=== PATIENT | female | born 1965 | race Caucasian/White ===

== ENCOUNTER 2022-10-03 12:37 | Outpatient (CLI) | payer BC, SELFPAY | END 2022-10-03 12:38 | disposition home or self-care (01) | LOC: NFLDREF 10-10 14:45 | PROVIDERS: PCP Family Medicine; Visit Provider Student in an Organized Health Care Education/Training Program | DX: R31.9 Hematuria, unspecified (principal); N39.0 Urinary tract infection, site not specified | CPT/HCPCS: 87086 ==

== ENCOUNTER 2025-02-26 10:07 | Outpatient (CLI) | payer OTHER, SELFPAY ==
--- NOTE | 2025-02-26 11:34 | P.ANES_ITS ---
Anesthesia Charges Start Date/Time Anesthesia Start Date: 02/26/25 Anesthesia Start Time: 11:08 Stop Date/Time Anesthesia Stop Date: 02/26/25 Anesthesia Stop Time: 11:32 Coding CPT Codes CPT Codes: ARNULFO LWAmbrose INTST NDSC NOS - 88521 ([id number]) P2 - PATIENT W/MILD SYST DISEASE, QX - PUBLISHING DIRECTOR SVC W/ MD MED DIRECTION, QK - PROCESS CONTROL TECHNICIAN 2-4 CNCRNT ANEFlower PROC
--- NOTE | 2025-02-26 11:34 | W.ANESCHARGE ---
Anesthesia Charges Start Date/Time Anesthesia Start Date: 02/26/25 Anesthesia Start Time: 11:08 Stop Date/Time Anesthesia Stop Date: 02/26/25 Anesthesia Stop Time: 11:32 Coding CPT Codes CPT Codes: ARNULFO LWAmbrose INTST NDSC NOS - 85442 ([id number]) P2 - PATIENT W/MILD SYST DISEASE, QX - TOOL SMITH SVC W/ MD MED DIRECTION, QK - MACHINE WASHER 2-4 CNCRNT ANEFlower PROC
--- NOTE | 2025-02-26 12:59 | P.ANES_ITS ---
Anesthesia Charges Start Date/Time Anesthesia Start Date: 02/26/25 Anesthesia Start Time: 11:08 Stop Date/Time Anesthesia Stop Date: 02/26/25 Anesthesia Stop Time: 11:32 Coding CPT Codes CPT Codes: ARNULFO LWR INTST NDSC NOS - 93778 ([id number]) P2 - PATIENT W/MILD SYST DISEASE, QK - DIRECTOR OF TEENAGE ACTIVITIES 2-4 CNCRNT ANES PROC, QX - FICTION AND NONFICTION WRITER PROSE SVC W/ MD MED DIRECTION
--- NOTE | 2025-02-26 12:59 | W.ANESCHARGE ---
Anesthesia Charges Start Date/Time Anesthesia Start Date: 02/26/25 Anesthesia Start Time: 11:08 Stop Date/Time Anesthesia Stop Date: 02/26/25 Anesthesia Stop Time: 11:32 Coding CPT Codes CPT Codes: ARNULFO LWR INTST NDSC NOS - 39064 ([id number]) P2 - PATIENT W/MILD SYST DISEASE, QK - CHIP TESTER 2-4 CNCRNT ANES PROC, QX - ART PROFESSOR SVC W/ MD MED DIRECTION
== END 2025-02-26 10:08 | disposition home or self-care (01) ==
PROVIDERS: PCP Family Medicine; Visit Provider Internal Medicine Gastroenterology
DX: Z12.11 Encounter for screening for malignant neoplasm of colon (principal); D12.3 Benign neoplasm of transverse colon; Z86.0101 Personal history of adenomatous and serrated colon polyps
CPT/HCPCS: 00811; 45385; 88305; J2704

== ENCOUNTER 2025-09-30 22:47 | Emergency (ER) | payer OTHER, SELFPAY ==
--- OUTSIDE RECORDS SUMMARY | 2025-09-30 22:50 | XMS_ITS | Patient Health Record ---
Author Organization [facility] Address [address] [place] [address] Care Team Providers Care Mechanical Project Engineer Name Role Phone Catalina Acosta Primary Care Provider HUBER Russell Unavailable [phone] Reason For Referral No Information Medications Medication SIG (Take, Route, Fr equency, Duration) Notes Start Date End Date Status CeleXA Active Aspirin Active metFORMIN HCl Active glipiZIDE Not-Taking Rhinocort Aqua Activ e Saline Nasal Kopperl A ctive Simvastatin Active Maxair Autohaler Act matthew Problems Problem Type SNOMED Code ICD Code Onset Dates Problem Status W/U Status Risk Notes Problem Allergic rhinitis (30905346) Allergic rhinitis (J30.9) Active confirmed Problem Tobacco abuse (0605601756) Tobacco abuse (Z72.0) Active confirmed Plan Of Treatment No Information Insurance Providers Payer Name Payer Address Payer Phone Subscriber Number Group Number Insured Name Patient Relationship to Insured Coverage Start Date Coverage End Date [facility] [address] [place], [place] [id number] Self - patient is the insured Medical (General) History Medical History History ICD Code diabetes hypercholesterolemia allergies and asthma Allergic rhinitis, cause unspecified Tobacco abuse Surgical History Surgery Date(Month/Year) tonsils and adenoids septoplasty with turbinate surgery May 2013
[2025-09-30 22:57] VITALS: BP 172/97; PULSE 105; RESP 16; TEMP 36.6; O2SAT 92; BMI 25.7
[2025-09-30 23:15] LABS: Appearance Urine Cloudy (Clear)
--- NOTE | 2025-09-30 23:21 | ED.GENADULT ---
HPI - General Adult General Time Seen by Provider: 23:21 Date Seen: 09/30/25 Chief complaint: Flank Pain Stated complaint: back, L side pain Time Seen by Provider: 09/30/25 23:20 Source: patient and family (daughter) Mode of arrival: ambulatory History of Present Illness HPI narrative: Ct is a 60 yo female who has a past medical history of diabetes, irritable bowel syndrome, who presents to the emergency department for evaluation of left flank pain. Patient complains of sudden onset of severe pain in her left flank that radiates down into her left lower abdomen/groin region. Patient reports pain worsening throughout the evening associated with multiple episodes of nausea, vomiting. Patient denies any fever, chills, chest pain, shortness of breath. Denies any dysuria. Patient reports a small amount of hematuria earlier this evening. No medications prior to arrival. Patient reports history of cholecystectomy, hysterectomy in the past. Related Data Home Medications ?Medication ?Instructions ?Recorded ?Confirmed albuterol sulfate 90 mcg/actuation g inhalation 10/03/22 10/03/22 aerosol inhaler atorvastatin 20 mg tablet 20 mg PO QDAY 10/03/22 10/03/22 citalopram 40 mg tablet 40 mg PO QDAY 10/03/22 10/03/22 fluticasone propionate 50 g intranasal 10/03/22 10/03/22 mcg/actuation nasal spray,suspension metformin 500 mg tablet 1,000 mg PO BID 10/03/22 10/03/22 Allergies Allergy/AdvReac Type Severity Reaction Status Date / Time No Known Drug Allergies Allergy Verified 09/30/25 23:00 Review of Systems Narrative: Past medical history, past surgical history, medications, allergies, family history, and social history were reviewed with the patient. No additional pertinent items. A medically appropriate review of systems was performed with pertinent positives and negatives noted in HPI, all other systems negative. [facility] Medical History Health care directive on file ?Z78.9 - Other specified health status (ICD-10) Social History Smoking Status: Never smoker Exam Narrative: Exam Narrative: General: Afebrile, in distress secondary to pain HEENT: Normocephalic, atraumatic, conjunctiva normal. MMM Neck: non-tender, supple Cardio: regular rate. regular rhythm Resp: Normal work of breathing, no respiratory distress, lungs clear bilaterally, no wheezing, rhonchi, rales Chest/Back: no visual signs of trauma, no midline tenderness, + left flank tenderness to palpation Abdomen: soft, non distension, no tenderness to palpation however patient reports tenderness in her left lower abdomen/groin area, no peritoneal signs Neuro: alert and fully oriented. CN II-XII grossly intact. Grossly normal strength and sensation in all extremities. MSK: no deformities. Normal range of motion Integumentary/Skin: no rash visualized, normal color Psych: normal affect, normal behavior Const: Vital Signs, click to edit/add: Vital Signs - 24 hr 09/30/25 22:57 Temperature 97.9 F Pulse Rate [Right Pulse Oximeter] 105 H Respiratory Rate 16 Blood Pressure [Ri ght Upper Arm] 172/97 H Pulse Oximetry 92 Oxygen Delivery Me thod Room Air Course Vital Signs Vital signs: Initial Vital Signs Temperature 97.9 F 09/30/25 22:57 Temperature Source Temporal Artery Scan 09/30/25 22:57 Pulse Rate 105 H 09/30/25 22:57 Pulse Rhythm Regular 09/30/25 22:57 Pulse Strength 3+ Normal 09/30/25 22:57 Respiratory Rate 16 09/30/25 22:57 Blood Pressure 172/97 H 09/30/25 22:57 Blood Pressure Mean 122 H 09/30/25 22:57 Blood Pressure Position Sitting 09/30/25 22:57 Pulse Oximetry 92 09/30/25 22:57 Oxygen Delivery Method Room Air 09/30/25 22:57 Vital Signs Temperature 97.9 F 09/30/25 22:57 Pulse Rate 105 H 09/30/25 22:57 Respiratory Rate 16 09/30/25 22:57 Blood Pressure 172/97 H 09/30/25 22:57 Pulse Oximetry 92 09/30/25 22:57 Oxygen Delivery Method Room Air 09/30/25 22:57 Temperature 97.9 F 09/30/25 22:57 Pulse Rate 105 H 09/30/25 22:57 Respiratory Rate 16 09/30/25 22:57 Blood Pressure 172/97 H 09/30/25 22:57 Pulse Oximetry 92 09/30/25 22:57 Oxygen Delivery Method Room Air 09/30/25 22:57 Medications Administered Medications: Generic Name Dose Route Start Last Admin Trade Name Anabella PRN Reason Stop Dose Admin Sodium Chloride 1,000 mls @ 125 mls/hr 10/01/25 01:45 10/01/25 01:52 0.9 % Sodium Chloride 1000 Ml IV 125 mls/hr .Q8H RODNEY Administration Discontinued Medications Generic Name Dose Route Start Last Admin Trade Name Anabella PRN Reason Stop Dose Admin Hydromorphone HCl 0.5 mg 10/01/25 01:27 10/01/25 01:50 Hydromorphone 0.5 Mg/0.5 Ml Inj IVP 10/01/25 01:28 0.5 mg ONCE ONE Administration Sodium Chloride 1,000 mls @ 1,000 mls/hr 09/30/25 23:45 10/01/25 01:26 0.9 % Sodium Chloride 1000 Ml IV 10/01/25 00:44 Infused .Q1H RODNEY Infusion Ceftriaxone Sodium 1 gm/ 100 mls @ 200 mls/hr 10/01/25 00:26 10/01/25 01:26 Sodium Chloride IVPB 10/01/25 00:27 Infused ONCE ONE Infusion Ketorolac Tromethamine 15 mg 09/30/25 23:34 09/30/25 23:48 Ketorolac 15 Mg/Ml Inj IVP 09/30/25 23:35 15 mg ONCE ONE Administration Ondansetron HCl 4 mg 09/30/25 23:34 09/30/25 23:48 Ondansetron 2 Mg/Ml Inj IVP 09/30/25 23:35 4 mg ONCE ONE Administration Medical Decision Making [facility] Narrative Medical decision making narrative: Ct is a 60 yo female who has a past medical history of diabetes, irritable bowel syndrome, who presents to the emergency department for evaluation of left flank pain. Upon arrival patient is ill but nontoxic appearing, afebrile, in distress secondary to pain. Patient hypertensive upon arrival with a blood pressure of 172/97, heart rate 105, respirations 16, oxygen 92% on room air. Differential diagnosis includes but is not limited to cystitis versus pyelonephritis versus nephrolithiasis versus diverticulitis versus colitis versus musculoskeletal among others. Upon arrival comprehensive labs, CT imaging, urinalysis performed. Patient was treated with IV Zofran, Toradol, and 1 L IV fluid bolus. Comprehensive labs remarkable for leukocytosis with white blood cell count of 20.8, hemoglobin 14.1, platelets 411, potassium slightly low at 3.2 which was replaced in the emergency department, no other acute metabolic electrolyte abnormality, creatinine 0.6, no transaminitis. Urinalysis with cloudy appearance, positive nitrates, trace leukocyte esterase, greater than 100 rbc's, 25-50 wbc's, moderate amount of bacteria. I personally reviewed interpreted CT scan of the abdomen pelvis which demonstrates 5 mm stone at the left utero pelvic junction causing mild left renal pelvicaliectasis and perinephric edema. I discussed results with patient and family, given urinary symptoms, leukocytosis, urinalysis, and CT findings concern for possible infected stone. Patient was treated with a dose of ceftriaxone, additional pain medication IV Dilaudid, was placed on maintenance IV fluids, and made NPO. I discussed patient management with hospitalist at [facility] regarding hospitalizations/admission for ongoing care - IV antibiotics, pain control, Urology consultation (possible stent). Patient accepted by Dr. Dunaway. Patient and family understand and agree with the plan. Medical Records Medical records reviewed: Yes I reviewed the patient's medical records Lab Data Lab results reviewed: Yes I reviewed the patient's lab results Labs: Lab Results 09/30/25 09/30/25 Range/Units 23:05 23:40 WBC 20.85 H (4.50-11.00) K/uL RBC 4.69 (4.00-5.20) m/uL Hgb 14.1 (12.0-16.0) gm/dL Hct 42.7 (33.0-51.0) % MCV 91 (80-100) fL MCH 30 (26-34) pg MCHC 33 (32-36) gm/dL RDW Coeff of [place] 12.6 (11.5-15.5) % Plt Count 411 (140-440) K/uL Neut % (Auto) 82.4 H (42.0-72.0) % Lymph % (Auto) 9.3 L (20-44) % [place] % (Auto) 6.3 (0.0-11.0) % Eos % (Auto) 0.6 (0.0-7.0) % Baso % (Auto) 0.2 (0.0-3.0) % Neut # (Auto) 17.20 H (1.7-7.0) K/uL Lymph # (Auto) 1.90 (0.90-2.90) K/uL [place] # (Auto) 1.30 H (0.00-0.90) K/UL Eos # (Auto) 0.10 (0.00-0.50) K/uL Baso # (Auto) 0.00 (0.00-0.30) K/uL Abs Immat Gran (auto) 0.30 (0.00-0.30) K/uL Imm/Tot Granulo (auto) 1.2 % Sodium 135 (135-149) mmol/L Potassium 3.2 L (3.6-5.1) mmol/L Chloride 100 (96-114) mmol/L Carbon Dioxide 27 (20-32) mmol/L Anion Gap 8 (7-15) mEq/L BUN 15 (7-30) mg/dL Creatinine 0.6 (0.5-1.5) mg/dL Estimated Creat Clear 44.58 Estimated GFR 102 ml/min Glucose 175 H (60-115) mg/dL Calcium 9.1 (8.4-10.6) mg/dL Total Bilirubin 0.4 (0.1-1.5) mg/dL AST 26 (12-35) U/L ALT 22 (4-35) U/L Alkaline Phosphatase 100 (40-150) U/L Total Protein 6.9 (6.0-8.3) g/dL Albumin 4.3 (3.3-5.0) g/dL Urine Color Yellow (Yellow) Urine Appearance Cloudy A (Clear) Urine pH 6.0 (5.0-8.5) Ur Specific [place] 1.025 (1.000-1.030) Urine Protein 2+ A (Negative) Urine Glucose (UA) Negative (Negative) Urine Ketones 1+ A (Negative) Urine Blood 3+ A (Negative) Urine Nitrite Positive A (Negative) Urine Bilirubin 1+ A (Negative) Urine Urobilinogen 1.0 (0.2-1.0) Ur Leukocyte Esterase Trace A (Negative) Urine RBC >100 A (0-2) Urine WBC 25-50 A (0-5) Ur Squamous Epith Cells Moderate A (None-Few) Amorphous Sediment Moderate A (None) Urine Bacteria Moderate A (None) Imaging Data CT scan - abdomen: Attestation: I have reviewed the pertinent imaging results. Radiologist's impression: INDICATION: Left flank pain TECHNIQUE: CT Abdomen and pelvis without i.v. contrast. Coronal and sagittal reformats were obtained. COMPARISON: None FINDINGS: Lower chest: Unremarkable. There a soft tissue nodule measuring 1.2 cm along the inferior left breast. Liver: Unremarkable. Spleen: Unremarkable. Pancreas: Unremarkable. Gallbladder: Previous cholecystectomy noted with no significant intra- or extrahepatic biliary ductal dilatation seen. Kidney: There is a 5 mm stone at the left ureteropelvic junction (UPJ) causing mild left renal pelvicaliectasis and perinephric edema. Adrenal: Unremarkable. Bowel: The stomach, small bowel, and colon are unremarkable. The appendix is normal in appearance and size. Vascular: Unremarkable. Lymph: Unremarkable. Peritoneum: Unremarkable. No pneumoperitoneum is seen. No significant ascites is noted. Pelvis: The patient is status post hysterectomy. Soft tissue: Unremarkable. Bone: Unremarkable for age. IMPRESSIONS: 1. There is a 5 mm stone at the left ureteropelvic junction (UPJ) causing mild left renal pelvicaliectasis and perinephric edema. 2. There a soft tissue nodule measuring 1.2 cm along the inferior left breast. Correlation with diagnostic mammogram or ultrasound is recommended. Dictated by Jefe Yates MD @ 10/01/2025 12:14:30 AM Please note that all CT scans at this facility use dose modulation, iterative reconstruction, and/or weight-based dosing when appropriate to reduce radiation dose to as low as reasonably achievable. Discharge Plan Discharge Clinical Impression: Ureterolithiasis, Pyelonephritis, Flank pain, left side Patient Disposition: Xfer Other Condition: Stable Prescriptions: No Action citalopram 40 mg tablet 40 mg PO QDAY Patient Comments: TAKE ONE TABLET BY MOUTH EVERY DAY atorvastatin 20 mg tablet 20 mg PO QDAY Patient Comments: TAKE ONE TABLET BY MOUTH EVERY EVENING WITH FOOD metformin 500 mg tablet 1,000 mg PO BID Patient Comments: TAKE TWO TABLETS BY MOUTH TWICE A DAY WITH MEALS fluticasone propionate 50 mcg/actuation spray,suspension intranasal Patient Comments: USE 1 SPRAY(S) IN EACH NOSTRIL ONCE DAILY albuterol sulfate 90 mcg/actuation HFA aerosol inhaler inhalation Patient Comments: INHALE 2 PUFFS BY MOUTH EVERY 4 HOURS NEEDED FOR SHORTNESS OF BREATH OR WHEEZING (1ST CHOICE) Stand Alone Forms: [facility] Info Instructions
--- NOTE | 2025-09-30 23:29 | CRLHL7_ITS ---
For Patients: As a result of the Century Cures Act, medical imaging exams and procedure reports are released immediately into your electronic medical record. You may view this report before your referring provider. If you have questions, please contact your health care provider. INDICATION: Left flank pain TECHNIQUE: CT Abdomen and pelvis without i.v. contrast. Coronal and sagittal reformats were obtained. COMPARISON: None FINDINGS: Lower chest: Unremarkable. There a soft tissue nodule measuring 1.2 cm along the inferior left breast. Liver: Unremarkable. Spleen: Unremarkable. Pancreas: Unremarkable. Gallbladder: Previous cholecystectomy noted with no significant intra- or extrahepatic biliary ductal dilatation seen. Kidney: There is a 5 mm stone at the left ureteropelvic junction (UPJ) causing mild left renal pelvicaliectasis and perinephric edema. Adrenal: Unremarkable. Bowel: The stomach, small bowel, and colon are unremarkable. The appendix is normal in appearance and size. Vascular: Unremarkable. Lymph: Unremarkable. Peritoneum: Unremarkable. No pneumoperitoneum is seen. No significant ascites is noted. Pelvis: The patient is status post hysterectomy. Soft tissue: Unremarkable. Bone: Unremarkable for age. IMPRESSIONS: 1. There is a 5 mm stone at the left ureteropelvic junction (UPJ) causing mild left renal pelvicaliectasis and perinephric edema. 2. There a soft tissue nodule measuring 1.2 cm along the inferior left breast. Correlation with diagnostic mammogram or ultrasound is recommended. Dictated by Jefe Yates MD @ 10/01/2025 12:14:30 AM Please note that all CT scans at this facility use dose modulation, iterative reconstruction, and/or weight-based dosing when appropriate to reduce radiation dose to as low as reasonably achievable. Dictated by: Jefe Yates MD @ 10/01/2025 00:18:46 (Electronically Signed)
[2025-09-30] MEDS: ONDANSETRON 2 MG/ML inj 4 MG IVP (23:48)
[2025-09-30 23:51] LABS: Hematocrit* 42.7 % (33.0-51.0); Hemoglobin* 14.1 gm/dL (12.0-16.0); Immature Granulocytes Pct Auto 1.2 %; Mean Corpuscular HGB Conc 33 gm/dL (32-36); Mean Corpuscular Hemoglobin 30 pg (26-34); Mean Corpuscular Volume 91 fL (80-100); RDW Coefficient of Variation % 12.6 % (11.5-15.5); Red Blood Count* 4.69 m/uL (4.00-5.20); White Blood Count* 20.85 K/uL (4.50-11.00)
[2025-09-30 23:54] LABS: Immature Granulocytes Abs Auto 0.30 K/uL (0.00-0.30); Lymphocytes Absolute Auto 1.90 K/uL (0.90-2.90); Slide Review Reflex No
[2025-10-01 00:01] LABS: Albumin* 4.3 g/dL (3.3-5.0); Chloride* 100 mmol/L (96-114)
[2025-10-01 00:02] LABS: Sodium* 135 mmol/L (135-149)
[2025-10-01 00:04] LABS: Blood Urea Nitrogen* 15 mg/dL (7-30); Creatinine* 0.6 mg/dL (0.5-1.5); Est. Creatinine Clearance* 44.58; Estimated Glomerular Filt Rate 102 ml/min
[2025-10-01 00:05] LABS: Alanine Aminotransferase* 22 U/L (4-35); Alkaline Phosphatase* 100 U/L (40-150); Anion Gap 8 mEq/L (7-15); Aspartate Amino Transferase* 26 U/L (12-35); Bilirubin Total* 0.4 mg/dL (0.1-1.5); Calcium* 9.1 mg/dL (8.4-10.6); Carbon Dioxide* 27 mmol/L (20-32); Glucose* 175 mg/dL (60-115); Total Protein* 6.9 g/dL (6.0-8.3)
[2025-10-01 00:06] LABS: Potassium* 3.2 mmol/L (3.6-5.1)
[2025-10-01] MEDS: cefTRIAXone 1 GM in 0.9 % SODIUM CHLORIDE Mini-bag 100 ML IVPB (01:03)
[2025-10-01 02:10] VITALS: BP 162/80; PULSE 82; RESP 16; TEMP 36.7; O2SAT 95
[2025-10-01 02:24] VITALS: BP 125/64; PULSE 112; RESP 16; O2SAT 94
--- NOTE | 2025-10-01 02:30 | ED.NURSE ---
Report given to Abbie JOHNSON at [facility], EMS is present and ready to transfer pt to [facility] at this time as well. Pt has no further questions or complaints for this nurse.
--- NOTE | 2025-10-01 02:31 | ED.NURSE ---
Pt's daughter provided with pt room number at [facility] and phone number to call. Daughter is going home and will visit mom in the morning at [facility].
== END 2025-10-01 02:34 | disposition other institution (70) ==
PROVIDERS: Emergency Provider Emergency Medicine; PCP Family Medicine
DX: N20.1 Calculus of ureter (principal); R10.A2 Flank pain, left side; E11.9 Type 2 diabetes mellitus without complications; K58.9 Irritable bowel syndrome, unspecified; Z79.84 Long term (current) use of oral hypoglycemic drugs
CPT/HCPCS: 36415; 74176; 80053; 81001; 85025; 87086; 96361; 96365; 96375; 99285; J0696; J1171; J1885; J2405; J7030

== ENCOUNTER 2025-10-01 02:27 | Outpatient (CLI) | payer OTHER, SELFPAY | END 2025-10-01 02:28 | disposition home or self-care (01) | LOC: AMB 10-06 15:20 | PROVIDERS: PCP Family Medicine; Visit Provider Emergency Medicine | DX: N20.1 Calculus of ureter (principal); N12 Tubulo-interstitial nephritis, not specified as acute or chronic | CPT/HCPCS: A0425; A0429 ==

== ENCOUNTER 2025-11-05 10:21 | Emergency (ER) | payer OTHER, SELFPAY ==
--- OUTSIDE RECORDS SUMMARY | 2025-09-30 | XMS_ITS | Encounter Summary ---
Author Organization [facility] Address [address] [place] [address]. [place] [address] Care Team Providers Care Medical Typist Name Role Phone Sydnie, Fara Julian Primary Care Provider Encounter Details DateTypeDepartmentCare Team (Latest Contact Info)Vzkfyehxdac60/18/2025ncillary Procedure [facility] External Imaging [address] [place] [phone] Non-Fv Credentialed Provider, Radiology Social History Tobacco UseTypesPacks/DayYears UsedDateSmoking Tobacco: Every DayCigarettes0.58 Smokeless Tobacco: NeverAlcohol UseStandard Drinks/WeekCommentsYes0 (1 standard drink = 0.6 oz pure alcohol)1 monthlyFood InsecurityAnswerDate RecordedWithin the past 12 months, did you worry that your food would run out before you got money to buy more?No10/01/2025Within the past 12 months, did the food you bought just not last and you didn???t have money to getmore?No10/01/2025Housing StabilityAnswerDate RecordedDo you have housing? (Housing is defined as stable permanent housing and does not include staying outside in a car, in a tent, in an abandoned building, in an overnight detention, or couch-surfing.)Yes10/01/2025 Are you worried about losing your housing?No10/01/2025Financial Resource Strain AnswerDate RecordedWithin the past 12 months, have you or your family members you live with been unable to get utilities (heat, electricity) when it was really needed?No10/01/2025Transportation NeedsAnswerDate RecordedWithin the past 12 months, has lack of transportation kept you from medical appointments, getting your medicines, non-medical meetings or appointments, work, or from getting things that you need?No10/01/2025Interpersonal SafetyAnswerDate Recorded Do you feel physically and emotionally safe where you currently live?Yes 10/01/2025Within the past 12 months, have you been hit, slapped, kicked or otherwise physically hurt by someone?No10/01/2025Within the past 12 months, have you been humiliated or emotionally abused in other ways by your partner or ex-partner?No10/01/2025CommentsNoSex and Gender InformationValueDate RecordedSex Assigned at BirthNot on fileLegal OexMrqzts53/10/2013 2:18 PM CDT Gender IdentityNot on fileSexual OrientationNot on filedocumented as of this encounter Plan of Treatment Not on file documented as of this encounter Procedures Procedure NamePriorityDate/TimeAssociated DiagnosisCommentsCT EXTERNAL IMAGING QYIWPPPKpimbrq43/18/2025 12:00 AM POTATO BUCKER documented in this encounter Results * CT External Imaging Abdomen (09/30/2025 12:00 AM POTATO BUCKER)Specimen (Source) Anatomical Location / LateralityCollection Method / VolumeCollection Time Received Time Narrative Service Account, Ob Gilda - 10/01/2025 8:51 AM POTATO BUCKER Images were obtained from an external facility. Click PACS Images hyperlink to view images. ??Textual results have been scanned into the media tab. Authorizing ProviderResult TypeResult StatusRadiology Non-Fv Credentialed ProviderIMG EXTERNAL IMAGING ORDERABLESFinal Result documented in this encounter Visit Diagnoses Not on filedocumented in this encounter Care Teams Team MemberRelationshipSpecialtyStart DateEnd [address] [address] PCP - General05/22/13documented as of this encounter
--- OUTSIDE RECORDS SUMMARY | 2025-10-01 03:12 | XMS_ITS | Encounter Summary ---
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 Name Role Phone Clinic, [facility] Primary Care Provider Reason for Visit * Auth/CertSpecialtyDiagnoses / ProceduresReferred By ContactReferred To Contact Med Surg Diagnoses Infected stone, UTI Kory Dunaway MD [address] [place] [address] Phone: tel: fax: [place] [phone] [facility] [address] [place] [address] Phone: tel: fax: Referral IDStatusReasonStart DateExpiration DateVisits RequestedVisits [id number] Encounter Details DateTypeDepartmentCare Team (Latest Contact Info)Imeudzlvrho93/19/2025 3:12 AM 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 - 10/03/2025 1:50 PM CSTHospital Encounter [place] [phone] [facility] [address] [place] [address] Kory Dunaway MD [address] [place], [place] [id number] Acute pyelonephritis (Primary Dx) Discharge Disposition: Left Against Medical Advice Social History Tobacco UseTypesPacks/DayYears UsedDateSmoking Tobacco: Every DayCigarettes0.88 Smokeless Tobacco: Never Tobacco Cessation:Ready to Q uit: Not Asked; Counseling Given: Not Answered Alcohol UseStandard Drinks/WeekCommentsYes0 (1 standard drink = 0.6 oz pure alcohol)1 monthlyFood InsecurityAnswerDate RecordedWithin the past 12 months, did you worry that your food would run out before you got money to buy more?No 10/01/2025Within the past 12 months, did the food you bought just not last and you didn???t have money to getmore?No10/01/2025Housing StabilityAnswerDate RecordedDo you have housing? (Housing is defined as stable permanent housing and does not include staying outside in a car, in a tent, in an abandoned building, in an overnight fci, or couch-surfing.)Yes10/01/2025re you worried about losing your housing?No10/01/2025Financial Resource StrainAnswerDate Recorded Within the past 12 months, have you or your family members you live with been unable to get utilities (heat, electricity) when it was really needed?No 10/01/2025Transportation NeedsAnswerDate RecordedWithin the past 12 months, has lack of transportation kept you from medical appointments, getting your medicines, non-medical meetings or appointments, work, or from getting things that you need?No10/01/2025Interpersonal SafetyAnswerDate RecordedDo you feel physically and emotionally safe where you currently live?Yes10/01/2025Within the past 12 months, have you been hit, slapped, kicked or otherwise physically hurt by someone?No10/01/2025Within the past 12 months, have you been humiliated or emotionally abused in other ways by your partner or ex-partner?No10/01/2025 CommentsNoSex and Gender InformationValueDate RecordedSex Assigned at BirthNot on fileLegal MrfNnulqv95/10/2013 2:18 PM CDTGender IdentityNot on file Sexual OrientationNot on filedocumented as of this encounter Last Filed Vital Signs Vital SignReadingTime TakenCommentsBlood Gvkbnukt903/80112/03/2024 11:30 AM 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 Ltfdy1762 11:30 AM NRQNrukbazntog59.3 ??C (99.2 ??F)10/03/2025 11:30 AM CSTRespiratory Jjge1419 11:30 AM CSTOxygen Lisrzibqyl59%10/03/2025 11:30 AM CSTInhaled Oxygen Concentration--Agsahf55.4 kg (142 lb)10/01/2025 3:53 AM 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 Smedgg050.2 cm (5' 1.5)10/01/2025 3:53 AM CSTBody Mass Index26. 3:53 AM CSTdocumented in this encounter Discharge Summaries * Mehnaz Pacheco MD - 10/03/2025 12:35 PM CST Discharge Summary Hospitalist Service [facility] Date of : 1965 Age: [age] year old Date of Admission: 10/01/2025 Date of Discharge: 10/03/2025 Admitting Physician: Kory Dunaway MD Discharge Physician: Mehnaz Pacheco MD Discharging Service: Hospitalist Service Primary Provider: Fara Otoole [place] Primary Care Physician Discharge Diagnoses/Problem Oriented Hospital Course (Providers): Discharge Diagnoses #Sepsis secondary to complicated E coli UTI, pyelonephritis secondary to L nephrolithiasis: #Hypokalemia. Hypomagnesemia #Incidental finding left breast nodule #Type II DM #JONO Hospital Course [facility] is a 60 year old female with PMH including type II DM, GERD, HLD, tobacco dependence, JONO not on CPAP, nephrolithiasis who presented to [place] emergency department for left flank pain. #Sepsis secondary to complicated E coli UTI, pyelonephritis secondary to L nephrolithiasis: She developed severe left flank pain wrapping around to the left lower quadrant and suprapubic area. She also had subjective fevers and chills. She vomited once at home. Has had some recent irritation with urination. Denies diarrhea. Presented to [place] ER. Blood pressure was elevated, tachycardic at 105, temperature 97.9 ??F. WBC 21. CT abdomen pelvis showed a 5 mm left UPJ stone with mild left renal pelvicaliectasis and perinephric edema. UA showed 25-50 WBCs, >100 RBCs, trace LE, positive nitrite. Urine culture from [place] showing kruse-sensitive E coli per ID lab at [place] on 10/02. Will discharge on oral Augmentin for 9 more days. Patient leaving AMA as she still has low grade temperatures. -She received 1 g IV ceftriaxone, 1 L NS, IV Zofran, 15 mg IV Toradol, and 0.5 mg IV Dilaudid at outside facility. Transferred here for urology consultation. -Urology consulted. Underwent cystoscopy with stent placement on 10/02. -Continue ceftriaxone therapy. - prn pain meds, antiemetics. #Hypokalemia. Hypomagnesemia: Replacement #Incidental finding left breast nodule: CT of the abdomen pelvis showed a 1.2 cm soft tissue nodulein the left inferior breast. - Was discussed with patient on 10/02. She needs to follow up with her PCP regarding this. - She did have a mammogram 4 months ago in May that showed scattered areas of fibroglandular density. Recommend she follow-up with her primary care provider for further advice. 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 Glucose 175 at outside facility. -Hold metformin -Medium dose sliding scale aspart every 4 hours while NPO #JONO: Does not use CPAP. Code Status: Full Code Important Results: Pending Results: Unresulted Labs Ordered in the Past 30 Days of this Admission No orders found from 09/01/2025 to 10/02/2025. Discharge Instructions and Follow-Up: Follow-up Appointments Hospital Follow-up with Existing Primary Care Provider (PCP) Schedule Primary Care visit within: 30 Days Discharge Disposition: Discharged to home Discharge Medications: Current Discharge Medication List START taking these medications Details amoxicillin-clavulanate (AUGMENTIN) 875-125 MG tablet Take 1 tablet by mouth 2 times daily for 9 days. Qty: 18 tablet, Refills: 0 Associated Diagnoses: Acute pyelonephritis CONTINUE these medications which have NOT CHANGED Details albuterol (PROAIR HFA/PROVENTIL HFA/VENTOLIN HFA) 108 (90 Base) MCG/ACT inhaler Inhale 2 puffs intothe lungs every 4 hours as needed for shortness of breath or wheezing. aspirin 81 MG EC tablet Take 81 mg by mouth daily. atorvastatin (LIPITOR) 20 MG tablet Take 20 mg by mouth at bedtime. escitalopram (LEXAPRO) 20 MG tablet Take 20 mg by mouth at bedtime. fluticasone (FLONASE) 50 MCG/ACT nasal spray Irmo 2 sprays into both nostrils daily as needed. metFORMIN (GLUCOPHAGE) 500 MG tablet Take 1,000 mg by mouth 2 times daily (with meals). multivitamin w/minerals (THERA-VIT-M) tablet Take 1 tablet by mouth daily. omeprazole (PRILOSEC) [address] capsule Take 40 mg by mouth daily as needed. Allergies: Allergies[1] Consultations This Hospital Stay: Consultation during this admission received from urology Condition and Physical Exam on Discharge: Discharge condition: Stable Discharge vitals: Blood pressure 131/80, pulse 86, temperature 99.2 ??F (37.3 ??C), temperature source Oral, resp. rate 16, height 1.562 m (5' 1.5), weight 64.4 kg (142 lb), SpO2 96%. General: Pt in NAD, normal appearance HEENT: OP clear MMM, no JVD Lungs: Clear to Auscultation Bilateral, normal breathing without accessory muscle usage, no wheezing, rhonchi or crackles Cardiac: +S1, S2, RRR, no MRG, no edema Abdominal: normal bowel sounds, NT/ND, no hepatosplenomegaly Skin: warm, dry, normal turgor, no rash Psyche: A& O x3, appropriate affect Discharge Orders for Skilled Facility (from Discharge Orders): After Care Instructions Activity Your activity upon discharge: activity as tolerated Diet Follow this diet upon discharge: Current Diet:Orders Placed This Encounter Regular Diet Adult Rehab orders for Skilled Facility (from Discharge Orders): Discharge Time: Greater than 30 minutes. Image Results From This Hospital Stay (For Non-[facility] Providers): Results for orders placed or performed during the hospital encounter of 10/01/25 XR Surgery SHAUNA Narrative This exam was marked as non-reportable because it will not be read by a radiologist or a [facility] non-radiologist provider. CT External Imaging Abdomen Narrative Images were obtained from an external facility. Click PACS Images hyperlink to view images. Textual results have been scanned into the media tab. Most Recent Lab Results In [facility] (For Non-[facility] Providers): Most Recent 3 CBC's: Recent Labs Lab Test 10/03/25 0622 10/02/25 0638 10/01/25 0404 WBC 12.54* 23.33* 17.09* HGB 11.0* 11.7 12.4 MCV 89.3 88.6 88.4 PLT 264 277 288 Most Recent 3 BMP's: Recent Labs Lab Test 10/03/25 0901 10/03/25 0622 10/03/25 0146 10/02/25 0730 10/02/25 0638 10/01/25 0418 10/01/25 0404 NA -- 138 -- -- 139 -- 136 POTASSIUM -- 3.6 -- -- 4.2 -- 3.7 CHLORIDE -- 106 -- -- 106 -- 101 CO2 -- 24 -- -- 25 -- 22 BUN -- 12.0 -- -- 16.8 -- 16.5 CR -- 0.59 -- -- 0.63 -- 0.78 ANIONGAP -- 8 -- -- 8 -- 13 ROGELIO -- 7.9* -- -- 8.0* -- 7.8* GLC 97 104* 111* < > 158* < > 170* < > = values in this interval not displayed. Most Recent 3 Troponin's:No lab results found. Most Recent 3 INR's:No lab results found. Most Recent 2 LFT's:No lab results found. Most Recent Cholesterol Panel:No lab results found. Most Recent 6 Bacteria Isolates From Any Culture (See EPIC Reports for Culture Details):No lab results found. 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 aspirin 81 MG EC tablet Take 81 mg by mouth daily. Will hold 7 days prior to surgery atorvastatin (LIPITOR) 20 MG tablet Take 20 mg by mouth at bedtime.10/28/2024 escitalopram (LEXAPRO) 20 MG tablet Take 20 mg by mouth at bedtime.10/28/2024 fluticasone (FLONASE) 50 MCG/ACT nasal spray Irmo 2 sprays into both nostrils daily as needed. metFORMIN (GLUCOPHAGE) 500 MG tablet Take 1,000 mg by mouth 2 times daily (with meals). Will hold DOS multivitamin w/minerals (THERA-VIT-M) tablet Take 1 tablet by mouth daily. Will hold 7 days prior to surgery omeprazole (PRILOSEC) [address] capsule Take 40 mg by mouth daily as needed.10/28/2024 amoxicillin-clavulanate (AUGMENTIN) 875-125 MG tablet Indications:Acute pyelonephritisTake 1 tablet by mouth 2 times daily for 9 days. 18 tablet documented as of this encounter Progress Notes * Mary Moss RN - 10/03/2025 1:50 PM CST Patient's After Visit Summary was reviewed with patient. Patient verbalized understanding of After Visit Summary, recommended follow up and was given an opportunity to ask questions. Discharge medications sent home with patient/family: She will be picking up her discharged medication on her way home. Discharged with daughter. 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 Left ureteral stent placement Acute pyelonephritis GERD HLD JONO Tobacco use DM 2 Plan: - Continue with indwelling ureteral stent. -Will need follow-up procedure in several weeks after treatment of infection to include cystoscopy,left ureteral stent exchange, left ureteroscopy laser lithotripsy and basketing. Orders have been placed, and our office will call to coordinate. -Possible side effects with an indwelling ureteral stent such as urgency and frequency of urination, dysuria, hematuria, symptoms of urine reflux, and some achiness in the side. Indwelling ureteral stents need to be exchanged every three months or removed by three months. -Continue with antibiotics. Patient will need 7 to 10 days of antibiotics to clear upper tract infection. Urine culture from [place] shows 70,000-80,000 CFU per mL of pansensitive E. coli. - Leukocytosis continuing to improve. Kidney function within normal limits. -Will hold off on adding on additional medication for stent discomfort, as patient is currently tolerating this well. -Additional pain and nausea management per primary service. - Okay to discharge from urology perspective. Discussed with medicine. Fever this morning of 100.4,their plan is to observe overnight. Once cleared by medicine, okay to discharge from allergy perspective. Will plan on signing off. Please contact us with any additional urological concerns. Ashtyn Easton PA-C [facility] Urology [phone] Interval History: Doing okay. Had Tmax of 100.4 this morning. Patient did not feel febrile and denies chills, nausea,or vomiting. Creatinine 0.59 eGFR greater than 90. WBC 12.54 (23.33 (17.01)). Slight dysuria with urination, but denies it being bad enough that she would want a medication for this. Urine culture from [facility] shows 70,000 80,000 CFU per mL of pansensitive E. coli. Review of Systems: The 5 point Review of Systems is negative other than noted in the HPI Medications: Current Facility-Administered Medications Ordered in Epic[1] Physical Exam: Vitals were reviewed Patient Vitals for the past 8 hrs: BP Temp Temp src Pulse Resp SpO2 10/03/25 1130 131/80 99.2 ??F (37.3 ??C) Oral 86 16 96 % 10/03/25 1007 -- 99.7 ??F (37.6 ??C) Oral -- -- -- 10/03/25 0845 -- -- -- 80 18 96 % 10/03/25 0736 (!) 158/92 100.4 ??F (38 ??C) Oral 82 18 94 % 10/03/25 0441 139/77 -- -- -- -- -- 10/03/25 0408 (!) 162/85 98.7 ??F (37.1 ??C) Oral 81 20 92 % GEN: NAD, lying in bed EYES: EOMI MOUTH: MMM NECK: Supple RESP: Unlabored breathing NEURO: AAO Data: No results found for: NTBNPI, NTBNP Lab Results Component Value Date WBC 12.54 (H) 10/03/2025 WBC 23.33 (H) 10/02/2025 WBC 17.09 (H) 10/01/2025 HGB 11.0 (L) 10/03/2025 HGB 11.7 10/02/2025 HGB 12.4 10/01/2025 HCT 32.5 (L) 10/03/2025 HCT 34.2 (L) 10/02/2025 HCT 35.7 10/01/2025 MCV 89.3 10/03/2025 MCV 88.6 10/02/2025 MCV 88.4 10/01/2025 PLT 264 10/03/2025 PLT 277 10/02/2025 PLT 288 10/01/2025 Urine culture 09/30/25: 70,000-80,000 CFU/mL of pansensitive E. coli [1] Current Facility-Administered Medications Medication Dose Route Frequency Provider Last Rate Last Admin acetaminophen (TYLENOL) tablet 650 mg 650 mg Oral Q4H PRN Kory Dunaway MD 650 mg at 10/03/25 1025 Or acetaminophen (TYLENOL) Suppository 650 mg 650 mg Rectal Q4H PRN Kory Dunaway MD calcium carbonate (TUMS) chewable tablet 1,000 mg 1,000 mg Oral 4x Daily PRN Kory Dunaway MD cefTRIAXone (ROCEPHIN) 2 g vial to attach to NS 100 ml bag for ADULTS or NS 50 ml bag for PEDS 2 g Intravenous Q24H Kory Dunaway MD 2 g at 10/02/25 203 glucose gel 15-30 g 15-30 g Oral Q15 Min PRN Kory Dunaway MD Or dextrose 50 % injection 25-50 mL 25-50 mL Intravenous Q15 Min PRN Kory Dunaway MD glucose gel 15-30 g 15-30 g Oral Q15 Min PRN Tony Vinson MD Or dextrose 50 % injection 25-50 mL 25-50 mL Intravenous Q15 Min PRN Tony Vinson MD Or glucagon injection 1 mg 1 mg Subcutaneous Q15 Min PRN Tony Vinson MD escitalopram (LEXAPRO) tablet 20 mg 20 mg Oral At Bedtime Kory Dunaway MD 20 mg at 10/02/25 2136 HYDROmorphone (PF) (DILAUDID) injection 0.3 mg 0.3 mg Intravenous Q2H PRN Kory Dunaway MD0.3 mg at 10/01/25 1047 HYDROmorphone (PF) (DILAUDID) injection 0.5 mg 0.5 mg Intravenous Q2H PRN Kory Dunaway MD insulin aspart (NovoLOG) injection (RAPID ACTING) 1-7 Units Subcutaneous TID AC Tony Vinson MD 1 Units at 10/02/25 1106 insulin aspart (NovoLOG) injection (RAPID ACTING) 1-5 Units Subcutaneous At Bedtime Tony Vinson MD iohexol (OMNIPAQUE) 300 mg/mL injection PRN Bradley Holguin MD 8.5 mL at 10/01/25 1613 lactated ringers infusion Intravenous Continuous GumeKory curtis MD 100 mL/hr at 10/03/25 0849 Rate Verify at 10/03/25 0849 lidocaine (LMX4) cream Topical Q1H PRN Kory Dunaway MD lidocaine 1 % 0.1-1 mL 0.1-1 mL Other Q1H PRN Kory Dunaway MD melatonin tablet 5 mg 5 mg Oral At Bedtime PRN Kory Dunaway MD [Held by provider] metFORMIN (GLUCOPHAGE) tablet 1,000 mg 1,000 mg Oral BID w/meals Kory Dunaway MD naloxone (NARCAN) injection 0.2 mg 0.2 mg Intravenous Q2 Min PRN Kory Dunaway MD Or naloxone (NARCAN) injection 0.4 mg 0.4 mg Intravenous Q2 Min PRN Kory Dunaway MD Or naloxone (NARCAN) injection 0.2 mg 0.2 mg Intramuscular Q2 Min PRN Kory Dunaway MD Or naloxone (NARCAN) injection 0.4 mg 0.4 mg Intramuscular Q2 Min PRN Kory Dunaway MD ondansetron (ZOFRAN ODT) ODT tab 4 mg 4 mg Oral Q6H PRN Kory Dunaway MD Or ondansetron (ZOFRAN) injection 4 mg 4 mg Intravenous Q6H PRN Kory Dunaway MD oxyCODONE (ROXICODONE) tablet 5 mg 5 mg Oral Q4H PRN Kory Dunaway MD oxyCODONE IR (ROXICODONE) tablet 10 mg 10 mg Oral Q4H PRN Kory Dunaway MD pantoprazole (PROTONIX) EC tablet 40 mg 40 mg Oral QAM AC Kory Dunaway MD 40 mg at 10/03/25 0634 polyethylene glycol (MIRALAX) Packet 17 g 17 g Oral BID PRN Kory Dunaway MD prochlorperazine (COMPAZINE) injection 10 mg 10 mg Intravenous Q6H PRN Kory Dunaway MD Or prochlorperazine (COMPAZINE) tablet 10 mg 10 mg Oral Q6H PRN Kory Dunaway MD senna-docusate (SENOKOT-S/PERICOLACE) 8.6-50 MG per tablet 1 tablet 1 tablet Oral BID PRN Kory Dunaway MD Or senna-docusate (SENOKOT-S/PERICOLACE) 8.6-50 MG per tablet 2 tablet 2 tablet Oral BID PRN Kory Dunaway MD sodium chloride (PF) 0.9% PF flush 3 mL 3 mL Intracatheter Q8H RODNEY Kory Dunaway MD 3 mL at 10/02/25 0626 sodium chloride (PF) 0.9% PF flush 3 mL 3 mL Intracatheter q1 min prn Kory Dunaway MD 3 mL at 10/02/25 203 sterile water irrigation (bag) PRN Bradley Holguin MD 30 mL at 10/01/25 1613 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 Left ureteral stent placement Acute pyelonephritis GERD HLD JONO Tobacco use DM 2 Plan: - Continue with indwelling ureteral stent. -Will need follow-up procedure in several weeks after treatment of infection to include cystoscopy,left ureteral stent exchange, left ureteroscopy laser lithotripsy and basketing. Orders have been placed, and our office will call to coordinate. -Possible side effects with an indwelling ureteral stent such as urgency and frequency of urination, dysuria, hematuria, symptoms of urine reflux, and some achiness in the side. Indwelling ureteral stents need to be exchanged every three months or removed by three months. - Okay to discontinue Junior catheter. Ensure patient can urinate after removal. -Continue with IV antibiotics. Will need to follow-up with [facility] regarding results. -Continue to monitor WBC. Suspect that this will start to improve tomorrow. Kidney function within normal limits. -Will hold off on adding on additional medication for stent discomfort, as patient is currently tolerating this well. -Additional pain and nausea management per primary service. -Will continue to follow along. Hopeful for discharge tomorrow. Ashtyn Easton PA-C [facility] Urology [phone] Interval History: Doing well. Denies fever, chills, nausea, or vomiting. No difficulties with stent at this time. Junior catheter in place draining clear peach urine. Patient continues on IV Rocephin. Urine culture is in process at outside facility. Worsening leukocytosis, WBC 23.33 (17.01). Patient is afebrile without tachycardia. Creatinine 0.63 GFR greater than 90. Review of Systems: The 5 point Review of Systems is negative other than noted in the HPI Medications: Current Facility-Administered Medications Ordered in [facility][1] Physical Exam: Vitals were reviewed Patient Vitals for the past 8 hrs: BP Temp Temp src Pulse Resp SpO2 10/02/25 1149 129/77 99.3 ??F (37.4 ??C) Oral 68 18 95 % 10/02/25 0735 126/74 98.6 ??F (37 ??C) Oral 71 18 95 % GEN: NAD, up to chair EYES: EOMI MOUTH: MMM NECK: Supple RESP: Unlabored breathing NEURO: AAO URO: Junior catheter in place draining clear peach urine. Data: No results found for: NTBNPI, NTBNP Lab Results Component Value Date WBC 23.33 (H) 10/02/2025 WBC 17.09 (H) 10/01/2025 HGB 11.7 10/02/2025 HGB 12.4 10/01/2025 HCT 34.2 (L) 10/02/2025 HCT 35.7 10/01/2025 MCV 88.6 10/02/2025 MCV 88.4 10/01/2025 PLT 277 10/02/2025 PLT 288 10/01/2025 All cultures: No results for input(s): CULTURE in the last 168 hours. [1] Current Facility-Administered Medications Medication Dose Route Frequency Provider Last Rate Last Admin acetaminophen (TYLENOL) tablet 650 mg 650 mg Oral Q4H PRN Kory Dunaway MD Or acetaminophen (TYLENOL) Suppository 650 mg 650 mg Rectal Q4H PRN Kory Dunaway MD calcium carbonate (TUMS) chewable tablet 1,000 mg 1,000 mg Oral 4x Daily PRN Kory Dunaway MD cefTRIAXone (ROCEPHIN) 2 g vial to attach to NS 100 ml bag for ADULTS or NS 50 ml bag for PEDS 2 g Intravenous Q24H Kory Dunaway MD 2 g at 10/01/252013 glucose gel 15-30 g 15-30 g Oral Q15 Min PRN Kory Dunaway MD Or dextrose 50 % injection 25-50 mL 25-50 mL Intravenous Q15 Min PRN Kory Dunaway MD glucose gel 15-30 g 15-30 g Oral Q15 Min PRN Tony Vinson MD Or dextrose 50 % injection 25-50 mL 25-50 mL Intravenous Q15 Min PRN Tony Vinson MD Or glucagon injection 1 mg 1 mg Subcutaneous Q15 Min PRN Tony Vinson MD escitalopram (LEXAPRO) tablet 20 mg 20 mg Oral At Bedtime Kory Dunaway MD 20 mg at 11/19/25 2145 HYDROmorphone (PF) (DILAUDID) injection 0.3 mg 0.3 mg Intravenous Q2H PRN Kory Dunaway MD0.3 mg at 10/01/25 1047 HYDROmorphone (PF) (DILAUDID) injection 0.5 mg 0.5 mg Intravenous Q2H PRN Kory Dunaway MD insulin aspart (NovoLOG) injection (RAPID ACTING) 1-7 Units Subcutaneous TID AC Tony Vinson MD 1 Units at 10/02/25 1106 insulin aspart (NovoLOG) injection (RAPID ACTING) 1-5 Units Subcutaneous At Bedtime Tony Vinson MD iohexol (OMNIPAQUE) 300 mg/mL injection PRN Bradley Holguin MD 8.5 mL at 10/01/25 1613 lactated ringers infusion Intravenous Continuous Kory Dunaway MD 100 mL/hr at 10/02/25 1021 New Bag at 10/02/25 1021 lidocaine (LMX4) cream Topical Q1H PRN Kory Dunaway MD lidocaine 1 % 0.1-1 mL 0.1-1 mL Other Q1H PRN Kory Dunaway MD melatonin tablet 5 mg 5 mg Oral At Bedtime PRN Kory Dunaway MD [Held by provider] metFORMIN (GLUCOPHAGE) tablet 1,000 mg 1,000 mg Oral BID w/meals Kory Dunaway MD naloxone (NARCAN) injection 0.2 mg 0.2 mg Intravenous Q2 Min PRN Kory Dunaway MD Or naloxone (NARCAN) injection 0.4 mg 0.4 mg Intravenous Q2 Min PRN Kory Dunaway MD Or naloxone (NARCAN) injection 0.2 mg 0.2 mg Intramuscular Q2 Min PRN Kory Dunaway MD Or naloxone (NARCAN) injection 0.4 mg 0.4 mg Intramuscular Q2 Min PRN Kory Dunaway MD ondansetron (ZOFRAN ODT) ODT tab 4 mg 4 mg Oral Q6H PRN Kory Dunaway MD Or ondansetron (ZOFRAN) injection 4 mg 4 mg Intravenous Q6H PRN Kory Dunaway MD oxyCODONE (ROXICODONE) tablet 5 mg 5 mg Oral Q4H PRN Kory Dunaway MD oxyCODONE IR (ROXICODONE) tablet 10 mg 10 mg Oral Q4H PRN Kory Dunaway MD pantoprazole (PROTONIX) EC tablet 40 mg 40 mg Oral QAM AC Kory Dunaway MD 40 mg at 10/02/25 0626 polyethylene glycol (MIRALAX) Packet 17 g 17 g Oral BID PRN Kory Dunaway MD prochlorperazine (COMPAZINE) injection 10 mg 10 mg Intravenous Q6H PRN Kory Dunaway MD Or prochlorperazine (COMPAZINE) tablet 10 mg 10 mg Oral Q6H PRN Kory Dunaway MD senna-docusate (SENOKOT-S/PERICOLACE) 8.6-50 MG per tablet 1 tablet 1 tablet Oral BID PRN Kory Dunaway MD Or senna-docusate (SENOKOT-S/PERICOLACE) 8.6-50 MG per tablet 2 tablet 2 tablet Oral BID PRN Kory Dunaway MD sodium chloride (PF) 0.9% PF flush 3 mL 3 mL Intracatheter Q8H RODNEY Kory Dunaway MD 3 mL at 10/02/25 0626 sodium chloride (PF) 0.9% PF flush 3 mL 3 mL Intracatheter q1 min prn Kory Dunaway MD sterile water irrigation (bag) PRN Bradley Holguin MD 30 mL at 10/01/25 1613 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 Hospitalist Progress Note Assessment & Plan Ct Zuleta is a 60 year old female with PMH including type II DM, GERD, HLD, tobacco dependence, JONO not on CPAP, nephrolithiasis who presented to [place] emergency department for left flank pain. #Sepsis secondary to complicated E coli UTI, pyelonephritis secondary to L nephrolithiasis: She developed severe left flank pain wrapping around to the left lower quadrant and suprapubic area. She also had subjective fevers and chills. She vomited once at home. Has had some recent irritation with urination. Denies diarrhea. Presented to [place] ER. Blood pressure was elevated, tachycardic at 105, temperature 97.9 ??F. WBC 21. CT abdomen pelvis showed a 5 mm left UPJ stone with mild left renal pelvicaliectasis and perinephric edema. UA showed 25-50 WBCs, >100 RBCs, trace LE, positive nitrite. Urine culture from [place] showing kruse-sensitive E coli per ID lab at [place] on 10/02. -She received 1 g IV ceftriaxone, 1 L NS, IV Zofran, 15 mg IV Toradol, and 0.5 mg IV Dilaudid at outside facility. Transferred here for urology consultation. -Urology consulted. Underwent cystoscopy with stent placement on 10/02. -Continue ceftriaxone therapy. -Continue IV abx for at least another day as WBC is still quite elevated. - prn pain meds, antiemetics. #Hypokalemia. Hypomagnesemia: Replacement #Incidental finding left breast nodule: CT of the abdomen pelvis showed a 1.2 cm soft tissue nodulein the left inferior breast. - Discussed this with patient on 10/02. She needs to follow up with her PCP regarding this. - She did have a mammogram 4 months ago in May that showed scattered areas of fibroglandular density. Recommend she follow-up with her primary care provider for further advice. 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 Glucose 175 at outside facility. -Hold metformin -Medium dose sliding scale aspart every 4 hours while NPO #JONO: Does not use CPAP. #Tobacco dependence: Smokes 15 cigarettes/day. Declined NRT. #GERD: Resume pantoprazole 40 mg daily. #Mental health: Resume escitalopram 20 mg daily #HLD: Can resume atorvastatin after discharge. #GERD: Takes omeprazole daily, use pantoprazole per formulary DVT Prophylaxis: Pneumatic Compression Devices Code Status: Full Code Medically Ready for Discharge: Anticipated Tomorrow pending WBC, urology opinion, fever curve, etc. Tony Vinson MD Interval History No events. Not febrile. Feels much better. No fever this AM. No AP, n/v. NO CP, SOB. On RA. -Data reviewed today: I reviewed all new labs and imaging results over the last 24 hours. I personally reviewed Physical Exam Temp: 98.6 ??F (37 ??C) Temp src: Oral BP: 126/74 Pulse: 71 Resp: 18 SpO2: 95 % O2 Device: None (Room air) Oxygen Delivery: 1 LPM Vitals: 10/01/25 0353 Weight: 64.4 kg (142 lb) Vital Signs with Ranges Temp: [97.3 ??F (36.3 ??C)-98.6 ??F (37 ??C)] 98.6 ??F (37 ??C) Pulse: [67-90] 71 Resp: [14-20] 18 BP: (80-126)/(52-74) 126/74 SpO2: [91 %-100 %] 95 % I/O last 3 completed shifts: In: 2285 [P.O.:530; I.V.:1755] Out: 2675 [Urine:2675] Constitutional: Nontoxic, NAD HEENT: Normocephalic. MMM, No elevation of JVD noted. Respiratory: Nl WOB, Clear bilaterally, No wheezes or crackles Cardiovascular: Regular, no murmur GI: BS+, NT, ND : Junior in place with reddish tinged urine. Skin/Integumen: WWP, no rash. No edema Neuro: CNII-XII intact. Moves all extremities. No tremor. A&Ox3. Medications Current Facility-Administered Medications[1] Current Facility-Administered Medications Medication Dose Route Frequency Provider Last Rate Last Admin cefTRIAXone (ROCEPHIN) 2 g vial to attach to NS 100 ml bag for ADULTS or NS 50 ml bag for PEDS 2 g Intravenous Q24H Kory Dunaway MD 2 g at 10/01/252013 escitalopram (LEXAPRO) tablet 20 mg 20 mg Oral At Bedtime Kory Dunaway MD 20 mg at 10/01/25 2145 insulin aspart (NovoLOG) injection (RAPID ACTING) 1-7 Units Subcutaneous TID AC Tony Vinson MD 1 Units at 10/02/25 0734 insulin aspart (NovoLOG) injection (RAPID ACTING) 1-5 Units Subcutaneous At Bedtime Tony Vinson MD [Held by provider] metFORMIN (GLUCOPHAGE) tablet 1,000 mg 1,000 mg Oral BID w/meals Kory Dunaway MD pantoprazole (PROTONIX) EC tablet 40 mg 40 mg Oral QAM AC Kory Dunaway MD 40 mg at 10/02/25 0626 sodium chloride (PF) 0.9% PF flush 3 mL 3 mL Intracatheter Q8H RODNEY Kory Dunaway MD 3 mL at 10/02/25 0626 Data Recent Labs Lab 10/02/25 0730 10/02/25 0638 10/02/25 0202 10/01/25 0418 10/01/25 0404 WBC -- 23.33* -- -- 17.09* HGB -- 11.7 -- -- 12.4 MCV -- 88.6 -- -- 88.4 PLT -- 277 -- -- 288 NA -- 139 -- -- 136 POTASSIUM -- 4.2 -- -- 3.7 CHLORIDE -- 106 -- -- 101 CO2 -- 25 -- -- 22 BUN -- 16.8 -- -- 16.5 CR -- 0.63 -- -- 0.78 ANIONGAP -- 8 -- -- 13 ROGELIO -- 8.0* -- -- 7.8* GLC 149* 158* 181* < > 170* < > = values in this interval not displayed. Recent Results (from the past 24 hours) XR Surgery SHAUNA Narrative This exam was marked as non-reportable because it will not be read by a radiologist or a [place] non-radiologist provider. 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 Dunaway. Pt seen and evaluated. Feeling better. Low grade fever 99.9 this AM. HDS. Urology planning OR this afternoon. Continue ceftriaxone. NPO. Tony Vinson MD ETIC TURF WORKER documented in this encounter H&P Notes * Kory Dunaway MD - 10/01/2025 3:39 AM CST [facility] Hospitalist Admission Note Name: Ct Zuleta Date of : 1965 Age: [age] year old Date of admission: 10/01/2025 Primary care provider: Fara Otoole [place] Chief Complaint: left flank pain, chills Assessment and Plan: Sepsis Complicated UTI, pyelonephritis secondary to L nephrolithiasis: Earlier this evening she developed severe left flank pain wrapping around to the left lower quadrant and suprapubic area. She also had subjective fevers and chills. She vomited once at home. Has had some recent irritation with urination. Denies diarrhea. Presented to [place] ER. Blood pressure was elevated, tachycardic at 105, temperature 97.9 ??F. She has a leukocytosis at 20.8. Lactic acid was not checked. Creatinine 0.6. CT abdomen pelvis showed a 5 mm left UPJ stone with mild left renal pelvicaliectasis and perinephric edema. UA showed 25-50 WBCs, >100 RBCs, trace LE, positive nitrite, and moderate squamous cells withyellow so was not a perfect sample however with a positive nitrate, chills, pyuria, leukocytosis, and tachycardia despite sleeping this is consistent with sepsis secondary to complicated UTI and pyelonephritis. She received 1 g IV ceftriaxone, 1 L NS, IV Zofran, 15 mg IV Toradol, and 0.5 mg IV Dilaudid at outside facility. Transferred here for urology consultation. - Consult urology for ureteral stent placement this morning - N.p.o. -Tachycardic while sleeping on arrival so give additional 1 L LR bolus then continue at 100 mL/h - IV ceftriaxone 2 g every evening - Urine culture was done at [place] - Check CBC, BMP, magnesium, lactic acid now - Acetaminophen for mild pain, oxycodone 5 mg for moderate and 10 mg for severe pain every 4 hours as needed, IV Dilaudid 0.3 mg for moderate and 0.5 mg for severe acute pain every 2 hours as needed - IV Zofran and IV Compazine as needed for nausea Hypokalemia: Potassium was 3.2 at outside facility. - Give 10 mEq IV K every 1 hour x 2 - Check BMP and magnesium now - Potassium and magnesium replacement protocols Incidental finding left breast nodule: CT of the abdomen pelvis showed a 1.2 cm soft tissue nodule in the left inferior breast. - Patient should be notified of this finding when she was more alert. Mammogram recommended by radiology. She did have a mammogram 4 months ago in May that showed scattered areas of fibroglandular density. Recommend she follow-up with her primary care provider for further advice. 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 Glucose 175 at outside facility. -Hold metformin -Medium dose sliding scale aspart every 4 hours while NPO JONO: Does not use CPAP. Tobacco dependence: Smokes 15 cigarettes/day. Declined NRT. GERD: Resume pantoprazole 40 mg daily. Mental health: Resume escitalopram 20 mg daily HLD: Can resume atorvastatin after discharge. GERD: Takes omeprazole daily, use pantoprazole per formulary. DVT Prophylaxis: Pneumatic Compression Devices Code Status: Full Code FEN: N.p.o., LR 100 mL/h Discharge Dispo: Home Estimated Disch Date / # of Days until Disch: Admit inpatient for complicated UTI secondary to obstructing left kidney stone. Anticipate need for ureteral stent placement and IV antibiotics. Likely 2night hospitalization. History of Present Illness: Ct Zuleta is a 60 year old female with PMH including type II DM, GERD, HLD, tobacco dependence, JONO not on CPAP, nephrolithiasis who presented to [place] emergency department for left flank pain earlier tonight. Earlier this evening she developed severe left flank pain wrapping around to the left lower quadrant and suprapubic area. She also had subjective fevers and chills. She vomited once at home. Has had some recent irritation with urination. Denies diarrhea. History obtained from patient, medical record, and from Dr. Crowley in the emergency department [facility]. Initial vital signs there were blood pressure 172/97, heart rate 105, temperature 97.9 ??F, oxygen 92% on room air. Initial labs showed leukocytosis of 20.8, hemoglobin 14.1, platelet count 411. Sodium was 135, potassium 3.2, chloride 100, bicarb 27, BUN 15, creatinine 0.6, glucose 175. Alk phos 100, AST 26, ALT 22, bilirubin 0.4. UA showed cloudy urine, positive nitrite, trace LE, >100 RBCs, 25-50 WBCs, moderate bacteria, moderate squamous epithelial cells. CT abdomen pelvis showed a 5 mm left UPJ stone mild left renal pelviectasis and perinephric treatment and incidental finding of 1.2 cm soft tissue nodule in the left inferior breast. She received 1 g IV ceftriaxone, 1 L NS bolus, IV Zofran, 0.5 mg IV Dilaudid, and 15 mg IV Toradol. [facility]. Clinically Significant Risk Factors Present on Admission # Overweight: Estimated body mass index is 26.4 kg/m?? as calculated from the following: Height as of this encounter: 1.562 m (5' 1.5). Weight as of this encounter: 64.4 kg (142 lb). Past Medical History reviewed: Past Medical History: Diagnosis Date Diabetes mellitus (H) Diabetes mellitus, type 2 (H) GERD (gastroesophageal reflux disease) HLD (hyperlipidemia) Nephrolithiasis PONV (postoperative nausea and vomiting) Sleep apnea Pt does not use CPAP has lost weight. Past Surgical History reviewed: Past Surgical History: Procedure Laterality Date CHOLECYSTECTOMY laparosocpy[ Removal of right ovary and tube. SEPTOPLASTY, TURBINOPLASTY, COMBINED 05/31/2013 Procedure: COMBINED SEPTOPLASTY, TURBINOPLASTY; SEPTOPLASTY, TURBINOPLASTY; Surgeon: Martin Paige MD; Location: [facility] OR TONSILLECTOMY Social History reviewed: Social History Tobacco Use Smoking status: Every Day Current packs/day: 0.75 Average packs/day: 0.8 packs/day for 8.0 years (6.0 ttl pk-yrs) Types: Cigarettes Smokeless tobacco: Never Substance Use Topics Alcohol use: Yes Comment: 1 monthly Social History Social History Narrative Not on file Family History reviewed: Reviewed and noncontributory to this admission Allergies: Allergies[1] Medications: Atorvastatin 20 mg at bedtime Escitalopram 20 mg daily Omeprazole 40 mg daily Metformin 1000 mg twice daily Flonase Albuterol as needed Review of Systems: A Comprehensive greater than 10 system review of systems was carried out. Pertinent positives and negatives are noted above. Otherwise negative. Physical Exam: Blood pressure 131/85, pulse 104, resp. rate 18, height 1.562 m (5' 1.5), weight 64.4 kg (142 lb),SpO2 92%. Wt Readings from Last 1 Encounters: 10/01/25 64.4 kg (142 lb) Exam: Constitutional: Asleep initially, NAD Eyes: sclera white, PERRL HEENT: atraumatic, MMM Respiratory: Anterior lungs clear without focal crackles or wheeze. Cardiovascular: Mild regular tachycardia without murmur GI: Mild diffuse tenderness to palpation without guarding, bowel sounds present, not distended Skin: no rash Musculoskeletal/extremities: No significant lower extremity edema Neurologic: Somnolent, easily falling asleep while I am talking to her. When awake and off she doesanswer questions appropriately. Psychiatric: calm Labs from outside facility personally reviewed: Labs: WBC 20.8, hemoglobin 14.1, platelet count 411 Sodium was 135, potassium 3.2, chloride 100, bicarb 27, BUN 15, creatinine 0.6, glucose 175 Alk phos 100, AST 26, ALT 22, bilirubin 0.4 UA: cloudy urine, positive nitrite, trace LE, >100 RBCs, 25-50 WBCs, moderate bacteria, moderatesquamous epithelial cells. Imaging report reviewed: CT abdomen pelvis: 5 mm left UPJ stone mild left renal pelviectasis and perinephric treatment and incidental finding of 1.2 cm soft tissue nodule in the left inferior breast. 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 tachycardic, but otherwise not septic Requesting PA/MD: Dr. Dunaway Level of consult: Consult, follow and place orders Impression and Plan: Impression/Assessment: Ct Zuleta is a 60 year old female with 5 mm left UPJ ureteral stone Concern for UTI-UA nitrate positive, tachycardia GERD HLD JONO Tobacco use DM 2 Plan: -NPO. -plan to OR today for cystoscopy and left ureteral stent placement with Dr. Holguin. This is currently scheduled for this afternoon. Discussed with nursing, that if patient has signs of clinical decline such as worsening vitals or increasing lethargy, please contact us and we will move up her procedure. -Possible side effects with an indwelling ureteral stent such as urgency and frequency of urination, dysuria, hematuria, symptoms of urine reflux, and some achiness in the side. Indwelling ureteral stents need to be exchanged every three months or removed by three months. -Will need to return to the OR in several weeks for definitive stone management to include likely cystoscopy, left-sided ureteroscopy laser lithotripsy basketing, and left ureter stent exchange. -IVF fluids -Continue IV antibiotics. Follow cultures. They are at the outside facility in [place], so will need to have these obtained for final recommendations. -Will hold off on Flomax for right now due to concern about causing hypotension. Can always add on tomorrow if having stent discomfort. -Strain urine. -Pain and nausea medication per primary service. -Continue to monitor leukocytosis. -Thank you for involving us in the care of this patient. We will continue to follow along. Ashtyn Easton PA-C [facility] Urology [phone] Chief Complaint: Left flank pain, chills, direct admit from [place] History is obtained from the patient and EMR. History of Present Illness: This patient is a 60 year old female with history of DM2, JONO, HLD, and GERD, who presented to the ER in [place] due to subjective fevers and chills as well as nausea and vomiting with hematuria and some irritation with urination. She was found to be tachycardic at that time. She underwent CT imaging which showed a 5 mm left UPJ stone with left mild renal pelvicaliectasis and perinephric stranding. Urinalysis was nitrate positive, had more reds than whites, and moderate squamous epithelial cells. Evidence of leukocytosis at 20.8. She was started on IV Rocephin and was transferred here. WBC17.09. Creatinine 0.78 eGFR 86. Tmax 99.9. Mild tachycardia was noted earlier. Patient endorses nausea and vomiting yesterday. She did have fevers and chills, but notes that she has not had these since she has been here. Denies anydysuria, but endorses hematuria. She denies any personal or family history of nephrolithiasis. Urine culture is in process at outside hospital. Continues on IV Rocephin. On aspirin 81 mg. Past Medical History: Past Medical History: Diagnosis Date Diabetes mellitus (H) Diabetes mellitus, type 2 (H) GERD (gastroesophageal reflux disease) HLD (hyperlipidemia) Nephrolithiasis PONV (postoperative nausea and vomiting) Sleep apnea Pt does not use CPAP has lost weight. Past Surgical History: Past Surgical History: Procedure Laterality Date CHOLECYSTECTOMY laparosocpy[ Removal of right ovary and tube. SEPTOPLASTY, TURBINOPLASTY, COMBINED 05/31/2013 Procedure: COMBINED SEPTOPLASTY, TURBINOPLASTY; SEPTOPLASTY, TURBINOPLASTY; Surgeon: Martin Paige MD; Location: [facility] OR TONSILLECTOMY Social History: Social History Tobacco Use Smoking status: Every Day Current packs/day: 0.75 Average packs/day: 0.8 packs/day for 8.0 years (6.0 ttl pk-yrs) Types: Cigarettes Smokeless tobacco: Never Substance Use Topics Alcohol use: Yes Comment: 1 monthly Family History: No known family history of nephrolithiasis Allergies: Allergies[1] Medications: Current Facility-Administered Medications[2] Review of Systems: A comprehensive 10-point review of systems was performed and found to be negative except as described in the HPI. BP 110/59 (BP Location: Left arm) Pulse 108 Temp 99.9 ??F (37.7 ??C) (Oral) Resp 18 Ht 1.562 m (5' 1.5) Wt 64.4 kg (142 lb) SpO2 92% BMI 26.40 kg/m?? PSYCH: NAD, tired EYES: EOMI MOUTH: MMM NECK: Supple, no notable adenopathy RESP: Unlabored breathing CARDIAC: Regular radial pulse no CVA tenderness bilaterally, mild SKIN: Warm, no rashes ABD: soft, no CVA tenderness bilaterally, mildsuprapubic discomfort NEURO: AAO x3 URO: Urinating on her own with hematuria Data: Lab Results Component Value Date WBC 17.09 (H) 10/01/2025 HGB 12.4 10/01/2025 HCT 35.7 10/01/2025 MCV 88.4 10/01/2025 PLT 288 10/01/2025 Lab Results Component Value Date CR 0.78 10/01/2025 Urine culture: in process at outside facility. IMAGING CT External Imaging Abdomen Images in PACS Result Date: 10/01/2025 5 mm stone at the left UPJ with evidence of hydronephrosis and perinephric stranding. No other stones were noted. Discussed with Dr. Holguin and RN Ashtyn Easton PA-C [facility] Urology [phone] [1] Allergies Allergen Reactions Perfume Other (See Comments) Wheezing [2] Current Facility-Administered Medications Medication Dose Route Frequency Provider Last Rate Last Admin acetaminophen (TYLENOL) tablet 650 mg 650 mg Oral Q4H PRN Kory Dunaway MD Or acetaminophen (TYLENOL) Suppository 650 mg 650 mg Rectal Q4H PRN Kory Dunaway MD calcium carbonate (TUMS) chewable tablet 1,000 mg 1,000 mg Oral 4x Daily PRN Kory Dunaway MD cefTRIAXone (ROCEPHIN) 2 g vial to attach to NS 100 ml bag for ADULTS or NS 50 ml bag for PEDS 2 g Intravenous Q24H Kory Dunaway MD glucose gel 15-30 g 15-30 g Oral Q15 Min PRN Kory Dunaway MD Or dextrose 50 % injection 25-50 mL 25-50 mL Intravenous Q15 Min PRN Kory Dunaway MD Or glucagon injection 1 mg 1 mg Subcutaneous Q15 Min PRN Kory Dunaway MD escitalopram (LEXAPRO) tablet 20 mg 20 mg Oral Daily Kory Dunaway MD HYDROmorphone (PF) (DILAUDID) injection 0.3 mg 0.3 mg Intravenous Q2H PRN Kory Dunaway MD HYDROmorphone (PF) (DILAUDID) injection 0.5 mg 0.5 mg Intravenous Q2H PRN Kory Dunaway MD insulin aspart (NovoLOG) injection (RAPID ACTING) 1-7 Units Subcutaneous Q4H Kory Dunaway MD 1 Units at 10/01/25 0424 lactated ringers infusion Intravenous Continuous Kory Dunaway MD 100 mL/hr at 10/01/25 0831 Rate Verify at 10/01/25 0831 lidocaine (LMX4) cream Topical Q1H PRN Kory Dunaway MD lidocaine 1 % 0.1-1 mL 0.1-1 mL Other Q1H PRN Kory Dunaway MD melatonin tablet 5 mg 5 mg Oral At Bedtime PRN Kory Dunaway MD [Held by provider] metFORMIN (GLUCOPHAGE) tablet 1,000 mg 1,000 mg Oral BID w/meals Kory Dunaway MD naloxone (NARCAN) injection 0.2 mg 0.2 mg Intravenous Q2 Min PRN Kory Dunaway MD Or naloxone (NARCAN) injection 0.4 mg 0.4 mg Intravenous Q2 Min PRN Kory Dunaway MD Or naloxone (NARCAN) injection 0.2 mg 0.2 mg Intramuscular Q2 Min PRN Kory Dunaway MD Or naloxone (NARCAN) injection 0.4 mg 0.4 mg Intramuscular Q2 Min PRN Kory Dunaway MD ondansetron (ZOFRAN ODT) ODT tab 4 mg 4 mg Oral Q6H PRN Kory Dunaway MD Or ondansetron (ZOFRAN) injection 4 mg 4 mg Intravenous Q6H PRN Kory Dunaway MD oxyCODONE (ROXICODONE) tablet 5 mg 5 mg Oral Q4H PRN Kory Dunaway MD oxyCODONE IR (ROXICODONE) tablet 10 mg 10 mg Oral Q4H PRN Kory Dunaway MD pantoprazole (PROTONIX) EC tablet 40 mg 40 mg Oral QAM AC Kory Dunaway MD 40 mg at 10/01/25 0645 polyethylene glycol (MIRALAX) Packet 17 g 17 g Oral BID PRN Kory Dunaway MD prochlorperazine (COMPAZINE) injection 10 mg 10 mg Intravenous Q6H PRN Kory Dunaway MD Or prochlorperazine (COMPAZINE) tablet 10 mg 10 mg Oral Q6H PRN Kory Dunaway MD senna-docusate (SENOKOT-S/PERICOLACE) 8.6-50 MG per tablet 1 tablet 1 tablet Oral BID PRN Kory Dunaway MD Or senna-docusate (SENOKOT-S/PERICOLACE) 8.6-50 MG per tablet 2 tablet 2 tablet Oral BID PRN Kory Dunaway MD sodium chloride (PF) 0.9% PF flush 3 mL 3 mL Intracatheter Q8H RODNEY Kory Dunaway MD sodium chloride (PF) 0.9% PF flush 3 mL 3 mL Intracatheter q1 min prn Kory Dunaway MD Cosigned by Bradley Holguin MD at 10/01/2025 2:56 PM 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 ETIC TURF WORKER ETIC TURF WORKER Associated attestation - Bradley Holguin MD - 10/01/2025 2:56 PM 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 Physician Attestation I saw and evaluated Ct Zuleta as part of a shared WIND TURBINE MACHINIST/PA visit. I personally reviewed the vital signs, medications, labs, and imaging. I personally provided a substantive portion of care for this patient and I approve the care plan aswritten by the BONNIE. I was involved with Medical Decision Making including: Please see A&P for additional details of medical decision making. This is a 60-year-old woman with no prior stone history who was transferred overnight from [facility] for an infected obstructing left ureteral stone. She presented to the hospital in [place] with 1 day of left flank pain. She was found to be tachycardic with pyuria and a leukocytosis. She was found to have a 5 mm proximal left ureteral stone. She was transferred to [facility] for definitive urologic care. The patient's condition has stabilized since coming to our hospital. On exam she is currently alert and oriented in no acute distress. She is afebrile. I personally reviewed her CT scan images from [place]. She has a 5 mm proximal left ureteral stone with no other stones identified. Hydronephrosis on the left. Labs from [place] are not available. Reportedly she had pyuria on urinalysis from [place]. Upon arrival here, serum WBC was 17.09. Lactic acid was normal. Creatinine 0.78. A/P: Due to the presence of an obstructing left ureteral stone and potential urinary tract infection I recommended that we proceed to the operating today for cystoscopy with left ureteral stent placement. We discussed the surgery in detail along with its risks. She wishes to proceed. She will need to be readmitted to the hospital postoperatively. We discussed the need in the future for ureteroscopy to remove her stone and stent in the future as well. Bradley Holguin MD Date of Service (when I saw the patient): 10/01/2025 documented in this encounter Miscellaneous Notes * Plan of Care - Mary Moss RN - 10/03/2025 1:48 PM CST Goal Outcome Evaluation: Plan of Care Reviewed With: patient Progress: improvingProgress: improving Outcome Evaluation: A&Ox4. VSS. BP and Temp slightly elevated. On room air. LS clear. BS+. Denies pain, nausea or SOB. PIV infusing LR @ 100 mL/h. Abx Rocephin Q24hr. BG 97 Problem: Adult Inpatient Plan of Care Goal: Plan of Care Review Description: The Plan of Care Review/Shift note should be completed every shift. The Outcome Evaluation is a brief statement about your assessment that the patient is improving, declining, or no change. This information will be displayed automatically on your shift note. Outcome: Adequate for Care Transition Flowsheets Taken 10/03/2025 1348 Outcome Evaluation: A&Ox4. VSS. BP and Temp slightly elevated. On room air. LS clear. BS+. Denies pain, nausea or SOB. PIV infusing LR @ 100 mL/h. Abx Rocephin Q24hr. BG 97 Plan of Care Reviewed With: patient Progress: improving Taken 10/03/2025 0845 Plan of Care Reviewed With: patient Goal: Patient-Specific Goal (Individualized) Description: You can add care plan individualizations to a care plan. Examples of Individualizationmight be: Parent requests to be called daily at 9am for status, I have a hard time hearing out of my right ear, or Do not touch me to wake me up as it startles me. Outcome: Adequate for Care Transition Goal: Absence of Hospital-Acquired Illness or Injury Outcome: Adequate for Care Transition Intervention: Identify and Manage Fall Risk Recent Flowsheet Documentation Taken 10/03/2025844 by Mary Moss RN Safety Promotion/Fall Prevention: activity supervised clutter-free environment maintained fall prevention program maintained safety round/check completed nonskid shoes/slippers when out of bed Intervention: Prevent Skin Injury Recent Flowsheet Documentation Taken 10/03/2025844 by Mary Moss RN Body Position: position changed independently Intervention: Prevent and Manage VTE (Venous Thromboembolism) Risk Recent Flowsheet Documentation Taken 10/03/2025 08 by Mary Moss RN VTE Prevention/Management: SCDs off (sequential compression devices) Intervention: Prevent Infection Recent Flowsheet Documentation Taken 10/03/2025 0845 by Mary Moss RN Infection Prevention: hand hygiene promoted single patient room provided Goal: Optimal Comfort and Wellbeing Outcome: Adequate for Care Transition Goal: Readiness for Transition of Care Outcome: Adequate for Care Transition 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 Independent. On K and Mg protocols, Am rechecks. B, 111. L. PIV infusing w/ LR at100 mL/hr. On IV rocephin q24 hrs. Denies pain, chest pain, SOB, or nausea. Plan to potentially discharge home today pending WBC this morning. Goal Outcome Evaluation: Plan of Care Reviewed With: patient Progress: improvingProgress: improving Outcome Evaluation: On IV rocephin q24 hrs. L. PIV infusing w/ LR at 100 mL/hr. Denies pain or nausea. Voiding well. Afebrile. Problem: Adult Inpatient Plan of Care Goal: Plan of Care Review Description: The Plan of Care Review/Shift note should be completed every shift. The Outcome Evaluation is a brief statement about your assessment that the patient is improving, declining, or no change. This information will be displayed automatically on your shift note. Outcome: Progressing Flowsheets (Taken 10/03/2025347) Outcome Evaluation: On IV rocephin q24 hrs. L. PIV infusing w/ LR at 100 mL/hr. Denies pain or nausea. Voiding well. Afebrile. Plan of Care Reviewed With: patient Progress: improving Goal: Patient-Specific Goal (Individualized) Description: You can add care plan individualizations to a care plan. Examples of Individualizationmight be: Parent requests to be called daily at 9am for status, I have a hard time hearing out of my right ear, or Do not touch me to wake me up as it startles me. Outcome: Progressing Goal: Absence of Hospital-Acquired Illness or Injury Outcome: Progressing Intervention: Identify and Manage Fall Risk Recent Flowsheet Documentation Taken 10/03/2025 012 by Maisha Terrazas RN Safety Promotion/Fall Prevention: safety round/check completed Taken 10/02/20252037 by Maisha Terrazas RN Safety Promotion/Fall Prevention: safety round/check completed activity supervised Intervention: Prevent Skin Injury Recent Flowsheet Documentation Taken 10/03/2025 012 by Maisha Terrazas RN Body Position: position changed independently Taken 10/02/20252037 by Maisha Terrazas RN Body Position: position changed independently Intervention: Prevent and Manage VTE (Venous Thromboembolism) Risk Recent Flowsheet Documentation Taken 10/03/2025 012 by Maisha Terrazas RN VTE Prevention/Management: patient refused intervention SCDs off (sequential compression devices) Taken 10/02/20252037 by Maisha Terrazas RN VTE Prevention/Management: patient refused intervention SCDs off (sequential compression devices) Goal: Optimal Comfort and Wellbeing Outcome: Progressing Goal: Readiness for Transition of Care Outcome: Progressing Problem: UTI (Urinary Tract Infection) Goal: Improved Infection Symptoms Outcome: Progressing 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 Up SBA with IV pole. POD 1 -cysto and stent placement. Denies pain/n/v. On rocephin. ACHS. Possible discharge tomorrow Goal Outcome Evaluation: Plan of Care Reviewed With: patient Progress: improvingProgress: improving Outcome Evaluation: Voiding well, rocephin, IVF Problem: Adult Inpatient Plan of Care Goal: Plan of Care Review Description: The Plan of Care Review/Shift note should be completed every shift. The Outcome Evaluation is a brief statement about your assessment that the patient is improving, declining, or no change. This information will be displayed automatically on your shift note. Outcome: Progressing Flowsheets (Taken 10/02/2025 1853) Outcome Evaluation: Voiding well, rocephin, IVF Plan of Care Reviewed With: patient Progress: improving Goal: Patient-Specific Goal (Individualized) Description: You can add care plan individualizations to a care plan. Examples of Individualizationmight be: Parent requests to be called daily at 9am for status, I have a hard time hearing out of my right ear, or Do not touch me to wake me up as it startles me. Outcome: Progressing Goal: Absence of Hospital-Acquired Illness or Injury Outcome: Progressing Intervention: Identify and Manage Fall Risk Recent Flowsheet Documentation Taken 10/02/2025 1637 by Akosua Gibson RN Safety Promotion/Fall Prevention: safety round/check completed activity supervised Intervention: Prevent Skin Injury Recent Flowsheet Documentation Taken 10/02/2025 1637 by Akosua Gibson RN Body Position: position changed independently Intervention: Prevent and Manage VTE (Venous Thromboembolism) Risk Recent Flowsheet Documentation Taken 10/02/2025 1637 by Akosua Gibson RN VTE Prevention/Management: SCDs on (sequential compression devices) Goal: Optimal Comfort and Wellbeing Outcome: Progressing Goal: Readiness for Transition of Care Outcome: Progressing Problem: UTI (Urinary Tract Infection) Goal: Improved Infection Symptoms Outcome: Progressing 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 A&Ox4. RA. Reg diet. SB. Bg ac/hs. Continent of urine. Incontinent of stool. Junior removed. Urology following. Plan to discharge when medically ready. Goal Outcome Evaluation: Plan of Care Reviewed With: patient Progress: improvingProgress: improving Outcome Evaluation: Removed junior. Problem: Adult Inpatient Plan of Care Goal: Plan of Care Review Description: The Plan of Care Review/Shift note should be completed every shift. The Outcome Evaluation is a brief statement about your assessment that the patient is improving, declining, or no change. This information will be displayed automatically on your shift note. Outcome: Progressing Flowsheets (Taken 10/02/2025 1315) Outcome Evaluation: Removed junior. Plan of Care Reviewed With: patient Progress: improving Goal: Patient-Specific Goal (Individualized) Description: You can add care plan individualizations to a care plan. Examples of Individualizationmight be: Parent requests to be called daily at 9am for status, I have a hard time hearing out of my right ear, or Do not touch me to wake me up as it startles me. Outcome: Progressing Goal: Absence of Hospital-Acquired Illness or Injury Outcome: Progressing Intervention: Prevent Skin Injury Recent Flowsheet Documentation Taken 10/02/2025 0735 by Alfredo Bautista RN Body Position: position changed independently Intervention: Prevent and Manage VTE (Venous Thromboembolism) Risk Recent Flowsheet Documentation Taken 10/02/2025 1104 by Alfredo Bautista RN VTE Prevention/Management: SCDs on (sequential compression devices) Taken 10/02/2025 0735 by Alfredo Bautista RN VTE Prevention/Management: (up in chair) patient refused intervention other (see comments) Intervention: Prevent Infection Recent Flowsheet Documentation Taken 10/02/2025 0735 by Alfredo Bautista RN Infection Prevention: hand hygiene promoted rest/sleep promoted single patient room provided Goal: Optimal Comfort and Wellbeing Outcome: Progressing Goal: Readiness for Transition of Care Outcome: Progressing Problem: UTI (Urinary Tract Infection) Goal: Improved Infection Symptoms Outcome: Progressing 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 Lethargic in between cares. Pain: Denies flank or generalized pain. VS: Stable with soft Bps. Activity: Up w SBA in the room. Diet: Regular diet. How to take meds: Swallows pills whole w fluids. GI/: Continent of bowel. Has a junior in place, urine - yellow w sediments. Strained urine - no stone overnight. Lines: X2 PIV, R PIV SL. L PIV infusing LR at 100mls/hr. Protocols: K and Mg. AM rechecks. Blood Glucose: AC HS checks. 191/181. Plan of Care: Urology following. IV Rocephin. Discharge Plan: Pending medical status. Goal Outcome Evaluation: Plan of Care Reviewed With: patient Progress: improvingProgress: improving Outcome Evaluation: Junior catheter in place, cares done. Draining good urine output - urIne strained - no stone overnight. Denies pain. VSS. Problem: Adult Inpatient Plan of Care Goal: Plan of Care Review Description: The Plan of Care Review/Shift note should be completed every shift. The Outcome Evaluation is a brief statement about your assessment that the patient is improving, declining, or no change. This information will be displayed automatically on your shift note. Outcome: Progressing Flowsheets Taken 10/02/2025 0228 Outcome Evaluation: Junior catheter in place, cares done. Draining good urine output - urIne strained - no stone overnight. Denies pain. VSS. Plan of Care Reviewed With: patient Progress: improving Taken 10/01/2025 2019 Plan of Care Reviewed With: patient Goal: Patient-Specific Goal (Individualized) Description: You can add care plan individualizations to a care plan. Examples of Individualizationmight be: Parent requests to be called daily at 9am for status, I have a hard time hearing out of my right ear, or Do not touch me to wake me up as it startles me. Outcome: Progressing Goal: Absence of Hospital-Acquired Illness or Injury Outcome: Progressing Intervention: Identify and Manage Fall Risk Recent Flowsheet Documentation Taken 10/01/20252018 by Sharon Diaz RN Safety Promotion/Fall Prevention: safety round/check completed lighting adjusted clutter-free environment maintained assistive device/personal items within reach activity supervised Intervention: Prevent Skin Injury Recent Flowsheet Documentation Taken 10/01/20252018 by Sharon Diaz RN Body Position: position changed independently Skin Protection: adhesive use limited Intervention: Prevent and Manage VTE (Venous Thromboembolism) Risk Recent Flowsheet Documentation Taken 10/01/20252018 by Sharon Diaz RN VTE Prevention/Management: SCDs on (sequential compression devices) Intervention: Prevent Infection Recent Flowsheet Documentation Taken 10/01/20252018 by Sharon Diaz RN Infection Prevention: hand hygiene promoted rest/sleep promoted single patient room provided Goal: Optimal Comfort and Wellbeing Outcome: Progressing Goal: Readiness for Transition of Care Outcome: Progressing Problem: UTI (Urinary Tract Infection) Goal: Improved Infection Symptoms Outcome: Progressing 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 RA. Reg diet. SB. Bg ac/hs. Incontinent. Junior in place. Urine pink tinged. Cystoscopy done, L stent placed. Junior cares done. Urology following. Plan to discharge when medically ready. Goal Outcome Evaluation: Plan of Care Reviewed With: patient Progress: improvingProgress: improving Outcome Evaluation: Cystoscopy done. Placed L stent. Junior catheter. Problem: Adult Inpatient Plan of Care Goal: Plan of Care Review Description: The Plan of Care Review/Shift note should be completed every shift. The Outcome Evaluation is a brief statement about your assessment that the patient is improving, declining, or no change. This information will be displayed automatically on your shift note. Outcome: Progressing Flowsheets (Taken 10/01/20251832) Outcome Evaluation: Cystoscopy done. Placed L stent. Junior catheter. Plan of Care Reviewed With: patient Progress: improving Problem: Adult Inpatient Plan of Care Goal: Plan of Care Review Description: The Plan of Care Review/Shift note should be completed every shift. The Outcome Evaluation is a brief statement about your assessment that the patient is improving, declining, or no change. This information will be displayed automatically on your shift note. Outcome: Progressing Flowsheets (Taken 10/01/20251832) Outcome Evaluation: Cystoscopy done. Placed L stent. Junior catheter. Plan of Care Reviewed With: patient Progress: improving Goal: Patient-Specific Goal (Individualized) Description: You can add care plan individualizations to a care plan. Examples of Individualizationmight be: Parent requests to be called daily at 9am for status, I have a hard time hearing out of my right ear, or Do not touch me to wake me up as it startles me. Outcome: Progressing Goal: Absence of Hospital-Acquired Illness or Injury Outcome: Progressing Intervention: Identify and Manage Fall Risk Recent Flowsheet Documentation Taken 10/01/20251754 by Alfredo Bautista RN Safety Promotion/Fall Prevention: clutter-free environment maintained safety round/check completed Intervention: Prevent Skin Injury Recent Flowsheet Documentation Taken 10/01/20251742 by Alfredo Bautista RN Body Position: position changed independently Intervention: Prevent and Manage VTE (Venous Thromboembolism) Risk Recent Flowsheet Documentation Taken 10/01/20251754 by Alfredo Bautista RN VTE Prevention/Management: SCDs on (sequential compression devices) Intervention: Prevent Infection Recent Flowsheet Documentation Taken 10/01/20251754 by Alfredo Bautista RN Infection Prevention: hand hygiene promoted rest/sleep promoted single patient room provided Goal: Optimal Comfort and Wellbeing Outcome: Progressing Goal: Readiness for Transition of Care Outcome: Progressing Problem: UTI (Urinary Tract Infection) Goal: Improved Infection Symptoms Outcome: Progressing 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 Left ureteral stent placement ANESTHESIA: General. COMPLICATIONS: None. INDICATIONS FOR PROCEDURE: This is a 60-year-old woman who presents with a urinary tract infection and a left UPJ stone. She is now here for stent placement. DESCRIPTION OF PROCEDURE: The risks and benefits of the procedure were explained in detail to the patient and informed consent was obtained. The patient was brought to the operating room and placed supine on the operating room table and underwent general endotracheal anesthetic. The patient was moved down to the dorsal lithotomy position and was prepped and draped in the standard sterile fashion.I inserted the 22 [place] rigid cystoscope through the urethra into the bladder and I performed cystoscopy. There were no urothelial abnormalities identified. I identified the left ureteral orifice and cannulated the orifice with a ureteral catheter. I performed a retrograde pyelogram. The stone was radiopaque. There was hydronephrosis above the level of the stone I passed a Glidewire into the left kidney under fluoroscopic guidance and then I backloaded off theureteral catheter. I then placed a 6 x 24 double-J ureteral stent over the Glidewire. I pulled backthe wire and a good curl was seen in the renal pelvis under fluoroscopy. A good curl was seen in the bladder under direct visualization. I drained the bladder with a Junior catheter. The patient tolerated the procedure well without complication. The patient went to the postanesthetic care unit in good condition. 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 VSS except on 1L O2. IV dilaudid given for flank pain. Voiding without pain, straining urine. NPO. Up standby/1 assist. Surgery scheduled for today. Rocephin. Problem: Adult Inpatient Plan of Care Goal: Plan of Care Review Description: The Plan of Care Review/Shift note should be completed every shift. The Outcome Evaluation is a brief statement about your assessment that the patient is improving, declining, or no change. This information will be displayed automatically on your shift note. Outcome: Progressing Flowsheets (Taken 10/01/2025 1312) Plan of Care Reviewed With: patient Progress: no change Goal: Patient-Specific Goal (Individualized) Description: You can add care plan individualizations to a care plan. Examples of Individualizationmight be: Parent requests to be called daily at 9am for status, I have a hard time hearing out of my right ear, or Do not touch me to wake me up as it startles me. Outcome: Progressing Goal: Absence of Hospital-Acquired Illness or Injury Outcome: Progressing Intervention: Identify and Manage Fall Risk Recent Flowsheet Documentation Taken 10/01/2025 0817 by Carrol Payton RN Safety Promotion/Fall Prevention: room organization consistent safety round/check completed nonskid shoes/slippers when out of bed Intervention: Prevent and Manage VTE (Venous Thromboembolism) Risk Recent Flowsheet Documentation Taken 10/01/2025 0817 by Carrol Payton RN VTE Prevention/Management: SCDs off (sequential compression devices) patient refused intervention Goal: Optimal Comfort and Wellbeing Outcome: Progressing Goal: Readiness for Transition of Care Outcome: Progressing Intervention: Mutually Develop Transition Plan Recent Flowsheet Documentation Taken 10/01/2025 0844 by Carrol Payton RN Equipment Currently Used at Home: none Goal Outcome Evaluation: Plan of Care Reviewed With: patient Progress: no changeProgress: no change 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 The information provided in this note is only as accurateas the sources available at the time of the update. Information Source(s): Patient via in-person Changes made to RESERVATIONS CLERK medication list: Added: albuterol, asa, mv Deleted: citalopram, glipizide, norco, simvastatin Changed: flonase, prilosec Allergies reviewed with patient and updates made in EHR: yes Medication History Completed By: Galo Ortiz RPH 10/01/2025 10:35 AM RESERVATIONS CLERK Med List Medication Sig Last Dose/Taking albuterol (PROAIR HFA/PROVENTIL HFA/VENTOLIN HFA) 108 (90 Base) MCG/ACT inhaler Inhale 2 puffs intothe lungs every 4 hours as needed for shortness of breath or wheezing. Taking As Needed aspirin 81 MG EC tablet Take 81 mg by mouth daily. 09/30/2025 Morning atorvastatin (LIPITOR) 20 MG tablet Take 20 mg by mouth at bedtime. 09/30/2025 Bedtime escitalopram (LEXAPRO) 20 MG tablet Take 20 mg by mouth at bedtime. 09/30/2025 Bedtime fluticasone (FLONASE) 50 MCG/ACT nasal spray [place] 2 sprays into both nostrils daily as needed. Taking As Needed metFORMIN (GLUCOPHAGE) 500 MG tablet Take 1,000 mg by mouth 2 times daily (with meals). 09/30/2025 Evening multivitamin w/minerals (THERA-VIT-M) tablet Take 1 tablet by mouth daily. 09/30/2025 Morning omeprazole (PRILOSEC) [address] capsule Take 40 mg by mouth daily as needed. 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 Pt alert & oriented x 4, very lethargic in between cares. K/Mg protocols, AM recheck. Replace K & Mg IV per protocols. Gave LR 1000 mL bolus, will be running LR @ 100 mL/hr. Pt denies SOB, N/V, chest pain, pain. Plan for surgical consult today to determine next steps. Pt NPO during shift. Problem: Adult Inpatient Plan of Care Goal: Plan of Care Review Description: The Plan of Care Review/Shift note should be completed every shift. The Outcome Evaluation is a brief statement about your assessment that the patient is improving, declining, or no change. This information will be displayed automatically on your shift note. 10/01/2025520 by Abbie Lemon RN Outcome: Progressing Flowsheets (Taken 10/01/2025520) Plan of Care Reviewed With: patient Progress: no change 10/01/2025520 by Abbie Lemon RN Outcome: Progressing Flowsheets (Taken 10/01/2025520) Plan of Care Reviewed With: patient Progress: no change Goal: Patient-Specific Goal (Individualized) Description: You can add care plan individualizations to a care plan. Examples of Individualizationmight be: Parent requests to be called daily at 9am for status, I have a hard time hearing out of my right ear, or Do not touch me to wake me up as it startles me. 10/01/2025520 by Abbie Lemon RN Outcome: Progressing 10/01/2025520 by Abbie Lemon RN Outcome: Progressing Goal: Absence of Hospital-Acquired Illness or Injury 10/01/2025520 by Abbie Lemon RN Outcome: Progressing 10/01/2025520 by Abbie Lemon RN Outcome: Progressing Intervention: Identify and Manage Fall Risk Recent Flowsheet Documentation Taken 10/01/2025352 by Abbie Lemon RN Safety Promotion/Fall Prevention: safety round/check completed Intervention: Prevent Infection Recent Flowsheet Documentation Taken 10/01/2025352 by Abbie Lemon RN Infection Prevention: rest/sleep promoted single patient room provided hand hygiene promoted Goal: Optimal Comfort and Wellbeing 10/01/2025520 by Abbie Lemon RN Outcome: Progressing 10/01/2025520 by Abbie Lemon RN Outcome: Progressing Goal: Readiness for Transition of Care 10/01/2025520 by Abbie Lemon RN Outcome: Progressing 10/01/2025520 by Abbie Lemon RN Outcome: Progressing Problem: UTI (Urinary Tract Infection) Goal: Improved Infection Symptoms Outcome: Progressing Goal Outcome Evaluation: Plan of Care Reviewed With: patient Progress: no changeProgress: no change 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 Provider clarified no tele orders at this time. ETIC TURF WORKER documented in this encounter Plan of Treatment Not on file documented as of this encounter Procedures Procedure NamePriorityDate/TimeAssociated DiagnosisCommentsGLUCOSE BY METER Epsnjlp4510/03/2025 9:01 AM 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 CBC WITH PLATELETS AND JOPLNQYEHBHVOaehmfi61/21/2025 6:22 AM 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 CBC WITH PLATELETS AND DIFFERENTIAL (LIMITED OCCURRENCES)Gawsnvp1010/03/2025 6:22 AM 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 BASIC METABOLIC PANEL (LIMITED OCCURRENCES)Anhezcy9610/03/2025 6:22 AM 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 MAGNESIUM (LIMITED OCCURRENCES)Jhfxmwr2610/03/2025 6:22 AM 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 GLUCOSE BY QTCCPGyrvyda19/21/2025 1:46 AM 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 GLUCOSE BY GYUVCOopeike78/20/2025 9:34 PM 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 GLUCOSE BY ZYUHFHidllsu46/20/2025 5:07 PM 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 GLUCOSE BY VFYKDTrlbwli51/20/2025 11:03 AM 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 GLUCOSE BY RBWWJWacotja70/20/2025 7:30 AM 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 CBC WITH PLATELETS AND WUAOFSBVGHENJdnsuri61/20/2025 6:38 AM 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 CBC WITH PLATELETS AND DIFFERENTIAL (LIMITED OCCURRENCES)Fedqzkk1410/02/2025 6:38 AM 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 BASIC METABOLIC PANEL (LIMITED OCCURRENCES)Oxkslsl9310/02/2025 6:38 AM 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 MAGNESIUM (LIMITED OCCURRENCES)Mtoancs9710/02/2025 6:38 AM 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 HEMOGLOBIN R4SRyk-Rl78/20/2025 6:38 AM 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 GLUCOSE BY LSSBTHgqkncq86/20/2025 2:02 AM 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 GLUCOSE BY EJXPRHmrceti45/19/2025 9:32 PM 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 GLUCOSE BY HBFXVEsbklxe86/19/2025 5:36 PM 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 GLUCOSE BY LDOATPvdyins48/19/2025 4:41 PM 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 XR SURGERY MHGEOstagor97/19/2025 4:24 PM 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 CYSTOSCOPY,INSERT URETERAL STENT10/01/2025 3:59 PM 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 Acute pyelonephritis GLUCOSE BY BDEMVRcnghqc01/19/2025 3:26 PM 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 MAGNESIUM (LIMITED OCCURRENCES)Timed10/01/2025 1:31 PM 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 GLUCOSE BY BTOLQXcmmnor09/19/2025 12:09 PM 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 MAGNESIUM (LIMITED OCCURRENCES)Votejlk4510/01/2025 10:49 AM 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 GLUCOSE BY FEFVSJbpuuag40/19/2025 8:05 AM 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 GLUCOSE BY VIANNEbhuswv58/19/2025 4:18 AM 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 BASIC METABOLIC PANEL (LIMITED OCCURRENCES)Yxmcssp3310/01/2025 4:04 AM 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 MAGNESIUM (LIMITED OCCURRENCES)Hfnjnlx9210/01/2025 4:04 AM 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 LACTIC ACID WHOLE FWDRASjqnsez20/19/2025 4:04 AM 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 CBC WITH LIEWFHFOTMmafsrw63/19/2025 4:04 AM 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 CT EXTERNAL IMAGING OJOROLZViafsqg07/18/2025 12:00 AM 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 documented in this encounter Results * Glucose by meter (10/03/2025 9:01 AM 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)ComponentValueRef RangeTest Method Analysis TimePerformed AtPathologist SignatureGLUCOSE BY METER UILR5575 - 99 mg/dL10/03/2025 9:17 AM [facility] LABORATORY POCSpecimen (Source)Anatomical Location / LateralityCollection Method / VolumeCollection TimeReceived Time Blood, CapillaryBLOOD SPECIMEN / Omhxast0910/03/2025 9:01 AM CST10/03/2025 9:17 AM 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 Narrative Authorizing ProviderResult TypeResult StatusDerek Elton ALMEIDA POCTFinal ResultPerforming OrganizationAddressCity/State/ZIP CodePhone Number LABORATORY [facility] Acute Care Lab [address] Lab (1st floor, no room number) [place] [address] * (ABNORMAL) CBC with platelets and differential (10/03/2025 6:22 AM 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) ComponentValueRef RangeTest MethodAnalysis TimePerformed AtPathologist SignatureWBC Count12.54(H)4.00 - 11.00 10e3/uL10/03/2025 6:35 AM [facility] LABORATORYRBC Count3.64(L)3.80 - 5.20 10e6/uL10/03/2025 6:35 AM [facility] NDUPHPAMWBIjbxlwohfl70.0(L)11.7 - 15.7 g/dL10/03/2025 6:35 AM [facility] Nshuwiiamu39.5(L)35.0 - 47.0 %10/03/2025 6:35 AM [facility] MVQXRGDSUESWA13.378.0 - 100.0 fL10/03/2025 6:35 AM [facility] SHMNHXAIRYTHW36.226.5 - 33.0 pg10/03/2025 6:35 AM [facility] WCSECRZSOGQPHU59.831.5 - 36.5 g/dL10/03/2025 6:35 AM [facility] VYIVDOHJCCJWV29.310.0 - 15.0 %10/03/2025 6:35 AM [facility] LABORATORYPlatelet Xwrrk889339 - 450 10e3/10/03/2025 6:35 AM [facility]% Yxbotfevrbb04.1% 10/03/2025 6:35 AM [facility]% Ghfhxjlwkfk29.7%10/03/2025 6:35 AM [facility]% Monocytes8.5%10/03/2025 6:35 AM [facility]% Eosinophils1.0% 10/03/2025 6:35 AM [facility]% Basophils0.2%10/03/2025 6:35 AM [facility]% Immature Granulocytes0.5%10/03/2025 6:35 AM [facility] LABORATORYNRBCs per 100 WBC0.0<1.0 /4681110/03/2025 6:35 AM [facility] LABORATORYAbsolute Neutrophils 9.67(H)1.60 - 8.30 e3/10/03/2025 6:35 AM [facility] LABORATORYAbsolute Lymphocytes1.590.80 - 5.30 e3/10/03/2025 6:35 AM [facility] LABORATORYAbsolute Monocytes1.070.00 - 1.30 [facility]/10/03/2025 6:35 AM [facility] LABORATORYAbsolute Eosinophils0.120.00 - 0.70 e3/[facility] 6:35 AM [facility] LABORATORYAbsolute Basophils0.030.00 - 0.20 e3/10/03/2025 6:35 AM [facility] LABORATORYAbsolute Immature Granulocytes0.06<=0.40 e3/10/03/2025 6:35 AM [facility] Absolute NRBCs<0.0310e3/10/03/2025 6:35 AM [facility] LABORATORYSpecimen (Source) Anatomical Location / LateralityCollection Method / VolumeCollection Time Received TimeBloodSTRUCTURE OF RIGHT HAND / UnknownVenipuncture / Unknown 10/03/2025 6:22 AM RUST10/03/2025 6:32 AM [facility] Authorizing ProviderResult TypeResult StatusScjose miguel GOEL - BLOOD ORDERABLES Final ResultPerforming OrganizationAddressCity/State/ZIP CodePhone Number LABORATORY [facility] [address] [facility], no room number) [place] [address], [facility] * (ABNORMAL) Basic Metabolic Panel (Limited Occurrences) (10/03/2025 6:22 AM 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)ComponentValueRef RangeTest MethodAnalysis TimePerformed AtPathologist CntbmccjrNkloom485208 - 145 mmol/L112/03/2024 6:58 AM [facility] LABORATORYPotassium 3.63.4 - 5.3 mmol/L112/03/2024 6:58 AM [facility] GVMVICCWWUGihqlcfv84399 - 107 mmol/L112/03/2024 6:58 AM [facility] LABORATORYCarbon Dioxide (CO2)2422 - 29 mmol/L 10/03/2025 6:58 AM [facility] LABORATORYAnion Gap87 - 15 mmol/L112/03/2024 6:58 AM [facility] LABORATORYUrea Bioliolw42.08.0 - 23.0 mg/dL10/03/2025 6:58 AM [facility] LABORATORYCreatinine0.590.51 - 0.95 mg/dL10/03/2025 6:58 AM [facility] LABORATORY GFR Estimate>90>60 mL/min/1.03k07010/03/2025 6:58 AM [facility] LABORATORYComment: eGFR calculated using 2020 CKD-EPI equation.Calcium7.9(L)8.8 - 10.4 mg/dL 10/03/2025 6:58 AM [facility] ZWJUWEERQQUyfqkzx877(H)70 - 99 mg/dL10/03/2025 6:58 AM [facility] LABORATORYSpecimen (Source)Anatomical Location / LateralityCollection Method / VolumeCollection TimeReceived TimeBloodSTRUCTURE OF RIGHT HAND / UnknownVenipuncture / Ebkqjrv3610/03/2025 6:22 AM CST10/03/2025 6:32 AM [facility]UST Narrative Authorizing ProviderResult TypeResult StatusScjose miguel Vinson MDLAB - BLOOD ORDERABLES Final ResultPerforming OrganizationAddressCity/State/ZIP CodePhone Number [facility] Acute Care Lab [address] Lab (1st floor, no room number) [place] [address], [facility] * (ABNORMAL) Magnesium (Limited Occurrences) (10/03/2025 6:22 AM 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)Component ValueRef RangeTest MethodAnalysis TimePerformed AtPathologist Signature Magnesium1.6(L)1.7 - 2.3 mg/dL10/03/2025 6:58 AM [facility] LABORATORYSpecimen (Source)Anatomical Location / LateralityCollection Method / VolumeCollection TimeReceived TimeBloodSTRUCTURE OF RIGHT HAND / UnknownVenipuncture / Unknown 10/03/2025 6:22 AM CST10/03/2025 6:32 AM 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 Narrative Authorizing ProviderResult TypeResult StatusTony Vinson MDLAB - BLOOD ORDERABLES Final ResultPerforming OrganizationAddressCity/State/ZIP CodePhone Number [facility] Lab [address] Lab (1st floor, no room number) [place] [address], [facility] * (ABNORMAL) Glucose by meter (10/03/2025 1:46 AM 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)ComponentValueRef Range Test MethodAnalysis TimePerformed AtPathologist SignatureGLUCOSE BY METER POCT 111(H)70 - 99 mg/dL10/03/2025 1:53 AM [facility] LABORATORY POCSpecimen (Source) Anatomical Location / LateralityCollection Method / VolumeCollection Time Received TimeBlood, CapillaryBLOOD SPECIMEN / Mozlutt9410/03/2025 1:46 AM 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 10/03/2025 1:53 AM 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 Narrative Authorizing ProviderResult TypeResult StatusKory ALMEIDA POCTFinal ResultPerforming OrganizationAddressCity/State/ZIP CodePhone Number [facility] Lab [address] Lab (1st floor, no room number) [place] [address], [facility] * (ABNORMAL) Glucose by meter (10/02/2025 9:34 PM 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)ComponentValueRef Range Test MethodAnalysis TimePerformed AtPathologist SignatureGLUCOSE BY METER POCT 161(H)70 - 99 mg/dL10/02/2025 9:42 PM [facility] LABORATORY POCSpecimen (Source) Anatomical Location / LateralityCollection Method / VolumeCollection Time Received TimeBlood, CapillaryBLOOD SPECIMEN / Kbvpfbz1610/02/2025 9:34 PM 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 10/02/2025 9:42 PM 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 Narrative Authorizing ProviderResult TypeResult StatusKory ALMEIDA POCTFinal ResultPerforming OrganizationAddressCity/State/ZIP CodePhone Number LABORATORY [facility] Acute Care Lab [address] Lab (1st floor, no room number) [place] [address] * (ABNORMAL) Glucose by meter (10/02/2025 5:07 PM 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)ComponentValueRef Range Test MethodAnalysis TimePerformed AtPathologist SignatureGLUCOSE BY METER POCT 133(H)70 - 99 mg/dL10/02/2025 5:14 PM [facility] LABORATORY POCSpecimen (Source) Anatomical Location / LateralityCollection Method / VolumeCollection Time Received TimeBlood, CapillaryBLOOD SPECIMEN / Ckgaqbx3910/02/2025 5:07 PM 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 10/02/2025 5:14 PM 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 Narrative Authorizing ProviderResult TypeResult StatusDermelody GOEL Attender POCTFinal ResultPerforming OrganizationAddressCity/State/ZIP CodePhone Number LABORATORY [facility] Lab [address] Lab (1st floor, no room number) [place] [address] * (ABNORMAL) Glucose by meter (10/02/2025 11:03 AM 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)ComponentValueRef Range Test MethodAnalysis TimePerformed AtPathologist SignatureGLUCOSE BY METER POCT 165(H)70 - 99 mg/dL10/02/2025 11:10 AM CST LABORATORY POCSpecimen (Source) Anatomical Location / LateralityCollection Method / VolumeCollection Time Received TimeBlood, CapillaryBLOOD SPECIMEN / Eosnkuz2110/02/2025 11:03 AM 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 10/02/2025 11:10 AM 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 Narrative Authorizing ProviderResult TypeResult StatusDermelody Dunaway MDChogger POCTFinal ResultPerforming OrganizationAddressCity/State/ZIP CodePhone Number LABORATORY [facility] Lab [address] Lab (1st floor, no room number) [place] [address] * (ABNORMAL) Glucose by meter (10/02/2025 7:30 AM 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)ComponentValueRef Range Test MethodAnalysis TimePerformed AtPathologist SignatureGLUCOSE BY METER POCT 149(H)70 - 99 mg/dL10/02/2025 7:37 AM [facility] LABORATORY POCSpecimen (Source) Anatomical Location / LateralityCollection Method / VolumeCollection Time Received TimeBlood, CapillaryBLOOD SPECIMEN / Rkemyrk3610/02/2025 7:30 AM 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 10/02/2025 7:37 AM 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 Narrative Authorizing ProviderResult TypeResult StatusKory GOEL - BEAKER POCTFinal ResultPerforming OrganizationAddressCity/State/ZIP CodePhone Number [facility] Lab [address] Lab (1st floor, no room number) [place] [phone] [place] [address] * (ABNORMAL) Hemoglobin A1c (10/02/2025 6:38 AM 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)ComponentValueRef RangeTest MethodAnalysis TimePerformed AtPathologist SignatureEstimated Average Glucose 157(H)<117 mg/dL10/02/2025 8:54 AM [facility] LABORATORYHemoglobin A1C7.1(H)<5.7 % 10/02/2025 8:54 AM [facility] LABORATORYComment: Normal <5.7% Prediabetes 5.7-6.4% ?? Diabetes 6.5% or higher Note: Adopted from ADA consensus guidelines. Specimen (Source)Anatomical Location / LateralityCollection Method / Volume Collection TimeReceived TimeBloodSTRUCTURE OF RIGHT UPPER LIMB / Unknown Venipuncture / Fzjquqs8810/02/2025 6:38 AM CST10/02/2025 6:59 AM 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 Narrative Authorizing ProviderResult TypeResult StatusKory GOEL - BLOOD ORDERABLESFinal ResultPerforming OrganizationAddressCity/State/ZIP CodePhone Number [facility] Lab [address] Lab (1st floor, no room number) [place] [phone] * (ABNORMAL) CBC with platelets and differential (10/02/2025 6:38 AM 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) ComponentValueRef RangeTest MethodAnalysis TimePerformed AtPathologist SignatureWBC Count23.33(H)4.00 - 11.00 10e3/uL10/02/2025 7:05 AM [facility] LABORATORYRBC Count3.863.80 - 5.20 10e6/uL10/02/2025 7:05 AM [facility] LABOR[facility]ORY Geuwcimvwf90.711.7 - 15.7 g/dL10/02/2025 7:05 AM [facility] LABORATORYHematocrit 34.2(L)35.0 - 47.0 %10/02/2025 7:05 AM [facility] QTDNVNNHNTWKO58.678.0 - 100.0 fL 10/02/2025 7:05 AM [facility] JMJMUSBRSZXDS94.326.5 - 33.0 pg10/02/2025 7:05 AM [facility] NVZKMYJRDIVATY67.231.5 - 36.5 g/dL10/02/2025 7:05 AM [facility] LABORATORYRDW 13.310.0 - 15.0 %10/02/2025 7:05 AM [facility] LABORATORYPlatelet Jymin491895 - 450 10e3/uL10/02/2025 7:05 AM [facility] LABORATORY% Hubzirnwnxt43.1%10/02/2025 7:05 AM [facility] LABORATORY% Lymphocytes5.0%10/02/2025 7:05 AM [facility] LAB[facility]% Monocytes4.2%10/02/2025 7:05 AM [facility] LAB[facility]% Eosinophils0.0%10/02/2025 7:05 AM [facility] LABORATORY% Basophils0.1%10/02/2025 7:05 AM [facility] LAB[facility]% Immature Granulocytes0.6%10/02/2025 7:05 AM [facility] LABORATORYNRBCs per 100 WBC 0.0<1.0 /3493810/02/2025 7:05 AM [facility] LABORATORYAbsolute Zvtupeajcab05.02(H) 1.60 - 8.30 10e3/uL10/02/2025 7:05 AM [facility] LABORATORYAbsolute Lymphocytes1.16 0.80 - 5.30 10e3/uL10/02/2025 7:05 AM [facility] LABORATORYAbsolute Monocytes0.97 0.00 - 1.30 10e3/uL10/02/2025 7:05 AM [facility] LABORATORYAbsolute Eosinophils <0.030.00 - 0.70 10e3/uL10/02/2025 7:05 AM [facility] LABORATORYAbsolute Basophils 0.030.00 - 0.20 10e3/uL10/02/2025 7:05 AM [facility] LABORATORYAbsolute Immature Granulocytes0.15<=0.40 10e3/uL10/02/2025 7:05 AM [facility] LABORATORYAbsolute NRBCs<0.0310e3/uL10/02/2025 7:05 AM [facility] LABORATORYSpecimen (Source) Anatomical Location / LateralityCollection Method / VolumeCollection Time Received TimeBloodSTRUCTURE OF RIGHT UPPER LIMB / UnknownVenipuncture / Oayadka4910/02/2025 6:38 AM CST10/02/2025 6:59 AM 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 Narrative Authorizing ProviderResult TypeResult StatusTony Vinson MDLAB - BLOOD ORDERABLES Final ResultPerforming OrganizationAddressCity/State/ZIP CodePhone Number [facility] Acute Care Lab [address] Lab (1st floor, no room number) [place] [phone] * (ABNORMAL) Magnesium (Limited Occurrences) (10/02/2025 6:38 AM 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)Component ValueRef RangeTest MethodAnalysis TimePerformed AtPathologist Signature Magnesium2.7(H)1.7 - 2.3 mg/dL10/02/2025 7:38 AM [facility] LABORATORYSpecimen (Source)Anatomical Location / LateralityCollection Method / VolumeCollection TimeReceived TimeBloodSTRUCTURE OF RIGHT UPPER LIMB / UnknownVenipuncture / Jnqsqra3710/02/2025 6:38 AM CST10/02/2025 7:00 AM 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 Narrative Authorizing ProviderResult TypeResult StatusErwinjose miguel Vinson PALAB - BLOOD ORDERABLES Final ResultPerforming OrganizationAddressty/State/ZIP CodePhone Number [facility] Care Lab [address] Lab (1st floor, no room number) [place] [address] * (ABNORMAL) Basic Metabolic Panel (Limited Occurrences) (10/02/2025 6:38 AM 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)ComponentValueRef RangeTest MethodAnalysis TimePerformed AtPathologist MpqwnrdeeCknejl587894 - 145 mmol/L112/02/2024 7:38 AM [facility] LABORATORYPotassium 4.23.4 - 5.3 mmol/L112/02/2024 7:38 AM [facility] FSGNTUWWSILgxqwfby12950 - 107 mmol/L112/02/2024 7:38 AM [facility] LABORATORYCarbon Dioxide (CO2)2522 - 29 mmol/L 10/02/2025 7:38 AM [facility] LABORATORYAnion Gap87 - 15 mmol/L112/02/2024 7:38 AM [facility] LABORATORYUrea Azpsarar85.88.0 - 23.0 mg/dL10/02/2025 7:38 AM [facility] LABORATORYCreatinine0.630.51 - 0.95 mg/dL10/02/2025 7:38 AM [facility] LABORATORY GFR Estimate>90>60 mL/min/1.75d92810/02/2025 7:38 AM [facility] LABORATORYComment: eGFR calculated using 2020 CKD-EPI equation.Calcium8.0(L)8.8 - 10.4 mg/dL 10/02/2025 7:38 AM [facility] ELQTNQYHMOYxqbhuq696(H)70 - 99 mg/dL10/02/2025 7:38 AM [facility] LABORATORYSpecimen (Source)Anatomical Location / LateralityCollection Method / VolumeCollection TimeReceived TimeBloodSTRUCTURE OF RIGHT UPPER LIMB / UnknownVenipuncture / Ndiqbvj4510/02/2025 6:38 AM CST10/02/2025 7:00 AM 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 Narrative Authorizing ProviderResult TypeResult StatusTony Vinson MDLAB - BLOOD ORDERABLES Final ResultPerforming OrganizationAddressCity/State/ZIP CodePhone Number [facility] Lab [address] [employer] Lab (1st floor, no room number) [place] [phone] * (ABNORMAL) Glucose by meter (10/02/2025 2:02 AM 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)ComponentValueRef Range Test MethodAnalysis TimePerformed AtPathologist SignatureGLUCOSE BY METER POCT 181(H)70 - 99 mg/dL10/02/2025 2:09 AM [facility] LABORATORY POCSpecimen (Source) Anatomical Location / LateralityCollection Method / VolumeCollection Time Received TimeBlood, CapillaryBLOOD SPECIMEN / Dglxlry6310/02/2025 2:02 AM 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 10/02/2025 2:09 AM 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 Narrative Authorizing ProviderResult TypeResult StatusKory GOEL - BEAKER POCTFinal ResultPerforming OrganizationAddressCity/State/ZIP CodePhone Number [facility] Lab [address] Lab (1st floor, no room number) [place] [address], [facility] * (ABNORMAL) Glucose by meter (10/01/2025 9:32 PM 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)ComponentValueRef Range Test MethodAnalysis TimePerformed AtPathologist SignatureGLUCOSE BY METER POCT 191(H)70 - 99 mg/dL10/01/2025 9:39 PM CST LABORATORY POCSpecimen (Source) Anatomical Location / LateralityCollection Method / VolumeCollection Time Received TimeBlood, arterialBLOOD SPECIMEN / Dnxxpzl9110/01/2025 9:32 PM 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 10/01/2025 9:39 PM 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 Narrative Authorizing ProviderResult TypeResult StatusDerek Elton Dunaway MDBeisenHEBER POCTFinal ResultPerforming OrganizationAddressCity/State/ZIP CodePhone Number LABORATORY [facility] Lab [address] Lab (1st floor, no room number) [place] [phone] * (ABNORMAL) Glucose by meter (10/01/2025 5:36 PM 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)ComponentValueRef Range Test MethodAnalysis TimePerformed AtPathologist SignatureGLUCOSE BY METER POCT 145(H)70 - 99 mg/dL10/01/2025 5:46 PM CST LABORATORY POCSpecimen (Source) Anatomical Location / LateralityCollection Method / VolumeCollection Time Received TimeBlood, CapillaryBLOOD SPECIMEN / Tnbbfcr7110/01/2025 5:36 PM 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 10/01/2025 5:46 PM 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 Narrative Authorizing ProviderResult TypeResult StatusBanner Ironwood Medical Centermelody Dunaway MDBeisenHEBER POCinal ResultPerforming OrganizationAddressCity/State/ZIP CodePhone Number LABORATORY [facility] Lab [address] Lab (1st floor, no room number) [place] [phone] * (ABNORMAL) Glucose by meter (10/01/2025 4:41 PM 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)ComponentValueRef Range Test MethodAnalysis TimePerformed AtPathologist SignatureGLUCOSE BY METER POCT 116(H)70 - 99 mg/dL10/01/2025 4:47 PM [facility] LABORATORY POCSpecimen (Source) Anatomical Location / LateralityCollection Method / VolumeCollection Time Received TimeBlood, CapillaryBLOOD SPECIMEN / Busztur8510/01/2025 4:41 PM 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 10/01/2025 4:47 PM 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 Narrative Authorizing ProviderResult TypeResult StatusKory ALMEIDA POCTFinal ResultPerforming OrganizationAdd[facility]/State/ZIP CodePhone Number LABORATORY [facility] [address] [facility] ([facility] floor, no room number) [place] [address] * XR Surgery SHAUNA (10/01/2025 4:24 PM 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)Specimen (Source)Anatomical Location / LateralityCollection Method / VolumeCollection TimeReceived Time Narrative [facility] - 10/01/2025 4:24 PM 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 This exam was marked as non-reportable because it will not be read by a radiologist or a [place] non-radiologist provider. Authorizing ProviderResult TypeResult StatusStalexandre Holguin MDIMDrea DIAGNOSTIC IMAGING ORDERABLESFinal ResultPerforming OrganizationAddress City/State/ZIP CodePhone Number [facility] * (ABNORMAL) Glucose by meter (10/01/2025 3:26 PM 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)ComponentValueRef Range Test MethodAnalysis TimePerformed AtPathologist SignatureGLUCOSE BY METER POCT 120(H)70 - 99 mg/dL10/01/2025 3:54 PM [facility] LABORATORY POCSpecimen (Source) Anatomical Location / LateralityCollection Method / VolumeCollection Time Received TimeBlood, CapillaryBLOOD SPECIMEN / Thmrbsc2010/01/2025 3:26 PM 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 10/01/2025 3:54 PM 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 Narrative Authorizing ProviderResult TypeResult StatusKory ALMEIDA POCTFinal ResultPerforming OrganizationAddressCity/State/ZIP CodePhone Number LABORATORY [facility] [address] Lab (1st floor, no room number) [place] [address], [facility] * (ABNORMAL) Magnesium (Limited Occurrences) (10/01/2025 1:31 PM 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)Component ValueRef RangeTest MethodAnalysis TimePerformed AtPathologist Signature Magnesium3.9(H)1.7 - 2.3 mg/dL10/01/2025 2:36 PM [facility] LABORATORYSpecimen (Source)Anatomical Location / LateralityCollection Method / VolumeCollection TimeReceived TimeBloodSTRUCTURE OF RIGHT UPPER LIMB / UnknownVenipuncture / Habrjrz2710/01/2025 1:31 PM CST10/01/2025 1:54 PM 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 Narrative Authorizing ProviderResult TypeResult StatusTony Vinson MDLAB - BLOOD ORDERABLES Final ResultPerforming OrganizationAddressCity/State/ZIP CodePhone Number [facility] [address] Lab ([address]st floor, no room number) [place] [phone] [place] [address] * (ABNORMAL) Glucose by meter (10/01/2025 12:09 PM 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)ComponentValueRef Range Test MethodAnalysis TimePerformed AtPathologist SignatureGLUCOSE BY METER POCT 135(H)70 - 99 mg/dL10/01/2025 12:17 PM CST LABORATORY POCSpecimen (Source) Anatomical Location / LateralityCollection Method / VolumeCollection Time Received TimeBlood, CapillaryBLOOD SPECIMEN / Ewtjyaa1210/01/2025 12:09 PM 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 10/01/2025 12:17 PM 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 Narrative Authorizing ProviderResult TypeResult StatusKory GOEL - BEAKER POCTFinal ResultPerforming OrganizationAddressCity/State/ZIP CodePhone Number [facility] [address] Lab (1st floor, no room number) [place] [phone] * (ABNORMAL) Magnesium (Limited Occurrences) (10/01/2025 10:49 AM 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)Component ValueRef RangeTest MethodAnalysis TimePerformed AtPathologist Signature Magnesium4.7(H)1.7 - 2.3 mg/dL10/01/2025 11:20 AM [facility] LABORATORYSpecimen (Source)Anatomical Location / LateralityCollection Method / VolumeCollection TimeReceived TimeBloodSTRUCTURE OF RIGHT UPPER LIMB / UnknownVenipuncture / Jkwnxwi1110/01/2025 10:49 AM CST10/01/2025 10:53 AM 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 Narrative Authorizing ProviderResult TypeResult Mary Vinson MDLAB - BLOOD ORDERABLES Final ResultPerforming OrganizationAddressCity/State/ZIP CodePhone Number [facility] [address] Lab (1st floor, no room number) [place] [address] * (ABNORMAL) Glucose by meter (10/01/2025 8:05 AM 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)ComponentValueRef Range Test MethodAnalysis TimePerformed AtPathologist SignatureGLUCOSE BY METER POCT 128(H)70 - 99 mg/dL10/01/2025 8:25 AM CST LABORATORY POCSpecimen (Source) Anatomical Location / LateralityCollection Method / VolumeCollection Time Received TimeBlood, CapillaryBLOOD SPECIMEN / Tlkdyyp7910/01/2025 8:05 AM 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 10/01/2025 8:25 AM 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 Narrative Authorizing ProviderResult TypeResult StatusFormerly [facility] Elton Dunaway MDChogger POCTFinal ResultPerforming OrganizationAddressCity/State/ZIP CodePhone Number LABORATORY [facility] Lab [address] Lab (1st floor, no room number) [place] [address] * (ABNORMAL) Glucose by meter (10/01/2025 4:18 AM 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)ComponentValueRef Range Test MethodAnalysis TimePerformed AtPathologist SignatureGLUCOSE BY METER POCT 165(H)70 - 99 mg/dL10/01/2025 4:30 AM CST LABORATORY POCSpecimen (Source) Anatomical Location / LateralityCollection Method / VolumeCollection Time Received TimeBlood, CapillaryBLOOD SPECIMEN / Aboqhwx8110/01/2025 4:18 AM 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 10/01/2025 4:30 AM 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 Narrative Authorizing ProviderResult TypeResult StatusFormerly [facility] Elton Dunaway MDChogger POCTFinal ResultPerforming OrganizationAddressCity/State/ZIP CodePhone Number LABORATORY [facility] Lab [address] Lab (1st floor, no room number) [place] [phone], [facility] * (ABNORMAL) Magnesium (Limited Occurrences) (10/01/2025 4:04 AM 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)Component ValueRef RangeTest MethodAnalysis TimePerformed AtPathologist Signature Magnesium1.0(L)1.7 - 2.3 mg/dL10/01/2025 4:38 AM CST LABORATORYSpecimen (Source)Anatomical Location / LateralityCollection Method / VolumeCollection TimeReceived TimeBloodBLOOD SPECIMEN / UnknownVenipuncture / Pehxkfi2010/01/2025 4:04 AM CST10/01/2025 4:13 AM 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 Narrative Authorizing ProviderResult TypeResult StatusKory Dunaway MDLAB - BLOOD ORDERABLESFinal ResultPerforming OrganizationAddressCity/State/ZIP CodePhone Number [facility] [address] Lab (1st floor, no room number) [place] [phone] * Lactic acid whole blood (10/01/2025 4:04 AM 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)ComponentValueRef RangeTest MethodAnalysis TimePerformed AtPathologist SignatureLactic Acid1.50.7 - 2.0 mmol/L112/01/2024 4:16 AM [facility] LABORATORYSpecimen (Source)Anatomical Location / LateralityCollection Method / VolumeCollection TimeReceived TimeBloodBLOOD SPECIMEN / UnknownVenipuncture / Rbcfrac2110/01/2025 4:04 AM CST10/01/2025 4:13 AM 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 Narrative Authorizing ProviderResult TypeResult StatusKory GOEL - BLOOD ORDERABLESFinal ResultPerforming OrganizationAddressCity/State/ZIP CodePhone Number [facility] [address] Lab (1st floor, no room number) [place] [phone] * (ABNORMAL) CBC with platelets (10/01/2025 4:04 AM 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)ComponentValueRef Range Test MethodAnalysis TimePerformed AtPathologist SignatureWBC Count17.09(H)4.00 - 11.00 10e3/uL10/01/2025 4:16 AM [facility] LABORATORYRBC Count4.043.80 - 5.20 10e6/uL10/01/2025 4:16 AM [facility] EBPTKGYAGZQgrensxydd96.411.7 - 15.7 g/dL 10/01/2025 4:16 AM [facility] NISMPAWSKNDmpeihvsmg86.735.0 - 47.0 %10/01/2025 4:16 AM [facility] LEDOEKSJYXUZF63.478.0 - 100.0 fL10/01/2025 4:16 AM [facility] LABORATORY MCH30.726.5 - 33.0 pg10/01/2025 4:16 AM [facility] NFRMCBHJPLATKU70.731.5 - 36.5 g/dL10/01/2025 4:16 AM [facility] GPDUMPKSOBMOV28.810.0 - 15.0 %10/01/2025 4:16 AM [facility] LABORATORYPlatelet Uwgzl786598 - 450 10e3/uL10/01/2025 4:16 AM [facility] LABORATORYSpecimen (Source)Anatomical Location / LateralityCollection Method / VolumeCollection TimeReceived TimeBloodBLOOD SPECIMEN / UnknownVenipuncture / Rwmgreg8310/01/2025 4:04 AM CST10/01/2025 4:13 AM [facility] Narrative Authorizing ProviderResult TypeResult StatusDerek Elton Dunaway MDLAB - BLOOD ORDERABLESFinal ResultPerforming OrganizationAddressCity/State/ZIP CodePhone Number [facility] Lab [address] [facility] Lab (1st floor, no room number) [place] [address], [facility] * (ABNORMAL) Basic Metabolic Panel (Limited Occurrences) (10/01/2025 4:04 AM RUST)ComponentValueRef RangeTest MethodAnalysis TimePerformed AtPathologist YswaxxfukAujyvu034821 - 145 mmol/L112/01/2024 4:38 AM [facility] LABORATORYPotassium 3.73.4 - 5.3 mmol/L112/01/2024 4:38 AM [facility] ASVXZWHSNKNcusgdlt54808 - 107 mmol/L112/01/2024 4:38 AM [facility] LABORATORYCarbon Dioxide (CO2)2222 - 29 mmol/L 10/01/2025 4:38 AM [facility] LABORATORYAnion Bct863 - 15 mmol/L112/01/2024 4:38 AM [facility] LABORATORYUrea Rsysoare38.58.0 - 23.0 mg/dL10/01/2025 4:38 AM [facility] LABORATORYCreatinine0.780.51 - 0.95 mg/dL10/01/2025 4:38 AM [facility] LABORATORY GFR Odzhvkls28>60 mL/min/1.97l58410/01/2025 4:38 AM [facility] LABORATORYComment:eGFR calculated using 2020 CKD-EPI equation.Calcium7.8(L)8.8 - 10.4 mg/dL10/01/2025 4:38 AM [facility] NJFGLMKXMWJuhgsxb608(H)70 - 99 mg/dL10/01/2025 4:38 AM [facility] LABORATORYSpecimen (Source)Anatomical Location / LateralityCollection Method / VolumeCollection TimeReceived TimeBloodBLOOD SPECIMEN / UnknownVenipuncture / Nankmea6610/01/2025 4:04 AM CST10/01/2025 4:13 AM 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 Narrative Authorizing ProviderResult TypeResult StatusDerek Elton Dunaway MDLAB - BLOOD ORDERABLESFinal ResultPerforming OrganizationAddressCity/State/ZIP CodePhone Number [facility] [address] [facility] (1st floor, no room number) [place] [address], [facility] * CT External Imaging Abdomen (09/30/2025 12:00 AM 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)Specimen (Source) Anatomical Location / LateralityCollection Method / VolumeCollection Time Received Time Narrative Service Account, Niraj Vo - 10/01/2025 8:51 AM 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 Images were obtained from an external facility. Click PACS Images hyperlink to view images. ??Textual results have been scanned into the media tab. Authorizing ProviderResult TypeResult StatusRadiology Non-Fv Credentialed ProviderIMG EXTERNAL IMAGING ORDERABLESFinal Result documented in this encounter Visit Diagnoses Diagnosis Acute pyelonephritis- Primary Acute pyelonephritis without lesion of renal medullary necrosis Acute pyelonephritis Acute pyelonephritis without lesion of renal medullary necrosis documented in this encounter Admitting Diagnoses Diagnosis Acute pyelonephritis Acute pyelonephritis without lesion of renal medullary necrosis documented in this encounter Administered Medications Medication OrderMAR ActionAction DateDoseRateSite acetaminophen (TYLENOL) Suppository 650 mg 650 mg, Rectal, EVERY 4 HOURS PRN, mild pain, other, and adjunct with moderate or severe pain or per patient request, Starting on Mon10/01/25 at 0334, Alternate with ibuprofen if ordered. Maximum acetaminophen dose from all sources = 75 mg/kg/day not to exceed 4 grams/day. acetaminophen (TYLENOL) tablet 650 mg 650 mg, Oral, EVERY 4 HOURS PRN, mild pain, other, and adjunct with moderate or severe pain or per patient request, Starting on Mon10/01/25 at 0334, Alternate with ibuprofen if ordered. Maximum acetaminophen dose from all sources = 75 mg/kg/day not to exceed 4 grams/day. $Given10/03/2025 10:25 AM GAH447 mg acetaminophen (TYLENOL) tablet 975 mg 975 mg, Oral, ONCE, On Mon10/01/25 at 1430, For 1 dose, Maximum acetaminophen dose from all sources = 75 mg/kg/day not to exceed 4 grams/day., Pre-procedure $Given10/01/2025 2:41 PM XAL914 mg cefTRIAXone (ROCEPHIN) 2 g vial to attach to NS 100 ml bag for ADULTS or NS 50 ml bag for PEDS Routine, 2 g, Intravenous, EVERY 24 HOURS, First dose on Mon10/01/25 at 2000, Lactated Ringer's solution is not compatible with ceftriaxone for injection, Indications: Pyelonephritis Indications:Pyelonephritis$New Bag10/02/2025 8:31 PM CST2 g$New Bag10/01/2025 8:14 PM CST2 g dextrose 50 % injection 25-50 mL 25-50 mL, Intravenous, EVERY 15 MIN PRN, low blood sugar, Administer over 1-5 Minutes, Starting on Mon10/01/25 at 0332, Use if have IV access, BG less than 70 mg/dL and meet dose criteria below: Dose if conscious and alert (or disorientated) and NPO = 25 mL Dose if unconscious / not alert = 50 mL Give first dose for initial blood glucose less than 70 mg/dL. If blood glucose at 15 minute recheck is less than or equal to 80 mg/dL continue to administer carbohydrate treatment every 15 minutes, asneeded, based on blood glucose and assessment parameters until blood glucose level is above 80 mg/dL x 2 consecutive 15 minute checks. dextrose 50 % injection 25-50 mL 25-50 mL, Intravenous, EVERY 15 MIN PRN, low blood sugar, Administer over 1-5 Minutes, Starting on Mon10/01/25 at 1741, Use if have IV access, BG less than 70 mg/dL and meet dose criteria below: Dose if conscious and alert (or disorientated) and NPO = 25 mL Dose if unconscious / not alert = 50 mL Give first dose for initial blood glucose less than 70 mg/dL. If blood glucose at 15 minute recheck is less than or equal to 80 mg/dL continue to administer carbohydrate treatment every 15 minutes, asneeded, based on blood glucose and assessment parameters until blood glucose level is above 80 mg/dL x 2 consecutive 15 minute checks. escitalopram (LEXAPRO) tablet 20 mg 20 mg, Oral, AT BEDTIME, First dose on Mon10/01/25 at 2200 $Given10/02/2025 9:36 PM CST20 mg$Given10/01/2025 9:45 PM CST20 mg glucagon injection 1 mg 1 mg, Subcutaneous, EVERY 15 MIN PRN, low blood sugar, May repeat x 1 only, Starting on Mon10/01/25 at 1741, May give SQ or IM. ONLY use glucagon IF patient has NO IV access AND is UNABLE to swallowAND blood glucose is LESS than or EQUAL to 50 mg/dL. glucose gel 15-30 g 15-30 g, Oral, EVERY 15 MIN PRN, low blood sugar, Starting on Mon10/01/25 at 0332, Give first dosefor initial blood glucose less than 70 mg/dL per the dosing instructions below. If blood glucose at15 minute rechecks is still less than or equal to 80 mg/dL, continue to administer doses per blood glucose parameters every 15 minutes, as needed, until blood glucose level is at or above 80 mg/dL x 2 consecutive 15 minute checks. Dosing Instructions: ~If patient is conscious and able to swallow and NO enteral tube For initial BG 51-69mg/dL OR 15 minute recheck BG 51- 80 mg/dL - give 15 g For BG less than or equal to 50 mg/dL - give 30 g ~ If Enteral tube For initial BG 51-69mg/dL OR 15 minute recheck BG 51- 80 mg/dL - give apple juice 120 mL (4 oz or 15 g of CHO) via enteral tube For BG lessthan or equal to 50 mg/dL - Give apple juice 240 mL (8 oz or 30 g of CHO) via enteral tube ~Oral gel is preferable for conscious and able to swallow patient. ~IF gel unavailable or patient refuses may provide apple juice per Enteral tube dosing instructions. Document juice on I and O flowsheet. glucose gel 15-30 g 15-30 g, Oral, EVERY 15 MIN PRN, low blood sugar, Starting on Mon10/01/25 at 1741, Give first dosefor initial blood glucose less than 70 mg/dL per the dosing instructions below. If blood glucose at15 minute rechecks is still less than or equal to 80 mg/dL, continue to administer doses per blood glucose parameters every 15 minutes, as needed, until blood glucose level is at or above 80 mg/dL x 2 consecutive 15 minute checks. Dosing Instructions: ~If patient is conscious and able to swallow and NO enteral tube For initial BG 51-69mg/dL OR 15 minute recheck BG 51- 80 mg/dL - give 15 g For BG less than or equal to 50 mg/dL - give 30 g ~ If Enteral tube For initial BG 51-69mg/dL OR 15 minute recheck BG 51- 80 mg/dL - give apple juice 120 mL (4 oz or 15 g of CHO) via enteral tube For BG lessthan or equal to 50 mg/dL - Give apple juice 240 mL (8 oz or 30 g of CHO) via enteral tube ~Oral gel is preferable for conscious and able to swallow patient. ~IF gel unavailable or patient refuses may provide apple juice per Enteral tube dosing instructions. Document juice on I and O flowsheet. HYDROmorphone (PF) (DILAUDID) injection 0.3 mg 0.3 mg, Intravenous, EVERY 2 HOURS PRN, moderate pain, IF patient cannot take oral opioid OR IF pain not managed with non-pharmacological, non-opioid, or oral opioid interventions if ordered, Starting on Mon10/01/25 at 0334, May use concomitant with non-opioid analgesics. $Given10/01/2025 10:47 AM CST0.3 mg insulin aspart (NovoLOG) injection (RAPID ACTING) 1-7 Units, Subcutaneous, EVERY 4 HOURS, First dose on Mon10/01/25 at 0400, Correction Scale - MEDIUM INSULIN RESISTANCE DOSING? Do Not give Correction Insulin if BG less than 140. For BG 140 - 189 give 1 unit. For BG 190 - 239 give 2 units. For BG 240 - 289 give 3 units. For BG 290 - 339 give 4units. For BG 340 - 389 give 5 units. For BG 390 - 439 give 6 units. For BG greater than or equal to 440 give 7 units. Check blood glucose Q4H and administer based on blood glucose. Notify provider if glucose greater than or equal to 350 mg/dL after administration of correction dose. $Given10/01/2025 4:24 AM CST1 UnitsRight Lower Abdomen insulin aspart (NovoLOG) injection (RAPID ACTING) 1-7 Units, Subcutaneous, 3 TIMES DAILY BEFORE MEALS, First dose on Mon10/01/25 at 1800, CorrectionScale - MEDIUM INSULIN RESISTANCE DOSING Do Not give Correction Insulin if Pre-Meal BG less than 140. For Pre-Meal BG 140 - 189 give 1 unit. For Pre-Meal BG 190 - 239 give 2 units. For Pre-Meal BG 240 - 289 give 3 units. For Pre-Meal BG 290 - 339 give 4 units. For Pre-Meal BG 340- 389 give 5 units.For Pre-Meal BG 390-439 give 6 units For Pre-Meal BG greater than or equal to 440 give 7 units. If patient is NOT eating a meal: Blood glucose should still be checked and correction (sliding scale) insulin to be administered within 30 minutes if order parameters are met. If patient is eating a meal: To be given with prandial insulin if ordered, and based on pre-meal blood glucose. Administering insulin within 5 minutes of the start of the meal is ideal. Administer insulin no more than 30 minutes after the start of the meal, unless directed otherwise by provider. Notify provider if glucose greater than or equal to 350 mg/dL after administration of correction dose. $Given10/02/2025 11:06 AM CST1 UnitsLeft Arm$Given10/02/2025 7:34 AM CST1 Units $Given10/01/2025 6:00 PM CST1 Units insulin aspart (NovoLOG) injection (RAPID ACTING) 1-5 Units, Subcutaneous, AT BEDTIME, First dose on Mon10/01/25 at 2200, MEDIUM INSULIN RESISTANCE DOSING Do Not give Bedtime Correction Insulin if BG less than 200. For BG 200 - 249 give 1 units. For BG 250 - 299 give 2 units. For BG 300 - 349 give 3 units. For BG 350 -399 give 4 units. For BG greater than or equal to 400 give 5 units. Notify provider if glucose greater than or equal to 350 mg/dL after administration of correction dose. iohexol (OMNIPAQUE) 300 mg/mL injection PRN, Starting on Mon10/01/25 at 1613, Intra-procedure $Given10/01/2025 4:13 PM CST8.5 mLsOperative Site/Surgical Site lactated ringers BOLUS 1,000 mL Intravenous, 1,000 mL, ONCE, at 1,000 mL/hr, Administer over 1 Hours, On Mon10/01/25 at 0430, For 1 dose $10/01/2025 4:22 AM CST1,000 [id number] mL/hr lactated ringers infusion at 100 mL/hr, Intravenous, CONTINUOUS, Starting on Mon10/01/25 at 0430, Until Mon10/03/25 at 1558 Rate/Dose Yoxlax0710/03/2025 8:49 AM ZXZ247 mL/hrRate/Dose Cjbegt0710/03/2025 6:38 AM JOW013 mL/hr$10/03/2025 6:34 AM PGT794 mL/hr lactated ringers infusion at 10 mL/hr, Intravenous, CONTINUOUS, IF patient NOT on dialysis., Pre- procedure, Starting on Mon10/01/25 at 1430, Until Mon10/01/25 at 1624 $10/01/2025 3:11 PM CST10 mL/hr magnesium sulfate 4 g in 100 mL sterile water intermittent infusion 4 g, Intravenous, Administer over 120 Minutes, at 50 mL/hr, EVERY 2 HOURS SCHEDULED, First dose on Mon10/01/25 at 0600, For 2 doses, Magnesium level LESS than 1.1 mg/dL. Administer 4 gm magnesium IVx 2 doses and recheck magnesium level 2-4 hours AFTER the last dose is infused. Ordered from the Magnesium replacement order set. 10/01/2025 8:32 AM CST4 g50 mL/hr10/01/2025 6:46 AM CST4 g50 mL/hr naloxone (NARCAN) injection 0.2 mg 0.2 mg, Intravenous, EVERY 2 MIN PRN, opioid reversal, Starting on Mon10/01/25 at 0345, Administerintravenous route when available and notify provider when administered. For unintended sedation or respiratory depression if all of the below criteria are met: ~ respiratory rate LESS than or EQUAL to 8. ~SaO2 less than 92% and or/end-tidal CO2 is greater than 50. ~ the patient is receiving an opioid, has unintended sedations assessed as RASS (-3), and is currently not on mechanical ventilation. RASS scale moderate (-3) is movement or eye opening to voice but no eye contact. Patient Monitoring Once the patient has demonstrated a response to the naloxone, continue to monitor respiratory rate, depth, oxygen saturation and end-tidal CO2 (if available) every 15 minutes x 2, then every 30 minutes x 2, then every 1 hour x 1 after each naloxone dose. Consider transfer to ICU if patient respiratory parameters have not improved after 4 naloxone doses. naloxone (NARCAN) injection 0.2 mg 0.2 mg, Intramuscular, EVERY 2 MIN PRN, opioid reversal, Starting on Mon10/01/25 at 0345, Administer intramuscular if an intravenous route is not available and notify provider when administered. Forunintended sedation or respiratory depression if all of the below criteria are met: ~ respiratory rate LESS than or EQUAL to 8. ~SaO2 less than 92% and or/end-tidal CO2 is greater than 50. ~ the patient is receiving an opioid, has unintended sedations assessed as RASS (-3), and is currently not on mechanical ventilation. RASS scale moderate (-3) is movement or eye opening to voice but no eye contact. Patient Monitoring Once the patient has demonstrated a response to the naloxone, continue to monitor respiratory rate, depth, oxygen saturation and end-tidal CO2 (if available) every 15 minutes x2, then every 30 minutes x 2, then every 1 hour x 1 after each naloxone dose. Consider transfer to ICU if patient respiratory parameters have not improved after 4 naloxone doses. naloxone (NARCAN) injection 0.4 mg 0.4 mg, Intravenous, EVERY 2 MIN PRN, opioid reversal, Starting on Mon10/01/25 at 0345, Administerintravenous route when available and notify provider when administered. For unintended sedation or respiratory depression if all of the below criteria are met: ~ respiratory rate LESS than or EQUAL to 8. ~ SaO2 less than 92% and or/end-tidal CO2 is greater than 50. ~ the patient is receiving an opioid, has unintended sedation assessed as RASS (-4) or (-5) and patient is currently not on mechanical ventilation. RASS scale (-4) is deep sedation with no response to voice but movement or eye opening to physical stimulation. RASS scale (-5) is unarousable. Patient Monitoring Once the patient has demonstrated a response to the naloxone, continue to monitor respiratory rate, depth, oxygen saturation and end-tidal CO2 (if available) every 15 minutes x 2, then every 30 minutes x 2, then every 1 hour x 1 after each naloxone dose. Consider transfer to ICU if patient respiratory parameters have notimproved after 4 naloxone doses. naloxone (NARCAN) injection 0.4 mg 0.4 mg, Intramuscular, EVERY 2 MIN PRN, opioid reversal, Starting on Mon10/01/25 at 0345, Administer intramuscular if an intravenous route is not available and notify provider when administered. Forunintended sedation or respiratory depression if all of the below criteria are met: ~ respiratory rate LESS than or EQUAL to 8. ~ SaO2 less than 92% and or/end-tidal CO2 is greater than 50. ~ the patient is receiving an opioid, has unintended sedation assessed as RASS (-4) or (-5) and patient is currently not on mechanical ventilation. RASS scale (-4) is deep sedation with no response to voice but movement or eye opening to physical stimulation. RASS scale (-5) is unarousable. Patient Monitoring Once the patient has demonstrated a response to the naloxone, continue to monitor respiratory rate, depth, oxygen saturation and end-tidal CO2 (if available) every 15 minutes x 2, then every 30 minutes x 2, then every 1 hour x 1 after each naloxone dose. Consider transfer to ICU if patient respirat ory parameters have not improved after 4 naloxone doses. ondansetron (ZOFRAN ODT) ODT tab 4 mg 4 mg, Oral, EVERY 6 HOURS PRN, nausea/vomiting - 1st line, Starting on Mon10/01/25 at 0334, This is Step 1 of nausea and vomiting management. If nausea not resolved in 15 minutes, go to Step 2 prochlorperazine (COMPAZINE). With dry hands, peel back foil backing and gently remove tablet. Do not push oral disintegrating tablet through foil backing. Administer immediately on tongue and oral disintegrating tablet dissolves in seconds, then swallow with saliva. Liquid not required. ondansetron (ZOFRAN) injection 4 mg 4 mg, Intravenous, EVERY 6 HOURS PRN, nausea/vomiting - 1st line, Administer over 2-5 Minutes, Starting on Mon10/01/25 at 0334, Give IF patient unable to tolerate oral medication. This is Step 1 of nausea and vomiting management. If nausea not resolved in 15 minutes, go to Step 2 prochlorperazine (COMPAZINE). pantoprazole (PROTONIX) EC tablet 40 mg 40 mg, Oral, EVERY MORNING BEFORE BREAKFAST, First dose on Mon10/01/25 at 0700, DO NOT CRUSH. $Given10/03/2025 6:34 AM CST40 mg$Given10/02/2025 6:26 AM CST40 mg$Given 10/01/2025 6:45 AM CST40 mg potassium chloride 10 mEq in 100 mL sterile water infusion 10 mEq, Intravenous, EVERY HOUR, First dose on Mon10/01/25 at 0500, For 2 doses $New Bag10/01/2025 5:58 AM CST10 mEq$New Bag10/01/2025 4:39 AM CST10 mEq85 mL/hr prochlorperazine (COMPAZINE) injection 10 mg 10 mg, Intravenous, EVERY 6 HOURS PRN, nausea/vomiting - 2nd line, Administer over 1-2 Minutes, Starting on Mon10/01/25 at 0334, IF patient unable to tolerate oral medication. This is Step 2 of nausea and vomiting management. Give if nausea not resolved 15 minutes after giving ondansetron (ZOFRAN). prochlorperazine (COMPAZINE) tablet 10 mg 10 mg, Oral, EVERY 6 HOURS PRN, nausea/vomiting - 2nd line, Starting on Mon10/01/25 at 0334, This is Step 2 of nausea and vomiting management. Give if nausea not resolved 15 minutes after giving ondansetron (ZOFRAN). senna-docusate (SENOKOT-S/PERICOLACE) 8.6-50 MG per tablet 1 tablet 1 tablet, Oral, 2 TIMES DAILY PRN, constipation, Starting on Mon10/01/25 at 0332, If no bowel movement in 24 hours, increase to 2 tablets by mouth. IF more than 1 constipation PRN medication is ordered, administer step-rainey as indicated, moving to the next step ONLY if prior step ineffective. Step1: senna- docusate (SENOKOT-S; PERICOLACE) OR bisacodyl (DULCOLAX) EC tablet Step 2: polyethylene glycol (MIRALAX/GLYCOLAX) Step 3: bisacodyl (DULCOLAX) suppository Step 4: enema Hold for loose stools. senna-docusate (SENOKOT-S/PERICOLACE) 8.6-50 MG per tablet 2 tablet 2 tablet, Oral, 2 TIMES DAILY PRN, constipation, Starting on Mon10/01/25 at 0332, IF more than 1 constipation PRN medication is ordered, administer step- rainey as indicated, moving to the next step ONLY if prior step ineffective. Step 1: senna-docusate (SENOKOT-S; PERICOLACE) OR bisacodyl (DULCOLAX)EC tablet Step 2: polyethylene glycol (MIRALAX/GLYCOLAX) Step 3: bisacodyl (DULCOLAX) suppository Step 4: enema Hold for loose stools. sodium chloride (PF) 0.9% PF flush 3 mL 3 mL, Intracatheter, EVERY 8 HOURS SCHEDULED, First dose on Mon10/01/25 at 0600, to lock peripheral IV dormant line $Given10/02/2025 6:26 AM CST3 mLs$Given10/01/2025 8:30 PM CST3 mLs$Given 10/01/2025 8:13 PM CST3 mLs sodium chloride (PF) 0.9% PF flush 3 mL 3 mL, Intracatheter, EVERY 1 MIN PRN, line flush, other, to ensure patency or to lock dormant line,Starting on Mon10/01/25 at 0332 $Given10/02/2025 8:33 PM CST3 mLs sterile water irrigation (bag) PRN, Intra-procedure, Starting on Mon10/01/25 at 1613, Until Mon10/03/25 at 1558 $Given10/01/2025 4:13 PM CST30 mLsOperative Site/Surgical Sitedocumented in this encounter Active and Recently Administered Medications Times are shown in 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.Medication Order// acetaminophen (TYLENOL) tablet 975 mg (COMPLETED)(Linked Group 1) 975 mg, Oral, ONCE, On Mon10/01/25 at 1430, For 1 dose, Maximum acetaminophen dose from all sources = 75 mg/kg/day not to exceed 4 grams/day., Pre-procedure * 1441 ($Given - Provider: Mandy Whitlock RN) ceFAZolin Sodium (ANCEF) injection 2 g (COMPLETED) Routine, 2 g, Intravenous, PRE-OP/PRE-PROCEDURE, Starting on Mon10/01/25 at 1425, For 1 dose, Givefirst dose within 1 hour PRIOR to incision. If patient weight is greater than or equal to 120 kg increase dose to 3 g., Indications: Perioperative Pharmacoprophylaxis, Pre-procedure * 1550 ($Given - Provider: Luis Alberto Ahmadi APRN DENTAL SURGERY DOCTOR) cefTRIAXone (ROCEPHIN) 2 g vial to attach to NS 100 ml bag for ADULTS or NS 50 ml bag for PEDS Routine, 2 g, Intravenous, EVERY 24 HOURS, First dose on Mon10/01/25 at 2000, Lactated Ringer's solution is not compatible with ceftriaxone for injection, Indications: Pyelonephritis * 2013 ($New Bag - Provider: Sharon Diaz, RN) * 2030 ($New Bag - Provider: Maisha Terrazas, RN) escitalopram (LEXAPRO) tablet 20 mg 20 mg, Oral, AT BEDTIME, First dose on Mon10/01/25 at 2200 * 155 (Auto Hold - Provider: Orders Generic Provider - Reason: Transfer to a procedural area) * 172 (Unhold - Provider: Orders Generic Provider) * 2144 ($Given - Provider: Sharon Diaz, RN) * 2135 ($Given - Provider: Maisha Terrazas, RN) insulin aspart (NovoLOG) injection (RAPID ACTING) (CANCELED) 1-7 Units, Subcutaneous, EVERY 4 HOURS, First dose on Mon10/01/25 at 0400, Correction Scale - MEDIUM INSULIN RESISTANCE DOSING? Do Not give Correction Insulin if BG less than 140. For BG 140 - 189 give 1 unit. For BG 190 - 239 give 2 units. For BG 240 - 289 give 3 units. For BG 290 - 339 give 4units. For BG 340 - 389 give 5 units. For BG 390 - 439 give 6 units. For BG greater than or equal to 440 give 7 units. Check blood glucose Q4H and administer based on blood glucose. Notify provider if glucose greater than or equal to 350 mg/dL after administration of correction dose. * 0424 ($Given - Provider: Abbie Lemon RN - Comment: BG= 165= 1 unit per sliding scale) * 0837 (Not Given - Provider: Carrol Payton RN - Reason: Order parameters not met - Comment: BG 128) * 1212 (Not Given - Provider: Carrol Payton RN - Reason: Order parameters not met - Comment: BG 135) * 1559 (Auto Hold - Provider: Orders Generic Provider - Reason: Transfer to a procedural area) * 1600 (Automatically Held - Provider: Orders Generic Provider) * 1720 (Unhold - Provider: Orders Generic Provider) insulin aspart (NovoLOG) injection (RAPID ACTING) 1-7 Units, Subcutaneous, 3 TIMES DAILY BEFORE MEALS, First dose on Mon10/01/25 at 1800, CorrectionScale - MEDIUM INSULIN RESISTANCE DOSING Do Not give Correction Insulin if Pre-Meal BG less than 140. For Pre-Meal BG 140 - 189 give 1 unit. For Pre-Meal BG 190 - 239 give 2 units. For Pre-Meal BG 240 - 289 give 3 units. For Pre-Meal BG 290 - 339 give 4 units. For Pre-Meal BG 340- 389 give 5 units.For Pre-Meal BG 390-439 give 6 units For Pre-Meal BG greater than or equal to 440 give 7 units. If patient is NOT eating a meal: Blood glucose should still be checked and correction (sliding scale) insulin to be administered within 30 minutes if order parameters are met. If patient is eating a meal: To be given with prandial insulin if ordered, and based on pre-meal blood glucose. Administering insulin within 5 minutes of the start of the meal is ideal. Administer insulin no more than 30 minutes after the start of the meal, unless directed otherwise by provider. Notify provider if glucose greater than or equal to 350 mg/dL after administration of correction dose. * 1800 ($Given - Provider: Alfredo Bautista RN - Comment: bg-[id number]) * 0734 ($Given - Provider: Alfredo Bautista RN - Comment: BG- 149) * 1106 ($Given - Provider: Alfredo Bautista RN - Comment: bg- 165) * 1709 (Not Given - Provider: Akosua Gibson RN - Reason: Order parameters not met - Comment: BG 133) * 0916 (Not Given - Provider: Mary Moss RN - Reason: Order parameters not met) * 1200 (Canceled Entry - Provider: Orders Generic Provider - Comment: Automatically canceled at discontinue of medication order) insulin aspart (NovoLOG) injection (RAPID ACTING) 1-5 Units, Subcutaneous, AT BEDTIME, First dose on Mon10/01/25 at 2200, MEDIUM INSULIN RESISTANCE DOSING Do Not give Bedtime Correction Insulin if BG less than 200. For BG 200 - 249 give 1 units. For BG 250 - 299 give 2 units. For BG 300 - 349 give 3 units. For BG 350 -399 give 4 units. For BG greater than or equal to 400 give 5 units. Notify provider if glucose greater than or equal to 350 mg/dL after administration of correction dose. * 2131 (Not Given - Provider: Sharon Diaz RN - Reason: Order parameters not met - Comment: cbg 191) * 2134 (Not Given - Provider: Maisha Terrazas RN - Reason: Order parameters not met - Comment: B) lactated ringers BOLUS 1,000 mL (COMPLETED) Intravenous, 1,000 mL, ONCE, at 1,000 mL/hr, Administer over 1 Hours, On Mon10/01/25 at 0430, For 1 dose * 0422 ($New Bag - Provider: Abbie Lemon RN) magnesium sulfate 4 g in 100 mL sterile water intermittent infusion (COMPLETED) 4 g, Intravenous, Administer over 120 Minutes, at 50 mL/hr, EVERY 2 HOURS SCHEDULED, First dose on Mon10/01/25 at 0600, For 2 doses, Magnesium level LESS than 1.1 mg/dL. Administer 4 gm magnesium IVx 2 doses and recheck magnesium level 2-4 hours AFTER the last dose is infused. Ordered from the Magnesium replacement order set. * 0646 ($New Bag - Provider: Abbie Lemon RN) * 0832 ($New Bag - Provider: Carrol Payton RN) metFORMIN (GLUCOPHAGE) tablet 1,000 mg 1,000 mg, Oral, 2 TIMES DAILY WITH MEALS, First dose on Mon10/01/25 at 0900, On hold since Mon10/01/2025 at 0411 until manually unheld * 0411 (Held by provider - Provider: Kory Dunaway MD - Reason: NPO) * 0900 (Automatically Held) * 1800 (Automatically Held) * 0900 (Automatically Held) * 1800 (Automatically Held) * 0900 (Automatically Held) * 1558 (Unheld by provider - Provider: Orders Generic Provider) pantoprazole (PROTONIX) EC tablet 40 mg 40 mg, Oral, EVERY MORNING BEFORE BREAKFAST, First dose on Mon10/01/25 at 0700, DO NOT CRUSH. * 0645 ($Given - Provider: Abbie Lemon RN) * 1559 (Auto Hold - Provider: Orders Generic Provider - Reason: Transfer to a procedural area) * 1720 (Unhold - Provider: Orders Generic Provider) * 0626 ($Given - Provider: Sharon Diaz RN) * 0634 ($Given - Provider: Maisha Terrazas RN) potassium chloride 10 mEq in 100 mL sterile water infusion (COMPLETED) 10 mEq, Intravenous, EVERY HOUR, First dose on Mon10/01/25 at 0500, For 2 doses * 0439 ($New Bag - Provider: Abbie Lemon RN) * 0558 ($New Bag - Provider: Abbie Lemon, RN) sodium chloride (PF) 0.9% PF flush 3 mL 3 mL, Intracatheter, EVERY 8 HOURS SCHEDULED, First dose on Mon10/01/25 at 0600, to lock peripheral IV dormant line * 0605 (Not Given - Provider: Abbie Lemon RN - Reason: IV Infusing) * 1308 (Not Given - Provider: Carrol Payton RN - Reason: IV Infusing) * 1559 (Auto Hold - Provider: Orders Generic Provider - Reason: Transfer to a procedural area) * 1720 (Unhold - Provider: Orders Generic Provider) * 2012 ($Given - Provider: Sharon Diaz RN - Comment: iv assessment) * 2030 ($Given - Provider: Sharon Diaz RN) * 0626 ($Given - Provider: Sharon Diaz RN) * 1426 (Canceled Entry - Provider: Yamini Soto RN) * 2135 (Not Given - Provider: Maisha Terrazas RN - Reason: IV Infusing) * 0600 (Not Given - Provider: Maisha Terrazas RN - Reason: IV Infusing) * 1400 (Canceled Entry - Provider: Orders Generic Provider - Comment: Automatically canceled at discontinue of medication order) Medication Order/5112/03/2024 lactated ringers infusion at 100 mL/hr, Intravenous, CONTINUOUS, Starting on Mon10/01/25 at 0430, Until Mon10/03/25 at 1558 * 0550 ($New Bag - Provider: Abbie Lemon RN) * 0831 (Rate/Dose Verify - Provider: Carrol Payton RN) * 1600 (Rate/Dose Change - Provider: Luis Alberto Ahmadi APRN CRNA) * 1626 (Paused - Provider: Luis Alberto Ahmadi APRN CRNA - Comment: Switch to gravity) * 162 (Restarted - Provider: Luis Alberto Ahmadi APRN CRNA) * 2028 (Rate/Dose Verify - Provider: Sharon Diaz, RN) * 0200 ($New Bag - Provider: Sharon Diaz RN) * 0632 (Rate/Dose Verify - Provider: Sharon Diaz RN) * 0732 (Rate/Dose Verify - Provider: Alfredo Bautista, ELIZABETH) * 1021 ($New Bag - Provider: Whitney Hawley RN) * 1343 (Rate/Dose Verify - Provider: Yamini Soto, ELIZABETH) * 195 (Rate/Dose Verify - Provider: Maisha Terrazas, RN) * 2023 ($New Bag - Provider: Maisha Terrazas, RN) * 0634 ($New Bag - Provider: Maisha Terrazas RN) * 0638 (Rate/Dose Verify - Provider: Maisha Terrazas, ELIZABETH) * 0849 (Rate/Dose Verify - Provider: Mary Moss, RN) * 1301 (Stopped - Provider: Mary Moss, ELIZABETH) lactated ringers infusion (CANCELED) at 10 mL/hr, Intravenous, CONTINUOUS, IF patient NOT on dialysis., Pre- procedure, Starting on Mon10/01/25 at 1430, Until Mon10/01/25 at 1624 * 1511 ($New Bag - Provider: Mandy Whitlock, ELIZABETH) Medication Order511//[id number]/ acetaminophen (TYLENOL) Suppository 650 mg(Linked Group 2) 650 mg, Rectal, EVERY 4 HOURS PRN, mild pain, other, and adjunct with moderate or severe pain or per patient request, Starting on Mon10/01/25 at 0334, Alternate with ibuprofen if ordered. Maximum acetaminophen dose from all sources = 75 mg/kg/day not to exceed 4 grams/day. * 1559 (Auto Hold - Provider: Orders Generic Provider - Reason: Transfer to a procedural area) * 1720 (Unhold - Provider: Orders Generic Provider) * 1025 (See Alternative - Provider: Mary Moss RN) acetaminophen (TYLENOL) tablet 650 mg(Linked Group 2) 650 mg, Oral, EVERY 4 HOURS PRN, mild pain, other, and adjunct with moderate or severe pain or per patient request, Starting on Mon10/01/25 at 0334, Alternate with ibuprofen if ordered. Maximum acetaminophen dose from all sources = 75 mg/kg/day not to exceed 4 grams/day. * 1559 (Auto Hold - Provider: Orders Generic Provider - Reason: Transfer to a procedural area) * 1720 (Unhold - Provider: Orders Generic Provider) * 1025 ($Given - Provider: Mary Moss RN) calcium carbonate (TUMS) chewable tablet 1,000 mg 1,000 mg, Oral, 4 TIMES DAILY PRN, heartburn, Starting on Mon10/01/25 at 0332 * 1559 (Auto Hold - Provider: Orders Generic Provider - Reason: Transfer to a procedural area) * 1720 (Unhold - Provider: Orders Generic Provider) dextrose 50 % injection 25-50 mL(Linked Group 3) 25-50 mL, Intravenous, EVERY 15 MIN PRN, low blood sugar, Administer over 1-5 Minutes, Starting on Mon10/01/25 at 0332, Use if have IV access, BG less than 70 mg/dL and meet dose criteria below: Dose if conscious and alert (or disorientated) and NPO = 25 mL Dose if unconscious / not alert = 50 mL Give first dose for initial blood glucose less than 70 mg/dL. If blood glucose at 15 minute recheck is less than or equal to 80 mg/dL continue to administer carbohydrate treatment every 15 minutes, asneeded, based on blood glucose and assessment parameters until blood glucose level is above 80 mg/dL x 2 consecutive 15 minute checks. * 1559 (Auto Hold - Provider: Orders Generic Provider - Reason: Transfer to a procedural area) * 1720 (Unhold - Provider: Orders Generic Provider) dextrose 50 % injection 25-50 mL(Linked Group 4) 25-50 mL, Intravenous, EVERY 15 MIN PRN, low blood sugar, Administer over 1-5 Minutes, Starting on Mon10/01/25 at 1741, Use if have IV access, BG less than 70 mg/dL and meet dose criteria below: Dose if conscious and alert (or disorientated) and NPO = 25 mL Dose if unconscious / not alert = 50 mL Give first dose for initial blood glucose less than 70 mg/dL. If blood glucose at 15 minute recheck is less than or equal to 80 mg/dL continue to administer carbohydrate treatment every 15 minutes, asneeded, based on blood glucose and assessment parameters until blood glucose level is above 80 mg/dL x 2 consecutive 15 minute checks. glucagon injection 1 mg(Linked Group 4) 1 mg, Subcutaneous, EVERY 15 MIN PRN, low blood sugar, May repeat x 1 only, Starting on Mon10/01/25 at 1741, May give SQ or IM. ONLY use glucagon IF patient has NO IV access AND is UNABLE to swallowAND blood glucose is LESS than or EQUAL to 50 mg/dL. glucose gel 15-30 g(Linked Group 3) 15-30 g, Oral, EVERY 15 MIN PRN, low blood sugar, Starting on Mon10/01/25 at 0332, Give first dosefor initial blood glucose less than 70 mg/dL per the dosing instructions below. If blood glucose at15 minute rechecks is still less than or equal to 80 mg/dL, continue to administer doses per blood glucose parameters every 15 minutes, as needed, until blood glucose level is at or above 80 mg/dL x 2 consecutive 15 minute checks. Dosing Instructions: ~If patient is conscious and able to swallow and NO enteral tube For initial BG 51-69mg/dL OR 15 minute recheck BG 51- 80 mg/dL - give 15 g For BG less than or equal to 50 mg/dL - give 30 g ~ If Enteral tube For initial BG 51-69mg/dL OR 15 minute recheck BG 51- 80 mg/dL - give apple juice 120 mL (4 oz or 15 g of CHO) via enteral tube For BG lessthan or equal to 50 mg/dL - Give apple juice 240 mL (8 oz or 30 g of CHO) via enteral tube ~Oral gel is preferable for conscious and able to swallow patient. ~IF gel unavailable or patient refuses may provide apple juice per Enteral tube dosing instructions. Document juice on I and O flowsheet. * 1559 (Auto Hold - Provider: Orders Generic Provider - Reason: Transfer to a procedural area) * 1720 (Unhold - Provider: Orders Generic Provider) glucose gel 15-30 g(Linked Group 4) 15-30 g, Oral, EVERY 15 MIN PRN, low blood sugar, Starting on Mon10/01/25 at 1741, Give first dosefor initial blood glucose less than 70 mg/dL per the dosing instructions below. If blood glucose at15 minute rechecks is still less than or equal to 80 mg/dL, continue to administer doses per blood glucose parameters every 15 minutes, as needed, until blood glucose level is at or above 80 mg/dL x 2 consecutive 15 minute checks. Dosing Instructions: ~If patient is conscious and able to swallow and NO enteral tube For initial BG 51-69mg/dL OR 15 minute recheck BG 51- 80 mg/dL - give 15 g For BG less than or equal to 50 mg/dL - give 30 g ~ If Enteral tube For initial BG 51-69mg/dL OR 15 minute recheck BG 51- 80 mg/dL - give apple juice 120 mL (4 oz or 15 g of CHO) via enteral tube For BG lessthan or equal to 50 mg/dL - Give apple juice 240 mL (8 oz or 30 g of CHO) via enteral tube ~Oral gel is preferable for conscious and able to swallow patient. ~IF gel unavailable or patient refuses may provide apple juice per Enteral tube dosing instructions. Document juice on I and O flowsheet. HYDROmorphone (PF) (DILAUDID) injection 0.3 mg 0.3 mg, Intravenous, EVERY 2 HOURS PRN, moderate pain, IF patient cannot take oral opioid OR IF pain not managed with non-pharmacological, non-opioid, or oral opioid interventions if ordered, Starting on Mon10/01/25 at 0334, May use concomitant with non-opioid analgesics. * 1047 ($Given - Provider: Carrol Payton RN) * 1559 (Auto Hold - Provider: Orders Generic Provider - Reason: Transfer to a procedural area) * 1720 (Unhold - Provider: Orders Generic Provider) HYDROmorphone (PF) (DILAUDID) injection 0.5 mg 0.5 mg, Intravenous, EVERY 2 HOURS PRN, severe pain, IF patient cannot take oral opioid OR IF pain not managed with non-pharmacological, non-opioid, or oral opioid interventions if ordered, Starting on Mon10/01/25 at 0334, May use concomitant with non-opioid analgesics. * 1559 (Auto Hold - Provider: Orders Generic Provider - Reason: Transfer to a procedural area) * 1720 (Unhold - Provider: Orders Generic Provider) iohexol (OMNIPAQUE) 300 mg/mL injection PRN, Starting on Mon10/01/25 at 1613, Intra-procedure * 1613 ($Given - Provider: Bradely Holguin MD - Comment: Mixed with saline 8.5mlGiven in left ureter via urethra) lidocaine (LMX4) cream Topical, EVERY 1 HOUR PRN, pain, with VAD insertion, Starting on Mon10/01/25 at 0332, Apply at least 30 minutes prior to VAD insertion in divided doses as needed for size of site for insertion. MAX Dose: 2.5 g (?? of 5 g tube) Do NOT give if patient has a history of allergy to any local anestheticor any cherie product. Do NOT use both lidocaine intradermal/subcutaneous injection and the lidocaine cream on the same site. * 1559 (Auto Hold - Provider: Orders Generic Provider - Reason: Transfer to a procedural area) * 1720 (Unhold - Provider: Orders Generic Provider) lidocaine 1 % 0.1-1 mL 0.1-1 mL, Other, EVERY 1 HOUR PRN, mild pain with VAD insertion, Starting on Mon10/01/25 at 0332, MAX dose 1 mL subcutaneous OR intradermal along the side of the vein in divided doses as needed for VAD insertion. Do NOT give if patient has a history of allergy to any local anesthetic or any cherie product. Do NOT use both lidocaine intradermal/subcutaneous injection and the lidocaine cream on the same site. * 1559 (Auto Hold - Provider: Orders Generic Provider - Reason: Transfer to a procedural area) * 1720 (Unhold - Provider: Orders Generic Provider) melatonin tablet 5 mg 5 mg, Oral, AT BEDTIME PRN, sleep, Starting on Mon10/01/25 at 0334, Do not give unless at least 6 hours of uninterrupted sleep is expected. If patient has multiple medications ordered PRN sleep/insomnia, offer melatonin first. * 1559 (Auto Hold - Provider: Orders Generic Provider - Reason: Transfer to a procedural area) * 1720 (Unhold - Provider: Orders Generic Provider) naloxone (NARCAN) injection 0.2 mg(Linked Group 5) 0.2 mg, Intravenous, EVERY 2 MIN PRN, opioid reversal, Starting on Mon10/01/25 at 0345, Administerintravenous route when available and notify provider when administered. For unintended sedation or respiratory depression if all of the below criteria are met: ~ respiratory rate LESS than or EQUAL to 8. ~SaO2 less than 92% and or/end-tidal CO2 is greater than 50. ~ the patient is receiving an opioid, has unintended sedations assessed as RASS (-3), and is currently not on mechanical ventilation. RASS scale moderate (-3) is movement or eye opening to voice but no eye contact. Patient Monitoring Once the patient has demonstrated a response to the naloxone, continue to monitor respiratory rate, depth, oxygen saturation and end-tidal CO2 (if available) every 15 minutes x 2, then every 30 minutes x 2, then every 1 hour x 1 after each naloxone dose. Consider transfer to ICU if patient respiratory parameters have not improved after 4 naloxone doses. * 1559 (Auto Hold - Provider: Orders Generic Provider - Reason: Transfer to a procedural area) * 1720 (Unhold - Provider: Orders Generic Provider) naloxone (NARCAN) injection 0.2 mg(Linked Group 5) 0.2 mg, Intramuscular, EVERY 2 MIN PRN, opioid reversal, Starting on Mon10/01/25 at 0345, Administer intramuscular if an intravenous route is not available and notify provider when administered. Forunintended sedation or respiratory depression if all of the below criteria are met: ~ respiratory rate LESS than or EQUAL to 8. ~SaO2 less than 92% and or/end-tidal CO2 is greater than 50. ~ the patient is receiving an opioid, has unintended sedations assessed as RASS (-3), and is currently not on mechanical ventilation. RASS scale moderate (-3) is movement or eye opening to voice but no eye contact. Patient Monitoring Once the patient has demonstrated a response to the naloxone, continue to monitor respiratory rate, depth, oxygen saturation and end-tidal CO2 (if available) every 15 minutes x2, then every 30 minutes x 2, then every 1 hour x 1 after each naloxone dose. Consider transfer to ICU if patient respiratory parameters have not improved after 4 naloxone doses. * 1559 (Auto Hold - Provider: Orders Generic Provider - Reason: Transfer to a procedural area) * 1720 (Unhold - Provider: Orders Generic Provider) naloxone (NARCAN) injection 0.4 mg(Linked Group 5) 0.4 mg, Intravenous, EVERY 2 MIN PRN, opioid reversal, Starting on Mon10/01/25 at 0345, Administerintravenous route when available and notify provider when administered. For unintended sedation or respiratory depression if all of the below criteria are met: ~ respiratory rate LESS than or EQUAL to 8. ~ SaO2 less than 92% and or/end-tidal CO2 is greater than 50. ~ the patient is receiving an opioid, has unintended sedation assessed as RASS (-4) or (-5) and patient is currently not on mechanical ventilation. RASS scale (-4) is deep sedation with no response to voice but movement or eye opening to physical stimulation. RASS scale (-5) is unarousable. Patient Monitoring Once the patient has demonstrated a response to the naloxone, continue to monitor respiratory rate, depth, oxygen saturation and end-tidal CO2 (if available) every 15 minutes x 2, then every 30 minutes x 2, then every 1 hour x 1 after each naloxone dose. Consider transfer to ICU if patient respiratory parameters have notimproved after 4 naloxone doses. * 1559 (Auto Hold - Provider: Orders Generic Provider - Reason: Transfer to a procedural area) * 1720 (Unhold - Provider: Orders Generic Provider) naloxone (NARCAN) injection 0.4 mg(Linked Group 5) 0.4 mg, Intramuscular, EVERY 2 MIN PRN, opioid reversal, Starting on Mon10/01/25 at 0345, Administer intramuscular if an intravenous route is not available and notify provider when administered. Forunintended sedation or respiratory depression if all of the below criteria are met: ~ respiratory rate LESS than or EQUAL to 8. ~ SaO2 less than 92% and or/end-tidal CO2 is greater than 50. ~ the patient is receiving an opioid, has unintended sedation assessed as RASS (-4) or (-5) and patient is currently not on mechanical ventilation. RASS scale (-4) is deep sedation with no response to voice but movement or eye opening to physical stimulation. RASS scale (-5) is unarousable. Patient Monitoring Once the patient has demonstrated a response to the naloxone, continue to monitor respiratory rate, depth, oxygen saturation and end-tidal CO2 (if available) every 15 minutes x 2, then every 30 minutes x 2, then every 1 hour x 1 after each naloxone dose. Consider transfer to ICU if patient respirat ory parameters have not improved after 4 naloxone doses. * 1559 (Auto Hold - Provider: Orders Generic Provider - Reason: Transfer to a procedural area) * 1720 (Unhold - Provider: Orders Generic Provider) ondansetron (ZOFRAN ODT) ODT tab 4 mg(Linked Group 6) 4 mg, Oral, EVERY 6 HOURS PRN, nausea/vomiting - 1st line, Starting on Mon10/01/25 at 0334, This is Step 1 of nausea and vomiting management. If nausea not resolved in 15 minutes, go to Step 2 prochlorperazine (COMPAZINE). With dry hands, peel back foil backing and gently remove tablet. Do not push oral disintegrating tablet through foil backing. Administer immediately on tongue and oral disintegrating tablet dissolves in seconds, then swallow with saliva. Liquid not required. * 1559 (Auto Hold - Provider: Orders Generic Provider - Reason: Transfer to a procedural area) * 1720 (Unhold - Provider: Orders Generic Provider) ondansetron (ZOFRAN) injection 4 mg(Linked Group 6) 4 mg, Intravenous, EVERY 6 HOURS PRN, nausea/vomiting - 1st line, Administer over 2-5 Minutes, Starting on Mon10/01/25 at 0334, Give IF patient unable to tolerate oral medication. This is Step 1 of nausea and vomiting management. If nausea not resolved in 15 minutes, go to Step 2 prochlorperazine (COMPAZINE). * 1559 (Auto Hold - Provider: Orders Generic Provider - Reason: Transfer to a procedural area) * 1720 (Unhold - Provider: Orders Generic Provider) oxyCODONE (ROXICODONE) tablet 5 mg 5 mg, Oral, EVERY 4 HOURS PRN, moderate pain, IF pain not managed with non- pharmacological and non-opioid interventions, Starting on Mon10/01/25 at 0334, May use concomitant with non-opioid analgesics. * 1559 (Auto Hold - Provider: Orders Generic Provider - Reason: Transfer to a procedural area) * 1720 (Unhold - Provider: Orders Generic Provider) oxyCODONE IR (ROXICODONE) tablet 10 mg 10 mg, Oral, EVERY 4 HOURS PRN, severe pain, IF pain not managed with non- pharmacological and non-opioid interventions, Starting on Mon10/01/25 at 0334, May use concomitant with non-opioid analgesics. * 1559 (Auto Hold - Provider: Orders Generic Provider - Reason: Transfer to a procedural area) * 1720 (Unhold - Provider: Orders Generic Provider) polyethylene glycol (MIRALAX) Packet 17 g 17 g, Oral, 2 TIMES DAILY PRN, constipation, Starting on Mon10/01/25 at 0334, IF more than 1 constipation PRN medication is ordered, administer step-rainey as indicated, moving to the next step ONLY if prior step ineffective. Step 1: senna-docusate (SENOKOT-S; PERICOLACE) OR bisacodyl (DULCOLAX) EC tablet Step 2: polyethylene glycol (MIRALAX/GLYCOLAX) Step 3: bisacodyl (DULCOLAX) suppository Step 4: enema 1 Packet = 17 grams. Mix each gram with at least 1/2 ounce (15 mL) of water - 8 ounces for 17 g dose, 4 ounces for 8.5 g dose, 2 ounces for 4 g dose. Follow with the same volume of water. Hold for loose stools unless being administered as part of a bowel prep regimen or bowel clean out. * 1559 (Auto Hold - Provider: Orders Generic Provider - Reason: Transfer to a procedural area) * 1720 (Unhold - Provider: Orders Generic Provider) prochlorperazine (COMPAZINE) injection 10 mg(Linked Group 7) 10 mg, Intravenous, EVERY 6 HOURS PRN, nausea/vomiting - 2nd line, Administer over 1-2 Minutes, Starting on Mon10/01/25 at 0334, IF patient unable to tolerate oral medication. This is Step 2 of nausea and vomiting management. Give if nausea not resolved 15 minutes after giving ondansetron (ZOFRAN). * 1559 (Auto Hold - Provider: Orders Generic Provider - Reason: Transfer to a procedural area) * 1720 (Unhold - Provider: Orders Generic Provider) prochlorperazine (COMPAZINE) tablet 10 mg(Linked Group 7) 10 mg, Oral, EVERY 6 HOURS PRN, nausea/vomiting - 2nd line, Starting on Mon10/01/25 at 0334, This is Step 2 of nausea and vomiting management. Give if nausea not resolved 15 minutes after giving ondansetron (ZOFRAN). * 1559 (Auto Hold - Provider: Orders Generic Provider - Reason: Transfer to a procedural area) * 1720 (Unhold - Provider: Orders Generic Provider) senna-docusate (SENOKOT-S/PERICOLACE) 8.6-50 MG per tablet 1 tablet(Linked Group 8) 1 tablet, Oral, 2 TIMES DAILY PRN, constipation, Starting on Mon10/01/25 at 0332, If no bowel movement in 24 hours, increase to 2 tablets by mouth. IF more than 1 constipation PRN medication is ordered, administer step-rainey as indicated, moving to the next step ONLY if prior step ineffective. Step1: senna- docusate (SENOKOT-S; PERICOLACE) OR bisacodyl (DULCOLAX) EC tablet Step 2: polyethylene glycol (MIRALAX/GLYCOLAX) Step 3: bisacodyl (DULCOLAX) suppository Step 4: enema Hold for loose stools. * 1559 (Auto Hold - Provider: Orders Generic Provider - Reason: Transfer to a procedural area) * 1720 (Unhold - Provider: Orders Generic Provider) senna-docusate (SENOKOT-S/PERICOLACE) 8.6-50 MG per tablet 2 tablet(Linked Group 8) 2 tablet, Oral, 2 TIMES DAILY PRN, constipation, Starting on Mon10/01/25 at 0332, IF more than 1 constipation PRN medication is ordered, administer step- rainey as indicated, moving to the next step ONLY if prior step ineffective. Step 1: senna-docusate (SENOKOT-S; PERICOLACE) OR bisacodyl (DULCOLAX)EC tablet Step 2: polyethylene glycol (MIRALAX/GLYCOLAX) Step 3: bisacodyl (DULCOLAX) suppository Step 4: enema Hold for loose stools. * 1559 (Auto Hold - Provider: Orders Generic Provider - Reason: Transfer to a procedural area) * 1720 (Unhold - Provider: Orders Generic Provider) sodium chloride (PF) 0.9% PF flush 3 mL 3 mL, Intracatheter, EVERY 1 MIN PRN, line flush, other, to ensure patency or to lock dormant line,Starting on Mon10/01/25 at 0332 * 1559 (Auto Hold - Provider: Orders Generic Provider - Reason: Transfer to a procedural area) * 1720 (Unhold - Provider: Orders Generic Provider) * 2032 ($Given - Provider: Maisha Terrazas RN) sterile water irrigation (bag) PRN, Intra-procedure, Starting on Mon10/01/25 at 1613, Until Mon10/03/25 at 1558 * 1613 ($Given - Provider: Bradley Holguin MD) Order Group 1: acetaminophen (TYLENOL) tablet 975 mg (COMPLETED)Jump to med 975 mg, Oral, ONCE, On Mon10/01/25 at 1430, For 1 dose, Maximum acetaminophen dose from all sources = 75 mg/kg/day not to exceed 4 grams/day., Pre-procedure Or acetaminophen (TYLENOL) Suppository 650 mg (COMPLETED) 650 mg, Rectal, ONCE, On Mon10/01/25 at 1430, For 1 dose, Maximum acetaminophen dose from all sources = 75 mg/kg/day not to exceed 4 grams/day., Pre-procedure Group 2: acetaminophen (TYLENOL) tablet 650 mgJump to med 650 mg, Oral, EVERY 4 HOURS PRN, mild pain, other, and adjunct with moderate or severe pain or per patient request, Starting on Mon10/01/25 at 0334, Alternate with ibuprofen if ordered. Maximum acetaminophen dose from all sources = 75 mg/kg/day not to exceed 4 grams/day. Or acetaminophen (TYLENOL) Suppository 650 mgJump to med 650 mg, Rectal, EVERY 4 HOURS PRN, mild pain, other, and adjunct with moderate or severe pain or per patient request, Starting on Mon10/01/25 at 0334, Alternate with ibuprofen if ordered. Maximum acetaminophen dose from all sources = 75 mg/kg/day not to exceed 4 grams/day. Group 3: glucose gel 15-30 gJump to med 15-30 g, Oral, EVERY 15 MIN PRN, low blood sugar, Starting on Mon10/01/25 at 0332, Give first dosefor initial blood glucose less than 70 mg/dL per the dosing instructions below. If blood glucose at15 minute rechecks is still less than or equal to 80 mg/dL, continue to administer doses per blood glucose parameters every 15 minutes, as needed, until blood glucose level is at or above 80 mg/dL x 2 consecutive 15 minute checks. Dosing Instructions: ~If patient is conscious and able to swallow and NO enteral tube For initial BG 51-69mg/dL OR 15 minute recheck BG 51- 80 mg/dL - give 15 g For BG less than or equal to 50 mg/dL - give 30 g ~ If Enteral tube For initial BG 51-69mg/dL OR 15 minute recheck BG 51- 80 mg/dL - give apple juice 120 mL (4 oz or 15 g of CHO) via enteral tube For BG lessthan or equal to 50 mg/dL - Give apple juice 240 mL (8 oz or 30 g of CHO) via enteral tube ~Oral gel is preferable for conscious and able to swallow patient. ~IF gel unavailable or patient refuses may provide apple juice per Enteral tube dosing instructions. Document juice on I and O flowsheet. Or dextrose 50 % injection 25-50 mLJump to med 25-50 mL, Intravenous, EVERY 15 MIN PRN, low blood sugar, Administer over 1-5 Minutes, Starting on Mon10/01/25 at 0332, Use if have IV access, BG less than 70 mg/dL and meet dose criteria below: Dose if conscious and alert (or disorientated) and NPO = 25 mL Dose if unconscious / not alert = 50 mL Give first dose for initial blood glucose less than 70 mg/dL. If blood glucose at 15 minute recheck is less than or equal to 80 mg/dL continue to administer carbohydrate treatment every 15 minutes, asneeded, based on blood glucose and assessment parameters until blood glucose level is above 80 mg/dL x 2 consecutive 15 minute checks. Or glucagon injection 1 mg (CANCELED) 1 mg, Subcutaneous, EVERY 15 MIN PRN, low blood sugar, May repeat x 1 only, Starting on Mon10/01/25 at 0332, May give SQ or IM. ONLY use glucagon IF patient has NO IV access AND is UNABLE to swallowAND blood glucose is LESS than or EQUAL to 50 mg/dL. Group 4: glucose gel 15-30 gJump to med 15-30 g, Oral, EVERY 15 MIN PRN, low blood sugar, Starting on Mon10/01/25 at 1741, Give first dosefor initial blood glucose less than 70 mg/dL per the dosing instructions below. If blood glucose at15 minute rechecks is still less than or equal to 80 mg/dL, continue to administer doses per blood glucose parameters every 15 minutes, as needed, until blood glucose level is at or above 80 mg/dL x 2 consecutive 15 minute checks. Dosing Instructions: ~If patient is conscious and able to swallow and NO enteral tube For initial BG 51-69mg/dL OR 15 minute recheck BG 51- 80 mg/dL - give 15 g For BG less than or equal to 50 mg/dL - give 30 g ~ If Enteral tube For initial BG 51-69mg/dL OR 15 minute recheck BG 51- 80 mg/dL - give apple juice 120 mL (4 oz or 15 g of CHO) via enteral tube For BG lessthan or equal to 50 mg/dL - Give apple juice 240 mL (8 oz or 30 g of CHO) via enteral tube ~Oral gel is preferable for conscious and able to swallow patient. ~IF gel unavailable or patient refuses may provide apple juice per Enteral tube dosing instructions. Document juice on I and O flowsheet. Or dextrose 50 % injection 25-50 mLJump to med 25-50 mL, Intravenous, EVERY 15 MIN PRN, low blood sugar, Administer over 1-5 Minutes, Starting on Mon10/01/25 at 1741, Use if have IV access, BG less than 70 mg/dL and meet dose criteria below: Dose if conscious and alert (or disorientated) and NPO = 25 mL Dose if unconscious / not alert = 50 mL Give first dose for initial blood glucose less than 70 mg/dL. If blood glucose at 15 minute recheck is less than or equal to 80 mg/dL continue to administer carbohydrate treatment every 15 minutes, asneeded, based on blood glucose and assessment parameters until blood glucose level is above 80 mg/dL x 2 consecutive 15 minute checks. Or glucagon injection 1 mgJump to med 1 mg, Subcutaneous, EVERY 15 MIN PRN, low blood sugar, May repeat x 1 only, Starting on Mon10/01/25 at 1741, May give SQ or IM. ONLY use glucagon IF patient has NO IV access AND is UNABLE to swallowAND blood glucose is LESS than or EQUAL to 50 mg/dL. Group 5: naloxone (NARCAN) injection 0.2 mgJump to med 0.2 mg, Intravenous, EVERY 2 MIN PRN, opioid reversal, Starting on Mon10/01/25 at 0345, Administerintravenous route when available and notify provider when administered. For unintended sedation or respiratory depression if all of the below criteria are met: ~ respiratory rate LESS than or EQUAL to 8. ~SaO2 less than 92% and or/end-tidal CO2 is greater than 50. ~ the patient is receiving an opioid, has unintended sedations assessed as RASS (-3), and is currently not on mechanical ventilation. RASS scale moderate (-3) is movement or eye opening to voice but no eye contact. Patient Monitoring Once the patient has demonstrated a response to the naloxone, continue to monitor respiratory rate, depth, oxygen saturation and end-tidal CO2 (if available) every 15 minutes x 2, then every 30 minutes x 2, then every 1 hour x 1 after each naloxone dose. Consider transfer to ICU if patient respiratory parameters have not improved after 4 naloxone doses. Or naloxone (NARCAN) injection 0.4 mgJump to med 0.4 mg, Intravenous, EVERY 2 MIN PRN, opioid reversal, Starting on Mon10/01/25 at 0345, Administerintravenous route when available and notify provider when administered. For unintended sedation or respiratory depression if all of the below criteria are met: ~ respiratory rate LESS than or EQUAL to 8. ~ SaO2 less than 92% and or/end-tidal CO2 is greater than 50. ~ the patient is receiving an opioid, has unintended sedation assessed as RASS (-4) or (-5) and patient is currently not on mechanical ventilation. RASS scale (-4) is deep sedation with no response to voice but movement or eye opening to physical stimulation. RASS scale (-5) is unarousable. Patient Monitoring Once the patient has demonstrated a response to the naloxone, continue to monitor respiratory rate, depth, oxygen saturation and end-tidal CO2 (if available) every 15 minutes x 2, then every 30 minutes x 2, then every 1 hour x 1 after each naloxone dose. Consider transfer to ICU if patient respiratory parameters have notimproved after 4 naloxone doses. Or naloxone (NARCAN) injection 0.2 mgJump to med 0.2 mg, Intramuscular, EVERY 2 MIN PRN, opioid reversal, Starting on Mon10/01/25 at 0345, Administer intramuscular if an intravenous route is not available and notify provider when administered. Forunintended sedation or respiratory depression if all of the below criteria are met: ~ respiratory rate LESS than or EQUAL to 8. ~SaO2 less than 92% and or/end-tidal CO2 is greater than 50. ~ the patient is receiving an opioid, has unintended sedations assessed as RASS (-3), and is currently not on mechanical ventilation. RASS scale moderate (-3) is movement or eye opening to voice but no eye contact. Patient Monitoring Once the patient has demonstrated a response to the naloxone, continue to monitor respiratory rate, depth, oxygen saturation and end-tidal CO2 (if available) every 15 minutes x2, then every 30 minutes x 2, then every 1 hour x 1 after each naloxone dose. Consider transfer to ICU if patient respiratory parameters have not improved after 4 naloxone doses. Or naloxone (NARCAN) injection 0.4 mgJump to med 0.4 mg, Intramuscular, EVERY 2 MIN PRN, opioid reversal, Starting on Mon10/01/25 at 0345, Administer intramuscular if an intravenous route is not available and notify provider when administered. Forunintended sedation or respiratory depression if all of the below criteria are met: ~ respiratory rate LESS than or EQUAL to 8. ~ SaO2 less than 92% and or/end-tidal CO2 is greater than 50. ~ the patient is receiving an opioid, has unintended sedation assessed as RASS (-4) or (-5) and patient is currently not on mechanical ventilation. RASS scale (-4) is deep sedation with no response to voice but movement or eye opening to physical stimulation. RASS scale (-5) is unarousable. Patient Monitoring Once the patient has demonstrated a response to the naloxone, continue to monitor respiratory rate, depth, oxygen saturation and end-tidal CO2 (if available) every 15 minutes x 2, then every 30 minutes x 2, then every 1 hour x 1 after each naloxone dose. Consider transfer to ICU if patient respirat ory parameters have not improved after 4 naloxone doses. Group 6: ondansetron (ZOFRAN ODT) ODT tab 4 mgJump to med 4 mg, Oral, EVERY 6 HOURS PRN, nausea/vomiting - 1st line, Starting on Mon10/01/25 at 0334, This is Step 1 of nausea and vomiting management. If nausea not resolved in 15 minutes, go to Step 2 prochlorperazine (COMPAZINE). With dry hands, peel back foil backing and gently remove tablet. Do not push oral disintegrating tablet through foil backing. Administer immediately on tongue and oral disintegrating tablet dissolves in seconds, then swallow with saliva. Liquid not required. Or ondansetron (ZOFRAN) injection 4 mgJump to med 4 mg, Intravenous, EVERY 6 HOURS PRN, nausea/vomiting - 1st line, Administer over 2-5 Minutes, Starting on Mon10/01/25 at 0334, Give IF patient unable to tolerate oral medication. This is Step 1 of nausea and vomiting management. If nausea not resolved in 15 minutes, go to Step 2 prochlorperazine (COMPAZINE). Group 7: prochlorperazine (COMPAZINE) injection 10 mgJump to med 10 mg, Intravenous, EVERY 6 HOURS PRN, nausea/vomiting - 2nd line, Administer over 1-2 Minutes, Starting on Mon10/01/25 at 0334, IF patient unable to tolerate oral medication. This is Step 2 of nausea and vomiting management. Give if nausea not resolved 15 minutes after giving ondansetron (ZOFRAN). Or prochlorperazine (COMPAZINE) tablet 10 mgJump to med 10 mg, Oral, EVERY 6 HOURS PRN, nausea/vomiting - 2nd line, Starting on Mon10/01/25 at 0334, This is Step 2 of nausea and vomiting management. Give if nausea not resolved 15 minutes after giving ondansetron (ZOFRAN). Group 8: senna-docusate (SENOKOT-S/PERICOLACE) 8.6-50 MG per tablet 1 tabletJump to med 1 tablet, Oral, 2 TIMES DAILY PRN, constipation, Starting on Mon10/01/25 at 0332, If no bowel movement in 24 hours, increase to 2 tablets by mouth. IF more than 1 constipation PRN medication is ordered, administer step-rainey as indicated, moving to the next step ONLY if prior step ineffective. Step1: senna- docusate (SENOKOT-S; PERICOLACE) OR bisacodyl (DULCOLAX) EC tablet Step 2: polyethylene glycol (MIRALAX/GLYCOLAX) Step 3: bisacodyl (DULCOLAX) suppository Step 4: enema Hold for loose stools. Or senna-docusate (SENOKOT-S/PERICOLACE) 8.6-50 MG per tablet 2 tabletJump to med 2 tablet, Oral, 2 TIMES DAILY PRN, constipation, Starting on Mon10/01/25 at 0332, IF more than 1 constipation PRN medication is ordered, administer step- rainey as indicated, moving to the next step ONLY if prior step ineffective. Step 1: senna-docusate (SENOKOT-S; PERICOLACE) OR bisacodyl (DULCOLAX)EC tablet Step 2: polyethylene glycol (MIRALAX/GLYCOLAX) Step 3: bisacodyl (DULCOLAX) suppository Step 4: enema Hold for loose stools. documented in this encounter Care Teams Team MemberRelationshipSpecial[place] [address] PCP - General05/22/13documented as of this encounter
--- OUTSIDE RECORDS SUMMARY | 2025-10-01 15:15 | XMS_ITS | Encounter Summary ---
Author Organization [facility] Address [address] [place] [address]. [place] [address] Care Team Providers Care Can Maker Name Role Phone Clinic, [facility] Primary Care Provider Reason for Visit * Auth/CertSpecialtyDiagnoses / ProceduresReferred By ContactReferred To Contact Med Surg Diagnoses Infected stone, UTI GumeKory MD [address] [place] [address] Phone: tel: fax: [facility] Medical Surgical [address] [place] [address] Phone: tel: fax: Referral IDStatusReasonStart DateExpiration DateVisits RequestedVisits [id number] Encounter Details DateTypeDepartmentCare Team (Latest Contact Info)Smsixjkwqry48/19/2025 3:15 PM DATA MANAGER - 10/01/2025 4:00 PM CSTSurgery [facility] [address] [place] [address] Bradley Holguin MD [address] [address] Cystoscopy, left retrograde pyelogram, left ureteral stent placement, interpretation of fluoroscopic images Surgery Details Date/TimeStatusLocationORServicePatient ClassCase ClassCase TypeTrauma Case? 10/01/2025 3:15 PMPostedRH OROR 14UrologyInpatientElectivePanel 1 ProcedureLRB AnesOp RegionWound ClassCommentsCystoscopy, left retrograde pyelogram, left ureteral stent placement, interpretation of fluoroscopic imagesLeftGeneral UrethraII-Clean Contaminated SurgeonSurgeon RoleServicePanelEzio, Bradley Lenz, MDPrimaryUrology1 documented in this encounter Social History Tobacco UseTypesPacks/DayYears UsedDateSmoking Tobacco: Every [...] in an abandoned building, in an overnight longterm, or couch-surfing.)Yes10/01/2025re you worried about losing your [...] InformationValueDate RecordedSex Assigned at BirthNot on fileLegal PryRzzmre69/10/2013 2:18 PM CDTGender IdentityNot on file Sexual OrientationNot on filedocumented as of this encounter Last Filed Vital Signs Vital SignReadingTime TakenCommentsBlood Cbaqoehp176/6011 2:36 PM DATA MANAGER Wubwu846810/01/2025 2:36 PM FVWShaafpasnfo48.3 ??C (97.3 ??F)10/01/2025 2:36 PM CSTRespiratory Rdfs028012/01/2024 2:36 PM CSTOxygen Asaggyyxmx60%10/01/2025 2:36 PM CSTInhaled Oxygen Concentration--Kycbhk92.4 kg (142 lb)10/01/2025 3:53 AM DATA MANAGER Izzphe681.2 cm (5' 1.5)10/01/2025 3:53 AM CSTBody Mass Index26.411 3:53 AM CSTdocumented in this encounter Discharge Summaries * Mehnaz Pacheco MD - 10/03/2025 12:35 PM CST Discharge Summary Hospitalist Service Ct Zuleta Date of : 1965 Age: [age] year old Date of Admission: 10/01/2025 Date of Discharge: 10/03/2025 Admitting Physician: Kory Dunaway MD Discharge Physician: Mehnaz Pacheco MD Discharging Service: Hospitalist Service Primary Provider: Fara Otoole [facility] Primary [facility] Physician Discharge Diagnoses/Problem Oriented Hospital Course (Providers): Discharge Diagnoses #Sepsis secondary to complicated E coli UTI, pyelonephritis secondary to L nephrolithiasis: #Hypokalemia. Hypomagnesemia #Incidental finding left breast nodule #Type II DM #JONO Hospital Course Ct Zuleta is a 60 year old female with PMH including type II DM, GERD, HLD, tobacco dependence, JONO not on CPAP, nephrolithiasis who presented to [place] emergency department for left flank pain. #Sepsis secondary to complicated E coli UTI, pyelonephritis secondary to L nephrolithiasis: She developed severe left flank pain wrapping around to the left lower quadrant and suprapubic area. She also had subjective fevers and chills. She vomited once at home. Has had some recent irritation with urination. Denies diarrhea. Presented to [place] ER. Blood pressure was elevated, tachycardic at 105, temperature 97.9 ??F. WBC 21. CT abdomen pelvis showed a 5 mm left UPJ stone with mild left renal pelvicaliectasis and perinephric edema. UA showed 25-50 WBCs, >100 RBCs, trace LE, positive nitrite. Urine culture from [place] showing kruse-sensitive E coli per ID lab at [place] on 10/02. Will discharge on oral Augmentin [...] provider for further advice. 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 Glucose [...] bedtime. fluticasone (FLONASE) 50 MCG/ACT nasal spray Leckrone 2 sprays into both nostrils daily as [...] Image Results From This Hospital Stay (For Non-[facility] Providers): Results for orders placed or performed during the hospital encounter of 10/01/25 XR Surgery SHAUNA Narrative This exam was marked as non-reportable because it will not be read by a radiologist or a [facility] non-radiologist provider. CT External Imaging Abdomen Narrative Images were obtained from an external facility. Click PACS Images hyperlink to view images. Textual results have been scanned into the media tab. Most Recent Lab Results In [facility] (For Non-[facility] Providers): Most Recent 3 CBC's: Recent Labs [...] T4 and HgbA1c: Recent Labs Lab Test 10/02/25 0638 A1C 7.1* [1] Allergies Allergen Reactions Perfume Other (See Comments) Wheezing MANAGER documented in this encounter Medications at Time [...] bedtime.10/28/2024 fluticasone (FLONASE) 50 MCG/ACT nasal spray Leckrone 2 sprays into both nostrils daily as [...] times daily for 9 days. 18 tablet 5112/12/2024documented as of this encounter Progress Notes * [...] with all of her belongings, and AVS MANAGER * Ashtyn Easton PA-C - 10/03/2025 9:30 AM CST [facility] Progress Note Assessment and Plan: Assessment: [...] clear upper tract infection. Urine culture from [place] shows 70,000-80,000 CFU per mL of pansensitive [...] any additional urological concerns. Ashtyn Easton PA-C [facility] [phone] Interval History: Doing okay. Had Tmax of 100.4 this morning. Patient did not feel febrile and denies chills, nausea,or vomiting. Creatinine 0.59 eGFR greater than 90. WBC 12.54 (23.33 (17.01)). Slight dysuria with urination, but denies it being bad enough that she would want a medication for this. Urine culture from [facility] shows 70,000 80,000 CFU per mL of [...] Kory Dunaway MD 2 g at 10/02/25 2031 glucose gel 15-30 g 15-30 g Oral [...] Continuous Kory Dunaway MD 100 mL/hr at 10/03/25 0849 Rate [...] RODNEY Kory Dunaway MD 3 mL at 11/20/25 0626 sodium chloride (PF) 0.9% PF flush 3 mL 3 mL Intracatheter q1 min prn Kory Dunaway MD 3 mL at 10/02/252032 sterile water irrigation (bag) PRN Bradley Holguin MD 30 mL at 10/01/25 1613 MANAGER * Ashtyn Easton PA-C - 10/02/2025 9:00 AM CST [facility] Progress Note Assessment and Plan: Assessment: [...] IV antibiotics. Will need to follow-up with [facility] regarding results. -Continue to monitor WBC. Suspect that this will start to improve tomorrow. Kidney function within normal limits. -Will hold off on adding on additional medication for stent discomfort, as patient is currently tolerating this well. -Additional pain and nausea management per primary service. -Will continue to follow along. Hopeful for discharge tomorrow. Ashtyn Easton PA-C [facility] [phone] Interval History: Doing well. Denies fever, chills, [...] Dunaway MD 20 mg at 10/01/25 2145 HYDROmorphone (PF) (DILAUDID) injection 0.3 mg 0.3 mg Intravenous Q2H PRN Kroy Dunaway MD0.3 mg at 10/01/25 1047 HYDROmorphone [...] mg 0.2 mg Intravenous Q2 Min PRN oKry Dunaway MD Or naloxone (NARCAN) injection 0.4 [...] flush 3 mL 3 mL Intracatheter Q8H [facility] Kory Dunaway MD 3 mL at 10/02/25 0626 sodium chloride (PF) 0.9% PF flush 3 mL 3 mL Intracatheter q1 min prn Kory Dunaway MD sterile water irrigation (bag) PRN Bradley Holguin MD 30 mL at 10/01/25 1613 MANAGER * Tony Vinson MD - 10/02/2025 8:[address] [facility] Hospitalist Progress Note Assessment & Plan Ct Zuleta is a 60 year old female with PMH including type II DM, GERD, HLD, tobacco dependence, JONO not on CPAP, nephrolithiasis who presented to [place] emergency department for left flank pain. #Sepsis secondary to complicated E coli UTI, pyelonephritis secondary to L nephrolithiasis: She developed severe left flank pain wrapping around to the left lower quadrant and suprapubic area. She also had subjective fevers and chills. She vomited once at home. Has had some recent irritation with urination. Denies diarrhea. Presented to [place] ER. Blood pressure was elevated, tachycardic at 105, temperature 97.9 ??F. WBC 21. CT abdomen pelvis showed a 5 mm left UPJ stone with mild left renal pelvicaliectasis and perinephric edema. UA showed 25-50 WBCs, >100 RBCs, trace LE, positive nitrite. Urine culture from [place] showing kruse-sensitive E coli per ID lab at [place] on 10/02. -She received 1 g IV [...] provider for further advice. 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 Glucose [...] Bedtime Kory Dunaway MD 20 mg at 10/01/252144 insulin aspart (NovoLOG) injection (RAPID ACTING) 1-7 [...] flush 3 mL 3 mL Intracatheter Q8H [facility] Kory Dunaway MD 3 mL at 10/02/25 [...] be read by a radiologist or a [facility] non-radiologist provider. [1] Current Facility-Administered Medications Medication Dose Route Frequency Provider Last Rate Last Admin lactated ringers infusion Intravenous Continuous Kory Dunaway MD 100 mL/hr at 10/02/25 0732 Rate Verify at 10/02/25 0732 MANAGER * Laura Miller RN - 10/01/2025 5:19 PM CST Patient wedding band returned to patient prior to going back up to room MANAGER * Tony Vinson MD - 10/01/2025 9:49 AM CST See H&P from Dr. Dunaway. Pt seen and evaluated. Feeling better. Low grade fever 99.9 this AM. HDS. Urology planning OR this afternoon. Continue ceftriaxone. NPO. Tony Vinson MD MANAGER documented in this encounter H&P Notes * Kory Dunaway MD - 10/01/2025 3:39 AM CST [facility] Hospitalist Admission Note Name: Ct Zuleta Date of : 1965 Age: [age] year old Date of admission: 10/01/2025 Primary care provider: Fara Otoole Chief Complaint: left flank pain, chills Assessment and Plan: Sepsis Complicated UTI, pyelonephritis secondary to L nephrolithiasis: Earlier this evening she developed severe left flank pain wrapping around to the left lower quadrant and suprapubic area. She also had subjective fevers and chills. She vomited once at home. Has had some recent irritation with urination. Denies diarrhea. Presented to [place] ER. Blood pressure was elevated, tachycardic at [...] evening - Urine culture was done at [place] - Check CBC, BMP, magnesium, lactic acid [...] provider for further advice. 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 Glucose [...] not on CPAP, nephrolithiasis who presented to [place] emergency department for left flank pain earlier tonight. Earlier this evening she developed severe left flank pain wrapping around to the left lower quadrant and suprapubic area. She also had subjective fevers and chills. She vomited once at home. Has had some recent irritation with urination. Denies diarrhea. History obtained from patient, medical record, and from Dr. Crowley in the emergency department [facility]. Initial vital signs there were blood pressure [...] mg IV Toradol. [facility]. Clinically Significant Risk Factors [...] left inferior breast. Kory Dunaway MD Hospitalist [facility] [1] Allergies Allergen Reactions Perfume Other (See Comments) Wheezing MANAGER documented in this encounter Consult Notes * Ashtyn Easton PA-C - 10/01/2025 9:15 AM CSTAssociated Order(s): UROLOGY IP CONSULT [facility] Consultation by [facility] Z[facility]ta Age: [age] year old Date of : 1965 Date of Admission: 10/01/2025 Reason for consult: Suspected infected left UPJ 5 mm stone, from [place] ER, said they were sending images. tachycardic, but otherwise not septic Requesting RENE/: Dr. Dunaway Level of consult: Consult, follow [...] They are at the outside facility in [place], so will need to have these obtained [...] continue to follow along. Ashtyn Easton PA-C [facility] [phone] Chief Complaint: Left flank pain, chills, direct admit from [place] History is obtained from the patient and EMR. History of Present Illness: This patient is a 60 year old female with history of DM2, JONO, HLD, and GERD, who presented to the ER in [place] due to subjective fevers and chills as [...] Dr. Holguin and RN Ashtyn Easton PA-C [facility] [phone] [1] Allergies Allergen Reactions Perfume Other (See [...] 4 mg 4 mg Intravenous Q6H PRN Kroy Dunaway MD oxyCODONE (ROXICODONE) tablet 5 mg [...] Bradley Holguin MD at 10/01/2025 2:56 PM DATA MANAGER MANAGER MANAGER Associated attestation - Bradley Holguin MD - 10/01/2025 2:56 PM DATA MANAGER Physician Attestation I saw and evaluated Ct Zuleta as part of a shared MEDICAL RECORD ASSISTANT/PA visit. I personally reviewed the vital signs, [...] stone history who was transferred overnight from [facility] for an infected obstructing left ureteral stone. She presented to the hospital in [place] with 1 day of left flank pain. She was found to be tachycardic with pyuria and a leukocytosis. She was found to have a 5 mm proximal left ureteral stone. She was transferred to [facility] for definitive urologic care. The patient's condition has stabilized since coming to our hospital. On exam she is currently alert and oriented in no acute distress. She is afebrile. I personally reviewed her CT scan images from [place]. She has a 5 mm proximal left ureteral stone with no other stones identified. Hydronephrosis on the left. Labs from [place] are not available. Reportedly she had pyuria on urinalysis from [place]. Upon arrival here, serum WBC was 17.09. [...] Manage Fall Risk Recent Flowsheet Documentation Taken 10/03/202545 by Mary Moss RN Safety Promotion/Fall Prevention: activity supervised clutter-free environment maintained fall prevention program maintained safety round/check completed nonskid shoes/slippers when out of bed Intervention: Prevent Skin Injury Recent Flowsheet Documentation Taken 10/03/2025844 by Mary Moss RN Body Position: position changed independently Intervention: Prevent and Manage VTE (Venous Thromboembolism) Risk Recent Flowsheet Documentation Taken 10/03/2025844 by Mary Moss RN VTE Prevention/Management: SCDs off (sequential compression devices) Intervention: Prevent Infection Recent Flowsheet Documentation Taken 10/03/2025 0845 by Mary Moss RN Infection Prevention: hand hygiene promoted single patient room provided Goal: Optimal Comfort and Wellbeing Outcome: Adequate for Care Transition Goal: Readiness for Transition of Care Outcome: Adequate for Care Transition MANAGER * Plan of Care - Maisha Terrazas [...] Fall Risk Recent Flowsheet Documentation Taken 10/03/2025 0124 by Maisha Terrazas, RN Safety Promotion/Fall Prevention: safety round/check completed Taken 10/02/20252037 by Maisha Terrazas, RN Safety Promotion/Fall Prevention: safety round/check completed activity supervised Intervention: Prevent Skin Injury Recent Flowsheet Documentation Taken 10/03/2025 0124 by Maisha Terrazas RN Body Position: position changed independently Taken 10/02/20252037 by Maisha Terrazas RN Body Position: position changed independently Intervention: Prevent and Manage VTE (Venous Thromboembolism) Risk Recent Flowsheet Documentation Taken 10/03/2025 0124 by Maisha Terrazas RN VTE Prevention/Management: patient refused intervention SCDs off (sequential compression devices) Taken 10/02/20252037 by Maisha Terrazas RN VTE Prevention/Management: patient refused intervention SCDs off (sequential compression devices) Goal: Optimal Comfort and Wellbeing Outcome: Progressing Goal: Readiness for Transition of Care Outcome: Progressing Problem: UTI (Urinary Tract Infection) Goal: Improved Infection Symptoms Outcome: Progressing MANAGER * Plan of Care - Akosua Gibson RN - 10/02/2025 6:56 PM CST [id number] Patient A&Ox4 VSS on RA, PIV infusing [...] Infection) Goal: Improved Infection Symptoms Outcome: Progressing MANAGER * Plan of Care - Alfredo Bautista [...] Infection) Goal: Improved Infection Symptoms Outcome: Progressing MANAGER * Plan of Care - Sharon Diaz [...] Care Reviewed With: patient Progress: improving Taken 10/01/20252018 Plan of Care Reviewed With: patient Goal: [...] Infection) Goal: Improved Infection Symptoms Outcome: Progressing MANAGER * Plan of Care - Alfredo Bautista [...] Infection) Goal: Improved Infection Symptoms Outcome: Progressing MANAGER * Op Note - Bradley Holguin MD [...] the standard sterile fashion.I inserted the 22 Slovenian rigid cystoscope through the urethra into the [...] the postanesthetic care unit in good condition. MANAGER * Plan of Care - Carrol Payton [...] With: patient Progress: no changeProgress: no change MANAGER * Pharmacy-Admission Medication History - Galo Ortiz, [facility] - 10/01/2025 10:35 AM CST Pharmacist Admission Medication History Admission medication history is complete. The information provided in this note is only as accurateas the sources available at the time of the update. Information Source(s): Patient via in-person Changes made to INSTRUMENT SPECIALIST medication list: Added: albuterol, asa, mv Deleted: citalopram, glipizide, norco, simvastatin Changed: flonase, prilosec Allergies reviewed with patient and updates made in EHR: yes Medication History Completed By: Galo Ortiz RPH 10/01/2025 10:35 AM INSTRUMENT SPECIALIST Med List Medication Sig Last Dose/Taking albuterol [...] Bedtime fluticasone (FLONASE) 50 MCG/ACT nasal spray Leckrone 2 sprays into both nostrils daily as needed. Taking As Needed metFORMIN (GLUCOPHAGE) 500 MG tablet Take 1,000 mg by mouth 2 times daily (with meals). 09/30/2025 Evening multivitamin w/minerals (THERA-VIT-M) tablet Take 1 tablet by mouth daily. 09/30/2025 Morning omeprazole (PRILOSEC) [address] capsule Take 40 mg by mouth daily as needed. Taking As Needed MANAGER * Plan of Care - Abbie Lemon RN - 10/01/2025 5:21 AM CST Received pt at 0300 as a direct admit from [place]. Pt alert & oriented x 4, very [...] Progressing Goal: Readiness for Transition of Care 10/01/2025 0521 by Abbie Lemon RN Outcome: Progressing 10/01/2025 05 by Abbie Lemon RN Outcome: Progressing Problem: UTI (Urinary Tract Infection) Goal: Improved Infection Symptoms Outcome: Progressing Goal Outcome Evaluation: Plan of Care Reviewed With: patient Progress: no changeProgress: no change MANAGER * Provider Notification - Abbie Lemon RN - 10/01/2025 4:09 AM DATA MANAGER Paged provider to clarify if tele is needed due to pt previously low potassium that we currently are replacing. Provider clarified no tele orders at this time. MANAGER documented in this encounter Plan of Treatment Not on file documented as of this encounter Procedures Procedure NamePriorityDate/TimeAssociated DiagnosisCommentsGLUCOSE BY METER Ixxljve7710/03/2025 9:01 AM DATA MANAGER CBC WITH PLATELETS AND XLGAXGTCZSYNSbjlmxw01/21/2025 6:22 AM DATA MANAGER CBC WITH PLATELETS AND DIFFERENTIAL (LIMITED OCCURRENCES)Fyjyzma6210/03/2025 6:22 AM DATA MANAGER BASIC METABOLIC PANEL (LIMITED OCCURRENCES)Onkoixf1110/03/2025 6:22 AM DATA MANAGER MAGNESIUM (LIMITED OCCURRENCES)Pbvdbta4110/03/2025 6:22 AM DATA MANAGER GLUCOSE BY TSYYPSqmrife33/21/2025 1:46 AM DATA MANAGER GLUCOSE BY QBNXXPaouzmd85/20/2025 9:34 PM DATA MANAGER GLUCOSE BY ILOBKCxsjhvg99/20/2025 5:07 PM DATA MANAGER GLUCOSE BY EUVXAYtyjwvw15/20/2025 11:03 AM DATA MANAGER GLUCOSE BY HSXFKCqueegg97/20/2025 7:30 AM DATA MANAGER CBC WITH PLATELETS AND CUBSYKWQXQFKOqeulcq95/20/2025 6:38 AM DATA MANAGER CBC WITH PLATELETS AND DIFFERENTIAL (LIMITED OCCURRENCES)Qlzfddg8410/02/2025 6:38 AM DATA MANAGER BASIC METABOLIC PANEL (LIMITED OCCURRENCES)Sjfpebh4410/02/2025 6:38 AM DATA MANAGER MAGNESIUM (LIMITED OCCURRENCES)Khjampr6710/02/2025 6:38 AM DATA MANAGER HEMOGLOBIN J0PGql-Lr01/20/2025 6:38 AM DATA MANAGER GLUCOSE BY DPIMLQpokvic62/20/2025 2:02 AM DATA MANAGER GLUCOSE BY IWOKVEokymcb04/19/2025 9:32 PM DATA MANAGER GLUCOSE BY LHHNVYauzlss36/19/2025 5:36 PM DATA MANAGER GLUCOSE BY NCFNSRzqgwoe86/19/2025 4:41 PM DATA MANAGER XR SURGERY SVXSUefjzvy18/19/2025 4:24 PM DATA MANAGER CYSTOSCOPY,INSERT URETERAL STENT10/01/2025 3:59 PM DATA MANAGER Acute pyelonephritis GLUCOSE BY VBGOTTxpyqvw79/19/2025 3:26 PM DATA MANAGER MAGNESIUM (LIMITED OCCURRENCES)Timed10/01/2025 1:31 PM DATA MANAGER GLUCOSE BY PDBCYDlslbwq58/19/2025 12:09 PM DATA MANAGER MAGNESIUM (LIMITED OCCURRENCES)Zfjpnoc4510/01/2025 10:49 AM DATA MANAGER GLUCOSE BY BGGMKEfnamrf96/19/2025 8:05 AM DATA MANAGER GLUCOSE BY DRHMJWejplod74/19/2025 4:18 AM DATA MANAGER BASIC METABOLIC PANEL (LIMITED OCCURRENCES)Eylbjaz3910/01/2025 4:04 AM DATA MANAGER MAGNESIUM (LIMITED OCCURRENCES)Mncupvp0610/01/2025 4:04 AM DATA MANAGER LACTIC ACID WHOLE GSXCXEkymwxj23/19/2025 4:04 AM DATA MANAGER CBC WITH YQSUXPLOPKcbjnjx53/19/2025 4:[address] EXTERNAL IMAGING XIGRJTKPbyrjsu77/18/2025 12:00 AM DATA MANAGER documented in this encounter Results * Glucose by meter (10/03/2025 9:01 AM DATA MANAGER)ComponentValueRef RangeTest Method Analysis TimePerformed AtPathologist SignatureGLUCOSE BY METER KACY0741 - 99 mg/dL10/03/2025 9:17 AM [facility] POCSpecimen (Source)Anatomical Location / LateralityCollection Method / VolumeCollection TimeReceived Time Blood, CapillaryBLOOD SPECIMEN / Glpvdmh2610/03/2025 9:01 AM CST10/03/2025 9:17 AM DATA MANAGER Narrative Authorizing ProviderResult TypeResult StatusDerek Elton ALMEIDA POCTFinal ResultPerforming OrganizationAddressCity/State/ZIP CodePhone Number LABORATORY [facility] [address] [facility] (1st floor, no room number) [place] [address], [facility] * (ABNORMAL) CBC with platelets and differential (10/03/2025 6:22 AM DATA MANAGER) ComponentValueRef RangeTest MethodAnalysis TimePerformed AtPathologist SignatureWBC Count12.54(H)4.00 - 11.00 10e3/uL10/03/2025 6:35 AM CST LABORATORYRBC Count3.64(L)3.80 - 5.20 10e6/uL10/03/2025 6:35 AM CST RTVCRFCDLBHxwvhitjbr57.0(L)11.7 - 15.7 g/dL10/03/2025 6:35 AM CST LABORATORY Xejausnpov16.5(L)35.0 - 47.0 %10/03/2025 6:35 AM [facility] MZGTGUGUXHTYO33.378.0 - 100.0 fL10/03/2025 6:35 AM [facility] QQIPWTBQUGXGK83.226.5 - 33.0 pg10/03/2025 6:35 AM [facility] FEQXSBNFCXIJLU19.831.5 - 36.5 g/dL10/03/2025 6:35 AM [facility] INPGLEEEXKIAV89.310.0 - 15.0 %10/03/2025 6:35 AM [facility] LABORATORYPlatelet Qicwd559068 - 450 10e3/uL10/03/2025 6:35 AM [facility]% Gseeczgqvxq29.1% 10/03/2025 6:35 AM [facility]% Kmmmxvxibxp72.7%10/03/2025 6:35 AM [facility]% Monocytes8.5%10/03/2025 6:35 AM [facility]% Eosinophils1.0% 10/03/2025 6:35 AM [facility]% Basophils0.2%10/03/2025 6:35 AM [facility]% Immature Granulocytes0.5%10/03/2025 6:35 AM [facility] LABORATORYNRBCs per 100 WBC0.0<1.0 /1972110/03/2025 6:35 AM [facility] LABORATORYAbsolute Neutrophils 9.67(H)1.60 - 8.30 10e3/uL10/03/2025 6:35 AM [facility] LABORATORYAbsolute Lymphocytes1.590.80 - 5.30 10e3/uL10/03/2025 6:35 AM [facility] LABORATORYAbsolute Monocytes1.070.00 - 1.30 10e3/10/03/2025 6:35 AM [facility] LABORATORYAbsolute Eosinophils0.120.00 - 0.70 10e3/uL/ 6:35 AM [facility] LABORATORYAbsolute Basophils0.030.00 - 0.20 10e3/10/03/2025 6:35 AM [facility] LABORATORYAbsolute Immature Granulocytes0.06<=0.40 10e3/uL/ 6:35 AM [facility] Absolute NRBCs<0.0310e3/uL10/03/2025 6:35 AM [facility] LABORATORYSpecimen (Source) Anatomical Location / LateralityCollection Method / VolumeCollection Time Received TimeBloodSTRUCTURE OF RIGHT HAND / UnknownVenipuncture / Unknown 10/03/2025 6:22 AM CST10/03/2025 6:32 AM [facility] Narrative Authorizing ProviderResult TypeResult StatusTony Vinson MDLAB - BLOOD ORDERABLES Final ResultPerforming OrganizationAddressCity/State/ZIP CodePhone Number [facility] [address] Lab (1st floor, no room number) [place] [address], [facility] * (ABNORMAL) Basic Metabolic Panel (Limited Occurrences) (10/03/2025 6:22 AM DATA MANAGER)ComponentValueRef RangeTest MethodAnalysis TimePerformed AtPathologist ScrvdaywtUfzxgx074370 - 145 mmol/L112/03/2024 6:58 AM [facility] LABORATORYPotassium 3.63.4 - 5.3 mmol/L112/03/2024 6:58 AM [facility] ARDMHJBNFMHuunmrbm90269 - 107 mmol/L112/03/2024 6:58 AM [facility] LABORATORYCarbon Dioxide (CO2)2422 - 29 mmol/L 10/03/2025 6:58 AM [facility] LABORATORYAnion Gap87 - 15 mmol/L112/03/2024 6:58 AM [facility] LABORATORYUrea Zfipubgv77.08.0 - 23.0 mg/dL10/03/2025 6:58 AM [facility] LABORATORYCreatinine0.590.51 - 0.95 mg/dL10/03/2025 6:58 AM [facility] LABORATORY GFR Estimate>90>60 mL/min/1.26c66010/03/2025 6:58 AM [facility] LABORATORYComment: eGFR calculated using 2020 CKD-EPI equation.Calcium7.9(L)8.8 - 10.4 mg/dL 10/03/2025 6:58 AM [facility] ZZMXYUIDWPTjcxvub635(H)70 - 99 mg/dL10/03/2025 6:58 AM [facility] LABORATORYSpecimen (Source)Anatomical Location / LateralityCollection Method / VolumeCollection TimeReceived TimeBloodSTRUCTURE OF RIGHT HAND / UnknownVenipuncture / Rccitjx1410/03/2025 6:22 AM [facility]10/03/2025 6:32 AM DATA MANAGER Narrative Authorizing ProviderResult TypeResult StatusTony Vinson MDLAB - BLOOD ORDERABLES Final ResultPerforming OrganizationAddressCity/State/ZIP CodePhone Number [facility] [address] Lab (1st floor, no room number) [place] [address] * (ABNORMAL) Magnesium (Limited Occurrences) (10/03/2025 6:22 AM DATA MANAGER)Component ValueRef RangeTest MethodAnalysis TimePerformed AtPathologist Signature Magnesium1.6(L)1.7 - 2.3 mg/dL10/03/2025 6:58 AM [facility] LABORATORYSpecimen (Source)Anatomical Location / LateralityCollection Method / VolumeCollection TimeReceived TimeBloodSTRUCTURE OF RIGHT HAND / UnknownVenipuncture / Unknown 10/03/2025 6:22 AM CST10/03/2025 6:32 AM DATA MANAGER Narrative Authorizing ProviderResult TypeResult StatusTony Vinson MDLAB - BLOOD ORDERABLES Final ResultPerforming OrganizationAddressCity/State/ZIP CodePhone Number [facility] [address] Lab (1st floor, no room number) [place] [address], [facility] * (ABNORMAL) Glucose by meter (10/03/2025 1:46 AM DATA MANAGER)ComponentValueRef Range Test MethodAnalysis TimePerformed AtPathologist SignatureGLUCOSE BY METER POCT 111(H)70 - 99 mg/dL10/03/2025 1:53 AM [facility] LABORATORY POCSpecimen (Source) Anatomical Location / LateralityCollection Method / VolumeCollection Time Received TimeBlood, CapillaryBLOOD SPECIMEN / Ayzrgwv1510/03/2025 1:46 AM DATA MANAGER 10/03/2025 1:53 AM DATA MANAGER Narrative Authorizing ProviderResult TypeResult StatusKory ALMEIDA POCTFinal ResultPerforming OrganizationAddressCity/State/ZIP CodePhone Number [facility] Lab [address] Lab (1st floor, no room number) [place] [address], [facility] * (ABNORMAL) Glucose by meter (10/02/2025 9:34 PM DATA MANAGER)ComponentValueRef Range Test MethodAnalysis TimePerformed AtPathologist SignatureGLUCOSE BY METER POCT 161(H)70 - 99 mg/dL10/02/2025 9:42 PM CST LABORATORY POCSpecimen (Source) Anatomical Location / LateralityCollection Method / VolumeCollection Time Received TimeBlood, CapillaryBLOOD SPECIMEN / Uysdhvh8910/02/2025 9:34 PM DATA MANAGER 10/02/2025 9:42 PM DATA MANAGER Narrative Authorizing ProviderResult TypeResult StatusKory GOEL Celltick TechnologiesHEBER POCTFinal ResultPerforming OrganizationAddressCity/State/ZIP CodePhone Number LABORATORY [facility] [address] Lab (1st floor, no room number) [address] [place] [address] * (ABNORMAL) Glucose by meter (10/02/2025 5:07 PM DATA MANAGER)ComponentValueRef Range Test MethodAnalysis TimePerformed AtPathologist SignatureGLUCOSE BY METER POCT 133(H)70 - 99 mg/dL10/02/2025 5:14 PM [facility] LABORATORY POCSpecimen (Source) Anatomical Location / LateralityCollection Method / VolumeCollection Time Received TimeBlood, CapillaryBLOOD SPECIMEN / Nwryzmh4810/02/2025 5:07 PM DATA MANAGER 10/02/2025 5:14 PM DATA MANAGER Narrative Authorizing ProviderResult TypeResult StatusKory GOEL Celltick TechnologiesHEBER POCTFinal ResultPerforming OrganizationAddressCity/State/ZIP CodePhone Number LABORATORY [facility] Lab [address] Lab (1st floor, no room number) [place] [phone] [place] [address] * (ABNORMAL) Glucose by meter (10/02/2025 11:03 AM DATA MANAGER)ComponentValueRef Range Test MethodAnalysis TimePerformed AtPathologist SignatureGLUCOSE BY METER POCT 165(H)70 - 99 mg/dL10/02/2025 11:10 AM CST LABORATORY POCSpecimen (Source) Anatomical Location / LateralityCollection Method / VolumeCollection Time Received TimeBlood, CapillaryBLOOD SPECIMEN / Qltrcrb8610/02/2025 11:03 AM DATA MANAGER 10/02/2025 11:10 AM DATA MANAGER Narrative Authorizing ProviderResult TypeResult StatusKory GOEL Celltick TechnologiesHEBER POCTFinal ResultPerforming OrganizationAddressCity/State/ZIP CodePhone Number LABORATORY [facility] Lab [address] Lab (1st floor, no room number) [place] [phone] * (ABNORMAL) Glucose by meter (10/02/2025 7:30 AM DATA MANAGER)ComponentValueRef Range Test MethodAnalysis TimePerformed AtPathologist SignatureGLUCOSE BY METER POCT 149(H)70 - 99 mg/dL10/02/2025 7:37 AM [facility] LABORATORY POCSpecimen (Source) Anatomical Location / LateralityCollection Method / VolumeCollection Time Received TimeBlood, CapillaryBLOOD SPECIMEN / Vytcoai7910/02/2025 7:30 AM DATA MANAGER 10/02/2025 7:37 AM DATA MANAGER Narrative Authorizing ProviderResult TypeResult StatusDerek Elton ALMEIDA POCTFinal ResultPerforming OrganizationAddressCity/State/ZIP CodePhone Number LABORATORY [facility] [address] [facility] [facility] (1st floor, no room number) [place] [phone] * (ABNORMAL) Hemoglobin A1c (10/02/2025 6:38 AM DATA MANAGER)ComponentValueRef RangeTest MethodAnalysis TimePerformed AtPathologist SignatureEstimated Average Glucose 157(H)<117 mg/dL10/02/2025 8:54 AM [facility] LABORATORYHemoglobin A1C7.1(H)<5.7 % 10/02/2025 8:54 AM [facility] LABORATORYComment: Normal <5.7% Prediabetes 5.7-6.4% ?? Diabetes 6.5% or higher Note: Adopted from ADA consensus guidelines. Specimen (Source)Anatomical Location / LateralityCollection Method / Volume Collection TimeReceived TimeBloodSTRUCTURE OF RIGHT UPPER LIMB / Unknown Venipuncture / Kjpgtln5510/02/2025 6:38 AM CST10/02/2025 6:59 AM DATA MANAGER Narrative Authorizing ProviderResult TypeResult StatusKory GOEL - BLOOD ORDERABLESFinal ResultPerforming OrganizationAddressCity/State/ZIP CodePhone Number [facility] [address] Lab (1st floor, no room number) [place] [address] * (ABNORMAL) CBC with platelets and differential (10/02/2025 6:38 AM [facility]) ComponentValueRef RangeTest MethodAnalysis TimePerformed AtPathologist SignatureWBC Count23.33(H)4.00 - 11.00 10e3/uL10/02/2025 7:05 AM [facility] LABORATORYRBC Count3.863.80 - 5.20 10e6/uL10/02/2025 7:05 AM [facility] LABORATORY Vtqoaufwfo61.711.7 - 15.7 g/dL10/02/2025 7:05 AM [facility] LABORATORYHematocrit 34.2(L)35.0 - 47.0 %10/02/2025 7:05 AM [facility] LHKWHBZBRHNFQ76.678.0 - 100.0 fL 10/02/2025 7:05 AM [facility] KNNVEZRVYBGXP25.326.5 - 33.0 pg10/02/2025 7:05 AM [facility] XGOERAPETFRJMQ59.231.5 - 36.5 g/dL10/02/2025 7:05 AM [facility] LABORATORYRDW 13.310.0 - 15.0 %10/02/2025 7:05 AM [facility] LABORATORYPlatelet Sajic098044 - 450 10e3/uL10/02/2025 7:05 AM [facility] LABORATORY% Emzlzpijsrc57.1%10/02/2025 7:05 AM [facility]% Lymphocytes5.0%10/02/2025 7:05 AM [facility]% Monocytes4.2%10/02/2025 7:05 AM [facility]% Eosinophils0.0%10/02/2025 7:05 AM [facility]% Basophils0.1%10/02/2025 7:05 AM [facility]% Immature Granulocytes0.6%10/02/2025 7:05 AM [facility] LABORATORYNRBCs per 100 WBC 0.0<1.0 /4397510/02/2025 7:05 AM [facility] LABORATORYAbsolute Lmdfrpfdlar02.02(H) 1.60 - 8.30 10e3/uL10/02/2025 7:05 AM [facility] LABORATORYAbsolute Lymphocytes1.16 0.80 - 5.30 10e3/uL10/02/2025 7:05 AM [facility] LABORATORYAbsolute Monocytes0.97 0.00 - 1.30 e3/10/02/2025 7:05 AM [facility] LABORATORYAbsolute Eosinophils <0.030.00 - 0.70 e3/10/02/2025 7:05 AM [facility] LABORATORYAbsolute Basophils 0.030.00 - 0.20 e3/10/02/2025 7:05 AM [facility] LABORATORYAbsolute Immature Granulocytes0.15<=0.40 e3/10/02/2025 7:05 AM [facility] LABORATORYAbsolute NRBCs<0.0310e3/10/02/2025 7:05 AM [facility] LABORATORYSpecimen (Source) Anatomical Location / LateralityCollection Method / VolumeCollection Time Received TimeBloodSTRUCTURE OF RIGHT UPPER LIMB / UnknownVenipuncture / Qydtmez5110/02/2025 6:38 AM CST10/02/2025 6:59 AM DATA MANAGER Narrative Authorizing ProviderResult TypeResult StatusTony Vinson MDLAB - BLOOD ORDERABLES Final ResultPerforming OrganizationAddressCity/State/ZIP CodePhone Number [facility] [address] Lab (1st floor, no room number) [place] [address] * (ABNORMAL) Magnesium (Limited Occurrences) (10/02/2025 6:38 AM DATA MANAGER)Component ValueRef RangeTest MethodAnalysis TimePerformed AtPathologist Signature Magnesium2.7(H)1.7 - 2.3 mg/dL10/02/2025 7:38 AM [facility] LABORATORYSpecimen (Source)Anatomical Location / LateralityCollection Method / VolumeCollection TimeReceived TimeBloodSTRUCTURE OF RIGHT UPPER LIMB / UnknownVenipuncture / Vsosuky4510/02/2025 6:38 AM [facility]10/02/2025 7:00 AM DATA MANAGER Narrative Authorizing ProviderResult TypeResult StatusTony Vinson MDLAB - BLOOD ORDERABLES Final ResultPerforming OrganizationAddressCity/State/ZIP CodePhone Number [facility] [address] Lab (1st floor, no room number) [place] [address] * (ABNORMAL) Basic Metabolic Panel (Limited Occurrences) (10/02/2025 6:38 AM DATA MANAGER)ComponentValueRef RangeTest MethodAnalysis TimePerformed AtPathologist UgkvgykajLswjuh541031 - 145 mmol/L112/02/2024 7:38 AM [facility] LABORATORYPotassium 4.23.4 - 5.3 mmol/L112/02/2024 7:38 AM [facility] SZOMNZRRAEEtticgvs42933 - 107 mmol/L112/02/2024 7:38 AM [facility] LABORATORYCarbon Dioxide (CO2)2522 - 29 mmol/L 10/02/2025 7:38 AM [facility] LABORATORYAnion Gap87 - 15 mmol/L112/02/2024 7:38 AM [facility] LABORATORYUrea Zbzqjzgf66.88.0 - 23.0 mg/dL10/02/2025 7:38 AM [facility] LABORATORYCreatinine0.630.51 - 0.95 mg/dL10/02/2025 7:38 AM [facility] LABORATORY GFR Estimate>90>60 mL/min/1.73r65510/02/2025 7:38 AM [facility] LABORATORYComment: eGFR calculated using 2020 CKD-EPI equation.Calcium8.0(L)8.8 - 10.4 mg/dL 10/02/2025 7:38 AM [facility] SCQVCDYPCKZuserzy669(H)70 - 99 mg/dL10/02/2025 7:38 AM [facility] LABORATORYSpecimen (Source)Anatomical Location / LateralityCollection Method / VolumeCollection TimeReceived TimeBloodSTRUCTURE OF RIGHT UPPER LIMB / UnknownVenipuncture / Zppquwc9510/02/2025 6:38 AM CST10/02/2025 7:00 AM [facility] Narrative Authorizing ProviderResult TypeResult StatusTony Vinson MDLAB - BLOOD ORDERABLES Final ResultPerforming OrganizationAddressCity/State/ZIP CodePhone Number [facility] [address] Lab (1st floor, no room number) [place] [address], [facility] * (ABNORMAL) Glucose by meter (10/02/2025 2:02 AM DATA MANAGER)ComponentValueRef Range Test MethodAnalysis TimePerformed AtPathologist SignatureGLUCOSE BY METER POCT 181(H)70 - 99 mg/dL10/02/2025 2:09 AM [facility] LABORATORY POCSpecimen (Source) Anatomical Location / LateralityCollection Method / VolumeCollection Time Received TimeBlood, CapillaryBLOOD SPECIMEN / Ukptykn6310/02/2025 2:02 AM DATA MANAGER 10/02/2025 2:09 AM DATA MANAGER Narrative Authorizing ProviderResult TypeResult StatusKory Alfredo OkanjoHEBER POCTFinal ResultPerforming OrganizationAddressCity/State/ZIP CodePhone Number LABORATORY [facility] Lab [address] Lab (1st floor, no room number) [address] * (ABNORMAL) Glucose by meter (10/01/2025 9:32 PM DATA MANAGER)ComponentValueRef Range Test MethodAnalysis TimePerformed AtPathologist SignatureGLUCOSE BY METER POCT 191(H)70 - 99 mg/dL10/01/2025 9:39 PM [facility] LABORATORY POCSpecimen (Source) Anatomical Location / LateralityCollection Method / VolumeCollection Time Received TimeBlood, arterialBLOOD SPECIMEN / Cixwoqu9810/01/2025 9:32 PM DATA MANAGER 10/01/2025 9:39 PM DATA MANAGER Narrative Authorizing ProviderResult TypeResult StatusKory GOEL Celltick TechnologiesHEBER POCTFinal ResultPerforming OrganizationAddressCity/State/ZIP CodePhone Number [facility] Lab [address] Lab (1st floor, no room number) [address] * (ABNORMAL) Glucose by meter (10/01/2025 5:36 PM DATA MANAGER)ComponentValueRef Range Test MethodAnalysis TimePerformed AtPathologist SignatureGLUCOSE BY METER POCT 145(H)70 - 99 mg/dL10/01/2025 5:46 PM [facility] LABORATORY POCSpecimen (Source) Anatomical Location / LateralityCollection Method / VolumeCollection Time Received TimeBlood, CapillaryBLOOD SPECIMEN / Kqffocc6310/01/2025 5:36 PM DATA MANAGER 10/01/2025 5:46 PM DATA MANAGER Narrative Authorizing ProviderResult TypeResult StatusKory GOEL Celltick TechnologiesHEBER POCTFinal ResultPerforming OrganizationAddressCity/State/ZIP CodePhone Number LABORATORY [facility] Lab [address] Lab (1st floor, no room number) [place] [address] * (ABNORMAL) Glucose by meter (10/01/2025 4:41 PM DATA MANAGER)ComponentValueRef Range Test MethodAnalysis TimePerformed AtPathologist SignatureGLUCOSE BY METER POCT 116(H)70 - 99 mg/dL10/01/2025 4:47 PM CSTRH LABORATORY POCSpecimen (Source) Anatomical Location / LateralityCollection Method / VolumeCollection Time Received TimeBlood, CapillaryBLOOD SPECIMEN / Xsytqsz0510/01/2025 4:41 PM DATA MANAGER 10/01/2025 4:47 PM DATA MANAGER Narrative Authorizing ProviderResult TypeResult StatusKory ALMEIDA POCTFinal ResultPerforming OrganizationAddressCity/State/ZIP CodePhone Number LABORATORY [facility] Lab [address] Lab (1st floor, no room number) [place] [address] * XR Surgery SHAUNA (10/01/2025 4:24 PM DATA MANAGER)Specimen (Source)Anatomical Location / LateralityCollection Method / VolumeCollection TimeReceived Time Narrative [facility] - 10/01/2025 4:24 PM DATA MANAGER This exam was marked as non-reportable because it will not be read by a radiologist or a Latty non-radiologist provider. Authorizing ProviderResult TypeResult StatusBradley Holguin MDIMDrea DIAGNOSTIC IMAGING ORDERABLESFinal ResultPerforming OrganizationAddress City/State/ZIP CodePhone Number [facility] * (ABNORMAL) Glucose by meter (10/01/2025 3:26 PM DATA MANAGER)ComponentValueRef Range Test MethodAnalysis TimePerformed AtPathologist SignatureGLUCOSE BY METER POCT 120(H)70 - 99 mg/dL10/01/2025 3:54 PM [facility] LABORATORY POCSpecimen (Source) Anatomical Location / LateralityCollection Method / VolumeCollection Time Received TimeBlood, CapillaryBLOOD SPECIMEN / Vntzrdy1310/01/2025 3:26 PM DATA MANAGER 10/01/2025 3:54 PM DATA MANAGER Narrative Authorizing ProviderResult TypeResult StatusKory ALMEIDA POCTFinal ResultPerforming OrganizationAddressCity/State/ZIP CodePhone Number LABORATORY [facility] Lab [address] Lab (1st floor, no room number) [place] [address] * (ABNORMAL) Magnesium (Limited Occurrences) (10/01/2025 1:31 PM DATA MANAGER)Component ValueRef RangeTest MethodAnalysis TimePerformed AtPathologist Signature Magnesium3.9(H)1.7 - 2.3 mg/dL10/01/2025 2:36 PM CST LABORATORYSpecimen (Source)Anatomical Location / LateralityCollection Method / VolumeCollection TimeReceived TimeBloodSTRUCTURE OF RIGHT UPPER LIMB / UnknownVenipuncture / Yqfipdg0310/01/2025 1:31 PM CST10/01/2025 1:54 PM DATA MANAGER Narrative Authorizing ProviderResult TypeResult StatusTony GOEL - BLOOD ORDERABLES Final ResultPerforming OrganizationAddressCity/State/ZIP CodePhone Number [facility] [address] Lab (1st floor, no room number) [place] [address] * (ABNORMAL) Glucose by meter (10/01/2025 12:09 PM DATA MANAGER)ComponentValueRef Range Test MethodAnalysis TimePerformed AtPathologist SignatureGLUCOSE BY METER POCT 135(H)70 - 99 mg/dL10/01/2025 12:17 PM [facility] LABORATORY POCSpecimen (Source) Anatomical Location / LateralityCollection Method / VolumeCollection Time Received TimeBlood, CapillaryBLOOD SPECIMEN / Gcrkttf6110/01/2025 12:09 PM DATA MANAGER 10/01/2025 12:17 PM DATA MANAGER Narrative Authorizing ProviderResult TypeResult StatusKory GOEL - ELLE POCTFinal ResultPerforming OrganizationAddressCity/State/ZIP CodePhone Number LABORATORY [facility] Lab [address] Lab (1st floor, no room number) [place] [address] * (ABNORMAL) Magnesium (Limited Occurrences) (10/01/2025 10:49 AM DATA MANAGER)Component ValueRef RangeTest MethodAnalysis TimePerformed AtPathologist Signature Magnesium4.7(H)1.7 - 2.3 mg/dL10/01/2025 11:20 AM CST LABORATORYSpecimen (Source)Anatomical Location / LateralityCollection Method / VolumeCollection TimeReceived TimeBloodSTRUCTURE OF RIGHT UPPER LIMB / UnknownVenipuncture / Rpeaien7310/01/2025 10:49 AM CST10/01/2025 10:53 AM DATA MANAGER Narrative Authorizing ProviderResult TypeResult Mary Vinson MDLAB - BLOOD ORDERABLES Final ResultPerforming OrganizationAddressCity/State/ZIP CodePhone Number [facility] Lab [address] Lab (1st floor, no room number) [place] [phone], [facility] * (ABNORMAL) Glucose by meter (10/01/2025 8:05 AM DATA MANAGER)ComponentValueRef Range Test MethodAnalysis TimePerformed AtPathologist SignatureGLUCOSE BY METER POCT 128(H)70 - 99 mg/dL10/01/2025 8:25 AM [facility] LABORATORY POCSpecimen (Source) Anatomical Location / LateralityCollection Method / VolumeCollection Time Received TimeBlood, CapillaryBLOOD SPECIMEN / Chetgpa1210/01/2025 8:05 AM DATA MANAGER 10/01/2025 8:25 AM DATA MANAGER Narrative Authorizing ProviderResult TypeResult StatusKory ALMEIDA POCTFinal ResultPerforming OrganizationAddressCity/State/ZIP CodePhone Number [facility] Lab [address] Lab (1st floor, no room number) [place] [phone], [facility] * (ABNORMAL) Glucose by meter (10/01/2025 4:18 AM DATA MANAGER)ComponentValueRef Range Test MethodAnalysis TimePerformed AtPathologist SignatureGLUCOSE BY METER POCT 165(H)70 - 99 mg/dL10/01/2025 4:30 AM [facility] LABORATORY POCSpecimen (Source) Anatomical Location / LateralityCollection Method / VolumeCollection Time Received TimeBlood, CapillaryBLOOD SPECIMEN / Ydxaivq2010/01/2025 4:18 AM DATA MANAGER 10/01/2025 4:30 AM DATA MANAGER Narrative Authorizing ProviderResult TypeResult StatusKory ALMEIDA POCTFinal ResultPerforming OrganizationAddressCity/State/ZIP CodePhone Number [facility] Lab [address] Lab (1st floor, no room number) [place] [phone] [place] [address] * (ABNORMAL) Magnesium (Limited Occurrences) (10/01/2025 4:04 AM DATA MANAGER)Component ValueRef RangeTest MethodAnalysis TimePerformed AtPathologist Signature Magnesium1.0(L)1.7 - 2.3 mg/dL10/01/2025 4:38 AM [facility] LABORATORYSpecimen (Source)Anatomical Location / LateralityCollection Method / VolumeCollection TimeReceived TimeBloodBLOOD SPECIMEN / UnknownVenipuncture / Henolvb3910/01/2025 4:04 AM CST10/01/2025 4:13 AM DATA MANAGER Narrative Authorizing ProviderResult TypeResult StatusDermelody Dunaway MDLAB - BLOOD ORDERABLESFinal ResultPerforming OrganizationAddressCity/State/ZIP CodePhone Number [facility] Lab [address] Lab (1st floor, no room number) [place] [phone] * Lactic acid whole blood (10/01/2025 4:04 AM DATA MANAGER)ComponentValueRef RangeTest MethodAnalysis TimePerformed AtPathologist SignatureLactic Acid1.50.7 - 2.0 mmol/L112/01/2024 4:16 AM [facility] LABORATORYSpecimen (Source)Anatomical Location / LateralityCollection Method / VolumeCollection TimeReceived TimeBloodBLOOD SPECIMEN / UnknownVenipuncture / Jgyjmio2010/01/2025 4:04 AM CST10/01/2025 4:13 AM DATA MANAGER Narrative Authorizing ProviderResult TypeResult StatusDermelody Dunaway MDLAB - BLOOD ORDERABLESFinal ResultPerforming OrganizationAddressCity/State/ZIP CodePhone Number [facility] Lab [address] Lab (1st floor, no room number) [address] * (ABNORMAL) CBC with platelets (10/01/2025 4:04 AM DATA MANAGER)ComponentValueRef Range Test MethodAnalysis TimePerformed AtPathologist SignatureWBC Count17.09(H)4.00 - 11.00 10e3/uL10/01/2025 4:16 AM [facility] LABORATORYRBC Count4.043.80 - 5.20 10e6/uL10/01/2025 4:16 AM [facility] QDXLVUZILYGmiqgawgao46.411.7 - 15.7 g/dL 10/01/2025 4:16 AM [facility] CTRBNVAVIYTcwzmopkgo93.735.0 - 47.0 %10/01/2025 4:16 AM [facility] RJOHLAVOXZXFC63.478.0 - 100.0 fL10/01/2025 4:16 AM [facility] LABORATORY MCH30.726.5 - 33.0 pg10/01/2025 4:16 AM [facility] FEYMTGUNBFFVAG03.731.5 - 36.5 g/dL10/01/2025 4:16 AM [facility] QMCPHYILXGMRT35.810.0 - 15.0 %10/01/2025 4:16 AM [facility] LABORATORYPlatelet Yumea489430 - 450 10e3/uL10/01/2025 4:16 AM [facility] LABORATORYSpecimen (Source)Anatomical Location / LateralityCollection Method / VolumeCollection TimeReceived TimeBloodBLOOD SPECIMEN / UnknownVenipuncture / Dpuvvsm8010/01/2025 4:04 AM CST10/01/2025 4:13 AM [facility] Narrative Authorizing ProviderResult TypeResult StatusDerek Elton Dunaway MDLAB - BLOOD ORDERABLESFinal ResultPerforming OrganizationAddressCity/State/ZIP CodePhone Number [facility] Lab [address] [facility] [address] Lab (1st floor, no room number) [place] [address], [facility] * (ABNORMAL) Basic Metabolic Panel (Limited Occurrences) (10/01/2025 4:04 AM [facility])ComponentValueRef RangeTest MethodAnalysis TimePerformed AtPathologist PvkfqsvbgMadspq901589 - 145 mmol/L112/01/2024 4:38 AM [facility] LABORATORYPotassium 3.73.4 - 5.3 mmol/L112/01/2024 4:38 AM [facility] LNTOEOWJGVKppweoxe24227 - 107 mmol/L112/01/2024 4:38 AM [facility] LABORATORYCarbon Dioxide (CO2)2222 - 29 mmol/L 10/01/2025 4:38 AM [facility] LABORATORYAnion Zkq820 - 15 mmol/L112/01/2024 4:38 AM [facility] LABORATORYUrea Gdyezhal48.58.0 - 23.0 mg/dL10/01/2025 4:38 AM [facility] LABORATORYCreatinine0.780.51 - 0.95 mg/dL10/01/2025 4:38 AM [facility] GFR Zmxfmutj22>60 mL/min/1.40z36910/01/2025 4:38 AM [facility] LABORATORYComment:eGFR calculated using 2020 CKD-EPI equation.Calcium7.8(L)8.8 - 10.4 mg/dL10/01/2025 4:38 AM [facility] WYIGYBQZAKHiklhdu663(H)70 - 99 mg/dL10/01/2025 4:38 AM [facility] LABORATORYSpecimen (Source)Anatomical Location / LateralityCollection Method / VolumeCollection TimeReceived TimeBloodBLOOD SPECIMEN / UnknownVenipuncture / Kedcaia7910/01/2025 4:04 AM CST10/01/2025 4:13 AM DATA MANAGER Narrative Authorizing ProviderResult TypeResult StatusDerek Elton Dunaway MDLAB - BLOOD ORDERABLESFinal ResultPerforming OrganizationAddressCity/State/ZIP CodePhone Number [facility] [address] [facility] (1st floor, no room number) [place] [address], [facility] * CT External Imaging Abdomen (09/30/2025 12:00 AM DATA MANAGER)Specimen (Source) Anatomical Location / LateralityCollection Method / VolumeCollection Time Received Time Narrative Service Account, Ob Gilda - 10/01/2025 8:51 AM DATA MANAGER Images were obtained from an external facility. Click PACS Images hyperlink to view images. ??Textual results have been scanned into the media tab. Authorizing ProviderResult TypeResult StatusRadiology Non- Credentialed ProviderIMG EXTERNAL IMAGING ORDERABLESFinal Result documented [...] to exceed 4 grams/day. $Given10/03/2025 10:25 AM PCU329 mg cefTRIAXone (ROCEPHIN) 2 g vial to [...] PM CST8.5 mLsOperative Site/Surgical Site lactated ringers infusion at 100 mL/hr, Intravenous, CONTINUOUS, Starting on Mon10/01/25 at 0430, Until Mon10/03/25 at 1558 Rate/Dose Hesvxs0910/03/2025 8:49 AM GVE448 mL/hrRate/Dose Ayzzmq9710/03/2025 6:38 AM CZX369 mL/hr$New Bag10/03/2025 6:34 AM XSW978 mL/hr naloxone (NARCAN) injection 0.2 mg 0.2 [...] CST40 mg$Given 10/01/2025 6:45 AM CST40 mg prochlorperazine (COMPAZINE) injection 10 mg 10 mg, [...] Recently Administered Medications Times are shown in DATA MANAGER.Medication Order// acetaminophen (TYLENOL) tablet 975 mg (COMPLETED)(Linked [...] ($Given - Provider: Luis Alberto Ahmadi APRN PRESS TENDER SMOKE SIGNAL) cefTRIAXone (ROCEPHIN) 2 g vial to attach to NS 100 ml bag for ADULTS or NS 50 ml bag for PEDS Routine, 2 g, Intravenous, EVERY 24 HOURS, First dose on Mon10/01/25 at 2000, Lactated Ringer's solution is not compatible with ceftriaxone for injection, Indications: Pyelonephritis * 2013 ($New Bag - Provider: Sharon Diaz, ELIZABETH) * 2030 ($New Bag - Provider: Maisha Terrazas, RN) escitalopram (LEXAPRO) tablet 20 mg 20 mg, Oral, AT BEDTIME, First dose on Mon10/01/25 at 2200 * 1559 (Auto Hold - Provider: Orders Generic Provider - Reason: Transfer to a procedural area) * 1720 (Unhold - Provider: Orders Generic Provider) * 214 ($Given - Provider: Sharon Diaz, ELIZABETH) * 213 ($Given - Provider: Maisha Terrazas, ELIZABETH) insulin aspart (NovoLOG) injection (RAPID ACTING) (CANCELED) [...] mg/dL after administration of correction dose. * 213 (Not Given - Provider: Sharon Diaz RN [...] * 0558 ($New Bag - Provider: Abbie Lemon RN) sodium chloride (PF) 0.9% PF flush [...] RN) * 0626 ($Given - Provider: Sharon Diaz, ELIZABETH) * 1426 (Canceled Entry - Provider: Yamini Soto RN) * 2135 (Not Given - Provider: Maisha Terrazas RN - Reason: IV Infusing) * 0600 (Not Given - Provider: Maisha Terrazas RN - Reason: IV Infusing) * 1400 (Canceled Entry - Provider: Orders Generic Provider - Comment: Automatically canceled at discontinue of medication order) Medication Order// lactated ringers infusion at 100 mL/hr, Intravenous, CONTINUOUS, Starting on Mon10/01/25 at 0430, Until Mon10/03/25 at 1558 * 0550 ($New Bag - Provider: Abbie Lemon, ELIZABETH) * 0831 (Rate/Dose Verify - Provider: Carrol Payton, ELIZABETH) * 1600 (Rate/Dose Change - Provider: Luis Alberto Ahmadi APRN CRNA) * 1626 (Paused - Provider: Luis Alberto Ahmadi APRN CRNA - Comment: Switch to gravity) * 162 (Restarted - Provider: Luis Alberto Ahmadi APRN CRNA) * 2028 (Rate/Dose Verify - Provider: Sharon Diaz, ELIZABETH) * 0200 ($New Bag - Provider: Sharon Diaz RN) * 0632 (Rate/Dose Verify - Provider: Sharon Diaz RN) * 0732 (Rate/Dose Verify - Provider: Alfredo Bautista, ELIZABETH) * 1021 ($New Bag - Provider: Whitney Hawley RN) * 1343 (Rate/Dose Verify - Provider: Yamini Soto, ELIZABETH) * 1957 (Rate/Dose Verify - Provider: Maisha Terrazas, ELIZABETH) * 2024 ($New Bag - Provider: Maisha Terrazas, RN) * 0634 ($New Bag - Provider: Maisha Terrazas, ELIZABETH) * 0638 (Rate/Dose Verify - Provider: Maisha Terrazas RN) * 0849 (Rate/Dose Verify - Provider: Mary Moss, RN) * 1301 (Stopped - Provider: Mary Moss, RN) lactated ringers infusion (CANCELED) at 10 mL/hr, Intravenous, CONTINUOUS, IF patient NOT on dialysis., Pre- procedure, Starting on Mon10/01/25 at 1430, Until Mon10/01/25 at 1624 * 1511 ($New Bag - Provider: Mandy Whitlock, ELIZABETH) Medication Order51/ acetaminophen (TYLENOL) Suppository 650 mg(Linked Group 2) [...] 1613, Intra-procedure * 1613 ($Given - Provider: Bradley Holguin MD - Comment: Mixed with saline [...] in this encounter Care Teams Team MemberRelationshipSpecialtyStart [facility] HospitalEnd [address] [address] PCP - General05/22/13documented as of this encounter
--- OUTSIDE RECORDS SUMMARY | 2025-10-01 16:00 | XMS_ITS | Encounter Summary ---
Author Organization [facility] Address [address] [place] [address]. [place] [address] Care Team Providers Care Science Faculty Member Name Role Phone Clinic, [facility] Primary Care Provider Reason for Visit * Auth/CertSpecialtyDiagnoses / ProceduresReferred By ContactReferred To Contact Med Surg Diagnoses Infected stone, UTI Gume, Kory Conde MD [address] [place] [address] Phone: tel: fax: [facility] Medical Surgical [address] [place] [address] Phone: tel: fax: Referral IDStatusReasonStart DateExpiration DateVisits RequestedVisits [id number] Encounter Details DateTypeDepartmentCare Team (Latest Contact Info)Qxpbtmvnkqp85/19/2025 4:00 PM CSTAnesthesia Event M [facility] [address] [place] [address] Joanna Ulrich MD [facility] [address] [place], [place] [address] Ty Kim MD [facility] [address] [place], [place] [id number] Anesthesia Record Procedure NameResponsible AnesthesiologistAnesthesia Start TimeAnesthesia Stop TimeCystoscopy, left retrograde pyelogram, left ureteral stent placement, interpretation of fluoroscopic images (Left: Urethra)Joanna Ulrich MD10/01/25 7051MzujUcneJgemxYzusuis54/19/[id number] Ready for Procedure 1600An StartAnesthesia Start is defined as when the anesthesia provider assumed care, began anesthesia prep, remained continuously present with the patient, and excludes all time for performing the pre-anesthesia evaluation. The Pre- Anesthesia Evaluation was completed before Anesthesia Start.1600An Start Data 1601MD Engtspp5580UJ REASSESSI attest that I have identified and re-evaluated the patient immediately before the induction of anesthesia and I am satisfied that the anesthetic plan is suitable for the patient's condition and procedure. The first vital signs recorded are pre-induction. Luis Alberto Ahmadi APRN [id number] An Ifduxqasi0535Vd THX9611Mfjgqcouqq Ready for Yldqrkmzv1648XA Gpaunxi4361QRE Izqjgcx6677yc stop lqfe2940Rq StopElectronically signed by Luis Alberto Ahmadi APRN PATTERN MARKER on October 01, 2025 4:27 PM* NameTotalmidazolam 1 mg/mL2 mgfentaNYL 50 mcg/mL100 mcgpropofol 10 mg/mL150 mgphenylephrine (ERIK-SYNEPHRINE) injection 600 mcgdexamethasone (DECADRON) 4 mg/mL8 mgondansetron 2 mg/mL4 mgceFAZolin Sodium (ANCEF) injection 2 g2 glactated ringers mL * Agents Name O2 N2O Air Exp Sevoflurane Exp Isoflurane Exp Desflurane Ins Sevoflurane Ins Isoflurane Ins Desflurane * Blood No blood administrations on file. TypeDetailsPlacementRemovalIncision/Surgical Site05/31/13; 1323; Nose05/31/13 1323 by Lydia Yo RNIncision/Surgical SiteNo Incision; 10/01/25; 1616; Urethral dymmpp41/19/25 1616 by Jose Miguel Tai RNPacking05/31/13; 1323; Nose; (schroeder nasal airway splints are in nares); 10/03/25; [id number]/ 1323 by Lydia Yo RN10/03/25 1503 by [facility] IV 10/01/25; 22 G; Anterior, Left; Lower forearm; Chlorhexidine; Tolerated well 10/01/25 0000 by Archana Fuentes RN10/03/25 1314 by Mary Moss RN Peripheral IV10/01/25; 0400 (unsure on the time, PIV in place on arrival to unit); 20 G; Right, Posterior; Hand10/01/25 0400 by Abbie Lemon RN 10/02/25 1816 by Irma Carrollteral Drain/Stent10/01/25; 1614; Left ureter (Strings off); 6 fr (24cm); Standard; Yes10/01/25 1614 by Jose Miguel Tai RN10/17/25 1500 by Felecia Kamara RNUrinary Drain10/01/25; 1617; Urethral Catheter; No; Surgical procedure; 16 fr10/01/25 1617 by Jose Miguel Tai RN10/02/25 1104 by Alfredo Bautista RNdocumented in this encounter Social History Tobacco UseTypesPacks/DayYears UsedDateSmoking Tobacco: Every DayCigarettes0.88 Smokeless Tobacco: NeverAlcohol UseStandard Drinks/WeekCommentsYes0 (1 standard [...] in an abandoned building, in an overnight snf, or couch-surfing.)Yes10/01/2025 Are you worried about losing your housing?No5Financial Resource Strain AnswerDate RecordedWithin the past 12 [...] InformationValueDate RecordedSex Assigned at BirthNot on fileLegal HjqWhngfo40/10/2013 2:18 PM CDT Gender IdentityNot on fileSexual OrientationNot on filedocumented as of this encounter OR Notes * Anesthesia Postprocedure Evaluation - Joanna Ulrich MD - 10/01/2025 4:33 PM CST Patient: Ct Z[facility] Procedure: Procedure(s): CYSTOSCOPY,RETROGRADE PYELOGRAM, URETERAL STENT INSERTION Anesthesia Type: General Note: Disposition: Inpatient Postop Pain Control: Uneventful Sign Out: Well controlled pain PONV: No Neuro/Psych: Uneventful Sign Out: Acceptable/Baseline neuro status Airway/Respiratory: Uneventful Sign Out: Acceptable/Baseline resp. status CV/Hemodynamics: Uneventful Sign Out: Acceptable CV status; No obvious hypovolemia; No obvious fluid overload Other NRE: DID A NON-ROUTINE EVENT OCCUR? No Last vitals: Vitals Value Taken Time BP 83/52 10/01/25 16:30 Temp 98.06 ??F (36.7 ??C) 10/01/25 16:33 Pulse 71 10/01/25 16:33 Resp 14 10/01/25 16:33 SpO2 100 % 10/01/25 16:33 Vitals shown include unfiled device data. Electronically Signed By: Joanna Ulrich MD October 01, 2025 4:[address] FIRE FIGHTERS DISPATCHER * Anesthesia Preprocedure Evaluation - Ty Kim MD - 10/01/2025 2:24 PM CST Anesthesia Pre-Procedure Evaluation Patient: Ct Zuleta : 1965 Procedure : Procedure(s): CYSTOSCOPY, WITH URETERAL STENT INSERTION Past Medical History: Diagnosis Date Diabetes mellitus (H) Diabetes mellitus, type 2 (H) GERD (gastroesophageal reflux disease) HLD (hyperlipidemia) Nephrolithiasis PONV (postoperative nausea and vomiting) Sleep apnea Pt does not use CPAP has lost weight. Past Surgical History: Procedure Laterality Date CHOLECYSTECTOMY laparosocpy[ Removal of right ovary and tube. SEPTOPLASTY, TURBINOPLASTY, COMBINED 05/31/2013 Procedure: COMBINED SEPTOPLASTY, TURBINOPLASTY; SEPTOPLASTY, TURBINOPLASTY; Surgeon: Martin Paige MD; Location: [facility] OR TONSILLECTOMY Allergies[1] Social History Tobacco Use Smoking status: Every Day Current packs/day: 0.75 Average packs/day: 0.8 packs/day for 8.0 years (6.0 ttl pk-yrs) Types: Cigarettes Smokeless tobacco: Never Substance Use Topics Alcohol use: Yes Comment: 1 monthly Wt Readings from Last 1 Encounters: 10/01/25 64.4 kg (142 lb) Anesthesia Evaluation Pt has had prior anesthetic. Type: General. History of anesthetic complications - PONV. ROS/MED HX ENT/Pulmonary: (+) sleep apnea, moderate, uses CPAP, Neurologic: Cardiovascular: (+) Dyslipidemia - - - - - METS/Exercise Tolerance: Hematologic: Comments: Lab Test 10/01/25 0404 WBC 17.09* HGB 12.4 MCV 88.4 PLT 288 Lab Test 10/01/25 10/01/25 10/01/25 10/01/25 1209 0805 0418 0404 NA -- -- -- 136 POTASSIUM -- -- -- 3.7 CHLORIDE -- -- -- 101 CO2 -- -- -- 22 BUN -- -- -- 16.5 CR -- -- -- 0.78 ANIONGAP -- -- -- 13 ROGELIO -- -- -- 7.8* GLC 135* 128* 165* 170* Musculoskeletal: GI/Hepatic: (+) GERD, Asymptomatic on medication, Renal/Genitourinary: Comment: Suspected infected left UPJ 5 mm stone (+) renal disease, Endo: (+) type II DM, Psychiatric/Substance Use: Infectious Disease: Malignancy: Other: Physical Exam Airway Mallampati: II TM distance: >3 FB Neck ROM: full Mouth opening: >= 4 cm Cardiovascular - normal exam Dental (+) Minor Abnormalities - some fillings, tiny chips Pulmonary - normal exam Neurological Other Findings OUTSIDE LABS: CBC: Lab Results Component Value Date WBC 17.09 (H) 10/01/2025 HGB 12.4 10/01/2025 HCT 35.7 10/01/2025 PLT 288 10/01/2025 BMP: Lab Results Component Value Date NA 136 10/01/2025 POTASSIUM 3.7 10/01/2025 CHLORIDE 101 10/01/2025 CO2 22 10/01/2025 BUN 16.5 10/01/2025 CR 0.78 10/01/2025 GLC 135 (H) 10/01/2025 GLC 128 (H) 10/01/2025 COAGS: No results found for: PTT, INR, FIBR POC: Lab Results Component Value Date BGM 150 (H) 05/31/2013 HEPATIC: No results found for: ALBUMIN, PROTTOTAL, ALT, AST, GGT, ALKPHOS, BILITOTAL,BILIDIRECT, VAL OTHER: Lab Results Component Value Date LACT 1.5 10/01/2025 ROGELIO 7.8 (L) 10/01/2025 MAG 4.7 (H) 10/01/2025 Anesthesia Plan ASA Status: 3 NPO Status: NPO Appropriate Anesthesia Type: General. Airway: supraglottic airway. Induction: intravenous. Maintenance: Balanced. Techniques and Equipment: - Airway: Planned airway equipment includes supraglottic airway. - Monitoring Plan: standard ASA monitoring Consents Anesthesia Plan(s) and associated risks, benefits, and realistic alternatives discussed. Questions answered and patient/accounts receivable representative(s) expressed understanding. - Discussed: anesthesiologist - Discussed with: Patient - Pt is DNR/DNI Status: no DNR Blood Consent: - Discussed with: patient. Postoperative Care Pain management: plan for postoperative opioid use. Comments: Ty Kim MD Clinically Significant Risk Factors Present on Admission # Hypomagnesemia: Lowest Mg = 1 mg/dL in last 2 days, will replace as needed # Drug Induced Platelet Defect: home medication list includes an antiplatelet medication # Overweight: Estimated body mass index is 26.4 kg/m?? as calculated from the following: Height as of this encounter: 1.562 m (5' 1.5). Weight as of this encounter: 64.4 kg (142 lb). 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 Anesthesia Type: General Note: Oropharynx: oral airway in place and spontaneously breathing Level of Consciousness: drowsy Oxygen Supplementation: face mask Level of Supplemental Oxygen (L/min / FiO2): 10 Independent Airway: airway patency satisfactory and stable Dentition: dentition unchanged Vital Signs Stable: post-procedure vital signs reviewed and stable Report to RN Given: handoff report given Patient transferred to: PACU Handoff Report: Identifed the Patient, Identified the Reponsible Provider, Reviewed the pertinent medical history, Discussed the surgical course, Reviewed Intra-OP anesthesia mangement and issues during anesthesia, Set expectations for post-procedure period and Allowed opportunity for questions andacknowledgement of understanding Vitals: Vitals Value Taken Time BP Temp 98.06 ??F (36.7 ??C) 10/01/25 16:26 Pulse 68 10/01/25 16:26 Resp 14 10/01/25 16:26 SpO2 100 % 10/01/25 16:26 Vitals shown include unfiled device data. Electronically Signed By: Luis Alberto Ahmadi APRN CRNA October 01, 2025 4:[address] FIRE FIGHTERS DISPATCHER documented in this encounter Plan of Treatment Not on file documented as of this encounter Visit Diagnoses Not on filedocumented in this encounter Administered Medications Medication OrderMAR ActionAction DateDoseRateSite ceFAZolin Sodium (ANCEF) injection 2 g Routine, 2 g, Intravenous, PRE-OP/PRE-PROCEDURE, Starting on Mon10/01/25 at 1425, For 1 dose, Givefirst dose within 1 hour PRIOR to incision. If patient weight is greater than or equal to 120 kg increase dose to 3 g., Indications: Perioperative Pharmacoprophylaxis, Pre-procedure Indications:Perioperative Pharmacoprophylaxis$Given10/01/2025 3:50 PM CST2 g dexAMETHasone (DECADRON) injection Intravenous, PRN, Administer over 1 Minutes, Starting on Mon10/01/25 at 1601, Anesthesia Intra-op $Given10/01/2025 4:01 PM CST8 mg fentaNYL (PF) (SUBLIMAZE) injection Intravenous, PRN, Administer over 3-5 Minutes, Starting on Mon10/01/25 at 1601, Anesthesia Intra-op $Given10/01/2025 4:01 PM VYT966 mcg lactated ringers infusion at 100 mL/hr, Intravenous, CONTINUOUS, Starting on Mon10/01/25 at 0430, Until Mon10/03/25 at 1558 Rate/Dose Wvtjec9510/03/2025 8:49 AM AWG308 mL/hrRate/Dose Ohbwuu9410/03/2025 6:38 AM JUH061 mL/hr$New Bag10/03/2025 6:34 AM OWI100 mL/hr midazolam (VERSED) injection Intravenous, Administer over 2 Minutes, PRN, Starting on Mon10/01/25 at 1600, Anesthesia Intra-op $Given10/01/2025 4:00 PM CST2 mg ondansetron (ZOFRAN) injection Intravenous, PRN, Administer over 2-5 Minutes, Starting on Mon10/01/25 at 1614, Anesthesia Intra-op $Given10/01/2025 4:14 PM CST4 mg phenylephrine (ERIK-SYNEPHRINE) injection Intravenous, CONTINUOUS PRN, Starting on Mon10/01/25 at 1606, Anesthesia Intra-op $Bolus10/01/2025 4:14 PM MFD628 mcg$Bolus10/01/2025 4:09 PM DSB806 mcg$New Bag 10/01/2025 4:06 PM NFB898 mcg propofol (DIPRIVAN) injection 10 mg/mL vial Intravenous, PRN, Starting on Mon10/01/25 at 1601, Anesthesia Intra-op $Given10/01/2025 4:01 PM PRB197 mgdocumented in this encounter Care Teams Team MemberRelationshipSpecialtyStart DateEnd [place] [id number] PCP - General05/22/13documented as of this encounter
--- OUTSIDE RECORDS SUMMARY | 2025-10-17 12:04 | XMS_ITS | Encounter Summary ---
Author Organization [facility] Address [address] [place] [address]. [place] [address] Care Team Providers Care Music Worker Name Role Phone [facility], [facility] Primary Care Provider Reason for Visit * Auth/CertSpecialtyDiagnoses / ProceduresReferred By ContactReferred To Contact Surgery Diagnoses Kidney stone Kidney stone [N20.0] Procedures NJ CYSTO/URETERO W/LITHOTRIPSY &INDWELL STENT INSRT Cystoscopy, left ureteral stent exchange, left ureteroscopy with laser lithotripsy and stone basketing. Bradley Holguin MD [email or web address] [place] [address] Phone: tel: fax: [facility] [address] [place] [address] Phone: tel: fax: Referral IDStatusReasonStart DateExpiration DateVisits RequestedVisits [id number] Encounter Details DateTypeDepartmentCare Team (Latest Contact Info)Jpwkvugxwjz07/05/2025 12:04 PM CASH APPLICATIONS MANAGER - 10/17/2025 4:28 PM CSTHospital Encounter [facility]Post[facility] [address] [place] [phone] Bradley Holguin MD [address] [place], [place] [address] Discharge Disposition: Home or Self Care Social History Tobacco UseTypesPacks/DayYears UsedDateSmoking Tobacco: Every DayCigarettes0.88 Smokeless Tobacco: NeverAlcohol UseStandard Drinks/WeekCommentsNot Currently0 (1 standard drink = 0.6 oz pure alcohol)Food InsecurityAnswerDate RecordedWithin the past 12 months, did [...] in an abandoned building, in an overnight residential, or couch-surfing.)Yes10/01/2025 Are you worried about losing [...] and emotionally safe where you currently live?Yes 10/17/2025Within the past 12 months, have you been hit, slapped, kicked or otherwise physically hurt by someone?No10/17/2025Within the past 12 months, have you been humiliated or emotionally abused in other ways by your partner or ex-partner?No10/17/2025CommentsNoSex and Gender InformationValueDate RecordedSex Assigned at BirthNot on fileLegal KqsJerlkn56/10/2013 2:18 PM CDT Gender IdentityNot on fileSexual OrientationNot on filedocumented as of this encounter Last Filed Vital Signs Vital SignReadingTime TakenCommentsBlood Mxtapuqm853/7868110/17/2025 4:00 PM CASH APPLICATIONS MANAGER Epigi419510/17/2025 4:00 PM VALSvzaukqybif31.1 ??C (97 ??F)10/17/2025 4:00 PM CASH APPLICATIONS MANAGER Respiratory Razb115612/18/2024 4:00 PM CSTOxygen Bwdicthhoq94%10/17/2025 4:00 PM CSTInhaled Oxygen Concentration--Kswwvu01.4 kg (133 lb 1.6 oz)10/17/2025 12:21 PM ALWGzyjfp690.2 cm (5' 1.5)10/17/2025 12:21 PM CSTBody Mass Index24.74 10/17/2025 12:21 PM CSTdocumented in this encounter Discharge Instructions * Discharge Instructions* Felecia Kamara, RN - 10/17/2025 3:47 PM CASH APPLICATIONS MANAGER Maximum acetaminophen (Tylenol) dose from all sources should not exceed 4 grams (4000 mg) per day. You were given tylenol at 12:50 PM you can take your next dose of tylenol at 6:50PM. You received Toradol, an IV form of Ibuprofen (Motrin) at 2:30PM. Do not take any Ibuprofen products until 8:30PM. DR. BRADLEY HOLGUIN [facility] PHONE NUMBER: [phone] [facility] UROLOGY CYSTOSCOPY DISCHARGE INSTRUCTIONS [facility] UROLOGY DARIEN CASILLAS, & [place] [phone] YOU MAY GO BACK TO YOUR NORMAL DIET AND ACTIVITY, UNLESS YOUR DOCTOR TELLS YOU NOT TO. FOR THE NEXT TWO DAYS, YOU MAY NOTICE: SOME BLOOD IN YOUR URINE. SOME BURNING WHEN YOU URINATE. AN URGE TO URINATE MORE OFTEN. BLADDER SPASMS. THESE ARE NORMAL AFTER THE PROCEDURE. THEY SHOULD GO AWAY AFTER A DAY OR TWO. TO RELIEVE THESE PROBLEMS: DRINK 6 TO 8 LARGE GLASSES OF WATER EACH DAY (INCLUDES DRINKS AT MEALS). THIS WILL HELP CLEAR THE URINE. TAKE WARM BATHS TO RELIEVE PAIN AND BLADDER SPASMS. DO NOT ADD ANYTHING TO THE BATH WATER. YOUR DOCTOR MAY PRESCRIBE PAIN MEDICINE. YOU MAY ALSO TAKE TYLENOL (ACETAMINOPHEN) FOR PAIN. CALL YOUR SURGEON IF YOU HAVE: A FEVER OVER 101 DEGREES. CHECK YOUR TEMPERATURE UNDER YOUR TONGUE. CHILLS. FAILURE TO URINATE (NO URINE COMES OUT WHEN YOU TRY TO USE THE TOILET). TRY SOAKING IN A BATHTUB FULL OF WARM WATER. IF STILL NO URINE, CALL YOUR DOCTOR. A LOT OF BLOOD IN THE URINE, OR BLOOD CLOTS LARGER THAN A NICKEL. PAIN IN THE BACK OR BELLY AREA (ABDOMEN). PAIN OR SPASMS THAT ARE NOT RELIEVED BY WARM TUB BATHS AND PAIN MEDICINE. SEVERE PAIN, BURNING OR OTHER PROBLEMS WHILE PASSING URINE. PAIN THAT GETS WORSE AFTER TWO DAYS. APPLICATIONS MANAGER APPLICATIONS MANAGER * Attachments The following attachments cannot be sent through Care Everywhere. * (s) After Anesthesia (Sleep Medicine) (Turkmen) documented in this encounter Medications at Time [...] bedtime.10/28/2024 fluticasone (FLONASE) 50 MCG/ACT nasal spray [place] 2 sprays into both nostrils daily as needed. metFORMIN (GLUCOPHAGE) 500 MG tablet Take 1,000 mg by mouth 2 times daily (with meals). Will hold DOS multivitamin w/minerals (THERA-VIT-M) tablet Take 1 tablet by mouth daily. Will hold 7 days prior to surgery omeprazole (PRILOSEC) [address] capsule Take 40 mg by mouth daily as needed.4documented as of this encounter Miscellaneous Notes * Op Note - Bradley Holguin MD - 10/17/2025 2:41 PM CST OPERATIVE REPORT PREOPERATIVE DIAGNOSIS: Left ureteral stone POSTOPERATIVE DIAGNOSIS: Same PROCEDURES PERFORMED: Cystoscopy, left ureteral stent removal, left retrograde pyelogram, interpretation of fluoroscopic images, left ureteroscopy with stone basketing. SURGEON: Bradley Holguin M.D. ANESTHESIA: General COMPLICATIONS: None. SIGNIFICANT FINDINGS: BRIEF OPERATIVE INDICATIONS: Ct Zuleta is a(n) 60 year old female who presented with a proximal right ureteral stone and urinary tract infection who previously had a stent placed. She now presents for stone extraction. After a discussion of all risks, benefits, and alternatives, the patient elected to proceed with definitive stone management. The patient understands the potential need for more than one procedure to eliminate all stone burden. DESCRIPTION OF PROCEDURE: After informed consent was obtained, the patient was transported to the operating room & placed supine on the table. After adequate anesthesia was induced, the patient was placed in lithotomy and prepped and draped in the usual sterile fashion. A timeout was taken to confirm correct patient, procedure and laterality. Pre-operative IV antibiotics were administered. I introduced the 22 Maori rigid cystoscope through the urethra into the bladder and performed cystoscopy. The bladder was normal throughout. I grasped the left-sided stent and pulled it to the levelof the urethral meatus. I cannulated the stent with a Glidewire under fluoroscopic guidance and removed the stent. Alongside the guidewire passed the rigid uteroscope through the urethra and inspiredup the left ureter. There was a single stone seen in the mid left ureter, somewhat smaller than expected size. I was able to basket out the stone intact. I could then perform ureteroscopy of the leftkidney and no stones remained in the ureter. I passed a second Glidewire into the left kidney and ba ckloaded off the scope. Over this second working Glidewire passed the Olympus flexible ureteroscopeinto the left kidney. I performed a retrograde pyelogram. There were no filling defects or dilatations present. I performed a complete and careful renoscopy and I did not see any stones present throughout the entire left kidney. I performed careful pullback ureteroscopy and no stones remained. I removed the Glidewire and did not replace the stent. I drained the bladder and collected the stone andthe procedure was concluded. The patient tolerated the procedure well without complications. She went to the postanesthetic careand ambulation. She will go home from there. APPLICATIONS MANAGER documented in this encounter Plan of Treatment Not on file documented as of this encounter Procedures Procedure NamePriorityDate/TimeAssociated DiagnosisCommentsGLUCOSE BY METER Nobiwib5910/17/2025 3:19 PM CASH APPLICATIONS MANAGER XR SURGERY KZJOXcdswbl47/05/2025 3:02 PM CASH APPLICATIONS MANAGER STONE JUPZQFFHCttspgr06/05/2025 2:57 PM CASH APPLICATIONS MANAGER CYSTOSCOPY, WITH URETERAL STENT YKOQIRU5910/17/2025 2:23 PM CASH APPLICATIONS MANAGER Kidney stone Special Needs 65 minutes CYSTOSCOPY, WITH RETROGRADE PYELOGRAM AND CALCULUS KDEEUMB0310/17/2025 2:23 PM CASH APPLICATIONS MANAGER Kidney stone Special Needs 65 minutes GLUCOSE BY UAICBCxhwxyt80/05/2025 12:17 PM CASH APPLICATIONS MANAGER documented in this encounter Results * Glucose by meter (10/17/2025 3:19 PM CASH APPLICATIONS MANAGER)ComponentValueRef RangeTest Method Analysis TimePerformed AtPathologist SignatureGLUCOSE BY METER DRWA9209 - 99 mg/dL10/17/2025 3:26 PM CSTRH LABORATORY POCSpecimen (Source)Anatomical Location / LateralityCollection Method / VolumeCollection TimeReceived Time Blood, CapillaryBLOOD SPECIMEN / Tjewxsp9410/17/2025 3:19 PM CST10/17/2025 3:26 PM CASH APPLICATIONS MANAGER Narrative Authorizing ProviderResult TypeResult StatusStepcharlotte Holguin MDHCA [facility]ST[facility] POCTFinal ResultPerforming OrganizationAddressCity/State/ZIP CodePhone Number LABORATORY [facility] [address] Lab (1st floor, no room number) [place] [address], [facility] * XR Surgery SHAUNA (10/17/2025 3:02 PM CASH APPLICATIONS MANAGER)Specimen (Source)Anatomical Location / LateralityCollection Method / VolumeCollection TimeReceived Time Narrative RADIANT - 10/17/2025 3:06 PM CASH APPLICATIONS MANAGER This exam was marked as non-reportable because it will not be read by a radiologist or a [facility] non-radiologist provider. Authorizing ProviderResult TypeResult StatusStalexandre Holguin MDIMG DIAGNOSTIC IMAGING ORDERABLESFinal ResultPerforming OrganizationAddress City/State/ZIP CodePhone Number [facility] * Stone analysis (10/17/2025 2:57 PM CASH APPLICATIONS MANAGER)ComponentValueRef RangeTest Method Analysis TimePerformed AtPathologist SignatureStone Yctx8fy3110/22/2025 4:59 AM CSTARUP LABSCalculi DescriptionSee Note10/22/2025 4:59 AM CSTARUP LABSComment: Specimen consists of one brown and gamble calculus. The total weight is 5 mg. Stone CompositionSee Note10/22/2025 4:59 AM CSTARUP LABSComment: Calculi composed primarily of calcium oxalate monohydrate. INTERPRETIVE INFORMATION: Calculi (Stone) analysis Calculi are the products of physiological processes that yield crystalline compounds in a matrix of biological compounds and blood. ??Matrix components are not reported. ?? The clinically significant crystalline components identified in calculi specimens are reported. ??Gross description may not be consistent with composition determined by FTIR analysis. This test was developed and its performance characteristics determined by [facility]. It has not been cleared or approved by the U.S. Food and Drug Administration. This test was performed in a CLIA-certified laboratory and is intended for clinical purposes. Performed By: [facility] [address] [place] [id number] Glove Machine Operator: Herb Toro MD, PhD CLIA Number: [id number] Specimen (Source)Anatomical Location / LateralityCollection Method / Volume Collection TimeReceived TimeCalculus/StoneSTRUCTURE OF LEFT URETER / UnknownNon- blood Collection / Lmmlfli0310/17/2025 2:57 PM CST10/17/2025 3:04 PM CASH APPLICATIONS MANAGER Narrative Authorizing ProviderResult TypeResult StatusStalexandre Holguin MDLAB - BODY FLUIDS ORDERABLESFinal ResultPerforming OrganizationAddressCity/State/ZIP Code Phone Number [facility] [address] [place] [phone], [facility] [phone] * (ABNORMAL) Glucose by meter (10/17/2025 12:17 PM CASH APPLICATIONS MANAGER)ComponentValueRef Range Test MethodAnalysis TimePerformed AtPathologist SignatureGLUCOSE BY METER POCT 147(H)70 - 99 mg/dL10/17/2025 12:25 PM CST LABORATORY POCSpecimen (Source) Anatomical Location / LateralityCollection Method / VolumeCollection Time Received TimeBlood, CapillaryBLOOD SPECIMEN / Tamsbns0810/17/2025 12:17 PM CASH APPLICATIONS MANAGER 10/17/2025 12:25 PM CASH APPLICATIONS MANAGER Narrative Authorizing ProviderResult TypeResult StatusStepcharlotte ALMEIDA POCTFinal ResultPerforming OrganizationAddressCity/State/ZIP CodePhone Number LABORATORY [facility] [address] [facility] Lab (1st floor, no room number) [place] [address], [facility] documented in this encounter Visit Diagnoses Not on filedocumented in this encounter Administered Medications Medication OrderMAR ActionAction DateDoseRateSite acetaminophen (TYLENOL) tablet 975 mg 975 mg, Oral, ONCE, On Mon10/17/25 at 1230, For 1 dose, Maximum acetaminophen dose from all sources= 75 mg/kg/day not to exceed 4 grams/day., Pre-procedure $Given10/17/2025 12:50 PM ZKR649 mg lactated ringers infusion at 10 mL/hr, Intravenous, CONTINUOUS, IF patient NOT on dialysis., Pre- procedure, Starting on Mon10/17/25 at 1230, Until Mon10/17/25 at 1504 $New Bag10/17/2025 3:02 PM YVAGrceubgxp20/05/2025 2:10 PM CASH APPLICATIONS MANAGER$New Bag10/17/2025 1:10 PM CST10 mL/hrdocumented in this encounter Active and Recently Administered Medications Times are shown in CASH APPLICATIONS MANAGER.Medication Order/ acetaminophen (TYLENOL) tablet 975 mg (COMPLETED)(Linked Group 1) 975 mg, Oral, ONCE, On Mon10/17/25 at 1230, For 1 dose, Maximum acetaminophen dose from all sources= 75 mg/kg/day not to exceed 4 grams/day., Pre-procedure * 1250 ($Given - Provider: Mojgan Jaimes RN) ceFAZolin Sodium (ANCEF) injection 2 g (COMPLETED) Routine, 2 g, Intravenous, PRE-OP/PRE-PROCEDURE, Starting on Mon10/17/25 at 1224, For 1 dose, Give first dose within 1 hour PRIOR to incision. If patient weight is greater than or equal to 120 kg increase dose to 3 g., Indications: Perioperative Pharmacoprophylaxis, Pre-procedure * 1421 ($Given - Provider: Delfin Nelson APRN CRNA) Medication Order/ lactated ringers infusion (CANCELED) at 10 mL/hr, Intravenous, CONTINUOUS, IF patient NOT on dialysis., Pre- procedure, Starting on Mon10/17/25 at 1230, Until Mon10/17/25 at 1504 * 1310 ($New Bag - Provider: Mojgan Jaimes RN) * 1409 (Paused - Provider: Delfin Nelson APRN CRNA - Comment: Switch to gravity) * 1410 (Restarted - Provider: Deflin Nelson APRN CRNA) * 1502 ($New Bag - Provider: Delfin Nelson APRN CRNA) Medication Order iohexol (OMNIPAQUE) 300 mg/mL injection (CANCELED) PRN, Starting on Mon10/17/25 at 1450, Intra-procedure * 1450 ($Given - Provider: Bradley Holguin MD) sodium chloride 0.9% irrigation (bag) (CANCELED) PRN, Starting on Mon10/17/25 at 1450, Intra-procedure * 1450 ($Given - Provider: Bradely Holguin MD) Order Group 1: acetaminophen (TYLENOL) tablet 975 mg (COMPLETED)Jump to med 975 mg, Oral, ONCE, On Mon10/17/25 at 1230, For 1 dose, Maximum acetaminophen dose from all sources= 75 mg/kg/day not to exceed 4 grams/day., Pre-procedure Or acetaminophen (TYLENOL) Suppository 650 mg (COMPLETED) 650 mg, Rectal, ONCE, On Mon10/17/25 at 1230, For 1 dose, Maximum acetaminophen dose from all sources = 75 mg/kg/day not to exceed 4 grams/day., Pre-procedure documented in this encounter Care Teams Team MemberEssentia Healthty[address] [address] [phone] [facility]05/22/13documented as of this encounter
--- OUTSIDE RECORDS SUMMARY | 2025-10-17 14:10 | XMS_ITS | Encounter Summary ---
Author Organization [place] Address [address] [place] [address]. [place] [address] Care Team Providers Care Java Developer Consultant Name Role Phone [facility], [facility] Primary Care Provider Reason for Visit * Auth/CertSpecialtyDiagnoses / ProceduresReferred By ContactReferred To Contact Surgery Diagnoses Kidney stone Kidney stone [N20.0] Procedures HI CYSTO/URETERO W/LITHOTRIPSY &INDWELL STENT INSRT Cystoscopy, left ureteral stent exchange, left ureteroscopy with laser lithotripsy and stone basketing. Bradley Holguin MD [address] [place] [address] Phone: tel: fax: [facility] [address] [place] [address] Phone: tel: fax: Referral IDStatusReasonStart DateExpiration DateVisits RequestedVisits [id number] Encounter Details DateTypeDepartmentCare Team (Latest Contact Info)Snkagkqmchh58/05/2025 2:10 PM MACHINE CANDLE MOLDER - 10/17/2025 3:15 PM CSTSurgery [facility] [address] [place] [id number] Bradley Holguin MD [address] [place], [place] [id number] Cystoscopy, left retrograde pyelogram, interpretation of fluoroscopic images, left ureteroscopy with stone basketing, laser on stand-by Surgery Details Date/TimeStatusLocationORServicePatient ClassCase ClassCase TypeTrauma Case? 10/17/2025 2:10 PMPostedRH OROR 14UrologySame Day SurgeryElectivePanel 1 ProcedureLRBAnesOp RegionWound ClassCommentsCystoscopy, left retrograde pyelogram, interpretation of fluoroscopic images, left ureteroscopy with stone basketing, laser on ugfvm-pnGbudTdeaplbHyxxajCK-Gqcoh Contaminated Cystoscopy, left ureteral stent removalLeftGeneralUreterII-Clean Contaminated SurgeonSurgeon RoleServiceBradley Aguirre, [facility]gomeryyUrology1 Special Needs 65 minutes documented in this encounter Social History Tobacco [...] in an abandoned building, in an overnight intermediate, or couch-surfing.)Yes10/01/2025 Are you worried about losing [...] InformationValueDate RecordedSex Assigned at BirthNot on fileLegal YjaFphkmo56/10/2013 2:18 PM CDT Gender IdentityNot on fileSexual OrientationNot on filedocumented as of this encounter Last Filed Vital Signs Vital SignReadingTime TakenCommentsBlood Gpdfixqo97/7310/17/2025 3:15 PM MACHINE CANDLE MOLDER Nwxlg469410/17/2025 3:15 PM DJYXkwgyuuvipf65.1 ??C (97 ??F)10/17/2025 3:15 PM MACHINE CANDLE MOLDER Respiratory Jbgo870012/18/2024 3:15 PM CSTOxygen Otwetvzbcc583%10/17/2025 3:10 PM CSTInhaled Oxygen Concentration--Muvzeh85.4 kg (133 lb 1.6 oz)10/17/2025 12:21 PM WJYFhuwcn301.2 cm (5' 1.5)10/17/2025 12:21 PM CSTBody Mass Index24.74 10/17/2025 12:21 PM CSTdocumented in this encounter Discharge Instructions * Discharge Instructions* Felecia Kamara RN - 10/17/2025 3:47 PM MACHINE CANDLE MOLDER Maximum acetaminophen (Tylenol) dose from all sources should not exceed 4 grams (4000 mg) per day. You were given tylenol at 12:50 PM you can take your next dose of tylenol at 6:50PM. You received Toradol, an IV form of Ibuprofen (Motrin) at 2:30PM. Do not take any Ibuprofen products until 8:30PM. DR. BRADLEY HOLGUIN [facility] PHONE NUMBER: [phone] [facility] CYSTOSCOPY DISCHARGE INSTRUCTIONS [facility] DARIEN CASILLAS, & [place] [phone] YOU MAY GO BACK TO YOUR NORMAL [...] PAIN THAT GETS WORSE AFTER TWO DAYS. INE CANDLE MOLDER INE CANDLE MOLDER * Attachments The following attachments cannot be sent through Care Everywhere. * (s) After Anesthesia (Sleep Medicine) (Tunisian) documented in this encounter Medications at Time [...] bedtime.10/28/2024 fluticasone (FLONASE) 50 MCG/ACT nasal spray [place] 2 sprays into both nostrils daily as needed. metFORMIN (GLUCOPHAGE) 500 MG tablet Take 1,000 mg by mouth 2 times daily (with meals). Will hold DOS multivitamin w/minerals (THERA-VIT-M) tablet Take 1 tablet by mouth daily. Will hold 7 days prior to surgery omeprazole (PRILOSEC) [address] capsule Take 40 mg by mouth daily as needed.10/28/2024ocumented as of this encounter Miscellaneous Notes * Op Note - Ezio, Bradley Lenz MD - 10/17/2025 2:41 PM CST OPERATIVE [...] antibiotics were administered. I introduced the 22 [place] rigid cystoscope through the urethra into the [...] ambulation. She will go home from there. INE CANDLE MOLDER documented in this encounter Plan of Treatment Not on file documented as of this encounter Procedures Procedure NamePriorityDate/TimeAssociated DiagnosisCommentsGLUCOSE BY METER Tygxvce1010/17/2025 3:19 PM MACHINE CANDLE MOLDER XR SURGERY CGBDSvfzzaz39/05/2025 3:02 PM MACHINE CANDLE MOLDER STONE WWQJQOVGWddqzyc70/05/2025 2:57 PM MACHINE CANDLE MOLDER CYSTOSCOPY, WITH URETERAL STENT VGJZMXR9610/17/2025 2:23 PM MACHINE CANDLE MOLDER Kidney stone Special Needs 65 minutes CYSTOSCOPY, WITH RETROGRADE PYELOGRAM AND CALCULUS UYCCFUM0310/17/2025 2:23 PM MACHINE CANDLE MOLDER Kidney stone Special Needs 65 minutes GLUCOSE BY LMAMRJtceqjs37/05/2025 12:17 PM MACHINE CANDLE MOLDER documented in this encounter Results * Glucose by meter (10/17/2025 3:19 PM MACHINE CANDLE MOLDER)ComponentValueRef RangeTest Method Analysis TimePerformed AtPathologist SignatureGLUCOSE BY METER CZOR9768 - 99 mg/dL10/17/2025 3:26 PM CSTRH LABORATORY POCSpecimen (Source)Anatomical Location / LateralityCollection Method / VolumeCollection TimeReceived Time Blood, CapillaryBLOOD SPECIMEN / Cbngqar6210/17/2025 3:19 PM CST12/03/2025 3:26 PM MACHINE CANDLE MOLDER Narrative Authorizing ProviderResult TypeResult StatusStalexandre GOEL - BEAKER POCTFinal ResultPerforming OrganizationAddressCity/State/ZIP CodePhone Number LABORATORY [facility] [address] [facility] (1st floor, no room number) [place] [address], [facility] * XR Surgery SHAUNA (10/17/2025 3:02 PM MACHINE CANDLE MOLDER)Specimen (Source)Anatomical Location / LateralityCollection Method / VolumeCollection TimeReceived Time Narrative [facility] - 10/17/2025 3:06 PM MACHINE CANDLE MOLDER This exam was marked as non-reportable because it will not be read by a radiologist or a [place] non-radiologist provider. Authorizing ProviderResult TypeResult StatusBradley Holguin MDIMG DIAGNOSTIC IMAGING ORDERABLESFinal ResultPerforming OrganizationAddress City/State/ZIP CodePhone Number [facility] * Stone analysis (10/17/2025 2:57 PM MACHINE CANDLE MOLDER)ComponentValueRef RangeTest Method Analysis TimePerformed AtPathologist SignatureStone Bsrd6gs8210/22/2025 4:59 AM CSTARUP LABSCalculi DescriptionSee Note10/22/2025 4:59 [...] developed and its performance characteristics determined by [facility]. It has not been cleared or approved by the U.S. Food and Drug Administration. This test was performed in a CLIA-certified laboratory and is intended for clinical purposes. Performed By: Andre Phillipe [address] [place] [id number] Radar Repairer: Herb Toro MD, PhD CLIA Number: [id number] Specimen (Source)Anatomical Location / LateralityCollection Method / Volume Collection TimeReceived TimeCalculus/StoneSTRUCTURE OF LEFT URETER / UnknownNon- blood Collection / Yisvsoa0010/17/2025 2:57 PM CST10/17/2025 3:04 PM MACHINE CANDLE MOLDER Narrative Authorizing ProviderResult TypeResult StatusStalexandre GOEL - BODY FLUIDS ORDERABLESFinal ResultPerforming OrganizationAddressCity/State/ZIP Code Phone Number [facility] [address] [place] [address], [facility] [phone] * (ABNORMAL) Glucose by meter (10/17/2025 12:17 PM MACHINE CANDLE MOLDER)ComponentValueRef Range Test MethodAnalysis TimePerformed AtPathologist SignatureGLUCOSE BY METER POCT 147(H)70 - 99 mg/dL10/17/2025 12:25 PM CST LABORATORY POCSpecimen (Source) Anatomical Location / LateralityCollection Method / VolumeCollection Time Received TimeBlood, CapillaryBLOOD SPECIMEN / Pkqahum7910/17/2025 12:17 PM MACHINE CANDLE MOLDER 10/17/2025 12:25 PM MACHINE CANDLE MOLDER Narrative Authorizing ProviderResult TypeResult StatusStalexandre GOEL - BEAKER POCTFinal ResultPerforming OrganizationAddressCity/State/ZIP CodePhone Number LABORATORY [facility] [address] [facility] (1st floor, no room number) [place] [address]RUST documented in this encounter Visit Diagnoses Diagnosis Kidney stone Calculus of kidney documented in this encounter Administered Medications Medication OrderMAR ActionAction DateDoseRateSite acetaminophen (TYLENOL) tablet 975 mg 975 mg, Oral, ONCE, On Mon10/17/25 at 1230, For 1 dose, Maximum acetaminophen dose from all sources= 75 mg/kg/day not to exceed 4 grams/day., Pre-procedure $Given10/17/2025 12:50 PM VQK592 mg iohexol (OMNIPAQUE) 300 mg/mL injection PRN, Starting on Mon10/17/25 at 1450, Intra-procedure $Given10/17/2025 2:50 PM CST15 mLsOperative Site/Surgical Site lactated ringers infusion at 10 mL/hr, Intravenous, CONTINUOUS, IF patient NOT on dialysis., Pre- procedure, Starting on Mon10/17/25 at 1230, Until Mon10/17/25 at 1504 $New Bag10/17/2025 3:02 PM FNDJddvvghtx67/05/2025 2:10 PM MACHINE CANDLE MOLDER$New Bag10/17/2025 1:10 PM CST10 mL/hr sodium chloride 0.9% irrigation (bag) PRN, Starting on Mon10/17/25 at 1450, Intra-procedure $Given10/17/2025 2:50 PM CST1,500 mLsdocumented in this encounter Active and Recently Administered Medications Times are shown in MACHINE CANDLE MOLDER.Medication Order/ acetaminophen (TYLENOL) tablet 975 mg (COMPLETED)(Linked [...] to gravity) * 1410 (Restarted - Provider: Delfin Nelson APRN CRNA) * 1502 ($New Bag - Provider: Delfin Nelson APRN CRNA) Medication Order iohexol (OMNIPAQUE) 300 mg/mL injection (CANCELED) PRN, Starting on Mon10/17/25 at 1450, Intra-procedure * 1450 ($Given - Provider: Bradley Holguin MD) sodium chloride 0.9% irrigation (bag) (CANCELED) PRN, Starting on Mon10/17/25 at 1450, Intra-procedure * 1450 ($Given - Provider: Bradley Holguin MD) Order [...] in this encounter Care Teams Team [place] [address] PCP - General05/22/13documented as of this encounter
--- OUTSIDE RECORDS SUMMARY | 2025-10-17 14:21 | XMS_ITS | Encounter Summary ---
Author Organization [facility] Address [address] [place] [address]. [place] [address] Care Team Providers Care Sql Server Consultant Name Role Phone [facility], [facility] Primary Care Provider Reason for Visit * Auth/CertSpecialtyDiagnoses / ProceduresReferred By ContactReferred To Contact Surgery Diagnoses Kidney stone Kidney stone [N20.0] Procedures [place] CYSTO/URETERO W/LITHOTRIPSY &INDWELL STENT INSRT Cystoscopy, left ureteral stent exchange, left ureteroscopy with laser lithotripsy and stone basketing. Bradley Holguin MD [address] [facility] [address] [place] [address] Phone: tel: fax: [facility] [address] [place] [address] Phone: tel: fax: Referral IDStatusReasonStart DateExpiration DateVisits RequestedVisits [id number] Encounter Details DateTypeDepartmentCare Team (Latest Contact Info)Dxbmoflkcoo67/05/2025 2:21 PM CSTAnesthesia Event [facility] [address] [place] [address] Luis Alberto Cunningham MD [facility] ANESTHESIA [address] [facility] [address] [place], [place] [address] (work) Delfin Nelson APRN CRNA [place] [address] [place] [address] Anesthesia Record Procedure NameResponsible AnesthesiologistAnesthesia Start TimeAnesthesia Stop TimeCystoscopy, left retrograde pyelogram, interpretation of fluoroscopic images, left ureteroscopy with stone basketing, laser on stand-by (Left: Ureter) Luis Alberto Cunningham MD10/17/25 [id number]/05/2025 [id number] StartAnesthesia Start is defined as when the anesthesia provider assumed care, began anesthesia prep, remained continuously present with the patient, and excludes all time for performing the pre-anesthesia evaluation. The Pre-Anesthesia Evaluation was completed before Anesthesia Start.1423An Start [id number] REASSESSI attest that I have identified and re-evaluated the patient immediately before the induction of anesthesia and I am satisfied that the anesthetic plan is suitable for the patient's condition and procedure. The first vital signs recorded are pre-induction. Delfin Nelson APRN [id number] [id number] [id number] Ready for [id number] INCISION 1501LMA [id number] stop [id number] StopElectronically signed by Delfin Nelson APRN CRNA on October 17, 2025 3:06 PM* NameTotalmidazolam 1 mg/mL2 mg fentaNYL 50 mcg/mL100 mcglidocaine 2%40 mgpropofol 10 mg/mL150 mgpropofol drip mcg/kg/znm310.6 mgdexamethasone (DECADRON) 4 mg/mL4 mgondansetron 2 mg/mL4 mg ceFAZolin Sodium (ANCEF) injection 2 g2 glactated ringers infusion1,000 mL * Agents Name O2 N2O Air Exp Sevoflurane Exp Isoflurane Exp Desflurane Ins Sevoflurane Ins Isoflurane Ins Desflurane * Blood No blood administrations on file. TypeDetailsPlacementRemovalIncision/Surgical Site05/31/13; 1323; Nose05/31/13 1323 by Lydia Yo RNIncision/Surgical SiteNo Incision; 10/01/25; 1616; Urethral /19/25 1616 by Jose Miguel Tai RNIncision/Surgical SiteNo Incision; 10/17/25; 1446; Urethral tqemln70/05/25 1446 by Lyly Iverson RNUreteral Drain/Stent10/01/25; 1614; Left ureter (Strings off); 6 fr (24cm); Standard; Yes10/01/25 1614 by Jose Miguel Tai RN10/17/25 1500 by Felecia Kamara, RNPeripheral IV10/17/25; 1310; 20 G; Left, Dorsal; Hand; Chlorhexidine; Tolerated well10/17/25 1310 by Mojgan Jaimes RN 10/17/25 1629 by Felecia Kamara RNSupraglottic AirwayPlacement Date: 10/17/25; Placement Time: 1446 (created via procedure documentation); Mask Ventilation: 1; LMA Size: 4; Airway Brand: I-Gel; Attempts: 1447 by Delfin Nelson APRN CRNA10/17/25 1501 by Delfin Nelson APRN CRNAdocumented in this encounter Social History Tobacco UseTypesPacks/DayYears [...] InformationValueDate RecordedSex Assigned at BirthNot on fileLegal SblDqrihs18/10/2013 2:18 PM CDT Gender IdentityNot on fileSexual OrientationNot on filedocumented as of this encounter OR Notes * Anesthesia Postprocedure Evaluation - Luis Alberto Cunningham MD - 10/17/2025 3:40 PM CST Patient: Ct Zuleta Procedure: Procedure(s): Cystoscopy, STENT REMOVAL, left ureteroscopy, and stone basketing Anesthesia Type: General Note: Disposition: Outpatient Postop Pain Control: Uneventful Sign Out: Well controlled pain PONV: No Neuro/Psych: Uneventful Sign Out: Acceptable/Baseline neuro status Airway/Respiratory: Uneventful Sign Out: Acceptable/Baseline resp. status CV/Hemodynamics: Uneventful Sign Out: Acceptable CV status; No obvious hypovolemia; No obvious fluid overload Other NRE: NONE DID A NON-ROUTINE EVENT OCCUR? No Last vitals: Vitals Value Taken Time BP 109/72 10/17/25 15:30 Temp 96.62 ??F (35.9 ??C) 10/17/25 15:34 Pulse 86 10/17/25 15:34 Resp 15 10/17/25 15:34 SpO2 96 % 10/17/25 15:34 Vitals shown include unfiled device data. Electronically Signed By: Luis Alberto Cunningham MD October 17, 2025 3:40 PM NO CONTROLLER * Anesthesia Procedure Notes - Delfin Nelson APRN CHIEF RADIOLOGIC TECHNOLOGIST - 10/17/2025 2:42 PM CSTAssociated Order(s): Airway Airway Patient location during procedure: OR Procedure Start/Stop Times: 10/17/2025 2:47 PM Staff - Anesthesiologist: Luis Alberto Cunningham MD CHIEF RADIOLOGIC TECHNOLOGIST: Delfin Nelson APRN CHIEF RADIOLOGIC TECHNOLOGIST Performed By: CHIEF RADIOLOGIC TECHNOLOGIST Consent for Airway Urgency: elective Indications and Patient Condition Indications for airway management: kayden-procedural Induction type:intravenous Mask difficulty assessment: 1 - vent by mask Final Airway Details Final airway type: supraglottic airway Supraglottic Airway Details Type: LMA Brand: I-Gel LMA size: 4 Post intubation assessment Placement verified by: capnometry, equal breath sounds and chest rise Number of attempts at approach: 1 Number of other approaches attempted: 0 Secured with: commercial tube castillo Ease of procedure: easy Dentition: Intact and Unchanged Medication(s) Administered Medication Administration Time: 10/17/2025 2:47 PM NO CONTROLLER * Anesthesia Preprocedure Evaluation - Luis Alberto Cunningham MD - 10/17/2025 1:03 PM CST Anesthesia Pre-Procedure Evaluation Patient: Ct Zuleta : 1965 Procedure : Procedure(s): Cystoscopy, left ureteral stent exchange, left ureteroscopy with laser lithotripsy and stone basketing Past Medical History: Diagnosis Date Diabetes mellitus (H) Diabetes mellitus, type 2 (H) GERD (gastroesophageal reflux disease) HLD (hyperlipidemia) Nephrolithiasis PONV (postoperative nausea and vomiting) Sleep apnea Pt does not use CPAP has lost weight. Past Surgical History: Procedure Laterality Date CHOLECYSTECTOMY COMBINED CYSTOSCOPY, INSERT STENT URETER(S) Left 10/01/2025 Procedure: Cystoscopy, left retrograde pyelogram, left ureteral stent placement, interpretation of fluoroscopic images; Surgeon: Bradley Holguin MD; Location: [facility] OR laparosocpy[ Removal of right ovary and tube. SEPTOPLASTY, TURBINOPLASTY, COMBINED 05/31/2013 Procedure: COMBINED SEPTOPLASTY, TURBINOPLASTY; SEPTOPLASTY, TURBINOPLASTY; Surgeon: Martin Paige MD; Location: [facility] OR TONSILLECTOMY Allergies[1] Social History Tobacco Use Smoking status: Every Day Current packs/day: 0.75 Average packs/day: 0.8 packs/day for 8.0 years (6.0 ttl pk-yrs) Types: Cigarettes Smokeless tobacco: Never Substance Use Topics Alcohol use: Not Currently Wt Readings from Last 1 Encounters: 10/17/25 60.4 kg (133 lb 1.6 oz) Anesthesia Evaluation ROS/MED HX ENT/Pulmonary: (+) sleep apnea, mild, Neurologic: - neg neurologic ROS Cardiovascular: - neg cardiovascular ROS METS/Exercise Tolerance: Hematologic: - neg hematologic ROS Musculoskeletal: - neg musculoskeletal ROS GI/Hepatic: (+) GERD, Renal/Genitourinary: (+) renal disease, Nephrolithiasis , Endo: (+) type I DM, Psychiatric/Substance Use: - neg psychiatric ROS Infectious Disease: - neg infectious disease ROS Malignancy: Other: Physical Exam Airway Mallampati: II TM distance: >3 FB Neck ROM: full Cardiovascular - normal exam Dental (+) Modest Abnormalities - crowns, retainers, 1 or 2 missing teeth Pulmonary - normal exam Neurological Other Findings OUTSIDE LABS: CBC: Lab Results Component Value Date WBC 12.54 (H) 10/03/2025 WBC 23.33 (H) 10/02/2025 HGB 11.0 (L) 10/03/2025 HGB 11.7 10/02/2025 HCT 32.5 (L) 10/03/2025 HCT 34.2 (L) 10/02/2025 PLT 264 10/03/2025 PLT 277 10/02/2025 BMP: Lab Results Component Value Date NA 138 10/03/2025 NA 139 10/02/2025 POTASSIUM 3.6 10/03/2025 POTASSIUM 4.2 10/02/2025 CHLORIDE 106 10/03/2025 CHLORIDE 106 10/02/2025 CO2 24 10/03/2025 CO2 25 10/02/2025 BUN 12.0 10/03/2025 BUN 16.8 10/02/2025 CR 0.59 10/03/2025 CR 0.63 10/02/2025 GLC 147 (H) 10/17/2025 GLC 97 10/03/2025 COAGS: No results found for: PTT, INR, FIBR POC: Lab Results Component Value Date BGM 150 (H) 05/31/2013 HEPATIC: No results found for: ALBUMIN, PROTTOTAL, ALT, AST, GGT, ALKPHOS, BILITOTAL,BILIDIRECT, VAL OTHER: Lab Results Component Value Date LACT 1.5 10/01/2025 A1C 7.1 (H) 10/02/2025 ROGELIO 7.9 (L) 10/03/2025 MAG 1.6 (L) 10/03/2025 Anesthesia Plan ASA Status: 3 Anesthesia Type: General. Airway: oral. Induction: intravenous. Techniques and Equipment: - Monitoring Plan: standard ASA monitoring Consents Anesthesia Plan(s) and associated risks, benefits, and realistic alternatives discussed. Questions answered and patient/technical account representative(s) expressed understanding. - Discussed: - Discussed with: Patient Postoperative Care Pain management: multimodal analgesia. Comments: Luis Alberto Cunningham MD Clinically Significant Risk Factors Present on Admission # Drug Induced Platelet Defect: home medication list includes an antiplatelet medication # DMII: A1C = 7.1 % (Ref range: <5.7 %) within past 6 months [1] Allergies Allergen Reactions Perfume Other (See Comments) Wheezing NO CONTROLLER documented in this encounter Miscellaneous Notes * Anesthesia Care Transfer Note - Delfin Nelson APRN CRNA - 10/17/2025 3:06 PM CST Patient: Ct Zuleta Procedure: Procedure(s): Cystoscopy, STENT REMOVAL, left ureteroscopy, and stone basketing Diagnosis: Kidney stone [N20.0] Diagnosis Additional Information: No value filed. Anesthesia Type: General Note: Oropharynx: oropharynx clear of all foreign objects and spontaneously breathing Level of Consciousness: awake Oxygen Supplementation: face mask Level of Supplemental Oxygen (L/min / FiO2): 8l Independent Airway: airway patency satisfactory and stable Dentition: dentition unchanged Vital Signs Stable: post-procedure vital signs reviewed and stable Report to RN Given: handoff report given Patient transferred to: PACU Comments: Pt to PACU, VSS, rpeort to RN Handoff Report: Identifed the Patient, Identified the Reponsible Provider, Reviewed the pertinent medical history, Discussed the surgical course, Reviewed Intra-OP anesthesia mangement and issues during anesthesia, Set expectations for post-procedure period and Allowed opportunity for questions andacknowledgement of understanding Vitals: Vitals Value Taken Time BP Temp Pulse Resp SpO2 100 % 10/17/25 15:05 Vitals shown include unfiled device data. Electronically Signed By: Delfin Nelson APRN CRNA October 17, 2025 3:06 PM NO CONTROLLER documented in this encounter Plan of Treatment Not on file documented as of this encounter Procedures Procedure NamePriorityDate/TimeAssociated DiagnosisCommentsANE AIRWAY SUPRAGLOTTIC XAJCBYVYNRKXekybng17/05/2025 2:47 PM CASINO CONTROLLER documented in this encounter Results * ANE AIRWAY SUPRAGLOTTIC PERFORMABLE (10/17/2025 2:47 PM CASINO CONTROLLER) Narrative Delfin Nelson APRN CRNA - 10/17/2025 2:47 PM CASINO CONTROLLER Delfin Nelson APRN CRNA 10/17/2025 2:43 PM Airway ? Patient location during procedure: OR ? Procedure Start/Stop Times: 10/17/2025 2:47 PM Staff - ? Anesthesiologist: ??Luis Alberto Cunningham MD ? CHIEF RADIOLOGIC TECHNOLOGIST: Delfin Nelson APRN CRNA ? Performed By: CHIEF RADIOLOGIC TECHNOLOGIST Consent for Airway ? Urgency: elective Indications and Patient Condition ? Indications for airway management: kayden-procedural ? Induction type:intravenous ? Mask difficulty assessment: 1 - vent by mask Final Airway Details ? Final airway type: supraglottic airway Supraglottic Airway Details ? Type: LMA ? Brand: I-Gel ? LMA size: 4 Post intubation assessment ? Placement verified by: capnometry, equal breath sounds and chest rise ? Number of attempts at approach: 1 ? Number of other approaches attempted: 0 ? Secured with: commercial tube castillo ? Ease of procedure: easy ? Dentition: Intact and Unchanged Medication(s) Administered Medication Administration Time: 10/17/2025 2:47 PM Authorizing ProviderResult TypeResult StatusMattlionelw Maikel Cunningham MDPR ANESTHESIA Final Result documented in this encounter Visit Diagnoses [...] 3 g., Indications: Perioperative Pharmacoprophylaxis, Pre-procedure Indications:Perioperative Pharmacoprophylaxis$Given10/17/2025 2:21 PM CST2 g dexAMETHasone (DECADRON) injection Intravenous, PRN, Administer over 1 Minutes, Starting on Mon10/17/25 at 1426, Anesthesia Intra-op $Given10/17/2025 2:26 PM CST4 mg fentaNYL (PF) (SUBLIMAZE) injection Intravenous, PRN, Administer over 3-5 Minutes, Starting on Mon10/17/25 at 1426, Anesthesia Intra-op $Given10/17/2025 2:36 PM CST50 mcg$Given10/17/2025 2:26 PM CST50 mcg lactated ringers infusion at 10 mL/hr, Intravenous, CONTINUOUS, IF patient NOT on dialysis., Pre- procedure, Starting on Mon10/17/25 at 1230, Until Mon10/17/25 at 1504 $New Bag10/17/2025 3:02 PM CAETowielpkp16/05/2025 2:10 PM CASINO CONTROLLER$New Bag10/17/2025 1:10 PM CST10 mL/hr lidocaine 2% injection (MDV) Intravenous, PRN, Starting on Mon10/17/25 at 1426, Anesthesia Intra-op $Given10/17/2025 2:26 PM CST40 mg midazolam (VERSED) injection Intravenous, Administer over 2 Minutes, PRN, Starting on Mon10/17/25 at 1419, Anesthesia Intra-op $Given10/17/2025 2:26 PM CST1 mg$Given10/17/2025 2:19 PM CST1 mg ondansetron (ZOFRAN) injection Intravenous, PRN, Administer over 2-5 Minutes, Starting on Mon10/17/25 at 1426, Anesthesia Intra-op $Given10/17/2025 2:26 PM CST4 mg propofol (DIPRIVAN) infusion Intravenous, CONTINUOUS PRN, Starting on Mon10/17/25 at 1426, Anesthesia Intra-op $New Bag10/17/2025 2:26 PM OUS271 mcg/kg/min57.984 mL/hr propofol (DIPRIVAN) injection 10 mg/mL vial Intravenous, PRN, Starting on Mon10/17/25 at 1426, Anesthesia Intra-op $Given10/17/2025 2:26 PM NPQ803 mgdocumented in this encounter Care Teams Team MemberRelationsGarden Grove Hospital and Medical CenterpecialtyStart [address] [address] [facility]05/22/13documented as of this encounter
[2025-11-05] VITALS (67 sets, daily range): BP systolic 72–186; BP diastolic 31–113; PULSE 71–110; RESP 18; TEMP 36.9–39.1; O2SAT 86–99
--- OUTSIDE RECORDS SUMMARY | 2025-11-05 10:24 | XMS_ITS | Encounter Summary ---
Author Organization [facility] Address [address] [place] [address]. [place] [address] Care Team Providers Care Science Analyst Name Role Phone Fara Otoole [place] Primary Care Provider Encounter Details DateTypeDepartmentCare Team (Latest Contact Info)Wfljdmsrgjj08/20/2025[facility] [address] [place] [address] Bradley Holguin MD [address] [facility] [address] [place], [place] [address] Kidney stone (Primary Dx) Social History Tobacco UseTypesPacks/DayYears UsedDateSmoking Tobacco: Every [...] abandoned building, in an overnight residential, or couch-surfing.)Yes11/ Are you worried about losing your housing?No10/01/2025Financial [...] InformationValueDate RecordedSex Assigned at BirthNot on fileLegal YkuUwhmtn63/10/2013 2:18 PM CDT Gender IdentityNot on fileSexual OrientationNot on filedocumented as of this encounter Plan of Treatment Not on file documented as of this encounter Visit Diagnoses Diagnosis Kidney stone- Primary Calculus of kidney documented in this encounter Care Teams Team MemberRelationshipSpecialtyStart DateEnd [address] [address] PCP - General05/22/13documented as of this encounter
--- OUTSIDE RECORDS SUMMARY | 2025-11-05 10:24 | XMS_ITS | Clinical Summary ---
Author Organization [employer] [facility] Address [address] [place] [address] Care Team Providers Care Improvement Nurse Name Role Phone Josseline Rios MD Primary Care Provider Allergies No known active allergies Medications MedicationSigDispense QuantityRefillsLast FilledStart DateEnd DateStatus ASPIRIN 81 MG CAP, DELAYED RELEASE Indications:Type II or unspecified type diabetes mellitus without mention of complication, not stated as uncontrolled (HC)take 1 capsule (81 mg) by oral route once olvel279ctive multivitamin-folic acid 0.4 mg (MULTIPLE VITAMIN) tablet Take 1 tablet by mouth once daily.ctive blood-glucose meter Indications:Diabetes mellitus without complication (HC)Dispense meter, test strips, lancets covered by pt ins. E11.9 NIDDM type II - Test 1 time/day 1 Device 11/20/2020ctive blood sugar diagnostic (Blood Glucose Test) strip Indications:Controlled type 2 diabetes mellitus without complication, without long-term current use of insulin (HC)Test 1 times per day. 100 Each ctive albuterol HFA (Ventolin HFA) 90 mcg/actuation inhaler Indications:Mild persistent asthma, uncomplicated (HC)Inhale 2 Puffs by mouth every 4 hours if needed for Shortness of Breath 1st choice or Wheezing 1st c hoice. 18 g ctive atorvastatin (LIPITOR) 20 mg tablet Indications:Hyperlipidemia, unspecified hyperlipidemia typeTake 1 Tablet (20 mg) by mouth once daily with evening meal. Patient will call when needed 90 Tablet ctive fluticasone (50 mcg per actuation) nasal solution (FLONASE) Indications:Mild persistent asthma, uncomplicated (HC)Inhale 1 [place] in both nostrils once daily. 16 g 11112/29/2023ctive oxyCODONE 5 mg immediate release tablet Indications:Hammertoe of right footTake 1-2 Tablets (5-10 mg) by mouth every 4 hours if needed for Pain. 20 Tablet 03/25/2025 8:13 AM CDT5Active Additional Information Patient not taking.Reported on 08/26/2025 omeprazole (PRILOSEC) 40 mg Delayed-Release capsule Indications:Esophagitis,Esophageal dysphagia,Gastroesophageal reflux disease with esophagitis without hemorrhageTAKE ONE CAPSULE BY MOUTH EVERY DAY 30-60 MINUTES BEFORE A MEAL OR FOOD 90 Capsule 10/20/2025tive metFORMIN (GLUCOPHAGE) 500 mg tablet Indications:Controlled type 2 diabetes mellitus without complication, without long-term current use of insulin (HC)TAKE TWO TABLETS BY MOUTH TWICE A DAY WITH MEALS 360 Tablet 10/20/2025tive escitalopram oxalate (LEXAPRO) 20 mg tablet Indications:Adjustment disorder with mixed anxiety and depressed moodTAKE ONE TABLET BY MOUTH EVERY MORNING 90 Tablet 10/20/2025tive metFORMIN (GLUCOPHAGE) 500 mg tablet Indications:Controlled type 2 diabetes mellitus without complication, without long-term current use of insulin (HC)Take 2 Tablets (1,000 mg) by mouth two times daily with meals. 360 Tablet Discontinued omeprazole (PRILOSEC) 40 mg Delayed-Release capsule Indications:Esophagitis,Esophageal dysphagia,Gastroesophageal reflux disease with esophagitis without hemorrhageTake 1 Capsule (40 mg) by mouth once daily. Take 30-60 minutes before a meal/food once a day. 90 Capsule Discontinued escitalopram oxalate (LEXAPRO) 20 mg tablet Indications:Adjustment disorder with mixed anxiety and depressed moodTake 1 Tablet (20 mg) by mouth once daily in the morning. 90 Tablet Discontinued Active Problems ProblemNoted DateDiagnosed DateDiabetic neuropathy associated with type 2 diabetes /03/2015Chronic djfnqqeqo58/06/2013Neck pain radiating to right shoulder and eacbgpa2901/21/2013Right Carpal tunnel uvcwcxti18/11/2013 Chronic qomddmgc09/11/2012bdominal pain, unspecified site07/24/2012 Cholecystitis krtvazn4404/12/2012Mild persistent ihvwxf5909/23/2011GERD (gastroesophageal reflux disease)07/13/2011 Overview (07/13/2011): EGD 06/2011 reflux Colon polyp06/28/2011 Overview (02/28/2025): Colonoscopy 06/2011 polyps repeat in 3 years Colonoscopy 07/2012 normal repeat in 5 years Colonoscopy 11/2017 multiple polyps, repeat in 3 years Colonoscopy 01/2022 20 mmTA, repeat in 3 years Colonoscopy 02/2025 TA, repeat in 5 years SLEEP APNEA AHI-5.8 Chest pain, yeafsvvuczn31/04/2007Other and unspecified fjnsmuwrlxpdso40/08/2007llergic rhinitis, cause unspecified 03/20/2007Type II or unspecified type diabetes mellitus without mention of complication, not stated as qtexesijlfiy45/27/2007 Encounters DateTypeDepartmentCare NflhNskiqvrpxcc17/24/2025Nurse Triage [facility] [address] [place] [address] Josseline Rios MD Back Pain (Lower back-left side)10/19/2025Refill [facility] [address] [place] [address] Josseline Rios MD Refill Request (Omeprazole, Metformin, Escitalopram Oxalate)09/30/2025Orders Only [facility] Scanner 1 scan: (1-Ord) [facility], CT ABDOMEN PELVIS WO CON, 09/30/2025 09/25/2025 2:15 PM CSTOffice Visit [facility] [address] [facility] [address] [place] [address] Carlton Graff MD Hand Pain/problem (Bilateral hand nodule)09/25/20253124Ikpoay79/14/2025 1:45 PM CDT Office Visit [facility] [address] [place] [address] Ciera Tang MD Lump (on palm of hands started a couple weeks, pain started getting worse as of recently )08/26/2025Travelfrom Last 3 Months Immunizations ImmunizationAdministration DatesNext DueCOVID-19 vaccine (33Across 30mcg/0.3mL) PFMDV01/04/2022,10/28/2021HepA-HepB (Twinrix)11/24/2009, 10/27/2009Hepatitis B (Adult)04/09/2014INFLUENZA, IIV3 PF (AGE >= 6 MO) 08/26/2025,10/02/2024Influenza, IIV3 (Age >=3 years)07/19/2013,08/14/2012 Influenza, OTN684/04/2023,10/19/2022,10/28/2021,09/30/2020,08/09/2019,01/10/2019 ,08/01/2017Pneumococcal Conj 20-valent (Prevnar 20)2Pneumococcal Poly,23-Valent (Pneumovax)09/30/2020Td (Age >=7 Years)09/13/1999Tdap08/09/2019, 04/09/2009 Family History Medical HistoryRelationNameCommentsAtrial fibrillationBrother 1Heart Disease Brother 1MI I last fall at age 49OtherBrother 2colon polypsCancer-colonFather diagnosed at age 50HypertensionFatherStrokeFatherfatal MICancer-breastMaternal AuntOtherMaternal GrandmotherAlzheimersDiabetesMotherHeart DiseaseOther GRANDPARENTCancerPaternal Auntlung, non smokerOtherPaternal Grandmother alzheimersCancerPaternal Unclemesothilioma, non smokerHeart attackSisterdwarfism RelationNameStatusCommentsBrother 1Brother 2FatherDeceasedMaternal AuntMaternal GrandmotherDeceased (Age 87)AlzheimersMotherOtherPaternal AuntPaternal GrandmotherPaternal UncleSister Social History Tobacco UseTypesPacks/DayYears UsedDateSmoking Tobacco: Every DayCigarettes0.517 Passive Smoke Exposure: CurrentSmokeless Tobacco: Never Tobacco Cessation:Ready to Q uit: Not Asked; Counseling Given: Not Answered Comments:Working on it Alcohol UseStandard Drinks/WeekCommentsNo0 (1 standard drink = 0.6 oz pure alcohol)PHQ-2AnswerDate RecordedPHQ-2 TOTAL ZAIPT751Social Connections AnswerDate RecordedDo you often feel lonely or isolated from those around you?0 10/02/2024lcohol UseAnswerDate RecordedHow often do you have a drink containing alcohol?verage Number of DrinksNot on file08/26/2025How often do you have five or more drinks on one occasion?Financial Resource Strain AnswerDate RecordedDifficulty of Paying Living Wesiqyvl834/20/2024ifficulty of Paying Living ExpensesNot on file10/02/2024Food InsecurityAnswerDate RecordedDo you worry your food will run out before you are able to buy more? Transportation NeedsAnswerDate RecordedDoes lack of transportation keep you from medical appointments?oes lack of transportation keep you from work, meetings or getting things that you need?Housing StabilityAnswerDate RecordedWhat is your housing situation today?UtilitiesAnswerDate RecordedDo you have trouble paying for utilities (for example, heat, electricity, water, phone)?regnantCommentsNoSex and Gender InformationValueDate RecordedSex Assigned at BirthNot on fileLegal SexFemale 11/26/2012 6:28 AM CSTGender IdentityNot on fileSexual OrientationNot on file OccupationIndustryJob Start DateJob End DateNot on fileNot on fileNot on fileNot on file Obstetrics History GravidaParaTermPretermABIABSABEctopicMultipleLivingLive Nglrwd41LlbgVcskacsRR Total LaborLabor/2nd/1wpNpahdsDqeNzhzWlttKQEOlsX8B8BldrFowrYkrwebk Last Filed Vital Signs Vital SignReadingTime TakenCommentsBlood Fnhxpkff179/8110 1:46 PM CDT Fxmiu436508/26/2025 1:46 PM KAYKwbpcxcponb49.4 ??C (97.5 ??F)03/24/2025 11:30 AM CDTRespiratory Xmeg646103/24/2025 11:10 AM CDTOxygen Gtafkbbvxw52%08/26/2025 1:46 PM CDTInhaled Oxygen Concentration--Zqqjti01.5 kg (142 lb 3.2 oz)08/26/2025 1:46 PM ZDLUsxcps504 cm (5' 1.42)03/24/2025 8:37 AM CDTBody Mass Index26. 8:37 AM CDT Plan of Treatment DateTypeDepartmentCare Team (Latest Contact Info)Xmolmjlbgcu50/05/2026 9:05 AM CSTOffice Visit [facility] [address] [place] [address] Josseline Rios MD [address] [place] [address] Health MaintenanceDue DateLast DoneCommentsRSV vaccine for adults or (1 - Risk 50-74 years 1-dose series)2014Zoster (shingles) series for age 50+ (1 of 2)2014COVID-19 vaccine series ( season)2025 11/18/2021, 1Depression screening for age 12+, 10/19/2022, 10/12/2021, Additional history existsBMI (ht and wt on same day) for age 18+, 10/28/2024, 10/18/2023, Additional history exists Mammogram for age 40-750/05/2025, 03/18/2024, 02/02/2023, Additional history existsTetanus cehnggu43/, 04/09/2009, 09/13/1999Lipids for age 45-75, 10/18/2023, 10/19/2022, Additional history existsColonoscopy through age 750/, 02/26/2025, 02/26/2025, Additional history existsHepatitis B series for 19+Gjenshgod83/28/2014, 11/24/2009, 10/27/2009Hepatitis C screening for age 18-49Jcqliimtk52/06/2020HIV for age 15-65Wgxkdpizs29/07/2022Pneumococcal series for age 50+Completed 10/19/2022, 09/30/2020Influenza VennwybRckleubgr76/14/2025, 10/02/2024, 10/18/2023, Additional history exists Goals GoalPatient Goal TypeAssociated ProblemsRecent ProgressPatient-Stated?Author BLOOD PRESSURE-MAINTAINS BP LESS THAN 130/80 Blood PressureNoCatalina Loya NP Procedures Procedure NamePriorityDate/TimeAssociated DiagnosisCommentsSCAN-CT QYYVXUSOTTCZWD20/18/2025 12:00 AM CSTXR MAMMO [place] BILAT YMKBPUYvwjczl79/07/2025 4:19 PM CDT Visit for screening mammogram SCAN-CVBJCLQNBGA55/16/2025 12:00 AM CDT LIPID PANEL W REFLEX MEASURED GRHPnrcutb07/16/2024 7:57 AM MERCHANDISE FLOW TEAM MEMBER Type II or unspecified type diabetes mellitus without mention of complication, not stated as uncontrolled ANTI HIV 1/2Add On10/19/2022 2:29 PM MERCHANDISE FLOW TEAM MEMBER Screening for HIV (human immunodeficiency virus) ANTI ACQMutvagr47/06/2020 8:33 AM MERCHANDISE FLOW TEAM MEMBER Need for hepatitis C screening test from Last 3 Months or Most Recently Relevant to Health Maintenance Results * SCAN-CT INTERPRETATION (09/30/2025 12:00 AM MERCHANDISE FLOW TEAM MEMBER)Anatomical RegionLaterality ModalityOther Narrative Authorizing ProviderResult TypeResult StatusScannerOTHERFinal Result * XR MAMMO NJ BILAT SCREEN (05/19/2025 4:19 PM CDT)Anatomical RegionLaterality ModalityBREASTS, Breast Left, Breast RightBilateralMammographySpecimen (Source)Anatomical Location / LateralityCollection Method / VolumeCollection TimeReceived Time Impressions 05/20/2025 2:40 PM CDT There is no radiographic evidence for malignancy. Recommend annual mammograms. MAMMOGRAM ASSESSMENT: ??ACR 1 Negative PATIENTS: You will also receive a letter with your examination results in an easy to read format. ??If you have questions about your results, please contact your referring provider. Narrative 05/20/2025 2:40 PM CDT For Patients: As a result of the Century Cures Act, medical imaging exams and procedure reports are released immediately into your electronic medical record. You may view this report before your referring provider. If you have questions, please contact your health care provider. XR MAMMO NJ BILAT SCREEN [[id number]] CLINICAL HISTORY: ??This is an asymptomatic 59 y.o. patient. INDICATION FOR EXAM: Mammogram Screening. TECHNIQUE: CC and MLO views were obtained. ??This study was evaluated with the assistance of Computer-Aided Detection. Breast Tomosynthesis was used in interpretation. COMPARISON FILM: Yes 03/18/24 [facility] 02/02/23 [facility] FINDINGS: ??There are scattered areas of fibroglandular density. There are no dominant masses, suspicious micro calcifications or areas of architectural distortion. Authorizing ProviderResult TypeResult StatusJosseline Rios MDMAMMOFinal Result * SCAN-COLONOSCOPY (02/26/2025 12:00 AM CDT) Narrative Authorizing ProviderResult TypeResult StatusScannerOTHERFinal Result * LIPID PANEL W REFLEX MEASURED LDL (10/28/2024 7:57 AM MERCHANDISE FLOW TEAM MEMBER)ComponentValueRef RangeTest MethodAnalysis TimePerformed AtPathologist SignatureCHOLESTEROL, VGNJQ024<200 mg/dLQuest MediaPhy DaleHDL XVBDZOVVAGL88> OR = 50 mg/dL inkSIG Digital DvxfMNQUZIYJZBOUH845<150 mg/dLQuest MediaPhy DaleLDL-MHGQIRTTXIN66ne/dL (calc)inkSIG Digital DaleComment: Reference range: <100 Desirable range <100 mg/dL for primary prevention; <70 mg/dL for patients with CHD or diabetic patients with > or = 2 CHD risk factors. LDL-C is now calculated using the Mackenzie calculation, which is a validated novel method providing better accuracy than the Friedewald equation in the estimation of LDL-C. Rupert FERNÁNDEZ et al. CARLEY. 2013;310(19): 9848-4938 (http://education.DriverSaveClub.com/faq/CVY239) CHOL/HDLC RATIO1.9<5.0 (calc)[facility] HealtheNON HDL CHZCKYEALLF71 <130 mg/dL (calc)inkSIG Digital Community HealtheComment: For patients with diabetes plus 1 major ASCVD risk factor, treating to a non-HDL-C goal of <100 mg/dL (LDL-C of <70 mg/dL) is considered a therapeutic option. Specimen (Source)Anatomical Location / LateralityCollection Method / Volume Collection TimeReceived TimeBloodBLOOD SPECIMEN / Kbjhsul0810/28/2024 7:57 AM MERCHANDISE FLOW TEAM MEMBER 10/28/2024 7:58 AM MERCHANDISE FLOW TEAM MEMBER Narrative Authorizing ProviderResult TypeResult StatusJosseline Rios MDCHEMISTRY Final ResultPerforming OrganizationAddressCity/State/ZIP CodePhone Number Webcollage [place] [address] [place] [address], [facility] [address] [place] [address] * ANTI HIV 1/2 [60479.0] (10/19/2022 2:29 PM MERCHANDISE FLOW TEAM MEMBER)ComponentValueRef RangeTest MethodAnalysis TimePerformed AtPathologist SignatureHIV-1/HIV-2 ANTIBODY Oyz-BlwvghhuIyt-Imthzfxc44/10/2022 1:12 PM CSTALLSHRINERS H[facility]PITALS FOR [facility] LAB[facility]ORY-CENTRAL LABORATORYComment:HIV-1 p24 and HIV-1/HIV-2 Ab not detected.Specimen (Source) Anatomical Location / LateralityCollection Method / VolumeCollection Time Received TimeBloodBLOOD SPECIMEN / UnknownVenipuncture / Onascrh6710/19/2022 2:29 PM CST10/19/2022 2:29 PM MERCHANDISE FLOW TEAM MEMBER Narrative Authorizing ProviderResult TypeResult StatusJosseline Rios MDSEND OUTS Final ResultPerforming OrganizationAddressCity/State/ZIP CodePhone Number [facility] [address] * ANTI HCV (09/18/2020 8:33 AM MERCHANDISE FLOW TEAM MEMBER)ComponentValueRef RangeTest MethodAnalysis TimePerformed AtPathologist SignatureHEPATITIS C ANTIBODYNon-Reactive Non-Qcuykpsc56/06/2020 3:52 PM CSTLEWISG[facility] Comment:Antibodies to HCV not detected; does not exclude the possibility of exposure to HCV.Specimen (Source)Anatomical Location / LateralityCollection Method / VolumeCollection TimeReceived TimeBloodBLOOD SPECIMEN / Unknown Venipuncture / Cungfmu6609/18/2020 8:33 AM CST09/18/2020 8:34 AM MERCHANDISE FLOW TEAM MEMBER Narrative Authorizing ProviderResult TypeResult StatusJosseline Rios MDSEND OUTS Final ResultPerforming OrganizationAddressCity/State/ZIP CodePhone Number [facility] [address] from Last 3 Months or Most Recently Relevant to Health Maintenance Insurance * Guarantor: [address] AAccount TypeRelation to PatientDate of BirthPhone Billing AddressPersonal/MzybfcZztn1965 [address] [place] [address] Advance Directives TypeDate RecordedPatient RepresentativeExplanationHealthcare Directive12/22/2023 12/22/2023 * Full Code (Latest Code Status on File) Date ActivatedDate InactivatedComments03/24/2025 11:32 AM03/24/2025 1:51 PM QuestionAnswerCommentsCode Status Discussion:* Unable to Assess Preferences, Provider to review later * Full Code Date ActivatedDate InactivatedComments03/24/2025 8:18 AM03/24/2025 11:32 AM QuestionAnswerCommentsCode Status Discussion:* Unable to Assess Preferences, Provider to review later Care Teams Team MemberRelationshipSpecialtyStart DateEnd Josseline Rios MD [address] [place] [address] PCP - GeneralFamily Rwtjvfou96/14/25
--- OUTSIDE RECORDS SUMMARY | 2025-11-05 10:24 | XMS_ITS | Patient Health Record ---
Author Organization [facility] Address [address] [place] [address] Phone [phone] Care Team Providers Care Road Design Draftsperson Name Role Phone Catalina Acosta Primary Care Provider Jade Harvey MD, HUBER Unavailable Reason For Referral No Information Medications Medication SIG (Take, Route, Frequency, Duration) Notes Start Date End Date Diagnosis (ICD Code) Status CeleXA ActiveAspirinActivemetFORMIN HClActiveglipiZIDENot-TakingRhinocort AquaActive Saline Nasal SprayActiveSimvastatinActiveMaxair AutohalerActive Social History Sex Observation Social History Observation Description Sex Observation Female Problems Problem Type SNOMED Code ICD Code Dates Problem Status W/U Sta tus Risk Notes Problem Allergic rhinitis (81776478) Allergic rhinitis (J30.9) Added On:12/02/2015 Active confirmed ProblemTobacco abuse (9812876700)Tobacco abuse (Z72.0) Added On:12/02/2015 Activeconfirmed Plan Of Treatment No Information Insurance Providers Payer Name Payer Address Payer Phone Subscriber Number Group Number Insured Name Patient Relationship to Insured Coverage Start Date Coverage End Date [facility] [address] [facility] [place] [place] [id number], JulieSelf - patient is the insured Medical (General) History Medical History History ICD Code diabetes hypercholesterolemiaallergies and asthmaAllergic rhinitis, cause unspecified Tobacco abuseSurgical History Surgery Date(Month/Year) tonsils and adenoids septoplasty with turbinate surgery May 2013
--- OUTSIDE RECORDS SUMMARY | 2025-11-05 10:25 | XMS_ITS | Clinical Summary ---
Author Organization [place] Address [address] [place] [address] Care Team Providers Care Compressed Gas Tester Name Role Phone Clinic, [facility] Primary Care Provider Allergies Active AllergyReactionsCriticalityNoted DateCommentsPerfumeOther (See Comments) 05/27/2013 Wheezing Medications MedicationSigDispense QuantityRefillsLast FilledStart DateEnd DateStatus fluticasone (FLONASE) 50 MCG/ACT nasal spray Grant 2 sprays into both nostrils daily as needed.Active escitalopram (LEXAPRO) 20 MG tablet Take 20 mg by mouth at bedtime.10/28/2024ctive atorvastatin (LIPITOR) 20 MG tablet Take 20 mg by mouth at bedtime.10/28/2024ctive omeprazole (PRILOSEC) [address] capsule Take 40 mg by mouth daily as needed.10/28/2024ctive metFORMIN (GLUCOPHAGE) 500 MG tablet Take 1,000 mg by mouth 2 times daily (with meals). Will hold DOSActive albuterol (PROAIR HFA/PROVENTIL HFA/VENTOLIN HFA) 108 (90 Base) MCG/ACT inhaler Inhale 2 puffs into the lungs every 4 hours as needed for shortness of breath or wheezing.Active aspirin 81 MG EC tablet Take 81 mg by mouth daily. Will hold 7 days prior to surgeryActive multivitamin w/minerals (THERA-VIT-M) tablet Take 1 tablet by mouth daily. Will hold 7 days prior to surgeryActive amoxicillin-clavulanate (AUGMENTIN) 875-125 MG tablet Indications:Acute pyelonephritisTake 1 tablet by mouth 2 times daily for 9 days. 18 tablet 5112/12/2024Expired Active Problems ProblemNoted DateDiagnosed DateAcute yongsgnypdztef19/19/2025 Encounters DateTypeDepartmentCare VykyMpnpokpnxzu77/05/2025 2:21 PM CSTAnesthesia Event [facility] PeriOp Services [address] [place] [address] Luis Alberto Cunningham MD Kimball, David Lafond, APPRENTICE EMBALMER VINYL FLOORING INSTALLER 10/17/2025 2:10 PM FIXED INCOME PORTFOLIO MANAGER - 10/17/2025 3:[facility] [address] [place] [address] Bradley Holguin MD Cystoscopy, left retrograde pyelogram, interpretation of fluoroscopic images, left ureteroscopy with stone basketing, laser on stand-by10/17/2025 12:04 PM FIXED INCOME PORTFOLIO MANAGER - 10/17/2025 4:28 PM CSTHospital Encounter [facility] PreOP/PostOP [address] [place] [address] Bradley Holguin MD Discharge Disposition: Home or Self Care10/07/2025Telephone [facility] Urology [address] [phone] Bradley Holguin MD Schedule Evukzey9710/02/2025Orders Only [facility] Urology [address] [address] Bradley Holguin MD Kidney stone (Primary Dx)10/01/2025 4:[address] [facility] PeriOp Services [address] [place] [address] Joanna Ulrich MD Allen, Brian J, MD 10/01/2025 3:15 PM FIXED INCOME PORTFOLIO MANAGER - 10/01/2025 4:00 PM [facility] [address] [place] [address] Bradley Holguin MD Cystoscopy, left retrograde pyelogram, left ureteral stent placement, interpretation of fluoroscopic fvcrnh6510/01/2025 3:12 AM FIXED INCOME PORTFOLIO MANAGER - 10/03/2025 1:50 PM CSTHospital Encounter [facility] 3 Medical Surgical [address] [place] [address] Kory Dunaway MD Acute pyelonephritis (Primary Dx) Discharge Disposition: Left Against Medical Wphutq3509/30/2025ncillary Procedure [facility] External Imaging [address] [place] [phone] Non- Credentialed Provider, Radiology from Last 3 Months Social History Tobacco UseTypesPacks/DayYears UsedDateSmoking Tobacco: Every DayCigarettes0.88 Smokeless Tobacco: Never Tobacco Cessation:Ready to Q uit: Not Asked; Counseling Given: Not Answered Alcohol UseStandard Drinks/WeekCommentsNot Currently0 (1 standard drink = [...] in an abandoned building, in an overnight penitentiary, or couch-surfing.)Yes10/01/2025re you worried about losing your [...] physically and emotionally safe where you currently live?Yes10/17/2025Within the past 12 months, have you been hit, slapped, kicked or otherwise physically hurt by someone?No10/17/2025Within the past 12 months, have you been humiliated or emotionally abused in other ways by your partner or ex-partner?No10/17/2025 CommentsNoSex and Gender InformationValueDate RecordedSex Assigned at BirthNot on fileLegal YhfUqmdxw04/10/2013 2:18 PM CDTGender IdentityNot on file Sexual OrientationNot on file Last Filed Vital Signs Vital SignReadingTime TakenCommentsBlood Pjkyimor495/3791610/17/2025 4:00 PM FIXED INCOME PORTFOLIO MANAGER Hlmdi607810/17/2025 4:00 PM TRSYpzhymcwdmo51.1 ??C (97 ??F)10/17/2025 4:00 PM FIXED INCOME PORTFOLIO MANAGER Respiratory Udig261112/18/2024 4:00 PM CSTOxygen Rchytwhjyx68%10/17/2025 4:00 PM CSTInhaled Oxygen Concentration--Vpgzds70.4 kg (133 lb 1.6 oz)10/17/2025 12:21 PM FZEAcserf278.2 cm (5' 1.5)10/17/2025 12:21 PM CSTBody Mass Index24.74 10/17/2025 12:21 PM FIXED INCOME PORTFOLIO MANAGER Plan of Treatment Health MaintenanceDue DateLast DoneCommentsADVANCE CARE MTMQJZJA1964ANNUAL REVIEW OF HM OXESHL21 1964CT LYMXQFFBTCHZ35/14/9455YZS48 1964FLEX SIG 1965 6425OCNPP1964NICOTINE/TOBACCO CESSATION COUNSELING Q 1 YR1964 sDNA (Cologuard)1964PAP1985LUNG CANCER VWMTOFXXZ15/14/2014ZOSTER VACCINE (1 of 2)2014PHQ-2 (once per calendar year)2024OVID-19 VACCINE ( season)501/04/2022, 10/28/2021YEARLY PREVENTIVE VISIT512/, 10/28/2021, 09/30/2020, Additional history exists MAMMO TIPNTXOTK54/05/2025, 05/19/2025, 03/18/2024, Additional history existsDIABETES NWYZMLJOR31/03/2025, 10/17/2025, 10/03/2025, Additional history existsDTAP/TDAP/TD VACCINE (3 - Td or Tdap)/, 04/09/2009, 09/13/19995115LGVMGGXMFWN23/16/398931/5COLORECTAL CANCER SCREENING 02/26/2035RSV VACCINE (1 - 1-dose 75+ series)2039HEPATITIS C SCREENING Iwpktltjy81/06/2020HIV THIMEDIYAYzfbawhjp57/07/2022PNEUMOCOCCAL VACCINE 50+ KVFIWRxvlpjdqj83/07/2022, 09/30/2020INFLUENZA ROVWJDPWigoescel68/14/2025, 10/02/2024, 10/18/2023, Additional history existsHPV VACCINE (No Doses Required) CompletedMENINGITIS VACCINEAged OutNo longer eligible based on patient's age to complete this topic Medical Devices ExplantedTypeAreaManufacturerDevice IdentifierShelf Expiration DateModel / Serial / LotStent Ureteral Polaris Ultra [id number] - [id number] Implanted:Qty: 1 on 10/01/2025 by Bradley Holguin MD at [facility] Explanted:Qty: 1 on 10/17/2025 [facility]: UreterBOSTON SCIENT[employer] [id number] 07/17/[id number] / / [id number]:Strings off Procedures Procedure NamePriorityDate/TimeAssociated DiagnosisCommentsGLUCOSE BY METER Jnliyuf2310/17/2025 3:19 PM FIXED INCOME PORTFOLIO MANAGER XR SURGERY IWJLObtvcyg31/05/2025 3:02 PM FIXED INCOME PORTFOLIO MANAGER STONE FMANLFJECjvyhqc29/05/2025 2:57 PM FIXED INCOME PORTFOLIO MANAGER ANE AIRWAY SUPRAGLOTTIC OXMBSWELXJZPhqlzfk08/05/2025 2:47 PM FIXED INCOME PORTFOLIO MANAGER CYSTOSCOPY, WITH URETERAL STENT GCWVNBD0010/17/2025 2:23 PM FIXED INCOME PORTFOLIO MANAGER Kidney stone Special Needs 65 minutes CYSTOSCOPY, WITH RETROGRADE PYELOGRAM AND CALCULUS TISAGQX8010/17/2025 2:23 PM FIXED INCOME PORTFOLIO MANAGER Kidney stone Special Needs 65 minutes GLUCOSE BY KPMMWMbkvtry79/05/2025 12:17 PM FIXED INCOME PORTFOLIO MANAGER GLUCOSE BY IXOBPAubxdct20/21/2025 9:01 AM FIXED INCOME PORTFOLIO MANAGER CBC WITH PLATELETS AND DIFFERENTIAL (LIMITED OCCURRENCES)Hokdnhz8610/03/2025 6:22 AM FIXED INCOME PORTFOLIO MANAGER CBC WITH PLATELETS AND RCQYEFUVRXOOIogxtfy26/21/2025 6:22 AM FIXED INCOME PORTFOLIO MANAGER BASIC METABOLIC PANEL (LIMITED OCCURRENCES)Spvvuhb2810/03/2025 6:22 AM FIXED INCOME PORTFOLIO MANAGER MAGNESIUM (LIMITED OCCURRENCES)Nhemgmf7010/03/2025 6:22 AM FIXED INCOME PORTFOLIO MANAGER GLUCOSE BY EMPGXTgvcgga40/21/2025 1:46 AM FIXED INCOME PORTFOLIO MANAGER GLUCOSE BY FVJNZRxunwhi79/20/2025 9:34 PM FIXED INCOME PORTFOLIO MANAGER GLUCOSE BY KYQPTJhwafnm92/20/2025 5:07 PM FIXED INCOME PORTFOLIO MANAGER GLUCOSE BY VYEBSKwbfkgo95/20/2025 11:03 AM FIXED INCOME PORTFOLIO MANAGER GLUCOSE BY IRVPIDldxcjk56/20/2025 7:30 AM FIXED INCOME PORTFOLIO MANAGER CBC WITH PLATELETS AND DIFFERENTIAL (LIMITED OCCURRENCES)Joaiiik0210/02/2025 6:38 AM FIXED INCOME PORTFOLIO MANAGER HEMOGLOBIN T5ZKhd-La21/20/2025 6:38 AM FIXED INCOME PORTFOLIO MANAGER CBC WITH PLATELETS AND SZFIHWURSQHPVwqsttl73/20/2025 6:38 AM FIXED INCOME PORTFOLIO MANAGER MAGNESIUM (LIMITED OCCURRENCES)Wingmfg5910/02/2025 6:38 AM FIXED INCOME PORTFOLIO MANAGER BASIC METABOLIC PANEL (LIMITED OCCURRENCES)Ftoneyb7110/02/2025 6:38 AM FIXED INCOME PORTFOLIO MANAGER GLUCOSE BY AIOEVUuppuoh89/20/2025 2:02 AM FIXED INCOME PORTFOLIO MANAGER GLUCOSE BY KOHRDUwlimiw14/19/2025 9:32 PM FIXED INCOME PORTFOLIO MANAGER GLUCOSE BY WVDFAJvluuhr52/19/2025 5:36 PM FIXED INCOME PORTFOLIO MANAGER GLUCOSE BY DIIOUWmpziko18/19/2025 4:41 PM FIXED INCOME PORTFOLIO MANAGER XR SURGERY VDYEEdzhmfv96/19/2025 4:24 PM FIXED INCOME PORTFOLIO MANAGER CYSTOSCOPY,INSERT URETERAL STENT10/01/2025 3:59 PM FIXED INCOME PORTFOLIO MANAGER Acute pyelonephritis GLUCOSE BY DNSXGFqnddny94/19/2025 3:26 PM FIXED INCOME PORTFOLIO MANAGER MAGNESIUM (LIMITED OCCURRENCES)Timed10/01/2025 1:31 PM FIXED INCOME PORTFOLIO MANAGER GLUCOSE BY LCMRFLukhpbo55/19/2025 12:09 PM FIXED INCOME PORTFOLIO MANAGER MAGNESIUM (LIMITED OCCURRENCES)Jzmvkpg9410/01/2025 10:49 AM FIXED INCOME PORTFOLIO MANAGER GLUCOSE BY DKZTCMdizucj86/19/2025 8:05 AM FIXED INCOME PORTFOLIO MANAGER GLUCOSE BY FSMTVHgcshge99/19/2025 4:18 AM FIXED INCOME PORTFOLIO MANAGER MAGNESIUM (LIMITED OCCURRENCES)Cefzttx8410/01/2025 4:04 AM FIXED INCOME PORTFOLIO MANAGER LACTIC ACID WHOLE YYFFSWgtqigp07/19/2025 4:04 AM FIXED INCOME PORTFOLIO MANAGER CBC WITH DUCUYSYHEZsxzgsl83/19/2025 4:04 AM FIXED INCOME PORTFOLIO MANAGER BASIC METABOLIC PANEL (LIMITED OCCURRENCES)Ouwcxbl1410/01/2025 4:04 AM FIXED INCOME PORTFOLIO MANAGER LAB RESULT - HIM SCAN09/30/2025 12:00 AM CSTCT EXTERNAL IMAGING ABDOMENRoutine 09/30/2025 12:00 AM FIXED INCOME PORTFOLIO MANAGER from Last 3 Months Results * Glucose by meter (10/17/2025 3:19 PM FIXED INCOME PORTFOLIO MANAGER) Only the most recent of16 resultswithin the time period is included. ComponentValueRef RangeTest MethodAnalysis TimePerformed AtPathologist Signature GLUCOSE BY METER FMAG6028 - 99 mg/dL10/17/2025 3:26 PM CST LABORATORY POC Specimen (Source)Anatomical Location / LateralityCollection Method / Volume Collection TimeReceived TimeBlood, CapillaryBLOOD SPECIMEN / Lokqddu5710/17/2025 3:19 PM CST10/17/2025 3:26 PM FIXED INCOME PORTFOLIO MANAGER Narrative Authorizing ProviderResult TypeResult StatusStepcharlotte GOEL [facility] POCTFinal ResultPerforming OrganizationAddressCity/State/ZIP CodePhone Number LABORATORY [facility] Acute Care Lab [address] [facility] (1st floor, no room number) [place] [address] * XR Surgery SHAUNA (10/17/2025 3:02 PM FIXED INCOME PORTFOLIO MANAGER) Only the most recent of2 resultswithin the time period is included. Specimen (Source)Anatomical Location / LateralityCollection Method / Volume Collection TimeReceived Time Narrative [facility] - 10/17/2025 3:06 PM FIXED INCOME PORTFOLIO MANAGER This exam was marked as non-reportable because it will not be read by a radiologist or a [place] non-radiologist provider. Authorizing ProviderResult TypeResult StatusStalexandre ZAVALA DIAGNOSTIC IMAGING ORDERABLESFinal ResultPerforming OrganizationAddress City/State/ZIP CodePhone Number [facility] * Stone analysis (10/17/2025 2:57 PM FIXED INCOME PORTFOLIO MANAGER)ComponentValueRef RangeTest Method Analysis TimePerformed AtPathologist SignatureStone Ntti5vt5610/22/2025 4:59 AM CSTARUP LABSCalculi DescriptionSee Note10/22/2025 4:59 [...] developed and its performance characteristics determined by [facility]. It has not been cleared or approved by the U.S. Food and Drug Administration. This test was performed in a CLIA-certified laboratory and is intended for clinical purposes. Performed By: [facility] [address] [place] [id number] Conference Planner: Herb Toro MD, PhD CLIA Number: [id number] Specimen (Source)Anatomical Location / LateralityCollection Method / Volume Collection TimeReceived TimeCalculus/StoneSTRUCTURE OF LEFT URETER / UnknownNon- blood Collection / Hlhxalk2910/17/2025 2:57 PM CST10/17/2025 3:04 PM FIXED INCOME PORTFOLIO MANAGER Narrative Authorizing ProviderResult TypeResult StatusStephen Delfin Holguin MDLAB - BODY FLUIDS ORDERABLESFinal ResultPerforming OrganizationAddressCity/State/ZIP Code Phone Number [facility] Visualase [address] [address], [facility] [phone] * ANE AIRWAY SUPRAGLOTTIC PERFORMABLE (10/17/2025 2:47 PM FIXED INCOME PORTFOLIO MANAGER) Narrative Delfin Nelson APRN VINYL FLOORING INSTALLER - 10/17/2025 2:47 PM FIXED INCOME PORTFOLIO MANAGER Delfin Nelson APRN CRNA 10/17/2025 2:43 PM Airway ? Patient location during procedure: OR ? Procedure Start/Stop Times: 10/17/2025 2:47 PM Staff - ? Anesthesiologist: ??Luis Alberto Cunningham MD ? VINYL FLOORING INSTALLER: Delfin Nelson APRN CRNA ? Performed By: VINYL FLOORING INSTALLER Consent for Airway ? Urgency: elective Indications [...] Time: 10/17/2025 2:47 PM Authorizing ProviderResult TypeResult StatusMatthew Maikel Octavio MDPR ANESTHESIA Final Result * (ABNORMAL) CBC with platelets and differential (10/03/2025 6:22 AM FIXED INCOME PORTFOLIO MANAGER) Only the most recent of2 resultswithin the time period is included. ComponentValueRef RangeTest MethodAnalysis TimePerformed AtPathologist Signature WBC Count12.54(H)4.00 - 11.00 10e3/uL10/03/2025 6:35 AM [facility] LABORATORYRBC Count3.64(L)3.80 - 5.20 10e6/uL10/03/2025 6:35 AM [facility] IJRLITTEKXNpuewednvo08.0 (L)11.7 - 15.7 g/dL10/03/2025 6:35 AM [facility] AVDGQZKBNQUjivxzpzxh67.5(L)35.0 - 47.0 %10/03/2025 6:35 AM [facility] FCYFLZSKQIAVE11.378.0 - 100.0 fL10/03/2025 6:35 AM [facility] TUYQRVACJBLIS37.226.5 - 33.0 pg10/03/2025 6:35 AM [facility] LABORATORYMCHC 33.831.5 - 36.5 g/dL10/03/2025 6:35 AM [facility] ATUALZQEJBODZ98.310.0 - 15.0 % 10/03/2025 6:35 AM [facility] LABORATORYPlatelet Jwmyz953363 - 450 10e3/uL10/03/2025 6:35 AM [facility] LABORATORY% Ndtoejrqler74.1%10/03/2025 6:35 AM CST LABORATORY% Tidgdnigqpe26.7%10/03/2025 6:35 AM [facility] LABORATORY% Monocytes8.5%10/03/2025 6:35 AM [facility] LABORATORY% Eosinophils1.0%10/03/2025 6:35 AM [facility] LABORATORY% Basophils0.2%10/03/2025 6:35 AM [facility] LABORATORY% Immature Granulocytes0.5% 10/03/2025 6:35 AM [facility] LABORATORYNRBCs per 100 WBC0.0<1.0 /8140310/03/2025 6:35 AM [facility] LABORATORYAbsolute Neutrophils9.67(H)1.60 - 8.30 10e3/uL10/03/2025 6:35 AM [facility] LABORATORYAbsolute Lymphocytes1.590.80 - 5.30 10e3/uL10/03/2025 6:35 AM [facility] LABORATORYAbsolute Monocytes1.070.00 - 1.30 10e3/uL10/03/2025 6:35 AM FIXED INCOME PORTFOLIO MANAGER LABORATORYAbsolute Eosinophils0.120.00 - 0.70 10e3/uL10/03/2025 6:35 AM [facility] LABORATORYAbsolute Basophils0.030.00 - 0.20 10e3/uL10/03/2025 6:35 AM [facility] LABORATORYAbsolute Immature Granulocytes0.06<=0.40 10e3/uL10/03/2025 6:35 AM [facility] LABORATORYAbsolute NRBCs<0.0310e3/uL10/03/2025 6:35 AM [facility] LABORATORY Specimen (Source)Anatomical Location / LateralityCollection Method / Volume Collection TimeReceived TimeBloodSTRUCTURE OF RIGHT HAND / UnknownVenipuncture / Ivwxpab5910/03/2025 6:22 AM CST10/03/2025 6:32 AM FIXED INCOME PORTFOLIO MANAGER Narrative Authorizing ProviderResult TypeResult StatusScjose miguel GOEL - BLOOD ORDERABLES Final ResultPerforming OrganizationAddressCity/State/ZIP CodePhone Number [facility] Acute Care Lab [address] [facility] (1st floor, no room number) [place] [address], [facility] * (ABNORMAL) Basic Metabolic Panel (Limited Occurrences) (10/03/2025 6:22 AM FIXED INCOME PORTFOLIO MANAGER) Only the most recent of3 resultswithin the time period is included. ComponentValueRef RangeTest MethodAnalysis TimePerformed AtPathologist Signature Jskxrb547555 - 145 mmol/L112/03/2024 6:58 AM [facility] LABORATORYPotassium3.63.4 - 5.3 mmol/L112/03/2024 6:58 AM [facility] ENYVNPXSOJIwxjnvok86173 - 107 mmol/L 10/03/2025 6:58 AM [facility] LABORATORYCarbon Dioxide (CO2)2422 - 29 mmol/L 10/03/2025 6:58 AM [facility] LABORATORYAnion Gap87 - 15 mmol/L112/03/2024 6:58 AM [facility] LABORATORYUrea Ejewpdej12.08.0 - 23.0 mg/dL10/03/2025 6:58 AM [facility] LABORATORYCreatinine0.590.51 - 0.95 mg/dL10/03/2025 6:58 AM [facility] LABORATORYGFR Estimate>90>60 mL/min/1.08v22610/03/2025 6:58 AM [facility] LABORATORYComment:eGFR calculated using 2020 CKD-EPI equation.Calcium7.9(L)8.8 - 10.4 mg/dL10/03/2025 6:58 AM [facility] PAFDSRLSTTXcvuonw997(H)70 - 99 mg/dL10/03/2025 6:58 AM [facility] LABORATORYSpecimen (Source)Anatomical Location / LateralityCollection Method / VolumeCollection TimeReceived TimeBloodSTRUCTURE OF RIGHT HAND / Unknown Venipuncture / Wdfcolq9410/03/2025 6:22 AM CST10/03/2025 6:32 AM [facility] Narrative Authorizing ProviderResult TypeResult StatusScjose miguel OGEL - BLOOD ORDERABLES Final ResultPerforming OrganizationAddressCity/State/ZIP CodePhone Number [facility] Acute Care Lab [address] [facility] (1st floor, no room number) [place] [address], [facility] * (ABNORMAL) Magnesium (Limited Occurrences) (10/03/2025 6:22 AM FIXED INCOME PORTFOLIO MANAGER) Only the most recent of5 resultswithin the time period is included. ComponentValueRef RangeTest MethodAnalysis TimePerformed AtPathologist Signature Magnesium1.6(L)1.7 - 2.3 mg/dL10/03/2025 6:58 AM [facility] LABORATORYSpecimen (Source)Anatomical Location / LateralityCollection Method / VolumeCollection TimeReceived TimeBloodSTRUCTURE OF RIGHT HAND / UnknownVenipuncture / Unknown 10/03/2025 6:22 AM CST10/03/2025 6:32 AM FIXED INCOME PORTFOLIO MANAGER Narrative Authorizing ProviderResult TypeResult StatusTony Vinson MDLAB - BLOOD ORDERABLES Final ResultPerforming OrganizationAddressCity/State/ZIP CodePhone Number [facility] Lab [address] [facility] (1st floor, no room number) [place] [address], [facility] * (ABNORMAL) Hemoglobin A1c (10/02/2025 6:38 AM FIXED INCOME PORTFOLIO MANAGER)ComponentValueRef RangeTest MethodAnalysis TimePerformed AtPathologist SignatureEstimated Average Glucose 157(H)<117 mg/dL10/02/2025 8:54 AM [facility] LABORATORYHemoglobin A1C7.1(H)<5.7 % 10/02/2025 8:54 AM [facility] LABORATORYComment: Normal <5.7% Prediabetes 5.7-6.4% ?? Diabetes 6.5% or higher Note: Adopted from ADA consensus guidelines. Specimen (Source)Anatomical Location / LateralityCollection Method / Volume Collection TimeReceived TimeBloodSTRUCTURE OF RIGHT UPPER LIMB / Unknown Venipuncture / Phkoilp4710/02/2025 6:38 AM CST10/02/2025 6:59 AM FIXED INCOME PORTFOLIO MANAGER Narrative Authorizing ProviderResult TypeResult StatusKory Dunaway MDLAB - BLOOD ORDERABLESFinal ResultPerforming OrganizationAddressCity/State/ZIP CodePhone Number [facility] Lab [address] [facility] (1st floor, no room number) [place] [address], [facility] * Lactic acid whole blood (10/01/2025 4:04 AM FIXED INCOME PORTFOLIO MANAGER)ComponentValueRef RangeTest MethodAnalysis TimePerformed AtPathologist SignatureLactic Acid1.50.7 - 2.0 mmol/L112/01/2024 4:16 AM [facility] LABORATORYSpecimen (Source)Anatomical Location / LateralityCollection Method / VolumeCollection TimeReceived TimeBloodBLOOD SPECIMEN / UnknownVenipuncture / Zzmbfrr6410/01/2025 4:04 AM CST10/01/2025 4:13 AM FIXED INCOME PORTFOLIO MANAGER Narrative Authorizing ProviderResult TypeResult StatusKory Dunaway MDLAB - BLOOD ORDERABLESFinal ResultPerforming OrganizationAddressCity/State/ZIP CodePhone Number [facility] [address] (1st floor, no room number) [place] [address] * (ABNORMAL) CBC with platelets (10/01/2025 4:04 AM FIXED INCOME PORTFOLIO MANAGER)ComponentValueRef Range Test MethodAnalysis TimePerformed AtPathologist SignatureWBC Count17.09(H)4.00 - 11.00 10e3/uL10/01/2025 4:16 AM [facility] LABORATORYRBC Count4.043.80 - 5.20 10e6/uL10/01/2025 4:16 AM [facility] ROACSRXWZFDmvhiiibxj46.411.7 - 15.7 g/dL 10/01/2025 4:16 AM [facility] KTCHNBJDGPNbmhpfrdgx40.735.0 - 47.0 %10/01/2025 4:16 AM [facility] DFDVCDLRKZBGI78.478.0 - 100.0 fL10/01/2025 4:16 AM [facility] LABORATORY MCH30.726.5 - 33.0 pg10/01/2025 4:16 AM [facility] PATDEZSLRSOFRU32.731.5 - 36.5 g/dL10/01/2025 4:16 AM [facility] GRMHFJFDCGFBA45.810.0 - 15.0 %10/01/2025 4:16 AM [facility] LABORATORYPlatelet Lwlhn333981 - 450 10e3/uL10/01/2025 4:16 AM [facility] LABORATORYSpecimen (Source)Anatomical Location / LateralityCollection Method / VolumeCollection TimeReceived TimeBloodBLOOD SPECIMEN / UnknownVenipuncture / Imbnkvb7210/01/2025 4:04 AM CST10/01/2025 4:13 AM FIXED INCOME PORTFOLIO MANAGER Narrative Authorizing ProviderResult TypeResult StatusKory GOEL - BLOOD ORDERABLESFinal ResultPerforming OrganizationAddressCity/State/ZIP CodePhone Number [facility] [address] [facility] Lab (1st floor, no room number) [place] [address], [facility] * CT External Imaging Abdomen (09/30/2025 12:00 AM FIXED INCOME PORTFOLIO MANAGER)Specimen (Source) Anatomical Location / LateralityCollection Method / VolumeCollection Time Received Time Narrative Service Account, Niraj Vo - 10/01/2025 8:51 AM FIXED INCOME PORTFOLIO MANAGER Images were obtained from an external facility. Click PACS Images hyperlink to view images. ??Textual results have been scanned into the media tab. Authorizing ProviderResult TypeResult StatusRadiology Non- Credentialed ProviderIMG EXTERNAL IMAGING ORDERABLESFinal Result * Lab Result - HIM Scan (09/30/2025 12:00 AM FIXED INCOME PORTFOLIO MANAGER)Specimen (Source)Anatomical Location / LateralityCollection Method / VolumeCollection TimeReceived Time 09/30/2025 Narrative Authorizing ProviderResult TypeResult StatusProvider Outside NON-BEAKER LAB TESTINGFinal Result from Last 3 Months Insurance Advance Directives For more information, please contact: [phone] * Full Code (Latest Code Status on File) Date ActivatedDate NneeryhyvadIdrpozem48/19/2025 3:35 AM10/03/2025 4:03 PMAll basic and advanced life-sustaining interventions are performed as appropriate QuestionAnswerCommentsCode status determined by:* Discussion with patient/ legal decision maker Care Teams Team MemberRelationshipSpecialtyStart DateEnd [address] [address] PCP - General05/22/13
--- OUTSIDE RECORDS SUMMARY | 2025-11-05 10:25 | XMS_ITS | Encounter Summary ---
Author Organization [facility] Address [address] [place] [address]. [place] [address] Care Team Providers Care Chief Engineer Production Name Role Phone Sydnie, Fara [place] Primary Care Provider Reason for Visit * ReasonOnset DateCommentsSchedule Agaejcx7110/07/2025 Encounter Details DateTypeDepartmentCare Team (Latest Contact Info)Orwtejxieww20/25/2025Telephone [facility] [address] [place] [address] Bradley Holguin MD [address] [id number] Schedule Surgery Social History Tobacco UseTypesPacks/DayYears UsedDateSmoking Tobacco: Every [...] in an abandoned building, in an overnight custodial, or couch-surfing.)Yes10/01/2025 Are you worried about losing [...] InformationValueDate RecordedSex Assigned at BirthNot on fileLegal TdzOezlqe62/10/2013 2:18 PM CDT Gender IdentityNot on fileSexual OrientationNot on filedocumented as of this encounter Miscellaneous Notes * Telephone Encounter - Ainsley Rosenberg - 10/07/2025 9:03 AM CST Went through surgery instructions with patient over the phone. She does not need a pre-op due to recent ER visit PHONE STATION INSTALLER * Telephone Encounter - Ainsley Rosenberg - 10/07/2025 8:40 AM CST Spoke with patient yesterday about possible surgery dates. LVM to go over surgery info. PHONE STATION INSTALLER documented in this encounter Plan of Treatment Not on file documented as of this encounter Visit Diagnoses Not on filedocumented in this encounter Care Teams Team MemberRelationsUSC [facility] Norris Jr. Cancer HospitalpecialtyStart [address] [address] [phone] [facility]05/22/13documented as of this encounter
--- NOTE | 2025-11-05 11:05 | ED_ITS ---
HPI - Fever General Date Seen: 11/05/25 Chief Complaint: Fever Stated Complaint: Lower L back pain, fever, nausea Time Seen by Provider: 11/05/25 11:04 Source: patient, RN notes reviewed and old records reviewed Mode of arrival: ambulatory Limitations: no limitations History of Present Illness HPI Narrative: Ct is a very pleasant 60-year-old female with a known history of kidney stones, previous history of sepsis who comes to the emergency room for evaluation regarding fever and left low back pain. Patient has also had increasing pain today associated with vomiting. She also had an episode of stool incontinence when she was throwing up. She has had a fever up to 102 today. She notes most of her pain in her left low back and flank. However upon further discussion she has also had a cough and a runny nose. She has not taken any medication for the discomfort. She is a smoker. Her previous stone had to be blasted by Urology. She did not receive a stent after that. She has not noticed any blood in her urine. Related Data Home Medications ?Medication ?Instructions ?Recorded ?Confirmed albuterol sulfate 90 mcg/actuation 2 puff inhalation Q 4H PRN 10/03/22 11/05/25 aerosol inhaler atorvastatin 20 mg tablet 20 mg PO HS 10/03/22 5 fluticasone propionate 50 1 spray intranasal DAILY 11/05/25 mcg/actuation nasal spray,suspension metformin 500 mg tablet 1,000 mg PO BID 10/03/22 escitalopram oxalate 20 mg tablet 20 mg PO QAM 5 11/05/25 omeprazole 40 mg capsule,delayed 40 mg PO DAILY 11/05/25 release Allergies Allergy/AdvReac Type Severity Reaction Status Date / Time No Known Drug Allergies Allergy Verified 11/05/25 10:32 Review of Systems Status of ROS Reports: 10 or more systems reviewed and unremarkable except as noted in History and below Const Reports: fever, chills and fatigue Eyes Denies: change in vision or eye discharge ENMT Reports: nasal discharge and nasal congestion; Denies: throat pain, neck pain or throat swelling Cardio Denies: chest pain, swelling of feet/ankles or shortness of breath with exertion Resp Reports: cough; Denies: shortness of breath GI Reports: abdominal pain, nausea, vomiting and diarrhea Reports: painful urination and urinary frequency; Denies: blood in urine Musculo Reports: back pain; Denies: neck pain or extremity pain Neuro Reports: headache Endo Reports: fatigue Allergy/Immuno Denies: throat swelling PFSH PFSH Medical History Health care directive on file ?Z78.9 - Other specified health status (ICD-10) Social History Smoking Status: Never smoker Exam Narrative Exam Narrative: Ct is alert and oriented but clearly uncomfortable. She is laying in the position with the vomit bag near by. Her EOM is full. Her pupils are equal reactive. Her face is symmetrical. Her lips do appear to be dry. Her neck is supple. Heart with a tachycardic rate but normal rhythm. Lungs are with wheezing in in the bases bilaterally. I do not auscultate any crackles. Abdomen is soft nontender. Positive for CVA type tenderness on the left. Lower extremities without edema. She is moving all extremities. Const Vital Signs, click to edit/add: Vital Signs - 24 hr 11/05/25 10:26 11/05/25 11:32 11/05/25 11:32 Temperature 102.4 F H Pulse Rate Pulse Rate [Right Pulse Oximeter] 110 H Respiratory Rate 18 Blood Pressure Blood Pressure [Right Upper Arm] 186/113 H Pulse Oximetry 91 93 93 Oxygen Delivery Method Room Air Room Air Oxygen Flow Rate 11/05/25 11:41 11/05/25 11:45 11/05/25 11:46 Temperature Pulse Rate 101 H 97 97 Pulse Rate [Right Pulse Oximeter] Respiratory Rate Blood Pressure 115/62 Blood Pressure [Right Upper Arm] Pulse Oximetry 93 93 86 L Oxygen Delivery Method Room Air Oxygen Flow Rate 11/05/25 12:00 11/05/25 12:01 11/05/25 12:02 Temperature Pulse Rate 101 H 97 96 Pulse Rate [Right Pulse Oximeter] Respiratory Rate Blood Pressure 104/58 L Blood Pressure [Right Upper Arm] Pulse Oximetry 98 98 98 Oxygen Delivery Method Nasal Cannula Nasal Cannula Oxygen Flow Rate 2 2 11/05/25 12:15 11/05/25 12:26 11/05/25 12:30 Temperature 98.4 F Pulse Rate 102 H 101 H Pulse Rate [Right Pulse Oximeter] Respiratory Rate Blood Pressure Blood Pressure [Right Upper Arm] Pulse Oximetry 95 98 Oxygen Delivery Method Nasal Cannula Nasal Cannula Oxygen Flow Rate 2 2 11/05/25 12:31 11/05/25 12:32 11/05/25 12:45 Temperature Pulse Rate 101 H 98 96 Pulse Rate [Right Pulse Oximeter] Respiratory Rate Blood Pressure 117/65 Blood Pressure [Right Upper Arm] Pulse Oximetry 98 98 98 Oxygen Delivery Method Nasal Cannula Oxygen Flow Rate 2 11/05/25 12:46 11/05/25 13:00 11/05/25 13:01 Temperature Pulse Rate 96 96 96 Pulse Rate [Right Pulse Oximeter] Respiratory Rate Blood Pressure 99/58 L 104/59 L Blood Pressure [Right Upper Arm] Pulse Oximetry 97 97 98 Oxygen Delivery Method Nasal Cannula Oxygen Flow Rate 2 11/05/25 13:15 11/05/25 13:16 11/05/25 13:30 Temperature Pulse Rate 95 94 94 Pulse Rate [Right Pulse Oximeter] Respiratory Rate Blood Pressure 90/55 L Blood Pressure [Right Upper Arm] Pulse Oximetry 98 99 99 Oxygen Delivery Method Oxygen Flow Rate 11/05/25 13:31 11/05/25 13:45 11/05/25 13:46 Temperature Pulse Rate 95 95 96 Pulse Rate [Right Pulse Oximeter] Respiratory Rate Blood Pressure 99/60 Blood Pressure [Right Upper Arm] Pulse Oximetry 98 98 99 Oxygen Delivery Method Nasal Cannula Oxygen Flow Rate 2 11/05/25 13:47 11/05/25 14:00 11/05/25 14:04 Temperature Pulse Rate 93 96 98 Pulse Rate [Right Pulse Oximeter] Respiratory Rate Blood Pressure Blood Pressure [Right Upper Arm] Pulse Oximetry 98 97 98 Oxygen Delivery Method Oxygen Flow Rate 11/05/25 14:15 11/05/25 14:19 11/05/25 14:30 Temperature Pulse Rate 97 97 95 Pulse Rate [Right Pulse Oximeter] Respiratory Rate Blood Pressure Blood Pressure [Right Upper Arm] Pulse Oximetry 98 98 99 Oxygen Delivery Method Oxygen Flow Rate 11/05/25 14:34 11/05/25 14:35 11/05/25 14:37 Temperature Pulse Rate 94 99 95 Pulse Rate [Right Pulse Oximeter] Respiratory Rate Blood Pressure 84/51 L Blood Pressure [Right Upper Arm] Pulse Oximetry 99 99 95 Oxygen Delivery Method Oxygen Flow Rate 11/05/25 14:45 11/05/25 14:46 11/05/25 14:47 Temperature Pulse Rate 93 93 92 Pulse Rate [Right Pulse Oximeter] Respiratory Rate Blood Pressure 85/51 L Blood Pressure [Right Upper Arm] Pulse Oximetry 95 96 96 Oxygen Delivery Method Nasal Cannula Oxygen Flow Rate 2 11/05/25 15:00 11/05/25 15:01 11/05/25 15:18 Temperature Pulse Rate 95 94 86 Pulse Rate [Right Pulse Oximeter] Respiratory Rate Blood Pressure 72/42 L Blood Pressure [Right Upper Arm] Pulse Oximetry 98 98 96 Oxygen Delivery Method Nasal Cannula Oxygen Flow Rate 2 11/05/25 15:19 11/05/25 15:20 11/05/25 15:21 Temperature Pulse Rate 84 85 87 Pulse Rate [Right Pulse Oximeter] Respiratory Rate Blood Pressure 104/62 103/52 L Blood Pressure [Right Upper Arm] Pulse Oximetry 97 96 96 Oxygen Delivery Method Oxygen Flow Rate 11/05/25 15:30 11/05/25 15:31 11/05/25 15:44 Temperature Pulse Rate 86 86 87 Pulse Rate [Right Pulse Oximeter] Respiratory Rate Blood Pressure 102/69 114/72 Blood Pressure [Right Upper Arm] Pulse Oximetry 97 97 99 Oxygen Delivery Method Oxygen Flow Rate 11/05/25 15:45 11/05/25 15:51 11/05/25 15:52 Temperature Pulse Rate 87 86 86 Pulse Rate [Right Pulse Oximeter] Respiratory Rate Blood Pressure 113/66 Blood Pressure [Right Upper Arm] Pulse Oximetry 99 98 98 Oxygen Delivery Method Oxygen Flow Rate 11/05/25 16:00 11/05/25 16:01 11/05/25 16:03 Temperature Pulse Rate 85 86 86 Pulse Rate [Right Pulse Oximeter] Respiratory Rate Blood Pressure 98/61 93/62 Blood Pressure [Right Upper Arm] Pulse Oximetry 99 99 98 Oxygen Delivery Method Oxygen Flow Rate 11/05/25 16:04 11/05/25 16:05 11/05/25 16:13 Temperature Pulse Rate 86 82 71 Pulse Rate [Right Pulse Oximeter] Respiratory Rate Blood Pressure 97/31 L Blood Pressure [Right Upper Arm] Pulse Oximetry 98 98 99 Oxygen Delivery Method Oxygen Flow Rate Course Course ED Course: Differential diagnosis includes UTI, pyelonephritis, sepsis, influenza, COVID. At this time I a.m. concerned regarding pyelonephritis/complicated UTI. Furthermore, with her history of stones 1 would have to be worried about obstructive pathology. Will obtain CBC, comprehensive, CRP, procalcitonin, lactate, lipase, urinalysis. Will also obtain blood cultures. Plan on initiation of antibiotics as I strongly suspect urinary source of illness. Given the cough and runny nose and history of tobacco use will also check 0st triple swab and a chest x-ray. Will start IV fluids with sepsis criteria being met today. Temp greater than 100.9 (102.4) Heart rate greater than 90 (heart rate 110) Patient does not have hypotension. In fact her blood pressure is elevated at 180 6/113. Patient is given Toradol 15 mg IV for treatment of discomfort as well as fever. Reevaluation(s) Reevaluation #1: Urinalysis appears to be positive for UTI. White count elevated at 14.85 with a CRP of 4.3. Lactate at 2.1. Bilirubin of 1.6 does not meet septic organ dysfunction criteria. With positive urine will order abdominal CT with contrast for evaluation of stones and possible pyelonephritis. Patient is now considered severe sepsis. Patient has been given Rocephin 1 g IV. Fluids at 30 mL/kilos bolus. Reevaluation #2: Patient notes that she is feeling better. Blood pressure is now 117/65. Pulse is decreasing to 101. She still has a temp of 102.4? at this time but overall is feeling much better. Unfortunately, her abdominal CT does show a 5 mm obstructing stone in the mid left ureter with associated hydro nephrosis. Patient will be need to be transferred to outside facility for urgent urological consultation. Decision for transfer 1310 hours. Vital Signs Vital signs: Initial Vital Signs Temperature 102.4 F H 11/05/25 10:26 Temperature Source Temporal Artery Scan 11/05/25 10:26 Pulse Rate 110 H 11/05/25 10:26 Pulse Rhythm Regular 11/05/25 10:26 Pulse Strength 3+ Normal 11/05/25 10:26 Respiratory Rate 18 11/05/25 10:26 Blood Pressure 186/113 H 11/05/25 10:26 Blood Pressure Mean 137 H 11/05/25 10:26 Blood Pressure Position Sitting 11/05/25 10:26 Pulse Oximetry 91 11/05/25 10:26 Oxygen Delivery Method Room Air 11/05/25 10:26 Vital Signs Temperature 102.4 F H 11/05/25 10:26 Pulse Rate 110 H 11/05/25 10:26 Respiratory Rate 18 11/05/25 10:26 Blood Pressure 186/113 H 11/05/25 10:26 Pulse Oximetry 91 11/05/25 10:26 Oxygen Delivery Method Room Air 11/05/25 10:26 Temperature 98.4 F 11/05/25 12:15 Pulse Rate 86 11/05/25 17:15 Respiratory Rate 18 11/05/25 10:26 Blood Pressure 115/63 11/05/25 17:11 Pulse Oximetry 99 11/05/25 17:15 Oxygen Delivery Method Nasal Cannula 11/05/25 15:01 Oxygen Flow Rate 2 11/05/25 15:01 Medications Administered Medications: Discontinued Medications Generic Name Dose Route Start Last Admin Trade Name Freq PRN Reason Stop Dose Admin Sodium Chloride 1,823.43 mls @ 607.81 mls/hr 11/05/25 11:15 11/05/25 13:46 0.9 % Sodium Chloride 1000 Ml 30 ml/kg infuse over 3 hr (1823.43 ml) 11/05/25 14:14 Infused IV Infusion .Q3H RODNEY Ceftriaxone Sodium 1 gm/ 100 mls @ 200 mls/hr 11/05/25 12:00 11/05/25 13:46 Sodium Chloride IVPB 11/05/25 12:29 Infused ONCE ONE Infusion Magnesium Sulfate 2 gm in 50 mls @ 25 mls/hr 11/05/25 12:38 11/05/25 15:00 Magnesium Iv IVPB 11/05/25 14:37 Infused ONCE ONE Infusion Norepinephrine/Dextrose 4,000 mcg in 250 mls @ 22.793 mls/hr 11/05/25 14:57 11/05/25 16:58 Norepinephrine Infusion IVPB 0.1 mcg/kg/min CONT RODNEY 22.79 mls/hr Protocol Titration 0.1 MCG/KG/MIN Sodium Chloride 1,000 mls @ 1,000 mls/hr 11/05/25 15:06 11/05/25 15:17 0.9 % Sodium Chloride 1000 Ml IV 11/05/25 16:05 1,000 mls/hr .Q1H RODNEY Administration Ketorolac Tromethamine 15 mg 11/05/25 11:15 11/05/25 11:49 Ketorolac 15 Mg/Ml Inj IVP 11/05/25 11:16 15 mg ONCE ONE Administration Ondansetron HCl 4 mg 11/05/25 11:42 11/05/25 11:48 Ondansetron 2 Mg/Ml Inj IVP 11/05/25 11:43 4 mg ONCE ONE Administration Potassium Bicarbonate 50 meq 11/05/25 13:38 11/05/25 13:45 Potassium Bicarb 25 Meq Effervescent Tab PO 11/05/25 13:39 50 meq ONCE ONE Administration MDM - Fever MDM Narrative Medical decision making narrative: 1. Sepsis-patient meets criteria for sepsis with tachycardia (110), fever (102.4), elevated lactate (2.1) leukocytosis with a white count of 14.85 and positive urine. She is treated with Rocephin for presumed pyelonephritis/UTI. Urine culture blood cultures are currently pending. She is given 30 mL/kg IV normal saline fluids. Blood pressure actually normalized. Pulse is improved. Patient initially improved and had no need for pressors. Will continue to monitor. Repeat lactate 0.9. 2. . Obstructive uropathy-patient noted to have 5 mm stone left mid ureter causing hydronephrosis. Unfortunately patient has had history of stones in the past most recently needed to have those lasered into smaller pieces. Because of the underlying pyelonephritis she will need to have urgent urological consultation and we are attempting to transfer her to outside facility at this time. 3. Pyelonephritis -symptoms, urinalysis suggest pyelonephritis and a does appear to suggest that on CT as well. CT and chest x-ray have been pushed to accepting facility. 4. Right upper lobe infiltrate -patient has tested negative for COVID influenza and RSV. She does states she has a cough. There is a haziness and questionable nodule on her chest x-ray right upper lung. I have asked her and her daughter to ensure that they follow-up in the next few weeks for repeat chest x-ray to answer complete resolution in this patient with a history of tobacco use . 5 hypomagnesemia-magnesium 1.1. Will require IV replacement. Given 2 g IV here in the ED patient is on a PPI which may be the etiology. No evidence of QT prolongation on EKG. 6. Mild Hyponatremia-130. Patient is given IV fluids. 7. Mild Hypokalemia-low at 3.3. Will give oral replacement here. Potassium 50 mEq p.o. 8. Disposition-patient will be ground ALS transfer to [facility] for specialty consultation. Dr. Ricci accepting physician. There is up to an 8 hour wait. Will continue to monitor patient. Addendum: At approximately 1455 I was contacted by nursing staff the blood pressures head drop to 85 systolic. MAP 62. Heart rate is at 94. Patient is actually feeling better. However given the drop in pressures will start nor epi and contact [place] for expedited transfer and urological consultation. Except for few ice chips, will make patient npo at this time. I had the pleasure of speaking with Dr. Tyler Oneill supervisor [address]. At this time she has received 2 L of normal saline and I have expressed interest in starting nor epi. He does suggest additional L of fluid and thus I will do both of those interventions together. If pressures improved and I can decrease the nor epi then we will continue to monitor here in [place]. She is now priority for med surge. However if she is worsening she will need to go to the ICU. Addendum 2 1542 hours Patient noted to have improved blood pressure of 102 systolic with norepinephrine and addition of fluids. I did speak to Dr. Oneill supervisor [address] once again. Well she is improved at this time given the fact that she is on pressors she is upgraded to ICU status. Does not sound like there is a delay in this transfer. She is NPO at this time in the event that she needs to have this stone removed this evening. Addendum:1619 Blood pressure reached maximum of 113 systolic but has now dropped again to 97/31. Have increased norepinephrine .2mcg. 1637: Repeat sepsis examination 4.5 hours after presentation Date exam performed: [11/05/2025 ] Time exam performed: [ 1637] Focused Exam: I have reassessed tissue perfusion after bolus given and patient had been improved after 2 L. Pressures then decreased and norepinephrine was started as well as an additional L of fluid given. Initially pressures improved but then dropped once again. Nor epi now at 0.2 mcg. Patient feeling much better. Pressure now 139 systolic. Patient has had resolution of her back pain. Current stage of sepsis: Considered to be septic shock given the pressor need. Patient has responded with minimal dosing. Heart rate improved to 71. She is afebrile at this time. This patient has been signed out to my colleague Dr. Mullen. At this time awaiting transfer to [facility]. 11/09/2025 patient has grown E coli pansensitive. Medical Records Attestation: I reviewed the patient's medical records. Medical records narrative: Note recent urine culture showed a kruse sensitive E coli. No known history of resistant organisms. Lab Data Attestation: I reviewed the patient's lab results. Labs: Lab Results 11/05/25 11/05/25 11/05/25 Range/Units 11:00 11:15 11:55 WBC 14.85 H (4.50-11.00) K/uL RBC 4.13 (4.00-5.20) m/uL Hgb 12.5 (12.0-16.0) gm/dL Hct 36.9 (33.0-51.0) % MCV 89 (80-100) fL MCH 30 (26-34) pg MCHC 34 (32-36) gm/dL RDW Coeff of [place] 12.9 (11.5-15.5) % Plt Count 263 (140-440) K/uL Neut % (Auto) 92.8 H (42.0-72.0) % Lymph % (Auto) 4.0 L (20-44) % [place] % (Auto) 2.6 (0.0-11.0) % Eos % (Auto) 0.0 (0.0-7.0) % Baso % (Auto) 0.1 (0.0-3.0) % Neut # (Auto) 13.80 H (1.7-7.0) K/uL Lymph # (Auto) 0.60 L (0.90-2.90) K/uL [place] # (Auto) 0.40 (0.00-0.90) K/UL Eos # (Auto) 0.00 (0.00-0.50) K/uL Baso # (Auto) 0.00 (0.00-0.30) K/uL Abs Immat Gran (auto) 0.10 (0.00-0.30) K/uL Imm/Tot Granulo (auto) 0.5 % Sodium 130 L (135-149) mmol/L Potassium 3.3 L (3.6-5.1) mmol/L Chloride 100 (96-114) mmol/L Carbon Dioxide 22 (20-32) mmol/L Anion Gap 8 (7-15) mEq/L BUN 12 (7-30) mg/dL Creatinine 0.9 (0.5-1.5) mg/dL Estimated GFR 73 ml/min Glucose 179 H (60-115) mg/dL Lactate 2.1 H (0.5-1.9) mmol/L Calcium 9.2 (8.4-10.6) mg/dL Magnesium 1.1 L (1.5-2.6) mg/dL Total Bilirubin 1.6 H (0.1-1.5) mg/dL AST 30 (12-35) U/L ALT 20 (4-35) U/L Alkaline Phosphatase 86 (40-150) U/L C-Reactive Protein 4.3 H (0.5-1.0) mg/dL Total Protein 6.6 (6.0-8.3) g/dL Albumin 4.1 (3.3-5.0) g/dL Lipase 36 (23-300) U/L Procalcitonin 0.92 H (<0.50) ng/mL Urine Color Yellow (Yellow) Urine Appearance Cloudy A (Clear) Urine pH 5.5 (5.0-8.5) Ur Specific [place] 1.025 (1.000-1.030) Urine Protein 2+ A (Negative) Urine Glucose (UA) Negative (Negative) Urine Ketones 2+ A (Negative) Urine Blood 3+ A (Negative) Urine Nitrite Positive A (Negative) Urine Bilirubin Negative (Negative) Urine Urobilinogen 0.2 (0.2-1.0) Ur Leukocyte Esterase 3+ A (Negative) Urine RBC 50-100 A (0-2) Urine WBC 25-50 A (0-5) Ur Squamous Epith Cells Moderate A (None-Few) Urine Bacteria Many A (None) SARS-CoV-2 (PCR) Negative SARS-CoV-2 (Negative) Influenza Type A (PCR) Negative PCR FLU A (Negative) Influenza Type B (PCR) Negative PCR FLU B (Negative) RSV (PCR) Negative PCR RSV (Negative) 11/05/25 11/05/25 Range/Units 13:48 16:55 WBC (4.50-11.00) K/uL RBC (4.00-5.20) m/uL Hgb (12.0-16.0) gm/dL Hct (33.0-51.0) % MCV (80-100) fL MCH (26-34) pg MCHC (32-36) gm/dL RDW Coeff of [place] (11.5-15.5) % Plt Count (140-440) K/uL Neut % (Auto) (42.0-72.0) % Lymph % (Auto) (20-44) % [place] % (Auto) (0.0-11.0) % Eos % (Auto) (0.0-7.0) % Baso % (Auto) (0.0-3.0) % Neut # (Auto) (1.7-7.0) K/uL Lymph # (Auto) (0.90-2.90) K/uL [place] # (Auto) (0.00-0.90) K/UL Eos # (Auto) (0.00-0.50) K/uL Baso # (Auto) (0.00-0.30) K/uL Abs Immat Gran (auto) (0.00-0.30) K/uL Imm/Tot Granulo (auto) % Sodium (135-149) mmol/L Potassium (3.6-5.1) mmol/L Chloride (96-114) mmol/L Carbon Dioxide (20-32) mmol/L Anion Gap (7-15) mEq/L BUN (7-30) mg/dL Creatinine (0.5-1.5) mg/dL Estimated GFR ml/min Glucose (60-115) mg/dL Lactate 0.9 1.4 (0.5-1.9) mmol/L Calcium (8.4-10.6) mg/dL Magnesium (1.5-2.6) mg/dL Total Bilirubin (0.1-1.5) mg/dL AST (12-35) U/L ALT (4-35) U/L Alkaline Phosphatase (40-150) U/L C-Reactive Protein (0.5-1.0) mg/dL Total Protein (6.0-8.3) g/dL Albumin (3.3-5.0) g/dL Lipase (23-300) U/L Procalcitonin (<0.50) ng/mL Urine Color (Yellow) Urine Appearance (Clear) Urine pH (5.0-8.5) Ur Specific [place] (1.000-1.030) Urine Protein (Negative) Urine Glucose (UA) (Negative) Urine Ketones (Negative) Urine Blood (Negative) Urine Nitrite (Negative) Urine Bilirubin (Negative) Urine Urobilinogen (0.2-1.0) Ur Leukocyte Esterase (Negative) Urine RBC (0-2) Urine WBC (0-5) Ur Squamous Epith Cells (None-Few) Urine Bacteria (None) SARS-CoV-2 (PCR) (Negative) Influenza Type A (PCR) (Negative) Influenza Type B (PCR) (Negative) RSV (PCR) (Negative) Imaging Data Chest x-ray: Attestation: I have reviewed the pertinent imaging results. My impression: Questionable small nodule right upper lobe. Also opacity the right upper zone Radiologist's impression: Patchy nodular/airspace opacity at the right upper zone, possibly small infectious/inflammatory infiltrate. Follow-up radiograph in 8-10 weeks should be considered to confirm resolution. No effusion or pneumothorax. Cardiac size is within normal limits. No pulmonary edema. CT scan - abdomen: Attestation: I have reviewed the pertinent imaging results. My impression: 0st left ureteral stone and hydronephrosis noted. Radiologist's impression: Lower chest: Unremarkable. Liver: Stable subcentimeter left lobe cyst. Spleen: Unremarkable. Pancreas: Unremarkable. Gallbladder and bile ducts: Cholecystectomy. No ductal dilatation. Kidneys: Left ureteral 5 mm stone has migrated to the mid ureter. [id number] left hydroureteronephrosis with periureteral and perinephric stranding has increased. Diffuse decreased enhancement of the left kidney consistent with underlying hydronephrosis. Diffuse left urothelial enhancement. Left renal cyst. No additional urolithiasis. Right kidney is unremarkable. Adrenal glands: Unremarkable. GI tract: No obstruction or focal inflammatory changes. Normal appendix. No free air or free fluid. Lymph nodes: No pathologic lymphadenopathy. Vascular structures: Atherosclerotic disease. No abdominal aortic aneurysm. Pelvic Organs: Unremarkable. Bones: No acute or suspicious osseous abnormality. Mild degenerative changes spine and pelvis. IMPRESSION: Left ureteral 5 mm stone has migrated to the mid ureter. [id number] left hydroureteronephrosis with periureteral and perinephric stranding has increased and may represent superimposed pyelitis. Urology consultation regarding further management recommended. ECG Data Attestation: I personally reviewed and interpreted this ECG as follows: ECG interpretation date: 11/05/25 Interpretation: EKG by my read shows sinus rhythm at a rate of 94. I do not note any acute ST or T-wave changes. QT is within normal limits. Critical Care Time Critical Care Time Critical Care Time: Yes Attestation: The patient required my highest level preparedness to intervene emergently and I personally spent this critical care time directly and personally managing the patient. This critical care time included: Obtaining a history; Examining the patient; Pulse oximetry; Ordering and reviewing of studies; Arranging urgent treatment with development of a management plan; Evaluation of patients response to treatment; Frequent reassessment discussions with other providers. This critical care time was performed to assess and manage the high probability of imminent life-threatening deterioration that could result in multiorgan failure. It was exclusive of separate billable procedures and treating other patients and teaching time. Total Critical Care Time in Minutes: 180 Discharge Plan Discharge Clinical Impression: Acute unilateral obstructive uropathy, Pyelonephritis, Hypomagnesemia, Acute hyponatremia, Hypokalemia, Infiltrate of upper lobe of right lung present on imaging study Sepsis Qualifiers: Sepsis type: sepsis due to unspecified organism Sepsis acute organ dysfunction status: with acute organ dysfunction Severe sepsis acute organ dysfunction type: unspecified Severe sepsis shock status: without septic shock Qualified Code(s): A41.9 - Sepsis, unspecified organism Patient Disposition: [facility] Condition: Improved Prescriptions: No Action atorvastatin 20 mg tablet 20 mg PO HS Patient Comments: TAKE ONE TABLET BY MOUTH EVERY EVENING WITH FOOD metformin 500 mg tablet 1,000 mg PO BID Patient Comments: TAKE TWO TABLETS BY MOUTH TWICE A DAY WITH MEALS fluticasone propionate 50 mcg/actuation spray,suspension 1 spray intranasal DAILY Patient Comments: USE 1 SPRAY(S) IN EACH NOSTRIL ONCE DAILY Rx Instructions: USE 1 SPRAY(S) IN EACH NOSTRIL ONCE DAILY albuterol sulfate 90 mcg/actuation HFA aerosol inhaler 2 puff inhalation Q4H PRN Patient Comments: INHALE 2 PUFFS BY MOUTH EVERY 4 HOURS NEEDED FOR SHORTNESS OF BREATH OR WHEEZING (1ST CHOICE) omeprazole 40 mg capsule,delayed release(DR/EC) 40 mg PO DAILY escitalopram oxalate 20 mg tablet 20 mg PO QAM Stand Alone Forms: [facility] Info Instructions
[2025-11-05 11:13] LABS: Appearance Urine Cloudy (Clear)
--- NOTE | 2025-11-05 11:13 | CRLHL7_ITS ---
For Patients: As a result of the Cures Act, medical imaging exams and procedure reports are released immediately into your electronic medical record. You may view this report before your referring provider. If you have questions, please contact your health care provider. INDICATION: Fever TECHNIQUE: Chest 1 views. COMPARISON: None. FINDINGS/IMPRESSION: Patchy nodular/airspace opacity at the right upper zone, possibly small infectious/inflammatory infiltrate. Follow-up radiograph in 8-10 weeks should be considered to confirm resolution. No effusion or pneumothorax. Cardiac size is within normal limits. No pulmonary edema. Dictated by Armando Villatoro MD @ 11/05/2025 11:46:52 AM (Electronically Signed)
--- OUTSIDE RECORDS SUMMARY | 2025-11-05 11:24 | XMS_ITS | Patient Health Record ---
Author Organization 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 Name Role Phone Catalina Acosta Primary Care [...] Sta tus Risk Notes Problem Allergic rhinitis (80336831) Allergic rhinitis (J30.9) Added On:12/02/2015 Active confirmed ProblemTobacco abuse ([id number])Tobacco abuse (Z72.0) Added On:12/02/2015 Activeconfirmed Plan Of Treatment No Information Insurance Providers Payer Name Payer Address Payer Phone Subscriber Number Group Number Insured Name Patient Relationship to Insured Coverage Start Date [facility]age End Date [facility] [address] [facility] [place] [id number], JulieSelf - patient is the insured Medical (General) History Medical History History ICD Code diabetes hypercholesterolemiaallergies and asthmaAllergic rhinitis, cause unspecified Tobacco abuseSurgical History Surgery Date(Month/Year) tonsils and adenoids septoplasty with turbinate surgery May 2013
[2025-11-05 11:25] LABS: Lactate Sepsis w/Reflex* 2.1 mmol/L (0.5-1.9)
[2025-11-05 11:27] LABS: Hematocrit* 36.9 % (33.0-51.0); Hemoglobin* 12.5 gm/dL (12.0-16.0); Immature Granulocytes Pct Auto 0.5 %; Mean Corpuscular HGB Conc 34 gm/dL (32-36); Mean Corpuscular Hemoglobin 30 pg (26-34); Mean Corpuscular Volume 89 fL (80-100); RDW Coefficient of Variation % 12.9 % (11.5-15.5); Red Blood Count* 4.13 m/uL (4.00-5.20); White Blood Count* 14.85 K/uL (4.50-11.00)
[2025-11-05 11:31] LABS: Immature Granulocytes Abs Auto 0.10 K/uL (0.00-0.30); Lymphocytes Absolute Auto 0.60 K/uL (0.90-2.90); Slide Review Reflex No
[2025-11-05 11:41] LABS: Albumin* 4.1 g/dL (3.3-5.0); Chloride* 100 mmol/L (96-114); Sodium* 130 mmol/L (135-149)
[2025-11-05 11:42] LABS: Potassium* 3.3 mmol/L (3.6-5.1)
[2025-11-05 11:44] LABS: Alanine Aminotransferase* 20 U/L (4-35); Alkaline Phosphatase* 86 U/L (40-150); Anion Gap 8 mEq/L (7-15); Aspartate Amino Transferase* 30 U/L (12-35); Bilirubin Total* 1.6 mg/dL (0.1-1.5); Blood Urea Nitrogen* 12 mg/dL (7-30); Carbon Dioxide* 22 mmol/L (20-32); Creatinine* 0.9 mg/dL (0.5-1.5); Estimated Glomerular Filt Rate 73 ml/min; Total Protein* 6.6 g/dL (6.0-8.3)
[2025-11-05 11:45] LABS: Calcium* 9.2 mg/dL (8.4-10.6); Glucose* 179 mg/dL (60-115)
[2025-11-05] MEDS: ONDANSETRON 2 MG/ML inj 4 MG IVP (11:48)
--- NOTE | 2025-11-05 12:00 | CRLHL7_ITS ---
For Patients: As a result of the Century Cures Act, medical imaging exams and procedure reports are released immediately into your electronic medical record. You may view this report before your referring provider. If you have questions, please contact your health care provider. INDICATION: Left flank pain. Positive UA. Pyelonephritis. Lithotripsy and stent placement/removal performed since comparison CT. TECHNIQUE: CT abdomen and pelvis acquired with 66 mL of Isovue 370 IV contrast. COMPARISON: CT abdomen and pelvis 09/30/2025. FINDINGS: Lower chest: Unremarkable. Liver: Stable subcentimeter left lobe cyst. Spleen: Unremarkable. Pancreas: Unremarkable. Gallbladder and bile ducts: Cholecystectomy. No ductal dilatation. Kidneys: Left ureteral 5 mm stone has migrated to the mid ureter. [id number] left hydroureteronephrosis with periureteral and perinephric stranding has increased. Diffuse decreased enhancement of the left kidney consistent with underlying hydronephrosis. Diffuse left urothelial enhancement. Left renal cyst. No additional urolithiasis. Right kidney is unremarkable. Adrenal glands: Unremarkable. GI tract: No obstruction or focal inflammatory changes. Normal appendix. No free air or free fluid. Lymph nodes: No pathologic lymphadenopathy. Vascular structures: Atherosclerotic disease. No abdominal aortic aneurysm. Pelvic Organs: Unremarkable. Bones: No acute or suspicious osseous abnormality. Mild degenerative changes spine and pelvis. IMPRESSION: Left ureteral 5 mm stone has migrated to the mid ureter. [id number] left hydroureteronephrosis with periureteral and perinephric stranding has increased and may represent superimposed pyelitis. Urology consultation regarding further management recommended. Dictated by Harjinder Lomeli MD @ 11/05/2025 12:51:30 PM Please note that all CT scans at this facility use dose modulation, iterative reconstruction, and/or weight-based dosing when appropriate to reduce radiation dose to as low as reasonably achievable. Dictated by: Harjinder Lomeli MD @ 11/05/2025 12:52:00 (Electronically Signed)
[2025-11-05 12:02] LABS: Procalcitonin* 0.92 ng/mL (<0.50)
[2025-11-05] MEDS: cefTRIAXone 1 GM in 0.9 % SODIUM CHLORIDE Mini-bag 100 ML IVPB (12:28)
[2025-11-05 12:54] LABS: PCR FLU A Negative PCR FLU A (Negative); PCR FLU B Negative PCR FLU B (Negative); PCR RSV Negative PCR RSV (Negative); SARS PCR* Negative SARS-CoV-2 (Negative)
[2025-11-05] MEDS: MAGNESIUM IV 2 GM/50 ML PIGGYBACK IVPB (13:29)
[2025-11-05] MEDS: POTASSIUM BICARB 25 MEQ EFFERVESCENT TAB 50 MEQ PO (13:45)
[2025-11-05 13:54] LABS: Lactate Sepsis 2 Hour 0.9 mmol/L (0.5-1.9)
[2025-11-05] MEDS: NORepinephrine INFUSION 4,000 MCG/250 ML PLAST..BAG 22.79 MCG IVPB (15:15)
[2025-11-05 17:21] LABS: Lactate* 1.4 mmol/L (0.5-1.9)
== END 2025-11-05 17:41 | disposition short-term general hospital (02) ==
PROVIDERS: Family Medicine; Emergency Provider Student in an Organized Health Care Education/Training Program; PCP Family Medicine
DX: A41.51 Sepsis due to Escherichia coli [E. coli] (principal); N13.9 Obstructive and reflux uropathy, unspecified; N12 Tubulo-interstitial nephritis, not specified as acute or chronic; R91.8 Other nonspecific abnormal finding of lung field; E83.42 Hypomagnesemia; E87.1 Hypo-osmolality and hyponatremia; E87.6 Hypokalemia; F17.210 Nicotine dependence, cigarettes, uncomplicated; Z87.442 Personal history of urinary calculi
CPT/HCPCS: 36415; 71045; 74177; 80053; 81001; 81003; 83605; 83690; 83735; 84145; 85025; 86140; 87040; 87086; 87631; 93005; 94761; 96361; 96365; 96367; 96368; 99285; 99291; 99292; A9270; J0696; J1885; J2405; J3475; J7030; Q9967

== ENCOUNTER 2025-11-05 17:11 | Outpatient (CLI) | payer OTHER, SELFPAY | END 2025-11-05 17:12 | disposition home or self-care (01) | LOC: AMB 11-09 21:51 | PROVIDERS: PCP Family Medicine; Visit Provider Student in an Organized Health Care Education/Training Program | DX: A41.9 Sepsis, unspecified organism (principal); N13.9 Obstructive and reflux uropathy, unspecified; N12 Tubulo-interstitial nephritis, not specified as acute or chronic; E87.1 Hypo-osmolality and hyponatremia; R91.8 Other nonspecific abnormal finding of lung field; E87.6 Hypokalemia | CPT/HCPCS: A0425; A0434 ==